=== PATIENT | female | born 2000 | race Caucasian/White ===

== ENCOUNTER → 2024-02-28 | Outpatient (CLI) | payer BC, SELFPAY ==
[2024-02-28 15:20] LABS: Absolute Neutrophil Count 5.6 X10^3/uL (2.0-7.7); Basophil# 0.03 X10^3/uL; Basophil% 0.4 % (0-1); Eosinophil# 0.08 X10^3/uL; Hematocrit 37.6 % (37-47); Hemoglobin 12.8 g/dL (12.0-15.0); Lymphocyte % 26.1 % (19-41); Mean Corpuscular Hgb 28.1 pg (27.0-32.0); Mean Corpuscular Volume 82.6 fL (81-99); Mean Platelet Vol. 9.3 fl (6.2-12.0); Monocyte# 0.43 X10^3/uL; Monocyte% 5.1 % (0-10); NRBC Flagged by Analyzer 0 % (0-5); Neutrophil # 5.64 X10^3/uL (2.7-7.7); Neutrophil % 66.9 % (47-70); Platelet Count 244 K/mm3 (150-450); RBC Distribution Width CV 12.4 % (11.6-14.6); RBC Distribution Width SD 37.1 fl (35.1-43.9); Red Blood Count 4.55 M/mm3 (4.2-5.4); White Blood Count 8.4 K/mm3 (4.4-11.0)
[2024-02-28 17:10] LABS: ALB/GLOB Ratio 1.1 RATIO (0.9-2.4); AST(SGOT) 47 U/L (15-37); Alanine Aminotransfer ALT/SGPT 89 U/L (13-56); Albumin, Serum 4.1 g/dL (3.2-5.0); Alkaline Phosphatase 82 U/L (45-117); Anion Gap 7 (5-15); BUN 19 mg/dL (7-18); Calcium,Total 10.2 mg/dL (8.5-10.1); Chloride 104 mmol/L (98-107); Cholesterol 177 mg/dL (200); EST Glomerular Filtration Rate 82 mL/min (>60); Est Glom Filt Rate - Afr Amer 99 mL/min (>60); Globulin 3.9 g/dL (2.2-4.2); Glucose 113 mg/dL (74-106); High Density Lipoprotein 36 mg/dL; Potassium 4.1 mmol/L (3.5-5.1); Sodium Level 137 mmol/L (136-145); T4 Free Direct 0.78 ng/dL (0.76-1.46); Triglycerides 339 mg/dL; Very Low Density Lipoprotein 68 mg/dL (5-40)
== END | disposition home or self-care (01) ==
LOC: BIMLAB 14:20
PROVIDERS: PCP Internal Medicine; Referring Provider Internal Medicine; Visit Provider Internal Medicine
DX: K21.9 Gastro-esophageal reflux disease without esophagitis (principal); Z13.6 Encounter for screening for cardiovascular disorders; Z13.29 Encounter for screening for other suspected endocrine disorder
CPT/HCPCS: 36415; 80053; 80061; 84439; 84443; 85025

== ENCOUNTER → 2024-05-26 | Outpatient (CLI) | payer BC, SELFPAY ==
[2024-05-26 12:53] LABS: ALB/GLOB Ratio 1.2 RATIO (0.9-2.4); AST(SGOT) 22 U/L (15-37); Alanine Aminotransfer ALT/SGPT 39 U/L (13-56); Albumin, Serum 4.5 g/dL (3.2-5.0); Alkaline Phosphatase 61 U/L (45-117); Anion Gap 6 (5-15); BUN 15 mg/dL (7-18); BUN/Creat Ratio 16.2 RATIO (10-20); Calcium,Total 9.6 mg/dL (8.5-10.1); Chloride 111 mmol/L (98-107); Cholesterol 172 mg/dL (200); Creatinine, Serum 0.92 mg/dL (0.55-1.02); EST Glomerular Filtration Rate 80 mL/min (>60); Est Glom Filt Rate - Afr Amer 96 mL/min (>60); Globulin 3.7 g/dL (2.2-4.2); Glucose 111 mg/dL (74-106); High Density Lipoprotein 36 mg/dL; Protein, Total 8.2 g/dL (6.4-8.2); Sodium Level 140 mmol/L (136-145); Triglycerides 142 mg/dL; Very Low Density Lipoprotein 28 mg/dL (5-40)
== END | disposition home or self-care (01) ==
PROVIDERS: PCP Internal Medicine; Referring Provider Internal Medicine; Visit Provider Internal Medicine
DX: E78.5 Hyperlipidemia, unspecified (principal); R74.8 Abnormal levels of other serum enzymes
CPT/HCPCS: 36415; 80053; 80061

== ENCOUNTER 2024-06-28 21:51 | Emergency (ER) | payer BC, SELFPAY ==
[2024-06-28 21:51] VITALS: BP 160/94; PULSE 99; RESP 12; TEMP 36.9; O2SAT 98; BMI 31.5
[2024-06-28] MEDS: Lidocaine 2% Viscous15 ML UDC 15 ML PO (22:40)
--- NOTE | 2024-06-28 22:40 | RAD_ITS ---
EXAM: XR SOFT TISSUE NECK CLINICAL INDICATION: pain TECHNIQUE: Frontal and lateral views of the soft tissues of the neck. COMPARISON: No relevant prior studies available. FINDINGS: AIRWAY: Unremarkable. Grossly patent. SOFT TISSUES: Unremarkable. No radiopaque foreign body. No pathologic thickening or enlargement of the epiglottis. RAD/Neck for Soft Tissue IMPRESSION: Negative neck x-rays. Electronically Signed: Clinton Price MD at 23:04 EST ,
[2024-06-28 22:54] VITALS: BP 160/94; PULSE 99; RESP 12; TEMP 36.9; O2SAT 98
--- NOTE | 2024-06-28 23:58 | EDS_ITS ---
HPI History of Present Illness Chief Complaint: Sore Throat Informant: patient and spouse/S.O. Narrative Narrative: Patient is a 23-year-old female with past medical history of GERD. She states that she her daughter and significant other all had nausea vomiting and diarrhea roughly 1 week ago. She states symptoms lasted for 1 to 2 days and then resolved. She states her daughter and her significant other have since improved. However she has had mild congestion and sore throat and hoarse voice. Symptoms or not resolving and secondary to this she comes in for evaluation [facility] Medical History (Updated 06/29/24 @ 00:[address] Kirby Child, DO) Blood glucose abnormal Hyperlipidemia Elevated liver enzymes Menstrual irregularity Screening for thyroid disorder Screening for cardiovascular condition GERD (gastroesophageal reflux disease) Preeclampsia Head ache Seasonal allergies Home Medications ?Medication ?Instructions ?Recorded ?Last Taken ?Type magnesium 200 mg tablet 420 mg PO QDAY 02/28/24 Unknown History kekzbkgu-xmr-zrld-FA-Ca carb-vit K 1 tab PO QDAY 02/28/24 Unknown History 18 mg iron-400 mcg-500 mg tablet omega-3 fatty acids 1,000 mg 2,500 mg PO QDAY 02/28/24 Unknown History capsule ondansetron 4 mg disintegrating 4 mg PO Q8H PRN nausea and 02/28/24 Unknown Rx tablet vomiting #60 tabs Allergy/AdvReac Type Severity Reaction Status Date / Time dexamethasone (From Decadron) Allergy Intermediate syncope Verified 06/28/24 21:52 metoclopramide (From Reglan) Allergy Intermediate anxious Verified 06/28/24 21:52 Family History Grandfather Diabetes Grandmother Diabetes Grandmother Myocardial infarction, Onset Age: 50 Surgical History History of ear surgery S/P ACL repair History of tonsillectomy Social History household members: spouse and children housing: house 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 Status: Never smoker alcohol intake: never substance use type: does not use what type of physical activity do you participate in: walking and weight training frequency: 3-4 times per week seatbelt use: always do you feel safe at home: Yes ROS ROS ED Constitutional Constitutional ED: Denies chills or fever(s) Eyes Eyes: Denies change in vision ENT ENT ED: Reports sore throat Cardiovascular Cardiovascular: Denies chest pain Respiratory/Chest Respiratory/Chest: Denies cough or dyspnea Gastrointestinal Gastrointestinal: Reports nausea; Denies abdominal pain, diarrhea or vomiting Genitourinary Genitourinary ED: Denies dysuria Musculoskeletal Musculoskeletal: Denies neck pain Integumentary Denies rash Neurologic Neurologic: Denies headache(s) Hematologic/Lymphatic Hematologic/Lymphatic: Denies easy bleeding or easy bruising Allergic/Immunologic Allergic/Immunologic ED: Denies mouth swelling or tongue swelling EXAM Physical Exam Const Vital Signs: 06/28/24 21:51 06/28/24 22:54 06/29/24 00:00 Temperature 98.4 F 98.4 F 98.4 F Temperature Source Oral Oral Pulse Rate 99 99 99 Respiratory Rate 12 12 14 Blood Pressure 160/94 H 160/94 H 122/57 H Blood Pressure Mean 116 116 78 Pulse Ox 98 98 98 Oxygen Delivery Method Room Air Room Air Positive well nourished and well developed General Appearance ED: well developed; Negative for pallor HEENT Reports moist mucous membranes HEENT Narrative: There is cobblestoning noted in the posterior pharynx consistent with sinus drainage Scattered/few herpangina lesions are noted across the posterior pharynx No hard palate petechiae. No trismus. No change in voice. No difficulty with secretions Eyes PERRL and EOMs intact bilaterally General Eye ED: Negative for scleral icterus Neck supple Neck Narrative: No brawny edema in the submental space to suggest Deric angina Positive anterior cervical lymphadenopathy noted Resp normal respiratory effort and clear to auscultation bilaterally Cardio regular rate and regular rhythm Extremity normal to inspection Neuro oriented x3, CN's II-XII intact bilaterally and no sensory deficits noted Sensorium / Orientation: alert Motor Exam: strength 5/5 throughout Psych mental status grossly normal Skin no rashes or lesions noted General Skin Exam: Negative for jaundice or pallor MDM MDM MDM Narrative Medical decision making narrative: Patient arrived to ER hypertensive but otherwise with stable vitals. She reported a sore throat after recent stomach infection. There is concern that her symptoms are related to COVID influenza or RSV versus strep pharyngitis. By exam she does not have signs of peritonsillar abscess. There is no brawny edema to suggest Deric's angina. In order to ensure she does not have epiglottitis a soft tissue neck x-ray was obtained. I do not feel the need for a CT scan as patient states she is able to swallow it is just painful to do so. Patient is x-ray revealed no acute findings and viral swab and strep swab are negative indicating patient has a viral pharyngitis. She is not showing septic changes by vital signs she does not have airway compromise and there is no signs of abscess formation so there is no need for further workup and she is otherwise safe for discharge with symptomatic care History & Record Review Discussion w/independent historian: Patient and Significant other Radiography Diagnostic Testing: Clinical Impression(s) from Imaging Studies Soft Tissue Neck X-Ray 06/28/24 22:40 IMPRESSION: Negative neck x-rays. Electronically Signed: Clinton Price MD at 23:04 EST Reading Location ID and State: [facility] / [place] Tel , Service support , Soft tissue neck x-ray as interpreted by the emergency medicine physician reveals no free air obstruction or signs of epiglottitis. Discharge Plan Triage Chief Complaint: Sore Throat ED Provider: Kirby Child Dx/Rx/DC Orders Clinical Impression: Viral pharyngitis, GERD (gastroesophageal reflux disease) Instructions: ED Pharyngitis, Viral, ED Viral Syndrome (Adult) Prescriptions: No Action to-uy-xmeo-FA-Ca carb-vit K 18 mg iron-400 mcg-500 mg tablet 1 tab PO QDAY omega-3 fatty acids 1,000 mg capsule 2,500 mg PO QDAY magnesium 200 mg tablet 420 mg PO QDAY ondansetron 4 mg tablet,disintegrating 4 mg PO Q8H PRN (Reason: nausea and vomiting) Qty: 60 1RF Primary Care Provider: Hector Gorman Referrals: Hector Gorman MD [Primary Care Provider] - Activity Restrictions/Additional Instructions: Your tests for COVID influenza RSV and strep were negative. Your x-ray shows no signs of swelling or epiglottitis. Please continue with Tylenol and/or Motrin as well as salt water gargles to help reduce symptoms and return to the ER should you have any further Print Language: Malagasy Disposition Disposition: Home, Self Care Discharge Date/Time: 06/29/24 00:03
[2024-06-29] VITALS: BP 122/57; PULSE 99; RESP 14; TEMP 36.9; O2SAT 98
== END 2024-06-29 00:03 | disposition home or self-care (01) ==
PROVIDERS: Emergency Provider Emergency Medicine; PCP Internal Medicine; Visit Provider Emergency Medicine
DX: J02.9 Acute pharyngitis, unspecified (principal); B08.5 Enteroviral vesicular pharyngitis; E78.5 Hyperlipidemia, unspecified; K21.9 Gastro-esophageal reflux disease without esophagitis; R11.0 Nausea; Z79.899 Other long term (current) drug therapy
CPT/HCPCS: 70360; 87631; 87651; 99282

== ENCOUNTER 2025-03-11 12:41 | Outpatient (CLI) | payer BC, SELFPAY ==
[2025-03-11 12:58] VITALS: BMI 35.9
[2025-03-11 13:12] VITALS: BP 120/62; PULSE 97
[2025-03-11 13:25] LABS: Hematocrit 31.6 % (37-47); Hemoglobin 11.5 g/dL (12.0-15.0); Mean Corp Hgb Conc 36.4 g/dL (32-36); Mean Corpuscular Volume 84.3 fL (81-99); Mean Platelet Vol. 10.6 fl (6.2-12.0); Platelet Count 161 K/mm3 (150-450); RBC Distribution Width CV 13.3 % (11.6-14.6); RBC Distribution Width SD 40.9 fl (35.1-43.9); Red Blood Count 3.75 M/mm3 (4.2-5.4); White Blood Count 10.6 K/mm3 (4.4-11.0)
[2025-03-11 13:27] VITALS: BP 124/67; PULSE 96
[2025-03-11 13:42] VITALS: BP 127/71; PULSE 96
[2025-03-11 13:54] LABS: AST(SGOT) 24 U/L (<=31); Alanine Aminotransfer ALT/SGPT 17 U/L (<=34); Estimated Creatinine Clearance 121.75 ml/min (50-250); Uric Acid 6.7 mg/dL (2.6-6.0)
[2025-03-11 13:55] LABS: Creatinine, Urine (random) 71.20 mg/dL (28.00-217.00); Protein, Urine (Random) 10.0 mg/dL (0.0-12.0); Protein:Creat Ratio 140 mg/g CRE (0-200)
[2025-03-11 13:57] VITALS: BP 117/64; PULSE 96
[2025-03-11 14:12] VITALS: BP 122/70; PULSE 98
--- NOTE | 2025-03-11 18:26 | OB.TRI.NOTE ---
HPI - General General Date of Admission: 03/11/25 Date of Service: 03/11/25 Chief Complaint: elevated bp HPI Narrative MARCELO LOZA, is a 24 F who presents Maternal Data Information Final ANDERSON: [birth year] Gestational age: 38 5/7 [facility] Medical History (Updated 09/07/24 @ 15:[address] Hector Gorman MD) TMJ arthralgia Left ear pain Blood glucose abnormal Hyperlipidemia Elevated liver enzymes Menstrual irregularity Screening for thyroid disorder Screening for cardiovascular condition GERD (gastroesophageal reflux disease) Preeclampsia Head ache Seasonal allergies Home Medications ?Medication ?Instructions ?Recorded ?Last Taken ?Type btbkhcbc-qeu-uzpz-FA-Ca carb-vit K 1 tab PO QDAY 02/28/24 03/10/25 08:00 History 18 mg iron-400 mcg-500 mg tablet 1 TAB aspirin 81 mg tablet,delayed 81 mg PO QDAY 09/07/24 03/10/25 21:00 History release (Adult Low Dose Aspirin) 81 mg famotidine 20 mg tablet (Pepcid) 20 mg PO DAILY 03/11/25 03/10/25 21:00 History 20 mg sertraline 25 mg tablet (Zoloft) 25 mg PO DAILY 03/11/25 03/10/25 21:00 History 25 mg Allergy/AdvReac Type Severity Reaction Status Date / Time dexamethasone (From Decadron) Allergy Intermediate syncope Verified 03/11/25 13:03 metoclopramide (From Reglan) Allergy Intermediate anxious Verified 03/11/25 13:03 Family History Grandfather Diabetes Grandmother Diabetes Grandmother Myocardial infarction, Onset Age: 50 Surgical History History of ear surgery S/P ACL repair History of tonsillectomy Social History household members: spouse and children housing: house 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
--- NOTE | 2025-03-11 18:28 | PCM.HP.OB ---
HPI - General General Date of Admission: 03/11/25 Date of Service: 03/11/25 Chief Complaint: elevated bp HPI Narrative MARCELO LOZA, is a 24 F who presents [facility] Medical History (Updated 09/07/24 @ 15:[address] Hector Gorman MD) TMJ arthralgia Left ear pain Blood glucose abnormal Hyperlipidemia Elevated liver enzymes Menstrual irregularity Screening for thyroid disorder Screening for cardiovascular condition GERD (gastroesophageal reflux disease) Preeclampsia Head ache Seasonal allergies Home Medications ?Medication ?Instructions ?Recorded ?Last Taken ?Type vcoloeit-lcg-muow-FA-Ca carb-vit K 1 tab PO QDAY 02/28/24 03/10/25 08:00 History 18 mg iron-400 mcg-500 mg tablet 1 TAB aspirin 81 mg tablet,delayed 81 mg PO QDAY 09/07/24 03/10/25 21:00 History release (Adult Low Dose Aspirin) 81 mg famotidine 20 mg tablet (Pepcid) 20 mg PO DAILY 03/11/25 03/10/25 21:00 History 20 mg sertraline 25 mg tablet (Zoloft) 25 mg PO DAILY 03/11/25 03/10/25 21:00 History 25 mg Allergy/AdvReac Type Severity Reaction Status Date / Time dexamethasone (From Decadron) Allergy Intermediate syncope Verified 03/11/25 13:03 metoclopramide (From Reglan) Allergy Intermediate anxious Verified 03/11/25 13:03 Family History Grandfather Diabetes Grandmother Diabetes Grandmother Myocardial infarction, Onset Age: 50 Surgical History History of ear surgery S/P ACL repair History of tonsillectomy Social History household members: spouse and children housing: house 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: Never smoker alcohol intake: never substance use type: does not use what type of physical activity do you participate in: walking and weight training frequency: 3-4 times per week seatbelt use: always do you feel safe at home: Yes Vital Signs Vital Signs Vital Signs: 03/11/25 13:12 03/11/25 13:12 03/11/25 13:27 Pulse Rate 97 Blood Pressure 120/62 124/67 H BP Systolic 120 124 BP Diastolic 62 67 03/11/25 13:27 03/11/25 13:42 03/11/25 13:42 Pulse Rate 96 96 Blood Pressure 127/71 H BP Systolic 127 BP Diastolic 71 03/11/25 13:57 03/11/25 13:57 03/11/25 14:12 Pulse Rate 96 Blood Pressure 117/64 122/70 H BP Systolic 117 122 BP Diastolic 64 70 03/11/25 14:12 Pulse Rate 98 Blood Pressure BP Systolic BP Diastolic Weight Weight: 86.1 kg Body Mass Index (BMI) 35.9 Labs Labs Labs: Hct, (37-47) 31.6 % L Hgb, (12.0-15.0) 11.5 g/dL L
== END 2025-03-11 14:35 | disposition home or self-care (01) ==
LOC: WPOUT 12:54 → WP 12:55
PROVIDERS: PCP Internal Medicine; Referring Provider Obstetrics & Gynecology; Visit Provider Obstetrics & Gynecology
DX: O26.893 Other specified pregnancy related conditions, third trimester (principal); O09.93 Supervision of high risk pregnancy, unspecified, third trimester; R03.0 Elevated blood-pressure reading, without diagnosis of hypertension; Z3A.38 38 weeks gestation of pregnancy; Z79.82 Long term (current) use of aspirin; Z79.899 Other long term (current) drug therapy
CPT/HCPCS: 36415; 59025; 59050; 82565; 82570; 84156; 84450; 84460; 84550; 85027; 99221; G0378

== ENCOUNTER 2025-03-15 07:14 | Inpatient (IN) | payer BC, SELFPAY ==
[2025-03-15] VITALS (50 sets, daily range): BP systolic 100–138; BP diastolic 53–85; PULSE 68–112; RESP 16; TEMP 36.1–36.8; O2SAT 98–100; BMI 36.1
--- OUTSIDE RECORDS SUMMARY | 2025-03-15 07:14 | XMS RPT_ITS | CCD ---
Author Organization [facility] ion [facility] Care Team Providers Care [employer] Programs Director Name Role Phone Conner Escalera Unavailable Unavailable Unavailable Unavailable SAI DELGADO Unavailable Unavailable SAI DELGADO Unavailable Unavailable NO PRIMARY CARE, Unavailable Unavailable KARIS WAGGONER Unavailable Unavailable KARIS WAGGONER Unavailable Unavailable Ricardo Dewitt Primary Care Provider [phone] CLINTON RIDER Attending Unavailable NOT ON FILE, DOCTOR Referring Unavailable CONNER ESCALERA Primary Care Unavailable Conner Escalera Primary Care Provider Liborio Tan Primary Care Provider Everardo Chan Unavailable Liborio Tan MD Primary Care Provider Everardo Chan MD Unavailable DAVIDA URRUTIA Attending UnavailYULIANA Salinas Referring Unavailable YVONNE, LUTHERAN SEunice Primary Care Unavailable Liborio Tan MD Primary Care Provider Liborio Tan MD Primary Care Provider Conner Escalera MD Primary Care Provider [phone] KASSY BECERRIL Admitting Unavailable KASSY BECERRIL Attending Unavailable KASSY BECERRIL Referring Unavailable AWASTY, CONNER R Primary Care Unavailable MARIZA KHANNA Attending Unavailable MARIZA KHANNA Referring Unavailable AWASTY, CONNER R Primary Care Unavailable YVONNE, LUTHERAN BYRON Primary Care Unavailable SHELLY SANDY Attending Unavailable BALL, SHELLY MACK Attending Unavailable YVONNE, LUTHERAN BYRON Primary Care Unavailable EM CHENEY Admitting Unavailable EM CHENEY Attending Unavailable YVONNE, LUTHERAN BYRON Primary Care Unavailable YVONNE, LUTHERAN BYRON Primary Care Unavailable MAURICE RHOADES Attending Unavailable YVONNE, LUTHERAN BYRON Primary Care Unavailable EDWIN JAFFE Attending Unavailable YVONNE, LUTHERAN BYRON Primary Care Unavailable YVONNE, LUTHERAN BYRON Primary Care Unavailable YVONNE, LUTHERAN BYRON Admitting Unavailable YVONNE, LUTHERAN BYRON Primary Care Unavailable HEAVENLY HELTON Attending Unavaila ble SALVADOR KONG Admitting Unavailable SALVADOR KONG Attending Unavailable YVONNE, LUTHERAN BYRON Primary Care Unavailable SALVADOR KONG Admitting Unavailable SALVADOR KONG Attending Unavailable YVONNE, LUTHERAN BYRON Primary Care Unavailable EDWIN JAFFE Attending Unavailable YVONNE, LUTHERAN BYRON Primary Care Unavailable PHYSICIAN, NOT RECORDED Primary Care Physician U navailable SHORT CAR BODY DESIGNER-DATA MANAGEMENT ENGINEER, AVALON Attending Unavail able PHYSICIAN, NOT RECORDED Primary Care Unavaila ble SHORT CAR BODY DESIGNER-DATA MANAGEMENT ENGINEER, AVALON Attending Unavail able PHYSICIAN, NOT RECORDED Primary Care Unavaila ble SHORT CAR BODY DESIGNER-[facility], AVALON Attending Unavail able PHYSICIAN, NOT RECORDED Primary Care Unavaila ble Unavailable Primary Care Provider Unavailabl e SHORT CAR BODY DESIGNER-[facility] Attending Unavail able PHYSICIAN, NOT RECORDED Primary Care Unavaila ble SHORT CAR BODY DESIGNER-DATA MANAGEMENT ENGINEER, AVALON Attending Unavail able PHYSICIAN, NOT RECORDED Primary Care Unavaila ble PHYSICIAN, NOT RECORDED Primary Care Unavaila ble SHORT CAR BODY DESIGNER-DATA MANAGEMENT ENGINEER AVALON Attending Unavail able SOPHY DENNEY Attending Unavailable MARCIA VALDERRAMA Referring Unavailable MARCIA VALDERRAMA Attending Unavailable HAURY, MELITA Referring Unavailable HAURY, MELITA Referring Unavailable SALLIE, MARY Referring Unavailable SALLIE, MARY Referring Unavailable HAURY MELITA Attending Unavailable MARCIA VALDERRAMA Attending Unavailable HAURY, MELITA Referring Unavailable SHELLY GUZMAN Attending Unavailable SOPHY DENNEY Attending Unavailable CASSY CONWAY Attending Unavail able DELANEY CRAFT Attending Unavailable DYLLAN HENRY Attending Unavailable HAURY, MELITA Referring Unavailable DYLLAN HENRY Attending Unavailable HAURY, MELITA Referring Unavailable CASSY CONWAY Attending Unavail able HAURY, MELITA Referring Unavailable HAURY, MELITA Referring Unavailable SOPHY DENNEY Attending Unavailable MARY RIZO Attending Unavailable MARCIA VALDERRAMA Attending Unavailable Vita ROCHE, Dr. Young Primary Care Physician Elaine ROCHE, Dr. Leggett Attending Physician Elaine ROCHE, Dr. Leggett Referring Provider Oleghe, Efewongbe Primary Care Unavailable Shelly Guzman Attending Unavailable Shelly Guzman Admitting Unavailable Oleghe, Efewongbe Referring Unavailable Oleghe, Efewongbe Attending Unavailable Oleghe, Efewongbe Primary Care Unavailable Oleghe, Efewongbe Primary Care Unavailable Oleghe, Efewongbe Referring Unavailable Oleghe, Efewongbe Attending Unavailable Oleghe, Efewongbe Primary Care Unavailable Dyllan Henry Referring Unavailable Dyllan Henry Attending Unavailable Oleghe, Efewongbe Referring Unavailable Oleghe, Efewongbe Attending Unavailable Oleghe, Efewongbe Primary Care Unavailable Kirby Child Attending Unavailable Oleghe, Efewongbe Primary Care Unavailable Allergies Allergy Classification Reported Allergen(s) Allergy Type Date of Onset Reaction(s) Facility Ondansetron (2 sources) Ondansetron; Translations: [ONDANSETRON HCL] Drug Allergy 7 Anxiety [facility] (20 sources) ondansetron; Translations: [ONDANSETRON HCL] Drug Allergy 7 Anxiety, Mental Status Change [facility] Work Phone: (5 sources) Metoclopramide; Translations: [METOCLOPRAMIDE HCL] Drug Allergy 2 Anxiety [facility] (20 sources) Dexamethasone; Translations: [dexamethasone] Drug Allergy [address] [facility] Comment on above: vomitting (20 sources) Metoclopramide; Translations: [metoclopramide] Drug Allergy 2 Itching, Mental Status Change [facility] (2 sources) Dexamethasone / sodium phosphate; Translations: [DEXAMETHASONE SODIUM PHOSPHATE] Drug Allergy 3 [facility] (1 source) Dexamethasone Drug Allergy 5 [facility] (1 source) Metoclopramide Drug Allergy 5 [facility] Medications Current Medications Medication Drug Class(es) Dates Sig (Normalized) Sig (Original) 60 actuat albuterol 0.09 mg/actuat metered dose inhaler (13 sources) beta2-Adrenergic Agonist Start: 01-28-2017 End: 01-28-2018 albuterol (PROAIR HFA) 90 mcg/actuation inhaler Indications: Mild intermittent asthma without complication Inhale 2 (two) puffs 2 (two) times a day as needed. 1 Inhaler 2 01/28/2017 01/28/2018 Active Start: 05-24-2016 take 2 puff(s) by in halation every six hours albuterol 90 mcg/actuation inhaler Inhale 2 (two) puffs every 6 (six) hours . 0 05/24/2016 Active Start: 05-24-2016 Albuterol Sulf ate (PROAIR HFA IN) take 2 puffs by inhalation.. At least 15 minutes before exertion 0 05/24/2016 Active Start: 05-24-2016 take 2 puff(s) by in halation every six hours albuterol 90 mcg/actuation inhaler Inhale 2 puffs every 6 (six) hours . 0 05/24/2016 Active End: 01-28-2017 take 2 puff(s) by inhalation twice daily as needed ALBUTEROL SULFATE (PROAIR HFA INHL) Inhale 2 puffs 2 (two) times a day as needed. 01/28/2017 Discontinued albuterol 90 mcg/actuation inhaler (3 sources) Start: 05-24-2016 take 2 puff(s) by inhalation every six hours albuterol 90 mcg/actuation inhaler Inhale 2 puffs every 6 (six) hours . 0 05/24/2016 Active aspirin 81 mg delayed release oral tablet (20 sources) Platelet Aggregation Inhibitor, Nonsteroidal Anti-inflammatory Drug Start: 07-27-2024 Aspirin (Adult Low Dose Aspirin) 81 mg tablet,delayed release (DR/EC) Active 81 mg PO daily September 07, 2024 12:00am Complies with drug therapy aspirin 81 mg ch ewable tablet Chew and Swallow 1 (one) tablet (81 mg total) daily . 0 Active cetirizine hydrochloride 10 mg oral tablet (1 source) Histamine-1 Receptor Antagonist Start: 05-24-2016 cetirizine 10 MG Tab take 10 mg by mouth daily.. 0 05/24/2016 Active cholecalciferol 0.125 mg oral tablet (8 sources) Vitamin D Start: 08-22-2018 take 1 tablet by mouth once daily cholecalciferol, vitamin D3, (VITAMIN D3) 5,000 unit Tab tablet Indications: Vitamin D deficiency Take 1 (one) tablet (5,000 Units total) by mouth daily Take one tablet daily after completing 8 weeks of 50,000 units Vitamin D weekly . 90 tablet 0 08/22/2018 Active drospirenone / Ethinyl Estradiol (5 sources) Progestin, Estrogen take 1 tablet by mouth once daily, then take 3 tablets by mouth once drospirenone-eth inyl estradioL (KAREN) 3-0.03 mg per tablet Take 1 (one) tablet by mouth daily . 0 Active take 1 tablet by ryan th once daily, then take 3 tablets by mouth once drospirenone-ethinyl estradioL (KAREN) 3-0.03 mg per tablet Take 1 tablet by mouth daily . 0 Active ergocalciferol 1.25 mg oral capsule (8 sources) Provitamin D2 Compound Start: 08-22-2018 take 1 capsule by mouth every week ergocalciferol (ERGOCALCIFEROL) 50,000 unit capsule Indications: Vitamin D deficiency Take 1 (one) capsule (50,000 Units total) by mouth once a week X 8 weeks . 8 capsule 0 08/22/2018 Active famotidine 20 mg oral tablet (17 sources) Histamine-2 Receptor Antagonist Start: 03-11-2025 take 1 tablet by mouth once daily Famotidine (Pepcid) 20 mg tablet Active 20 mg PO DAILY March 11, 2025 12:00am Complies with drug therapy Start: 10-21-2024 End: 02-17-2025 take 1 tablet by mouth twice daily famotidine (PEPCID) 20 mg tablet Take 1 tablet by mouth two times a day. 60 tablet 1 02/17/2025 Active Start: 06-25-2022 End: 07-25-2022 take 1 tablet by mouth twice daily famotidine (PEPCID) 20 MG tablet Take 1 (one) tablet (20 mg total) by mouth 2 (two) times a day . 60 tablet 0 06/25/2022 07/25/2022 Active Start: 07-01-2020 End: 07-01-2020 famotidine (PEPCID) injectio n 20 mg fluticasone propionate 0.05 mg/actuat metered dose nasal spray (16 sources) Corticosteroid Start: 01-28-2017 End: 03-08-2017 take 2 spray(s) nasal route once daily fluticasone (FLONASE) 50 mcg/actuation nasal spray Indications: Mild intermittent asthma without complication Instill 2 (two) sprays into each nostril daily. 16 g 2 03/08/2017 Active End: 01-28-2017 take 2 spray(s) nasal route once daily fluticasone (FLONASE) 50 mcg/actuation nasal spray Instill 2 sprays into each nostril daily. 01/28/2017 Discontinued ibuprofen 600 mg oral tablet (1 source) Nonsteroidal Anti-inflammatory Drug Start: 05-24-2016 take 1 tablet by mouth at mealtime ibuprofen 600 MG Tab take 600 mg by mouth 3 times daily.. With food 0 05/24/2016 Active loratadine 10 mg oral tablet (16 sources) Start: 01-28-2017 End: 03-08-2017 take 1 tablet by mouth once daily loratadine (CLARITIN) 10 mg tablet Indications: Mild intermittent asthma without complication Take 1 (one) tablet (10 mg total) by mouth daily. 90 tablet 0 03/08/2017 Active Misc. Devices (WRIST BRACE) Misc (1 source) Start: 05-05-2015 Misc. Devices (WRIST BRACE) Misc Apply 1 each by misc. (non-drug; comb) route every bedtime 0 05/05/2015 Active Eh-Zt-Xsyg-Fa-Ca Carb-Vit K 18 mg iron-400 mcg-500 mg tablet (1 source) Start: 02-28-2024 Xe-Vw-Zwyc-Fa-Ca Carb-Vit K 18 mg iron-400 mcg-500 mg tablet Active 1 {tbl} PO daily February 28, 2024 12:00am Complies with drug therapy vitamin (2 sources) Start: 10-03-2023 vitamin vitamin, 0 Refill(s), 75 Start Date: 10/03/23 Status: Ordered MV-Min-Fe Fum-FA-DHA ( 1 PO) (1 source) MV-Min-Fe Fum-FA-DHA ( 1 PO) Take by mouth. 0 Active no115/iron/folic acid ( 19 ORAL) (20 sources) no115/iron/folic acid ( 19 ORAL) Take by mouth once daily. Active Vitamin 27 mg iron- 0.8 mg Tab (1 source) Start: 07-04-2022 Vitamin 27 mg iron- 0.8 mg Tab sertraline 25 mg oral tablet (17 sources) Serotonin Reuptake Inhibitor Start: 03-11-2025 take 1 tablet by mouth once daily Sertraline (Zoloft) 25 mg tablet Active 25 mg PO DAILY March 11, 2025 12:00am Complies with drug therapy Start: 11-19-2024 take 1 tablet by ryan th once daily sertraline (ZOLOFT) 25 mg tablet Indications: Anxiety Take 1 tablet by mouth once daily. 90 tablet 1 11/19/2024 Active Start: 10-03-2023 Zoloft 50 mg o ral tablet Dose : 50 mg = 1 tab(s), Oral, qDay, # 30 tab(s), 11 Refill(s), Pharmacy: [id number], Dysthymic disorder Mood changes, 158, cm, 10/03/23 14:07:00 EDT, Height, kg, 10/03/23 14:07:00 EDT, Dosing Weight Start Date: 10/03/23 Status: Ordered Start: 07-01-2023 sertraline 50 mg oral tablet Dose : 50 mg = 1 tab(s), Oral, qDay, # 90 tab(s), 0 Refill(s) Start Date: 07/01/23 Status: Ordered take 1 tablet by ryan th once daily sertraline 50 MG tablet Take 50 mg by mouth daily. 0 Active sodium chloride 0.111 meq/ml nasal spray (4 sources) Start: 05-11-2022 End: 05-11-2023 sodium chloride (Saline Mist ) 0.65 % nasal spray Indications: rhinitis Instill 1 (one) spray into each nostril as needed for congestion . 15 mL 12 05/11/2022 05/11/2023 Active Start: 07-01-2020 End: 07-01-2020 sodium chloride 0.9% (NS) joselin carlie 1,000 mL Start: 07-01-2020 End: 07-01-2020 sodium chloride (PF) (NS) fl ush 5 mL sodium chloride-aloe vera Gel (2 sources) Start: 05-11-2022 apply 14.1 g nasal route twice daily sodium chloride-aloe vera Gel Indications: Epistaxis Apply topically 2 (two) times a day To the inside of both nostrils . 14.1 g 6 05/11/2022 Active Spacer/Aero Chamber Mouthpiece Misc (1 source) Start: 05-31-2014 Spacer/Aero Chamber Mouthpiece Misc Use as directed with inhaler 0 05/31/2014 Active tiZANidine 4 mg oral tablet (5 sources) Central alpha-2 Adrenergic Agonist Start: 10-18-2020 take 1 tablet by mouth once daily at bedtime tiZANidine (Zanaflex) 4 MG tablet Indications: Migraine with aura, not intractable, without status migrainosus Take 1/2 to 1 tablet po qhs. . 30 tablet 3 10/18/2020 Active Completed/Discontinued Medications Medication Drug Class(es) Dates Sig (Normalized) Sig (Original) acetaminophen 500 mg oral tablet (1 source) Start: 05-29-2022 End: 05-29-2022 take 1 tablet by mouth every four hours as needed acetaminophen (TYLENOL) tablet 1,000 mg calcium carbonate 500 mg chewable tablet (1 source) Start: 05-29-2022 End: 05-29-2022 calcium carbonate (TUMS) tablet 1,000 mg Start: 05-29-2022 End: 05-29-2022 calcium carbonate (TUMS) tab let 1,000 mg diphenhydrAMINE (1 source) Histamine-1 Receptor Antagonist Start: 07-01-2020 End: 07-01-2020 diphenhydrAMINE (BENADRYL) injection 12.5 mg Magnesium (2 sources) Start: 02-28-2024 End: 09-07-2024 Magnesium 200 mg tablet Discontinued 420 mg PO daily February 28, 2024 1:48pm September 07, 2024 2:45pm Start: 02-28-2024 End: 02-28-2024 take 1 tablet by mouth once daily Magnesium 200 mg tablet Discontinued 200 mg PO daily February 28, 2024 12:00am February 28, 2024 1:48pm 2 ml metoclopramide 5 mg/ml injection (1 source) Dopamine-2 Receptor Antagonist Start: 07-01-2020 End: 07-01-2020 metoclopramide (REGLAN) injection 10 mg metroNIDAZOLE 0.0075 mg/mg vaginal gel (5 sources) Nitroimidazole Antimicrobial Start: 07-20-2024 End: 07-27-2024 metroNIDAZOLE (METROGEL VAGINAL) 0.75 % (37.5mg/5 gram) Vaginal Gel Indications: Bacterial vaginosis Use 1 Applicatorful vaginally daily at bedtime for 5 days. 70 g 07/20/2024 07/27/2024 Discontinued Start: 07-20-2024 End: 07-20-2024 metroNIDAZOLE (METROGEL VAGI NAL) 0.75 % (37.5mg/5 gram) Vaginal Gel Indications: Bacterial vaginosis Use 1 Applicatorful vaginally two times a day for 5 days. 70 g 07/20/2024 07/20/2024 Discontinued Start: 07-20-2024 End: 07-20-2024 take 1 tablet by mouth twice daily metroNIDAZOLE (FLAGYL) 500 mg tablet Indications: Bacterial vaginosis Take 1 tablet by mouth two times a day for 7 days. 14 tablet 07/20/2024 07/20/2024 Discontinued Start: 04-13-2024 End: 04-20-2024 metroNIDAZOLE 500 mg oral ta blet Dose : 500 mg = 1 tab(s), Oral, BID, X 7 day(s), # 14 tab(s), 0 Refill(s), 04/20/24 2:19:00 PM EDT, Pharmacy: [facility], Bacterial vaginitis, 158, cm, 04/09/24 8:45:00 EDT, Height, 79.5, kg, 04/09/24 8:45:00 EDT, Dosing Weight Start Date: 04/13/24 Stop Date: 04/20/24 Status: Ordered Hastings-3 Fatty Acids 1,000 mg capsule (2 sources) Start: 02-28-2024 End: 09-07-2024 take 1 capsule by mouth once daily Hastings-3 Fatty Acids 1,000 mg capsule Discontinued 2500 mg PO daily February 28, 2024 1:47pm September 07, 2024 2:45pm Start: 02-28-2024 End: 02-28-2024 take 1 capsule by mouth once daily Hastings-3 Fatty Acids 1,000 mg capsule Discontinued 1000 mg PO daily February 28, 2024 12:00am February 28, 2024 1:48pm omeprazole 40 mg delayed release oral capsule (2 sources) Proton Pump Inhibitor Start: 02-28-2024 End: 06-28-2024 take 1 capsule by mouth once daily 30 minutes before breakfast Omeprazole 40 mg capsule,delayed release(DR/EC) Discontinued 40 mg PO daily 90 May 27, 2024 6:32pm June 28, 2024 11:17pm 30 minutes before breakfast ondansetron 4 mg disintegrating oral tablet (3 sources) Serotonin-3 Receptor Antagonist Start: 02-28-2024 End: 09-07-2024 take 1 tablet by mouth every eight hours as needed for nausea and vomiting Ondansetron 4 mg tablet,disintegratin g Discontinued 4 mg PO Q8H as needed for nausea and vomiting 60 1 February 28, 2024 12:00am September 07, 2024 2:45pm Start: 03-30-2022 take 1 tablet by ryan th every eight hours as needed ondansetron (ZOFRAN) 8 MG tablet Take 1 (one) tablet (8 mg total) by mouth every 8 (eight) hours as needed . 20 tablet 0 03/30/2022 Active Problems Active Problems Problem Classification Problem Date Documented Date Episodic/Chronic Anxiety disorders (17 sources) Anxiety; Translations: [Anxiety disorder, unspecified] Onset: 11-19-2024 11-19-2024 Chronic Asthma (14 sources) Asthma; Translations: [Unspecified asthma, uncomplicated] Onset: 01-28-2017 01-28-2017 Chronic Disorders of lipid metabolism (2 sources) Hyperlipidemia; Translations: [Hyperlipidemia, unspecified] Onset: 06-25-2024 02-28-2024 Chronic Disorders of teeth and jaw (1 source) Arthralgia of temporomandibular joint; Translations: [Arthralgia of temporomandibular joint, unspecified side] 09-07-2024 Episodic Esophageal disorders (3 sources) Gastro-esophageal reflux disease without esophagitis; Translations: [Gastroesophageal reflux disease] Onset: 06-25-2022 Chronic Essential hypertension (2 sources) Hypertensive disorder Onset: 07-13-2022 Chronic Genitourinary symptoms and ill-defined conditions (3 sources) Unspecified symptoms and signs involving the genitourinary system; Translations: [Dysuria] Onset: 04-09-2024 Episodic Headache; including migraine (6 sources) Migraine with aura; Translations: [Migraine with aura, not intractable, without status migrainosus] Onset: 10-18-2020 Chronic Headache; including migraine (2 sources) Headache; including migraine; Translations: [Headache, unspecified] Onset: 02-01-2022 Immunizations and screening for infectious disease (1 source) Patient encounter status; Translations: [Encounter for screening for infections with a predominantly sexual mode of transmission] 07-27-2024 Episodic Inflammatory diseases of female pelvic organs (3 sources) Acute vaginitis; Translations: [Bacterial vaginosis] Onset: 04-09-2024 Episodic Intracranial injury (1 source) Concussion with less than 1 hour loss of consciousness; Translations: [Concussion with loss of consciousness of 30 minutes or less, initial encounter] Episodic Joint disorders and dislocations; trauma-related (1 source) Unspecified internal derangement of left knee; Translations: [Unspecified internal derangement of left knee] Onset: 06-07-2017 Chronic Menstrual disorders (5 sources) Amenorrhea; Translations: [Amenorrhea, unspecified] Onset: 02-06-2022 Chronic Mood disorders (1 source) Depressive disorder; Translations: [Other depression] Chronic Mood disorders (1 source) Mood swings; Translations: [Emotional lability] Episodic Other complications of ; puerperium affecting management of mother (2 sources) Other specified complications of labor and delivery; Translations: [Other specified complications of labor and delivery] Onset: 10-19-2022 Episodic Other complications of (20 sources) Maternal obesity complicating , childbirth and the puerperium, antepartum; Translations: [Obesity complicating , first trimester] Onset: 07-27-2024 07-27-2024 Chronic Other complications of (1 source) Obesity complicating , first trimester; Translations: [Obesity affecting in first trimester, unspecified obesity type (HCC)] Onset: 07-27-2024 Chronic Other complications of (2 sources) Rhinitis of ; Translations: [Diseases of the respiratory system complicating , unspecified trimester] Episodic Other complications of (2 sources) Diseases of the respiratory system complicating , unspecified trimester; Translations: [Diseases of the respiratory system complicating , unspecified trimester] Onset: 05-11-2022 Episodic Other complications of (20 sources) High risk ; Translations: [Supervision of high risk , unspecified, first trimester] Onset: 07-27-2024 07-27-2024 Episodic Other complications of (1 source) Supervision of high risk , unspecified, third trimester; Translations: [Supervision of high risk in third trimester (HCC)] Onset: 01-26-2025 Episodic Other ear and sense organ disorders (1 source) Otalgia; Translations: [Otalgia, unspecified laterality] Episodic Other ear and sense organ disorders (1 source) Bilateral earache; Translations: [Otalgia, bilateral] Episodic Other ear and sense organ disorders (1 source) Otalgia, right ear; Translations: [Otalgia, unspecified] Episodic Other ear and sense organ disorders (1 source) Otalgia, left ear; Translations: [Left ear pain] 09-07-2024 Episodic Other endocrine disorders (2 sources) Hypoglycemia, unspecified; Translations: [Hypoglycemia, unspecified] Onset: 02-06-2022 Chronic Other female genital disorders (1 source) Vaginal irritation; Translations: [Other specified noninflammatory disorders of vagina] 07-17-2024 Episodic Other female genital disorders (1 source) Vaginal odor; Translations: [Other specified noninflammatory disorders of vagina] 07-17-2024 Episodic Other liver diseases (1 source) Elevated liver enzymes level; Translations: [Abnormal levels of other serum enzymes] 02-28-2024 Episodic Other and delivery including normal (20 sources) Encounter for supervision of normal , unspecified, unspecified trimester; Translations: [ test positive] Onset: 10-19-2022 Resolved: 01-26-2025 Episodic Other screening for suspected conditions (not mental disorders or infectious disease) (7 sources) Encounter for screening for malignant neoplasm of cervix; Translations: [Cancer cervix screening status] Onset: 07-01-2023 Episodic Other upper respiratory disease (2 sources) Chronic rhinitis; Translations: [Chronic rhinitis] Onset: 05-11-2022 Chronic Other upper respiratory disease (3 sources) Bleeding from nose; Translations: [Epistaxis] Onset: 05-11-2022 Episodic Other upper respiratory disease (1 source) Epistaxis; Translations: [Epistaxis] Onset: 05-11-2022 Episodic Otitis media and related conditions (1 source) Otitis media of bilateral ears; Translations: [Bilateral otitis media, unspecified otitis media type] Residual codes; unclassified (1 source) H/O: Disorder; Translations: [History of dizziness] Episodic Residual codes; unclassified (2 sources) Pain, unspecified; Translations: [Pain, unspecified] Onset: 10-19-2022 Episodic Residual codes; unclassified (1 source) Gestation period, 11 weeks; Translations: [11 weeks gestation of ] 08-26-2024 Episodic Residual codes; unclassified (1 source) Gestation period, 10 weeks; Translations: [10 weeks gestation of ] 08-26-2024 Episodic Residual codes; unclassified (1 source) Gestation period, 18 weeks; Translations: [18 weeks gestation of ] 10-21-2024 Episodic Residual codes; unclassified (1 source) Gestation period, 22 weeks; Translations: [22 weeks gestation of ] 11-19-2024 Episodic Residual codes; unclassified (1 source) Gestation period, 26 weeks; Translations: [26 weeks gestation of ] 12-17-2024 Episodic Residual codes; unclassified (1 source) Gestation period, 28 weeks; Translations: [28 weeks gestation of ] 12-30-2024 Episodic Residual codes; unclassified (1 source) Gestation period, 30 weeks; Translations: [30 weeks gestation of ] 01-12-2025 Episodic Residual codes; unclassified (1 source) Gestation period, 34 weeks; Translations: [34 weeks gestation of ] 02-09-2025 Episodic Residual codes; unclassified (1 source) Gestation period, 36 weeks; Translations: [36 weeks gestation of ] 02-26-2025 Episodic Residual codes; unclassified (1 source) Gestation period, 37 weeks; Translations: [37 weeks gestation of ] 03-04-2025 Episodic Residual codes; unclassified (1 source) 38 weeks gestation of ; Translations: [38 weeks gestation of (HCC)] Onset: 03-11-2025 Episodic Residual codes; unclassified (1 source) 37 weeks gestation of ; Translations: [37 weeks gestation of (HCC)] Onset: 03-04-2025 Episodic Residual codes; unclassified (1 source) 36 weeks gestation of ; Translations: [36 weeks gestation of (HCC)] Onset: 02-26-2025 Episodic Residual codes; unclassified (1 source) 34 weeks gestation of ; Translations: [34 weeks gestation of (HCC)] Onset: 02-09-2025 Episodic Residual codes; unclassified (1 source) 32 weeks gestation of ; Translations: [32 weeks gestation of (HCC)] Onset: 01-26-2025 Episodic Residual codes; unclassified (1 source) 30 weeks gestation of ; Translations: [30 weeks gestation of (HCC)] Onset: 01-12-2025 Episodic Residual codes; unclassified (1 source) 28 weeks gestation of ; Translations: [28 weeks gestation of (HCC)] Onset: 12-30-2024 Episodic Residual codes; unclassified (1 source) 22 weeks gestation of ; Translations: [22 weeks gestation of (HCC)] Onset: 12-17-2024 Episodic Residual codes; unclassified (1 source) 26 weeks gestation of ; Translations: [26 weeks gestation of (HCC)] Onset: 12-17-2024 Episodic Unclassified (1 source) Cough, unspecified; Translations: [Cough, unspecified] Onset: 02-01-2022 Unclassified (2 sources) Decreased Movement Onset: 10-06-2022 Unclassified (20 sources) [facility] Education - COMMON Onset: 07-27-2024 07-27-2024 Unclassified (20 sources) Education - [place] Onset: 07-27-2024 07-27-2024 Viral infection (2 sources) Mononucleosis syndrome; Translations: [Other specified viral infection] Episodic Past or Other Problems Problem Classification Problem Date Documented Da te Episodic/Chronic Abdominal pain (15 sources) Abdominal pain; Translations: [Unspecified abdominal pain] Onset: 03-08-2017 03-08-2017 Episodic Conditions associated with dizziness or vertigo (9 sources) Dizziness; Translations: [Vertigo] Onset: 10-16-2020 Episodic Diabetes mellitus without complication (2 sources) Blood glucose abnormal; Translations: [Other abnormal glucose] Onset: 05-27-2024 05-27-2024 Episodic Fluid and electrolyte disorders (4 sources) Hypokalemia; Translations: [Dehydration] Onset: 03-30-2022 Episodic Headache; including migraine (7 sources) Headache; Translations: [Chronic daily headache] Onset: 10-16-2020 Episodic Malaise and fatigue (17 sources) Fatigue; Translations: [Other fatigue] Onset: 01-28-2017 01-28-2017 Episodic Nausea and vomiting (10 sources) Nausea and vomiting; Translations: [Bilious vomiting] Onset: 02-01-2022 Episodic Noninfectious gastroenteritis (1 source) Gastroenteritis Episodic Other complications of (2 sources) Mild hyperemesis gravidarum; Translations: [Mild hyperemesis gravidarum] Onset: 03-30-2022 Episodic Other complications of (20 sources) Diseases of the digestive system complicating , first trimester; Translations: [Other current conditions classifiable elsewhere of mother, antepartum condition or complication] Onset: 07-27-2024 07-27-2024 Episodic Other complications of (20 sources) Vomiting of , unspecified; Translations: [Unspecified vomiting of , unspecified as to episode of care or not applicable] Onset: 07-27-2024 Resolved: 10-21-2024 07-27-2024 Episodic Other complications of (15 sources) Heartburn; Translations: [Other specified related conditions, second trimester] Onset: 10-21-2024 10-21-2024 Episodic Other complications of (1 source) Other specified related conditions, second trimester; Translations: [Heartburn during in second trimester (HCC)] Onset: 11-19-2024 Episodic Other female genital disorders (20 sources) Lesion of vulva; Translations: [Other specified noninflammatory disorders of vulva and perineum] Onset: 07-27-2024 07-27-2024 Episodic Other gastrointestinal disorders (1 source) Splenomegaly Episodic Other gastrointestinal disorders (1 source) Heartburn; Translations: [Heartburn during in second trimester (HCC)] Onset: 11-19-2024 Episodic Other injuries and conditions due to external causes (1 source) Unspecified injury of left lower leg, initial encounter; Translations: [Unspecified injury of left lower leg, initial encounter] Onset: 06-07-2017 Episodic Other lower respiratory disease (1 source) Dyspnea; Translations: [Dyspnea, unspecified] Onset: 05-31-2014 10-15-2016 Episodic Other nervous system disorders (20 sources) H/O: visual disturbance; Translations: [Personal history of other diseases of the nervous system and sense organs] Onset: 07-27-2024 Resolved: 02-09-2025 07-27-2024 Episodic Other non-traumatic joint disorders (1 source) Effusion, left knee; Translations: [Effusion, left knee] Onset: 06-07-2017 Episodic Other upper respiratory disease (2 sources) Other specified disorders of nose and nasal sinuses; Translations: [Other specified disorders of nose and nasal sinuses] Onset: 02-01-2022 Episodic Other upper respiratory infections (5 sources) Common cold; Translations: [Sore throat symptom] Onset: 07-21-2024 06-27-2024 Episodic Residual codes; unclassified (2 sources) Other specified personal risk factors, not elsewhere classified; Translations: [Other specified personal risk factors, not elsewhere classified] Onset: 02-01-2022 Episodic Residual codes; unclassified (2 sources) Chills (without fever); Translations: [Chills (without fever)] Onset: 02-01-2022 Episodic Residual codes; unclassified (20 sources) History of pre-eclampsia; Translations: [Personal history of other complications of , childbirth and the puerperium] Onset: 07-27-2024 07-27-2024 Episodic Residual codes; unclassified (20 sources) H/O: miscarriage; Translations: [Personal history of other complications of , childbirth and the puerperium] Onset: 07-27-2024 Resolved: 01-26-2025 07-27-2024 Episodic Residual codes; unclassified (20 sources) History of headache; Translations: [Personal history of other specified conditions] Onset: 07-27-2024 Resolved: 02-09-2025 07-27-2024 Episodic Residual codes; unclassified (1 source) Personal history of other complications of , childbirth and the puerperium; Translations: [History of pre-eclampsia] Onset: 07-27-2024 Episodic Residual codes; unclassified (1 source) 18 weeks gestation of ; Translations: [18 weeks gestation of (HCC)] Onset: 10-21-2024 Episodic Syncope (14 sources) Syncope; Translations: [Syncope and collapse] Onset: 01-28-2017 01-28-2017 Episodic Unclassified (1 source) Cough, unspecified; Translations: [Cough, unspecified] Onset: 02-01-2022 Results Test Name Value Interpretation Reference Range Facility AST(SGOT)on 03-11-2025 AST [Catalytic activity/Vol] 24 U/L Normal <=31 [facility] Comment on above: Performed By: #### L 501.4100, L501.4405, L501.1105, L100.0500, L501.0900, L501.1400 #### [facility] [address] [place], [address] Alanine Aminotransferas (SGP T)on 03-11-2025 ALT [Catalytic activity/Vol] 17 U/L Normal <=34 [facility] Comment on above: Performed By: #### L 501.4100, L501.4405, L501.1105, L100.0500, L501.0900, L501.1400 ####[facility] [id number] [facility] [place], [address] CBC-Complete Blood Cnt No Di ffon 03-11-2025 Erythrocyte distribution width (RBC) [Ratio] 13.3 % Normal 11.6-14.6 [facility] Comment on above: Performed By: #### L 501.4100, L501.4405, L501.1105, L100.0500, L501.0900, L501.1400 #### [facility] [address] [facility] [place], [place], [id number] Hematocrit (Bld) [Volume fraction] 31.6 % Low 37-47 [facility] Comment on above: Performed By: #### L 501.4100, L501.4405, L501.1105, L100.0500, L501.0900, L501.1400 #### [facility] [address] [place], [address] Hemoglobin (Bld) [Mass/Vol] 11.5 g/dL Low 12.0-15.0 [facility] Comment on above: Performed By: #### L 501.4100, L501.4405, L501.1105, L100.0500, L501.0900, L501.1400 #### [facility] [address] [place], [address] MCH (RBC) [Entitic mass] 30.7 pg Normal 27.0-32.0 [facility] Comment on above: Performed By: #### L 501.4100, L501.4405, L501.1105, L100.0500, L501.0900, L501.1400 #### [facility] [address] [place], [address] MCHC (RBC) [Mass/Vol] 36.4 g/dL High 32-36 [facility] Comment on above: Performed By: #### L 501.4100, L501.4405, L501.1105, L100.0500, L501.0900, L501.1400 #### [facility] [address] [place], [address] MCV (RBC) [Entitic vol] 84.3 fL Normal 81-99 [facility] Comment on above: Performed By: #### L 501.4100, L501.4405, L501.1105, L100.0500, L501.0900, L501.1400 #### [facility] [address] [place], [address] Platelet mean volume (Bld) [Entitic vol] 10.6 fL Normal 6.2-12.0 [facility] Comment on above: Performed By: #### L 501.4100, L501.4405, L501.1105, L100.0500, L501.0900, L501.1400 #### [facility] [address] [place], [address] Platelets (Bld) [#/Vol] 161 10*3/uL Normal 150-450 [facility] Comment on above: Performed By: #### L 501.4100, L501.4405, L501.1105, L100.0500, L501.0900, L501.1400 #### [facility] [address] [place], [address] RBC (Bld) [#/Vol] 3.75 10*6/uL Low 4.2-5.4 [facility] Comment on above: Performed By: #### L 501.4100, L501.4405, L501.1105, L100.0500, L501.0900, L501.1400 #### [facility] [address] [place], [address] RDW SD 40.9 fl Normal 35.1-43.9 [facility] Comment on above: Performed By: #### L 501.4100, L501.4405, L501.1105, L100.0500, L501.0900, L501.1400 #### [facility] [address] [place], [address] WBC (Bld) [#/Vol] 10.6 10*3/uL Normal 4.4-11.0 [facility] Comment on above: Performed By: #### L 501.4100, L501.4405, L501.1105, L100.0500, L501.0900, L501.1400 #### [facility] [address] [place], [address] Erythrocyte distribution wid th ratioOrdered By: Dyllan Henry on 03-11-2025 Erythrocyte distribution width (RBC) [Ratio] 13.3 % 11.6-14.6 [facility] Erythrocyte distribution wid th standard deviationOrdered By: Dyllan Henry on 03-11-2025 Erythrocyte distribution width (RBC) [Ratio] 40.9 fl 35.1-43.9 [facility] Glomerular filtration rate ( GFR) estimation/1.73 sq m using serum, plasma, or whole bOrdered By: Dyllan Henry on 03-11-2025 GFR/1.73 sq M.predicted among non-blacks MDRD (S/P/Bld) [Vol rate/Area] 122 mL/min/{1.73_m2} >60 [facility] Comment on above: mL/min/1.73m2 CKD-EP I Creatinine Equation (2020) H AND P Exam - OB/GYNon 02-22 H&P Exam - [employer] [facility] Medical Records Department [address] [place] [address] H P Exam - [employer] 03/11/25 1828 MR#: [id number] Acct: [id number] Name: MARCELO LOZA Rep #: [id number] : 2000 24 From: Dyllan Henry MD PCP: Dr. Hector Gorman MD Status:[facility] Location: [facility] HPI - General General Date of Admission: 03/11/25 Date of Service: 03/11/25 Chief Complaint: elevated bp HPI Narrative MARCELO LOZA, is a 24 F who presents [facility] Medical History (Updated 09/07/24 @ 15:[address] Hector Gorman MD) TMJ arthralgia Left ear pain Blood glucose abnormal Hyperlipidemia Elevated liver enzymes Menstrual irregularity Screening for thyroid disorder Screening for cardiovascular condition GERD (gastroesophageal reflux disease) Preeclampsia Head ache Seasonal allergies Home Medications ???Medication ???Instructions ???Recorded ???Last Taken ???Type qhfivadt-cqe-vmyp-FA-Ca carb-vit K 1 tab PO QDAY 02/28/24 03/10/25 08:00 History 18 mg iron-400 mcg-500 mg tablet 1 TAB aspirin 81 mg tablet,delayed 81 mg PO QDAY 09/07/24 03/10/25 21 :00 History release (Adult Low Dose Aspirin) 81 mg famotidine 20 mg tablet (Pepcid) 20 mg PO DAILY 03/11/25 03/10/25 2 1:00 History 20 mg sertraline 25 mg tablet (Zoloft) 25 mg PO DAILY 03/11/25 03/10/25 2 1:00 History 25 mg Allergy/AdvReac Type Severity Reaction Status Date / Time dexamethasone (From Decadron) Allergy Intermediate syncope Verified 03/11/25 13:03 metoclopramide (From Reglan) Allergy Intermediate anxious Verified 03/11/25 13:03 Family History Grandfather Diabetes Grandmother Diabetes Grandmother Myocardial infarction, Onset Age: 50 Surgical History History of ear surgery S/P ACL repair History of tonsillectomy Social History household members: spouse and children housing: house 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 Status: Never smoker alcohol intake: never substance use type: does not use what type of physical activity do you participate in: walking and weight training frequency: 3-4 times per week seatbelt use: always do you feel safe at home: Yes Vital Signs Vital Signs Vital Signs: 03/11/25 13:12 03/11/25 13:12 03/11/25 13:27 Pulse Rate 97 Blood Pressure 120/62 124/67 H BP Systolic 120 124 BP Diastolic 62 67 03/11/25 13:27 03/11/25 13:42 03/11/25 13:42 Pulse Rate 96 96 Blood Pressure 127/71 H BP Systolic 127 BP Diastolic 71 03/11/25 13:57 03/11/25 13:57 03/11/25 14:12 Pulse Rate 96 Blood Pressure 117/64 122/70 H BP Systolic 117 122 BP Diastolic 64 70 03/11/25 14:12 Pulse Rate 98 Blood Pressure BP Systolic BP Diastolic Weight Weight: 86.1 kg Body Mass Index (BMI) 35.9 Labs Labs Labs: Hct, (37-47) 31.6 % L Hgb, (12.0-15.0) 11.5 g/dL L 03/11/25 1828 Cosigner Signature (if applicable): CC: Dr. Hector Gorman MD; Dr. Dyllan Henry MD Signed Normal [facility] Hematocrit Auto (Bld) [Volum e fraction]Ordered By: Dyllan Henry on 03-11-2025 Hematocrit (Bld) [Volume fraction] 31.6 % Low 37-47 [facility] Hemoglobin measurementOrdere d By: Dyllan Henry on 03-11-2025 Hemoglobin (Bld) [Mass/Vol] 11.5 g/dL Low 12.0-15.0 [facility] - Chemistry and C hemistry - challengeOrdered By: Dyllan Henry on 03-11-2025 AST [Catalytic activity/Vol] 24 U/L <32 [facility] MCV (mean corpuscular volume ) determinationOrdered By: Dyllan Henry on 03-11-2025 MCV (RBC) [Entitic vol] 84.3 fL 81-99 [facility] Mean corpuscular hemoglobin (MCH) determinationOrdered By: Dyllan Henry on 03-11-2025 MCH (RBC) [Entitic mass] 30.7 pg 27.0-32.0 [facility] Mean corpuscular hemoglobin concentration (MCHC) determinationOrdered By: Dyllan Henry on 03-11-2025 MCHC (RBC) [Mass/Vol] 36.4 g/dL High 32-36 [facility] Mean platelet volume determi nationOrdered By: Dyllan Henry on 03-11-2025 Platelet mean volume (Bld) [Entitic vol] 10.6 fL 6.2-12.0 [facility] OB Triage Physician Noteon 0 03-11-2025 OB Triage Physician Note [facility] Medical Records Department [address] [place] [address] OB Triage Physician Note 03/11/25 1826 MR#: [id number] Acct: [id number] Name: MARCELO LOZA Rep #: [id number] : 2000 24 From: Dyllan Henry MD PCP: Dr. Hector Gorman MD Status:DEP CLI Y Location: [facility] HPI - General General Date of Admission: 03/11/25 Date of Service: 03/11/25 Chief Complaint: elevated bp HPI Narrative MARCELO LOZA, is a 24 F who presents Maternal Data Information Final ANDERSON: 03/20/25 Gestational age: 38 5/7 [facility] Medical History (Updated 09/07/24 @ 15:[address] Hector Gorman MD) TMJ arthralgia Left ear pain Blood glucose abnormal Hyperlipidemia Elevated liver enzymes Menstrual irregularity Screening for thyroid disorder Screening for cardiovascular condition GERD (gastroesophageal reflux disease) Preeclampsia Head ache Seasonal allergies Home Medications ???Medication ???Instructions ???Recorded ???Last Taken ???Type milyyzno-mtz-ynhk-FA-Ca carb-vit K 1 tab PO QDAY 02/28/24 03/10/25 08:00 History 18 mg iron-400 mcg-500 mg tablet 1 TAB aspirin 81 mg tablet,delayed 81 mg PO QDAY 09/07/24 03/10/25 21 :00 History release (Adult Low Dose Aspirin) 81 mg famotidine 20 mg tablet (Pepcid) 20 mg PO DAILY 03/11/25 03/10/25 2 1:00 History 20 mg sertraline 25 mg tablet (Zoloft) 25 mg PO DAILY 03/11/25 03/10/25 2 1:00 History 25 mg Allergy/AdvReac Type Severity Reaction Status Date / Time dexamethasone (From Decadron) Allergy Intermediate syncope Verified 03/11/25 13:03 metoclopramide (From Reglan) Allergy Intermediate anxious Verified 03/11/25 13:03 Family History Grandfather Diabetes Grandmother Diabetes Grandmother Myocardial infarction, Onset Age: 50 Surgical History History of ear surgery S/P ACL repair History of tonsillectomy Social History household members: spouse and children housing: house 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 Hector Gorman MD; Dr. Dyllan Henry MD Signed ADDENDUM by Dr. Dyllan Henry MD on 03/11/25 at 1828 Addendum Diansosi- Elevated bp without diagnosis of HTN High risk multigravida 38 weeks 03/11/251827 Date Dyllan Henry MD cc: Dr. Hector Gorman MD; Dr. Dyllan Henry MD * Signed Normal [facility] Platelet countOrdered By: Mary Lou Henry on 03-11-2025 Platelets (Bld) [#/Vol] 161 10*3/uL 150-450 [facility] Protein+Creatinine Ratio,Uri neon 03-11-2025 PROT:CRE RATIO 140 mg/g CRE Normal 0-200 [facility] Comment on above: Performed By: #### L 501.4100, L501.4405, L501.1105, L100.0500, L501.0900, L501.1400 #### [facility] [address] [place], [place], [id number] Protein (U) [Mass/Vol] 10.0 mg/dL Normal 0.0-12.0 [facility] Comment on above: Performed By: #### L 501.4100, L501.4405, L501.1105, L100.0500, L501.0900, L501.1400 #### [facility] [address] [place], [address] UR CREAT 71.20 mg/dL Normal 28.00-217.00 [facility] Comment on above: Performed By: #### L 501.4100, L501.4405, L501.1105, L100.0500, L501.0900, L501.1400 #### [facility] [address] [place], [address] RBC Auto (Bld) [#/Vol]Ordere d By: Dyllan Henry on 03-11-2025 RBC (Bld) [#/Vol] 3.75 10*6/uL Low 4.2-5.4 [facility] Random urine creatinine deborah urement (mass/volume)Ordered By: Dyllan Henry on 03-11-2025 Creatinine Unsp time (U) [Mass/Vol] 71.20 mg/dL 28.00-217.00 [facility] Serum Creatinine AND GFRon 0 03-11-2025 Creatinine [Mass/Vol] 0.71 mg/dL Normal 0.70-1.20 [facility] Comment on above: Performed By: #### L 501.4100, L501.4405, L501.1105, L100.0500, L501.0900, L501.1400 #### [facility] [address] [place], [address] ECRCL 121.75 ml/min Normal 50-250 [facility] Comment on above: Performed By: #### L 501.4100, L501.4405, L501.1105, L100.0500, L501.0900, L501.1400 #### [facility] [address] [place], [address] GFR/1.73 sq M.predicted among non-blacks MDRD (S/P/Bld) [Vol rate/Area] 122 mL/min/{1.73_m2} Normal >60 [facility] Comment on above: Result Comment: mL/m in/1.73m2 CKD-EPI Creatinine Equation (2020) Performed By: #### L 501.4100, L501.4405, L501.1105, L100.0500, L501.0900, L501.1400 #### [facility] [address] [place], [place], [id number] Serum creatinine measurement (mass/volume)Ordered By: Dyllan Henry on 03-11-2025 Creatinine [Mass/Vol] 0.71 mg/dL 0.70-1.20 [facility] Serum or plasma alanine arvizu otransferase (ALT) measurementOrdered By: Dyllan Henry on 03-11-2025 ALT [Catalytic activity/Vol] 17 U/L <35 [facility] Serum or plasma uric acid me asurement (mass/volume)Ordered By: Dyllan Henry on 03-11-2025 Urate [Mass/Vol] 6.7 mg/dL High 2.6-6.0 [facility] Comment on above: The drugs N-Acetylcy steine and Metamizole may falsely depress this assay. Uric Acidon 03-11-2025 URIC 6.7 mg/dL High 2.6-6.0 [facility] Comment on above: Result Comment: The drugs N-Acetylcysteine and Metamizole may falsely depress this assay. Performed By: #### L 501.4100, L501.4405, L501.1105, L100.0500, L501.0900, L501.1400 #### [facility] [address] [place], [place], [id number] Urine protein measurement (m ass/volume)Ordered By: Dyllan Henry on 03-11-2025 Protein (U) [Mass/Vol] 10.0 mg/dL 0.0-12.0 [facility] Urine protein/creatinine mas s ratioOrdered By: Dyllan Henry on 03-11-2025 Protein/Creatinine (U) [Mass ratio] 140 mg/g CRE 0-200 [facility] White blood cell (WBC) count Ordered By: Dyllan Henry on 03-11-2025 WBC (Bld) [#/Vol] 10.6 10*3/uL 4.4-11.0 [facility] URINE OB DIP B/Oon 5 Glucose Ql (U) Negative Neg mg/dL [facility] Protein.monoclonal (U) [Mass/Vol] Negative Neg mg/dL [facility] ROUTINE, GROUP B ST REPTOCOCCUS BY PCRon 02-26-2025 ROUTINE, GROUP B STREPTOCOCCUS BY PCR Not detected Normal [facility] Comment on above: Performed By: #### 6 30-4 #### [facility] CLIA [id number] [address] [place] [address] [place] URINE OB DIP B/Oon 5 Glucose Ql (U) Negative Neg mg/dL [facility] Interpretation and review of laboratory results Normal [facility] Protein.monoclonal (U) [Mass/Vol] Negative Neg mg/dL [facility] URINE OB DIP B/Oon 5 Glucose Ql (U) Negative Neg mg/dL [facility] Interpretation and review of laboratory results Normal [facility] Protein.monoclonal (U) [Mass/Vol] Negative Neg mg/dL [facility] CBC W Auto Differential pane l (Bld)on 12-17-2024 Basophils (Bld) [#/Vol] 10*3/uL Normal <0.11 [facility] Comment on above: Order Comment: Speci men Type: BLOOD SPECIMENOrdering Facility: [facility] Address: [address] [place] [address] Performed By: #### 5 7021-8 ####[facility] [id number] [place] [address] [place] Basophils/100 WBC (Bld) 0.1 % Normal [facility] Comment on above: Order Comment: Speci men Type: BLOOD SPECIMENOrdering Facility: [facility] Address: [address] [place] [address] Performed By: #### 5 7021-8 ####[facility] [id number] [place] [address] [place] Differential cell count method Nom (Bld) Auto Normal [facility] Comment on above: Order Comment: Speci men Type: BLOOD SPECIMENOrdering Facility: [facility] Address: [address] [place] [address] Performed By: #### 5 7021-8 ####[facility] [id number] [place] [address] [place] Eosinophils (Bld) [#/Vol] 0.07 10*3/uL Normal <0.46 [facility] Comment on above: Order Comment: Speci men Type: BLOOD SPECIMENOrdering Facility: [facility] Address: [address] [place] [address] Performed By: #### 5 7021-8 ####[facility] [id number] [place] [address] [place] Eosinophils/100 WBC (Bld) 0.5 % Normal [facility] Comment on above: Order Comment: Speci men Type: BLOOD SPECIMENOrdering Facility: [facility] Address: [address] [place] [address] Performed By: #### 5 7021-8 ####[facility] [id number] [place] [address] [place] Erythrocyte distribution width (RBC) [Ratio] 12.9 % Normal 11.5-15.0 [facility] Comment on above: Order Comment: Speci men Type: BLOOD SPECIMENOrdering Facility: [facility] Address: [address] [place] [address] Performed By: #### 5 7021-8 ####[facility]OSPITALNCA [id number] [place] [address] [place] Hematocrit (Bld) [Volume fraction] 32.0 % Low 36.0-46.0 [facility] Comment on above: Order Comment: Speci men Type: BLOOD SPECIMENOrdering Facility: [facility] Address: [address] [place] [address] Performed By: #### 5 7021-8 ####[facility]ITALNCMCK[facility] [id number] [place] [address] [place] Hemoglobin (Bld) [Mass/Vol] 11.6 g/dL Normal 11.5-15.5 [facility] Comment on above: Order Comment: Speci men Type: BLOOD SPECIMENOrdering Facility: [facility] Address: [address] [place] [address] Performed By: #### 5 7021-8 ####[facility]ITALN[facility] [id number] [place] [address] [place] Immature granulocytes (Bld) [#/Vol] 0.11 10*3/uL High <0.10 [facility] Comment on above: Order Comment: Speci men Type: BLOOD SPECIMENOrdering Facility: [facility] Address: [address] [place] [address] Performed By: #### 5 7021-8 ####[facility]ITALNCLIA [id number] [place] [address] [place] Immature granulocytes/100 WBC (Bld) 0.8 % Normal [facility] Comment on above: Order Comment: Speci men Type: BLOOD SPECIMENOrdering Facility: [facility] Address: [address] [place] [address] Performed By: #### 5 7021-8 ####[facility]ITALNCLIA [id number] [place] [address] [place] Lymphocytes (Bld) [#/Vol] 1.93 10*3/uL Normal 1.00-4.00 [facility] Comment on above: Order Comment: Speci men Type: BLOOD SPECIMENOrdering Facility: [facility] Address: [address] [place] [address] Performed By: #### 5 7021-8 ####[facility] GUDELIACEFERINO [id number] [place] [address] [place] Lymphocytes/100 WBC (Bld) 14.1 % Normal [facility] Comment on above: Order Comment: Speci men Type: BLOOD SPECIMENOrdering Facility: [facility] Address: [address] [place] [address] Performed By: #### 5 7021-8 ####[facility] HOSPITALNCXOCHITL [id number] [place] [address] [place] MCH (RBC) [Entitic mass] 29.7 pg Normal 26.0-34.0 [facility] Comment on above: Order Comment: Speci men Type: BLOOD SPECIMENOrdering Facility: [facility] Address: [address] [place] [address] Performed By: #### 5 7021-8 ####[facility] HOSPITALNCAndrea [id number] [place] [address] [place] MCHC (RBC) [Mass/Vol] 36.3 g/dL High 30.5-36.[address] [facility] Comment on above: Order Comment: Speci men Type: BLOOD SPECIMENOrdering Facility: [facility] Address: [address] [place] [address] Performed By: #### 5 7021-8 ####[facility] HOSPITALNCLI [id number] [place] [address] [place] MCV (RBC) [Entitic vol] 81.8 fL Normal 80.0-100.0 [facility] Comment on above: Order Comment: Speci men Type: BLOOD SPECIMENOrdering Facility: [facility] Address: [address] [place] [address] Performed By: #### 5 7021-8 ####[facility] MILLWNCLIA [id number] [place] [address] [place] Monocytes (Bld) [#/Vol] 0.53 10*3/uL Normal <0.87 [facility] Comment on above: Order Comment: Speci men Type: BLOOD SPECIMENOrdering Facility: [facility] Address: [address] [place] [address] Performed By: #### 5 7021-8 ####[facility] CENTERLIA [id number] [place] [address] [place] Monocytes/100 WBC (Bld) 3.9 % Normal [facility] Comment on above: Order Comment: Speci men Type: BLOOD SPECIMENOrdering Facility: [facility] Address: [address] [place] [address] Performed By: #### 5 7021-8 ####[facility] CENTERLIA [id number] [place] [address] [place] Neutrophils (Bld) [#/Vol] 11.05 10*3/uL High 1.45-7.50 [facility] Comment on above: Order Comment: Speci men Type: BLOOD SPECIMENOrdering Facility: [facility] Address: [address] [place] [address] Performed By: #### 5 7021-8 ####[facility] CENTERLIA [id number] [place] [address] [place] Neutrophils/100 WBC (Bld) 80.6 % Normal [facility] Comment on above: Order Comment: Speci men Type: BLOOD SPECIMENOrdering Facility: [facility] Address: [address] [place] [address] Performed By: #### 5 7021-8 ####[facility] CENTERLIA [id number] [place] [address] [place] Nucleated RBC (Bld) [#/Vol] 10*3/uL Normal <0.01 [facility] Comment on above: Order Comment: Speci men Type: BLOOD SPECIMENOrdering Facility: [facility] Address: [address] [place] [address] Performed By: #### 5 7021-8 ####[facility] [id number] [place] [address] [place] Nucleated RBC/100 WBC (Bld) [Ratio] 0.0 /100 WBC Normal [facility] Comment on above: Order Comment: Speci men Type: BLOOD SPECIMENOrdering Facility: [facility] Address: [address] [place] [address] Performed By: #### 5 7021-8 ####[facility] [id number] [place] [address] [place] Platelet mean volume (Bld) [Entitic vol] 9.7 fL Normal 9.0-12.7 [facility] Comment on above: Order Comment: Speci men Type: BLOOD SPECIMENOrdering Facility: [facility] Address: [address] [place] [address] Performed By: #### 5 7021-8 ####[facility] [id number] [place] [address] [place] Platelets (Bld) [#/Vol] 179 10*3/uL Normal 150-400 [facility] Comment on above: Order Comment: Speci men Type: BLOOD SPECIMENOrdering Facility: [facility] Address: [address] [place] [address] Performed By: #### 5 7021-8 ####[facility] [id number] [place] [address] [place] RBC (Bld) [#/Vol] 3.91 10*6/uL Normal 3.90-5.20 [facility] Comment on above: Order Comment: Speci men Type: BLOOD SPECIMENOrdering Facility: [facility] Address: [address] [place], [place] [address] Performed By: #### 5 7021-8 ####[facility] [id number] [place] [address] [place] WBC (Bld) [#/Vol] 13.71 10*3/uL High 3.70-11.00 [facility] Comment on above: Order Comment: Speci men Type: BLOOD SPECIMENOrdering Facility: [facility] Address: [address] [place] [address] Performed By: #### 5 7021-8 ####[facility] [id number] [place] [address] [place] GESTATIONAL GLUCOSE SCREEN, 1-HOUR, 50 GRAM, NON-FASTINGon 12-17-2024 Glucose [Mass/Vol] 103 mg/dL Normal 74-134 [facility] Comment on above: Order Comment: Speci men Type: BLOOD SPECIMENOrdering Facility: [facility] Address: [address] [place] [address] Result Comment: [facility] Congress of Obstetricians and Gynecologists (Lizzie/Kierra) guidelines state a gestational diabetes mellitus positive screen is made, in women not previously diagnosed with overt diabetes, when the 1 hr plasma glucose level is equal to or above 140 mg/dL. [facility] recommends a 135 mg/dL cutoff. Performed By: #### G LTGST ####[facility] CENTERA [id number] [place] [address] [place] Reagin and Treponema pallidu m IgG and IgM [Interp]on 12-17-2024 T. pallidum IgG+IgM IA Ql (S) Non-Reactive Normal Nonreactive [facility] Comment on above: Order Comment: Speci men Type: BLOOD SPECIMENOrdering Facility: [facility] Address: [address] [place] [address] Performed By: #### 7 3752-8 ####[facility] LABCLIA [id number] [place] [address] [place] Reagin+T pallidum IgG+IgM Se rPl-Impon 12-17-2024 Reagin and Treponema pallidum IgG and IgM [Interp] Cannot exclude recent Treponemal infection if specimen collected within 7-10 days after appearance of suspect lesions or 2-3 weeks after an exposure. Clinical correlation is required. Normal [facility] Comment on above: Order Comment: Speci men Type: BLOOD SPECIMENOrdering Facility: [facility] Address: [address] [place] [address] Performed By: #### 7 3752-8 ####[facility] LABCLIA [id number] [place] [address] [place] UA DIP, URINE (POC)on 2024 BILIRUBIN UA (POCT) Negative Negative [facility] CLARITY UA (POCT) Clear [facility] COLOR UA (POCT) Yellow [facility] GLUCOSE UA (POCT) Negative Negative mg/dL [facility] Hemoglobin Ql (U) Negative Negative [facility] Interpretation and review of laboratory results Abnormal [facility] KETONE UA (POCT) Negative Negative mg/dL [facility] LEUKOCYTES UA (POCT) Negative Negative [facility] NITRITE UA (POCT) Negative Negative [facility] PH UA (POCT) 5.5 4.5 - 8.0 [facility] Protein Ql (U) Negative Negative mg/dL [facility] SPECIFIC GRAVITY UA (POCT) <=1.005 Abnormal 1.005 - 1.030 [facility] UROBILINOGEN UA (POCT) 0.2 Diana l E.U./dL [facility] Location:[facility], [address], [place], [address] [facility] POINT OF CARE [facility] Internal Medicine Office Vis iton 09-07-2024 Internal Medicine Office Visit [facility] [address] [place], [place] [address] OFFICE VISIT Date of Service: 09/07/24 MR#: [id number] Acct: [id number] Name: MARCELO LOZA Rep #: [id number] : 2000 Provider: Dr. Hector felipe MD Age/Sex: 23/F Location: [facility] Status: Signed Intake Vital Signs 06/28/24 21:51 09/07/24 14:47 Height 5 ft 3 in 5 ft 3 in Weight: 170 lb BMI 30.1 BP 142/88 H Blood Pressure Location Lt brachial Position Sitting Respiration 18 Pulse 93 Pulse Source Monitor Temp 97.7 F L Temp Source Temporal Pulse Oximetry (%) 97 Oxygen Delivery Method room air Intake Visit Reasons: POSSIBLE EAR INFECTION/LFT EAR Chief Complaint: Left Ear Pain Is patient in pain?: Yes (7 left ear pain ) Allergies dexamethasone (From Decadron) Allergy (Intermediate, Verified 09/07/24 14:45) syncope metoclopramide (From Reglan) Allergy (Intermediate, Verified 09/07/24 14:45) anxious Medications ???Medication ???Instructions ???Recorded ???Confirmed ???Type flvixdlc-dkv-cqqm-FA-Ca carb-vit K 1 tab PO QDAY 02/28/24 09/07/24 History 18 mg iron-400 mcg-500 mg tablet aspirin 81 mg tablet,delayed 81 mg PO QDAY 09/07/24 09/07/24 Hi story release (Adult Low Dose Aspirin) Nurse's Note: pt reports that 4 days ago she started having fullness and pain in left ear. pt states that this feels like its getting worse. [facility] Medical History (Updated 09/07/24 @ 15:[address] 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 She reports pain around her left ear which has been ongoing for about 4 days. Pain is present almost all the time and particularly worse when she chews. No chills, fever or drainage reported. Feels well otherwise. ROS Const Constitutional: No body ache, chills, excessive sweating, fatigue, fever(s), frequent falls, headache(s), snoring, weight change, sleep problems, abnormal sleep pattern or change in appetite Eyes Eyes: No blurry vision, change in vision, bulging eyes, floaters, visual disturbances, eye pain or Light sensitivity ENT ENT: Positive for ear or mastoid pain; No abnormal hearing, tinnitus, balance problems, nosebleed/epistaxis, nasal congestion, nose pain, sinus pressure, nasal discharge, post nasal drip, headache(s), hoarseness, neck pain or sore throat Resp Respiratory: No cough, chest congestion, pain on inspiration, shortness of breath, snoring or wheezing Cardio Cardiology: No chest pain at rest, chest pain with exertion, excessive sweating, shortness of breath, dyspnea on exertion, lightheadedness, orthopnea or palpitations Gastro GI: No abdominal pain, change in bowel habits, constipation, cramping, diarrhea, nausea/dyspepsia or vomiting Genitourinary-Female: No burning urination, painful urination, urinary incontinence, urinary frequency, abnormal vaginal bleeding or pelvic pain Musc Musculoskeletal: No abnormal gait, joint pain, back pain, limited range of motion, neck pain, numbness or tingling Skin Skin: No dry skin, redness, lesions, itchy eyes, rash or wounds Neuro Neurology: No abnormal gait, abnormal hearing, frequent falls, headache(s), memory loss, numbness, tingling or visual disturbances Psych Psychiatric: No abnormal sleep pattern, No anxiety, No change in appetite, No irritability, No memory loss and No Thoughts of harming yourself/Others Endo Endocrine: No cold intolerance, excessive sweating, fatigue, flushing, heat intolerance, increased thirst/drinking, increased hunger or weight change Aller/Imm Allergy/Immunologic: No itchy eyes, seasonal allergy symptoms, hives or wheezing Finn/Lymp Hematologic/Lymphatic: No easy bleeding, easy bruising, enlarge (more content not included)... Normal [facility] Examination level ultrasound on 08-26-2024 Indication First trimester anatomic survey Impression REMOTE READ - Single, live, intrauterine . - An intrauterine gestational sac with a yolk sac and pole is present. - Bourg rump length measurement is NOT consistent with the dating provided. Therefore, dating is now based on crown rump length. The final ANDERSON is 03/20/2025 - heart rate is within normal limits. Maternal Structures: Right Ovary: Size 24 mm x 26 mm x 16 mm Left Ovary: Size 27 mm x 14 mm x 18 mm Recommendations Additional follow-up as clinically indicated. Maternal Assessment Height 160 cm Height (ft) 5 ft Height (in) 3 in Physical Exam Initial weight (lb) 174 lb Initial BMI 30.82 kg/m Maternal assessment other: 3 Para 1 Method Transabdominal ultrasound examination Zavaleta . Number of fetuses: 1 Dating LMP on: 06/06/2024 Cycle: irregular cycle GA by LMP 11 w + 4 d ANDERSON by LMP: 03/13/2025 GA by prior assessment 11 w + 4 d ANDERSON by prior assessment: 03/13/2025 Ultrasound examination on: 08/26/2024 GA by U/S based upon: CRL GA by U/S 10 w + 4 d ANDERSON by U/S: 03/20/2025 Assigned: based on ultrasound (CRL), selected on 08/26/2024 Assigned GA 10 w + 4 d Assigned ANDERSON: 03/20/2025 Assessment Gestational sac: visualized Location: intrauterine Yolk sac: visualized Embryo: visualized CRL 36.4 mm 10w 4d 26% Hadlock Cardiac activity: present FHR 170 bpm 57% Nicolaides Maternal Structures Uterus / Cervix Uterus: Visualized Uterus length 96 mm Uterus width 93 mm Uterus height 68 mm Uterus Vol 317.2 cm Ovaries / Tubes / Adnexa Rt ovary: Visualized Rt ovary D1 24 mm Rt ovary D2 26 mm Rt ovary D3 16 mm Rt ovary Vol 5.2 cm Lt ovary: Visualized Lt ovary D1 27 mm Lt ovary D2 14 mm Lt ovary D3 18 mm Lt ovary Vol 3.7 cm Performed By: Julia Ball RDMS, RVT Read By: Anali Aceves M.D. MATERNAL MEDICINE [facility] Radiology Study observation (narrative) [facility] US Pelvison 07-28-2024 Indication viability Impression Normal appearing gestation at 7 3/7w by LMP equal dates today Recommendations Would recommend early anatomy scan at 12 weeks Method Transabdominal and transvaginal ultrasound examination Zavaleta . Number of embryos: 1 Dating LMP on: 06/06/2024 GA by LMP 7 w + 3 d ANDERSON by LMP: 03/13/2025 Ultrasound examination on: 07/28/2024 GA by U/S based upon: CRL GA by U/S 6 w + 5 d ANDERSON by U/S: 03/18/2025 Assigned: based on ultrasound (CRL), selected on 07/28/2024 Assigned GA 6 w + 5 d Assigned ANDERSON: 03/18/2025 Assessment Gestational sac: visualized Location: intrauterine Yolk sac: visualized YS 3.3 mm 3% Grisolia Embryo: visualized CRL 7.8 mm 6w 5d 77% Hadlock Cardiac activity: present FHR 120 bpm Maternal Structures Uterus / Cervix Uterus: Visualized Uterus position: anteverted Uterus length 80 mm Uterus width 45 mm Uterus height 50 mm Uterus Vol 94.2 cm Ovaries / Tubes / Adnexa Rt ovary: Visualized Rt ovary D1 35 mm Rt ovary D2 21 mm Rt ovary D3 18 mm Rt ovary Vol 6.9 cm Rt ovarian corpus luteum: hemorrhagic Rt ovarian corpus luteum D1 23.0 mm Rt ovarian corpus luteum D2 14.0 mm Rt ovarian corpus luteum D3 15.0 mm Lt ovary: Visualized Lt ovary morphology: normal Lt ovary D1 30 mm Lt ovary D2 18 mm Lt ovary D3 14 mm Lt ovary Vol 4.0 cm [place] / Bladder / Kidneys / Other Free fluid: free fluid visualized [place] largest pool D1 36.0 mm [place] largest pool D2 6.0 mm [place] largest pool D3 17.0 mm [place] largest pool Vol 1.923 ml Performed By: Delaney Arreguin RDMS Read By: Marti Villanueva M.D. MATERNAL MEDICINE [facility] Radiology Study observation (narrative) [facility] B-HCG SerPl-[place]Cn[place] 5 [place] [address].0 m[IU]/mL High <5.0 [facility] Comment on above: Order Comment: Speci men Type: BLOOD SPECIMENOrdering Facility: [facility] Address: [address] [place] [address] Result Comment: BALDEV TITATIVE HCG NORMAL RANGES Weeks of Gestation (Weeks Since LMP) 3 Weeks (5.8-71.2 mIU/mL) 4 Weeks (9.5-750 mIU/mL) 5 Weeks (217-7138 mIU/mL) 6 Weeks (158-22937 mIU/mL) 7 Weeks (3697-630693 mIU/mL) 8 Weeks (80172-763187 mIU/mL) 9 Weeks (11408-702124 mIU/mL) 10 Weeks (61767-377930 mIU/mL) 12 Weeks (40005-810682 mIU/mL) Referenced to 4th IS of [facility] Performed By: #### 2 1198-7 ####[facility] LABCLIA [id number] [place] [address] [place] Bacteria Ur Culton 5 Bacteria identified Cx Nom (U) CULTURE, URINE: No growth (<1,000 CFU/ml) Normal [facility] Comment on above: Performed By: #### 6 30-4 #### [facility] LAB CLIA [id number] [address] [place] [address] [place] C. trachomatis+N. gonorrhoea e DNA LARRY+probe Ql (Unsp spec)on 07-27-2024 C. trachomatis rRNA LARRY+probe Ql (Unsp spec) Not detected Normal Not detected [facility] Comment on above: Order Comment: Speci men Type: SWABOrdering Facility: [facility] Address: [address] [place] [address] Performed By: #### 6 30-4 #### [facility] CLIA [id number] [address] [place] [address] [place] N. gonorrhoeae rRNA LARRY+probe Ql (Unsp spec) Not detected Normal Not detected [facility] Comment on above: Order Comment: Speci men Type: SWABOrdering Facility: [facility] Address: [address] [place] [address] Performed By: #### 6 30-4 #### [facility] CLIA [id number] [address] [place] [address] [place] CBC W Auto Differential pane l (Bld)on 07-27-2024 Basophils (Bld) [#/Vol] 0.03 10*3/uL Normal <0.11 [facility] Comment on above: Order Comment: Speci men Type: BLOOD SPECIMENOrdering Facility: [facility] Address: [address] [place] [address] Performed By: #### 6 30-4 #### [facility] CLIA [id number] [address] [place] [address] [place] Basophils/100 WBC (Bld) 0.3 % Normal [facility] Comment on above: Order Comment: Speci men Type: BLOOD SPECIMENOrdering Facility: [facility] Address: [address] [place] [address] Performed By: #### 6 30-4 #### [facility] CLIA [id number] [address] [place] [address] [place] Differential cell count method Nom (Bld) Auto Normal [facility] Comment on above: Order Comment: Speci men Type: BLOOD SPECIMENOrdering Facility: [facility] Address: [address] [place] [address] Performed By: #### 6 30-4 #### [facility] CLIA [id number] [address] [place] [address] [place] Eosinophils (Bld) [#/Vol] 0.10 10*3/uL Normal <0.46 [facility] Comment on above: Order Comment: Speci men Type: BLOOD SPECIMENOrdering Facility: [facility] Address: [address] [place] [address] Performed By: #### 6 30-4 #### [facility] CLIA [id number] [address] [place] [address] [place] Eosinophils/100 WBC (Bld) 0.9 % Normal [facility] Comment on above: Order Comment: Speci men Type: BLOOD SPECIMENOrdering Facility: [facility] Address: [address] [place] [address] Performed By: #### 6 30-4 #### [facility] CLIA [id number] [address] [place] [address] [place] Erythrocyte distribution width (RBC) [Ratio] 13.0 % Normal 11.5-15.0 [facility] Comment on above: Order Comment: Speci men Type: BLOOD SPECIMENOrdering Facility: [facility] Address: [address] [place] [address] Performed By: #### 6 30-4 #### [facility] CLIA [id number] [address] [place] [address] [place] Hematocrit (Bld) [Volume fraction] 36.3 % Normal 36.0-46.0 [facility] Comment on above: Order Comment: Speci men Type: BLOOD SPECIMENOrdering Facility: [facility] Address: [address] [place] [address] Performed By: #### 6 30-4 #### [facility] CLIA [id number] [address] [place] [address] [place] Hemoglobin (Bld) [Mass/Vol] 12.9 g/dL Normal 11.5-15.5 [facility] Comment on above: Order Comment: Speci men Type: BLOOD SPECIMENOrdering Facility: [facility] Address: [address] [place] [address] Performed By: #### 6 30-4 #### [facility] CLIA [id number] [address] [place] [address] [place] Immature granulocytes (Bld) [#/Vol] 0.05 10*3/uL Normal <0.10 [facility] Comment on above: Order Comment: Speci men Type: BLOOD SPECIMENOrdering Facility: [facility] Address: [address] [place] [address] Performed By: #### 6 30-4 #### [facility] CLIA [id number] [address] [place] [address] [place] Immature granulocytes/100 WBC (Bld) 0.5 % Normal [facility] Comment on above: Order Comment: Speci men Type: BLOOD SPECIMENOrdering Facility: [facility] Address: [address] [place] [address] Performed By: #### 6 30-4 #### [facility] CLIA [id number] [address] [place] [address] [place] Lymphocytes (Bld) [#/Vol] 2.62 10*3/uL Normal 1.00-4.00 [facility] Comment on above: Order Comment: Speci men Type: BLOOD SPECIMENOrdering Facility: [facility] Address: [address] [place] [address] Performed By: #### 6 30-4 #### [facility] CLIA [id number] [address] [place] [address] [place] Lymphocytes/100 WBC (Bld) 24.6 % Normal [facility] Comment on above: Order Comment: Speci men Type: BLOOD SPECIMENOrdering Facility: [facility] Address: [address] [place] [address] Performed By: #### 6 30-4 #### [facility] CLIA [id number] [address] [place] [address] [place] MCH (RBC) [Entitic mass] 28.3 pg Normal 26.0-34.0 [facility] Comment on above: Order Comment: Speci men Type: BLOOD SPECIMENOrdering Facility: [facility] Address: [address] [place] [address] Performed By: #### 6 30-4 #### [facility] CLIA [id number] [address] [place] [address] [place] MCHC (RBC) [Mass/Vol] 35.5 g/dL Normal 30.5-36.[address] [facility] Comment on above: Order Comment: Speci men Type: BLOOD SPECIMENOrdering Facility: [facility] Address: [address] [place] [address] Performed By: #### 6 30-4 #### [facility] CLIA [id number] [address] [place] [address] [place] MCV (RBC) [Entitic vol] 79.6 fL Low 80.0-100.0 [facility] Comment on above: Order Comment: Speci men Type: BLOOD SPECIMENOrdering Facility: [facility] Address: [address] [place] [address] Performed By: #### 6 30-4 #### [facility] CLIA [id number] [address] [place] [address] [place] Monocytes (Bld) [#/Vol] 0.43 10*3/uL Normal <0.87 [facility] Comment on above: Order Comment: Speci men Type: BLOOD SPECIMENOrdering Facility: [facility] Address: [address] [place] [address] Performed By: #### 6 30-4 #### [facility] CLIA [id number] [address] [place] [address] [place] Monocytes/100 WBC (Bld) 4.0 % Normal [facility] Comment on above: Order Comment: Speci men Type: BLOOD SPECIMENOrdering Facility: [facility] Address: [address] [place] [address] Performed By: #### 6 30-4 #### [facility] CLIA [id number] [address] [place] [address] [place] Neutrophils (Bld) [#/Vol] 7.41 10*3/uL Normal 1.45-7.50 [facility] Comment on above: Order Comment: Speci men Type: BLOOD SPECIMENOrdering Facility: [facility] Address: [address] [place] [address] Performed By: #### 6 30-4 #### [facility] CLIA [id number] [address] [place] [address] [place] Neutrophils/100 WBC (Bld) 69.7 % Normal [facility] Comment on above: Order Comment: Speci men Type: BLOOD SPECIMENOrdering Facility: [facility] Address: [address] [place] [address] Performed By: #### 6 30-4 #### [facility] CLIA [id number] [address] [place] [address] [place] Nucleated RBC (Bld) [#/Vol] 10*3/uL Normal <0.01 [facility] Comment on above: Order Comment: Speci men Type: BLOOD SPECIMENOrdering Facility: [facility] Address: [address] [place] [address] Performed By: #### 6 30-4 #### [facility] CLIA [id number] [address] [place] [address] [place] Nucleated RBC/100 WBC (Bld) [Ratio] 0.0 /100 WBC Normal [facility] Comment on above: Order Comment: Speci men Type: BLOOD SPECIMENOrdering Facility: [facility] Address: [address] [place] [address] Performed By: #### 6 30-4 #### [facility] CLIA [id number] [address] [place] [address] [place] Platelet mean volume (Bld) [Entitic vol] 9.3 fL Normal 9.0-12.7 [facility] Comment on above: Order Comment: Speci men Type: BLOOD SPECIMENOrdering Facility: [facility] Address: [address] [place] [address] Performed By: #### 6 30-4 #### [facility] CLIA [id number] [address] [place] [address] [place] Platelets (Bld) [#/Vol] 198 10*3/uL Normal 150-400 [facility] Comment on above: Order Comment: Speci men Type: BLOOD SPECIMENOrdering Facility: [facility] Address: [address] [place] [address] Performed By: #### 6 30-4 #### [facility] CLIA [id number] [address] [place] [address] [place] RBC (Bld) [#/Vol] 4.56 10*6/uL Normal 3.90-5.20 [facility] Comment on above: Order Comment: Speci men Type: BLOOD SPECIMENOrdering Facility: [facility] Address: [address] [place] [address] Performed By: #### 6 30-4 #### [facility] CLIA [id number] [address] [place] [address] [place] WBC (Bld) [#/Vol] 10.64 10*3/uL Normal 3.70-11.00 [facility] Comment on above: Order Comment: Speci men Type: BLOOD SPECIMENOrdering Facility: [facility] Address: [address] [place] [address] Performed By: #### 6 30-4 #### [facility] CLIA [id number] [address] [place] [address] [place] Comprehensive metabolic 2000 panelOrdered By: Jody Kidd on 07-27-2024 Albumin [Mass/Vol] 4.8 g/dL 3.9 - 4.9 g/dL [facility] ALP [Catalytic activity/Vol] 61 U/L 34 - 123 U/L [facility] ALT [Catalytic activity/Vol] 22 U/L 7 - 38 U/L [facility] Anion gap [Moles/Vol] 10 mmol/L 8 - 15 mmol/L [facility] AST [Catalytic activity/Vol] 18 U/L 13 - 35 U/L [facility] Bilirubin [Mass/Vol] 0.3 mg/dL 0.2 - 1 .3 mg/dL [facility] Calcium [Mass/Vol] 10.5 mg/dL High 8.5 - 10. 2 mg/dL [facility] Chloride [Moles/Vol] 104 mmol/L 98 - 10 7 mmol/L [facility] CO2 [Moles/Vol] 22 mmol/L 22 - 30 mmol/L [facility] Creatinine [Mass/Vol] 0.71 mg/dL 0.58 - 0.96 mg/dL [facility] GFR/1.73 sq M.predicted among non-blacks MDRD (S/P/Bld) [Vol rate/Area] 123 mL/min/{1.73_m2} - PINF [facility] Comment on above: Estimated Glomerular Filtration Rate (eGFR) is calculated using the 2020 CKD-EPI creatinine equation. This equation utilizes serum creatinine, sex, and age as parameters. The creatinine assay has traceable calibration to isotope dilution-mass spectrometry. Refer to KDIGO guidelines for clinical interpretation. In patients with unstable renal function, e.g. those with acute kidney injury, the eGFR may not accurately reflect actual GFR. Glucose [Mass/Vol] 109 mg/dL High 74 - 99 mg/dL [facility] Comment on above: The [place] Diabete s Association (ADA) provides guidance for cutoff values for fasting glucose and random glucose. The ADA defines fasting as no caloric intake for at least 8 hours. Fasting plasma glucose results between 100 to 125 mg/dL indicate increased risk for diabetes (prediabetes). Fasting plasma glucose results greater than or equal to 126 mg/dL meet the criteria for diagnosis of diabetes. In the absence of unequivocal hyperglycemia, results should be confirmed by repeat testing. In a patient with classic symptoms of hyperglycemia or hyperglycemic crisis, random plasma glucose results greater than or equal to 200 mg/dL meet the criteria for diagnosis of diabetes. Reference: Standards of Medical Care in Diabetes 2016, [place] Diabetes Association. Diabetes Care. 2016.39(Suppl 1). Interpretation and review of laboratory results Abnormal [facility] Potassium [Moles/Vol] 4.0 mmol/L 3.7 - 5.1 mmol/L [facility] Protein [Mass/Vol] 7.4 g/dL 6.3 - 8.0 g/dL [facility] Sodium [Moles/Vol] 136 mmol/L 136 - 144 mmol/L [facility] Urea nitrogen [Mass/Vol] 16 mg/dL 7 - 21 mg/dL [facility] Comprehensive metabolic 2000 panelon 07-27-2024 Albumin [Mass/Vol] 4.8 g/dL Normal 3.9-4.9 [facility] Comment on above: Order Comment: Speci men Type: BLOOD SPECIMENOrdering Facility: [facility] Address: [address] [place] [address] Performed By: #### 2 4323-8 ####[facility] [id number] [place] [address] [place] ALP [Catalytic activity/Vol] 61 U/L Normal 34-123 [facility] Comment on above: Order Comment: Speci men Type: BLOOD SPECIMENOrdering Facility: [facility] Address: [address] [place] [address] Performed By: #### 2 4323-8 ####[facility] [id number] [place] [address] [place] ALT [Catalytic activity/Vol] 22 U/L Normal 7-38 [facility] Comment on above: Order Comment: Speci men Type: BLOOD SPECIMENOrdering Facility: [facility] Address: [address] [place] [address] Performed By: #### 2 4323-8 ####[facility] [id number] [place] [address] [place] Anion gap [Moles/Vol] 10 mmol/L Normal 8-[address] [facility] Comment on above: Order Comment: Speci men Type: BLOOD SPECIMENOrdering Facility: [facility] Address: [address] [place] [address] Performed By: #### 2 4323-8 ####[facility] MILLTOWNCLIA [id number] [place] [address] [place] AST [Catalytic activity/Vol] 18 U/L Normal 13-35 [facility] Comment on above: Order Comment: Speci men Type: BLOOD SPECIMENOrdering Facility: [facility] Address: [address] [place] [address] Performed By: #### 2 4323-8 ####[facility] MILLTOWNCLIA [id number] [place] [address] [place] Bilirubin [Mass/Vol] 0.3 mg/dL Normal 0.2-1.3 [facility] Comment on above: Order Comment: Speci men Type: BLOOD SPECIMENOrdering Facility: [facility] Address: [address] [place] [address] Performed By: #### 2 4323-8 ####[facility] MILLWNCLIA [id number] [place] [address] [place] Calcium [Mass/Vol] 10.5 mg/dL High 8.5-10.2 [facility] Comment on above: Order Comment: Speci men Type: BLOOD SPECIMENOrdering Facility: [facility] Address: [address] [place] [address] Performed By: #### 2 4323-8 ####[facility] MILLTOWNCLIA [id number] [place] [address] [place] Chloride [Moles/Vol] 104 mmol/L Normal 98-107 [facility] Comment on above: Order Comment: Speci men Type: BLOOD SPECIMENOrdering Facility: [facility] Address: [address] [place] [address] Performed By: #### 2 4323-8 ####[facility] MILLTOWNCLIA [id number] [place] [address] [place] CO2 [Moles/Vol] 22 mmol/L Normal 22-30 [facility] Comment on above: Order Comment: Speci men Type: BLOOD SPECIMENOrdering Facility: [facility] Address: [address] [place] [address] Performed By: #### 2 4323-8 ####[facility] [id number] [place] [address] [place] Creatinine [Mass/Vol] 0.71 mg/dL Normal 0.58-0.[address] [facility] Comment on above: Order Comment: Speci men Type: BLOOD SPECIMENOrdering Facility: [facility] Address: [address] [place] [address] Performed By: #### 2 4323-8 ####[facility] [id number] [place] [address] [place] Creatinine and Glomerular filtration rate.predicted panel (S/P/Bld) 123 mL/min/1.73m??? Normal >=60 [facility] Comment on above: Order Comment: Speci men Type: BLOOD SPECIMENOrdering Facility: [facility] Address: [address] [place] [address] Result Comment: Delores mated Glomerular Filtration Rate (eGFR) is calculated using the 2020 CKD-EPI creatinine equation. This equation utilizes serum creatinine, sex, and age as parameters. The creatinine assay has traceable calibration to isotope dilution-mass spectrometry. Refer to KDIGO guidelines for clinical interpretation. In patients with unstable renal function, e.g. those with acute kidney injury, the eGFR may not accurately reflect actual GFR. Performed By: #### 2 4323-8 ####[facility] [id number] [place] [address] [place] Glucose [Mass/Vol] 109 mg/dL High 74-99 [facility] Comment on above: Order Comment: Speci men Type: BLOOD SPECIMENOrdering Facility: [facility] Address: [address] [place], [place] [address] Result Comment: The [place] Diabetes Association (ADA) provides guidance for cutoff values for fasting glucose and random glucose. The ADA defines fasting as no caloric intake for at least 8 hours. Fasting plasma glucose results between 100 to 125 mg/dL indicate increased risk for diabetes (prediabetes). Fasting plasma glucose results greater than or equal to 126 mg/dL meet the criteria for diagnosis of diabetes. In the absence of unequivocal hyperglycemia, results should be confirmed by repeat testing. In a patient with classic symptoms of hyperglycemia or hyperglycemic crisis, random plasma glucose results greater than or equal to 200 mg/dL meet the criteria for diagnosis of diabetes. Reference: Standards of Medical Care in Diabetes 2016, [place] Diabetes Association. Diabetes Care. 2016.39(Suppl 1). Performed By: #### 2 4323-8 ####[facility] [id number] [place] [address] [place] Potassium [Moles/Vol] 4.0 mmol/L Normal 3.7-5.[address] [facility] Comment on above: Order Comment: Speci men Type: BLOOD SPECIMENOrdering Facility: [facility] Address: [address] [place], [place] [address] Performed By: #### 2 4323-8 ####[facility] [id number] [place] [address] [place] Protein [Mass/Vol] 7.4 g/dL Normal 6.3-8.0 [facility] Comment on above: Order Comment: Speci men Type: BLOOD SPECIMENOrdering Facility: [facility] Address: [address] [place], [place] [address] Performed By: #### 2 4323-8 ####[facility] [id number] [place] [address] [place] Sodium [Moles/Vol] 136 mmol/L Normal 136-144 [facility] Comment on above: Order Comment: Speci men Type: BLOOD SPECIMENOrdering Facility: [facility] Address: [address] [place] [address] Performed By: #### 2 4323-8 ####[facility] [id number] [place] [address] [place] Urea nitrogen [Mass/Vol] 16 mg/dL Normal 7-21 [facility] Comment on above: Order Comment: Speci men Type: BLOOD SPECIMENOrdering Facility: [facility] Address: [address] [place] [address] Performed By: #### 2 4323-8 ####[facility] [id number] [place] [address] [place] HBV surface Ag Ser Qlon 02-0 HBV surface Ag Ql (S) Negative Normal Negative [facility] Comment on above: Order Comment: Speci men Type: BLOOD SPECIMENOrdering Facility: [facility] Address: [address] [place] [address] Performed By: #### 5 195-3, 90573-7, 25363-8 ####[facility] LABIA [id number] [place] [address] [place] HCV Ab Ser Qlon 07-27-2024 HCV Ab Ql (S) Negative Normal Negative [facility] Comment on above: Order Comment: Speci men Type: BLOOD SPECIMENOrdering Facility: [facility] Address: [address] [place] [address] Result Comment: The result suggests no evidence of active infection with Hepatitis C virus. Should recent infection be suspected, repeat testing may be considered 4-6 weeks after this draw. Performed By: #### 1 6128-1 ####[facility] LABIA [id number] [place] [address] [place] HIV 1+2 Ab IA Qlon HIV 1 and 2 Ab IA.rapid Nom (S/P/Bld) Normal [facility] Comment on above: Order Comment: Speci men Type: BLOOD SPECIMENOrdering Facility: [facility] Address: [address] [place] [address] Result Comment: Test not indicated. Performed By: #### 5 195-3, 40148-5, 30413-3 ####[facility] LABCLIA [id number] [place] [address] [place] HIV 1+2 Ab+HIV1 p24 Ag IA Ql Non-Reactive Normal Nonreactive [facility] Comment on above: Order Comment: Speci men Type: BLOOD SPECIMENOrdering Facility: [facility] Address: [address] [place] [address] Performed By: #### 5 195-3, 18671-9, 76190-0 ####[facility]ITAL[facility] [id number] [place] [address] [place] HIV immunoassay testing algorithm interpretation (S/P/Bld) [Interp] Normal [facility] Comment on above: Order Comment: Speci men Type: BLOOD SPECIMENOrdering Facility: [facility] Address: [address] [place] [address] Result Comment: No e vidence of HIV-1 or HIV-2 infection. Should recent infection be suspected, repeat testing may be considered 2-3 weeks after this draw. [place] Rev. Code 3701.243(E): This information has been disclosed to you from confidential records protected from disclosure by state law. ???You shall make no further disclosure of this information without the specific, written, and informed release of the individual to whom it pertains or as otherwise permitted by state law. A general authorization for the release of medical or other information is not sufficient for the purpose of the release of HIV test results or diagnoses. Performed By: #### 5 195-3, 08864-8, 03713-3 ####[facility] LABCLIA [id number] [place] [address] [place] HbA1c (Bld)on 07-27-2024 Average glucose Estimated from glycated hemoglobin (Bld) [Mass/Vol] 97 mg/dL Normal [facility] Comment on above: Order Comment: Yasmin rush Type: BLOOD SPECIMENOrdering Facility: [facility] Address: [address] [place] [address] Result Comment: eAG: (Estimated average glucose) is a calculated value from HgbA1c and is asset protection representative of the average blood glucose level in the last 2-3 month period. Performed By: #### 5 5454-3 ####[facility] LABCLIA [id number] [place] [address] [place] [facility] HbA1c (Bld) [Mass fraction] 5.0 % Normal 4.3-5.6 [facility] Comment on above: Order Comment: aYsmin rush Type: BLOOD SPECIMENOrdering Facility: [facility] Address: [address] [place] [address] Result Comment: [place] Diabetes Association guidelines indicate that patients with HgbA1c in the range 5.7-6.4% are at increased risk for development of diabetes, and intervention by lifestyle modification may be beneficial. HgbA1c greater or equal to 6.5% is considered diagnostic of diabetes. Performed By: #### 5 5454-3 ####[facility] LABCLIA [id number] [address] [place] Heteroph Ab Ser Ql LAon 02-0 Heterophile Ab LA Ql (S) Negative Normal Negative [facility] Comment on above: Order Comment: Yasmin rush Type: BLOOD SPECIMENOrdering Facility: [facility] Address: [address] [place] [address] Result Comment: Infe ctious Mononucleosis rapid test is used as an aid in diagnosis of acute infection with Herrera-Magaña virus (EBV). The antibody levels may occasionally remain elevated up to several months after a primary EBV infection. Final interpretation should be done in conjunction with EBV-specific serology and clinical correlation. False positive results may occasionally be seen with other infectious agents such as Cytomegalovirus, Toxoplasma, and HIV among others as well as non-infectious conditions such as lymphoma. Clinical correlation is required. Performed By: #### 5 213-4 ####[facility] LABCLIA [id number] [place] [address] [place] PAP TESTon 07-27-2024 ADEQUACY Normal [facility] Comment on above: Order Comment: Speci men Type: FLUID SPECIMENOrdering Facility: [facility] Address: [address] [place] [address] Result Comment: Sati sfactory for interpretation. No endocervical component Performed By: #### L [id number] ####[facility] [id number] [address] LABCLIA [id number] [place] [address] [place] CASE REPORT Normal [facility] Comment on above: Order Comment: Speci men Type: FLUID SPECIMENOrdering Facility: [facility] Address: [address] [place] [address] Result Comment: Gyne cologic Cytology Report Case: [id number] Authorizing Provider: Melita Colón APRN.DATA MANAGEMENT ENGINEER Collected: 07/27/2024 10:20 AM Ordering Location: OB/Gynecology Received: 07/27/2024 12:00 PM First Screen: Chika Gonsalez, CT, ASCP Rescreen: Dayanara Bhatia CT, ASCP Specimen: Pap Test, ThinPrep, Cervix Performed By: #### L [id number] ####[facility] [id number] [address] LABCLIA [id number] [place] [address] [place] CLINICAL HISTORY, CYTOLOGY, CHIEF AIRPORT GUIDE Normal [facility] Comment on above: Order Comment: Speci men Type: FLUID SPECIMENOrdering Facility: [facility] Address: [address] [place] [address] Result Comment: Preg nant (Indicate Weeks) Previous Abnormal Pap Performed By: #### L [id number] ####[facility] [id number] [address] [facility] LABCLIA [id number] [place] [address] [place] FINAL PERFORMING LAB Normal [facility] Comment on above: Order Comment: Speci men Type: FLUID SPECIMENOrdering Facility: [facility] Address: [address] [place] [address] Result Comment: Tech nical component, merchandise carrier screening performed at [facility], [address] [facility] [address] [facility] [address], [place] [id number] CLIA# [id number] Diagnostic interpretation performed at [facility], [address] [facility] [address], [place] [id number] CLIA# [id number] Equipment Engineer: Margot Andersen M.D. Performed By: #### L [id number] ####[facility]ORYCLIA [id number] [address] LABCLIA [id number] [place] [address] [place] INTERPRETATION, CYTOLOGY, CHIEF AIRPORT GUIDE Normal [facility] Comment on above: Order Comment: Speci men Type: FLUID SPECIMENOrdering Facility: [facility] Address: [address] [place] [address] Result Comment: Nega tive for intraepithelial lesion or malignancy. at 0809 EST Performed By: #### L [id number] ####[facility] LABORATORYCLIA [id number] [address] LABCLIA [id number] [place] [address] [place] LMP 06/06/2024 Normal [facility] Comment on above: Order Comment: Speci men Type: FLUID SPECIMENOrdering Facility: [facility] Address: [address] [place] [address] Performed By: #### L [id number] ####[facility] LABORATORYCLIA [id number] [address] LABCLIA [id number] [place] [id number] [place] PAP DISCLAIMER COMMENT The Pap Smear is a screening test for cervical cancer. False negative results occur with all screening tests, emphasizing the need for rescreening at recommended intervals, and clinical correlation. Normal [facility] Comment on above: Order Comment: Speci men Type: FLUID SPECIMENOrdering Facility: [facility] Address: [address] [place] [address] Performed By: #### L [id number] ####[facility] LABORATORYCLIA [id number] [place] [id number] [facility] LABCLIA [id number] [address] [place] POC EMBEDDED SOFTWARE TEST ENGINEER ULTRASOUNDon 07-27-19 25 Indication Viability; confirm cardiac activity Impression Gestational sac not visualized Recommendations of unknown location Follow up for dating ultrasound within 24-48 hours Method Transvaginal ultrasound examination. View: Adequate visualization Zavaleta . Number of embryos: 1 Dating LMP on: 06/06/2024 GA by LMP 7 w + 2 d ANDERSON by LMP: 03/13/2025 Assigned: based on the LMP, selected on 07/27/2024 Assigned GA 7 w + 2 d Assigned ANDERSON: 03/13/2025 Assessment Gestational sac: too early to identify Performed By: Melita Colón NP Read By: Melita Colón NP MATERNAL MEDICINE [facility] Radiology Study observation (narrative) [facility] Prot/Creat Uron 07-27-2024 Protein/Creatinine (U) [Mass ratio] 0.06 mg/mg Normal <0.15 [facility] Comment on above: Order Comment: Speci men Type: URINE SPECIMENOrdering Facility: [facility] Address: [address] [place] [address] Result Comment: Adul t Proteinuria Categories: <0.15 mg/mg is considered normal to mildly increased 0.15 - 0.50 mg/mg is considered moderately increased >0.50 mg/mg is considered severely increased KDIGO. (2013). KDIGO 2012 Clinical Practice Guideline for the Evaluation and Management of Chronic Kidney Disease. Official Journal of the International Society of Nephrology, 3(1), 1-150. Performed By: #### 6 30-4 #### [facility] CLIA [id number] [address] [place] [address] [place] Protein/Creatinine (U) [Mass ratio]on 07-27-2024 Creatinine (U) [Mass/Vol] 155.0 mg/dL Normal 20.0-300.0 [facility] Comment on above: Order Comment: Speci men Type: URINE SPECIMENOrdering Facility: [facility] Address: [address] [place] [address] Performed By: #### 6 30-4 #### [facility] IA [id number] [address] [place] [address] [place] Protein (U) [Mass/Vol] 10 mg/dL Normal 0-20 [facility] Comment on above: Order Comment: Speci men Type: URINE SPECIMENOrdering Facility: [facility] Address: [address] [place] [address] Performed By: #### 6 30-4 #### [facility] IA [id number] [address] [place] [address] [place] RUBELLA IGG ANTIBODYon 07-27 RUBELLA IGG AB, QUAL Positive Normal Positive [facility] Comment on above: Order Comment: Speci men Type: BLOOD SPECIMENOrdering Facility: [facility] Address: [address] [place] [address] Result Comment: The result suggests recent or past exposure to Rubella virus or history of Rubella vaccination. Positive result may also be seen due to presence of passively-transferred antibodies. Please correlate with patient's history. Performed By: #### R UBIGG ####[facility] LABCLIA [id number] [place] [address] [place] Reagin and Treponema pallidu m IgG and IgM [Interp]on 07-27-2024 T. pallidum IgG+IgM IA Ql (S) Non-Reactive Normal Nonreactive [facility] Comment on above: Order Comment: Speci men Type: BLOOD SPECIMENOrdering Facility: [facility] Address: [address] [place] [address] Performed By: #### 5 195-3, 72731-2, 43965-6 ####[facility] LABCLIA [id number] [place] [address] [place] Reagin+T pallidum IgG+IgM Se rPl-Impon 07-27-2024 Reagin and Treponema pallidum IgG and IgM [Interp] Cannot exclude recent Treponemal infection if specimen collected within 7-10 days after appearance of suspect lesions or 2-3 weeks after an exposure. Clinical correlation is required. Normal [facility] Comment on above: Order Comment: Speci men Type: BLOOD SPECIMENOrdering Facility: [facility] Address: [address] [place] [address] Performed By: #### 5 195-3, 02341-3, 73925-7 ####[facility] LABCLIA [id number] [place] [address] [place] TRICHOMONAS VAGINALIS NAATon 07-27-2024 T. vaginalis DNA LARRY+probe Ql (Unsp spec) Not detected Normal Not detected [facility] Comment on above: Order Comment: Speci men Type: SWABOrdering Facility: [facility] Address: [address] [place] [address] Performed By: #### 6 30-4 #### [facility] CLIA [id number] [address] [place] [address] [place] TSH SerPl-aCncon 07-27-2024 TSH Qn 2.480 m[IU]/L Normal 0.270-4.200 [facility] Comment on above: Order Comment: Speci men Type: BLOOD SPECIMENOrdering Facility: [facility] Address: [address] [place] [address] Result Comment: If t he patient is , TSH reference range varies by gestational period: First Trimester (weeks 9-12): 0.180-2.990 mIU/L Second Trimester: 0.110-3.980 mIU/L Third Trimester: 0.480-4.710 mIU/L Blake Cerda et al. A Practical Approach for the Verifications and Determination of Site- and Trimester-Specific Reference Intervals for Thyroid Function tests in . Thyroid, 2019:29:3:412-420. Marvin E, et al. 2017 Guidelines of the [place] Thyroid Association for the Diagnosis and Management of Thyroid Disease during and the . Thyroid, 2017:27:3:315-389. Performed By: #### 3 016-3 ####[facility] LABCLIA [id number] [place] [address] [place] TYPE + SCREEN PRENATALon ABO A Normal [facility] Comment on above: Order Comment: Speci men Type: BLOOD SPECIMENOrdering Facility: [facility] Address: [address] [place] [address] Performed By: #### T SPN ####[facility] BLOOD BANKIA [id number] [place] [address] [place] Rh Nom (Bld) Positive Normal [facility] Comment on above: Order Comment: Speci men Type: BLOOD SPECIMENOrdering Facility: [facility] Address: [address] [place] [address] Performed By: #### T SPN ####[facility] BLOOD BANKIA [id number] [address] [place] TYPE AND SCREEN EXPIRATION 07/30/2024 23:59 Normal [facility] Comment on above: Order Comment: Speci men Type: BLOOD SPECIMENOrdering Facility: [facility] Address: [address] [place] [address] Performed By: #### T SPN ####[facility] BLOOD BANKCLIA [id number] [place] [address] [place] B-HCG SerPl-aCncon 5 HCG.beta subunit Qn 8701.0 m[IU]/mL High <5.0 [facility] Comment on above: Order Comment: Speci men Type: BLOOD SPECIMENOrdering Facility: [facility] Address: [address] [place] [address] Result Comment: BALDEV TITATIVE HCG NORMAL RANGES Weeks of Gestation (Weeks Since LMP) 3 Weeks (5.8-71.2 mIU/mL) 4 Weeks (9.5-750 mIU/mL) 5 Weeks (217-7138 mIU/mL) 6 Weeks (158-51493 mIU/mL) 7 Weeks (3697-330203 mIU/mL) 8 Weeks (91540-719906 mIU/mL) 9 Weeks (22949-372478 mIU/mL) 10 Weeks (68976-848771 mIU/mL) 12 Weeks (16609-642851 mIU/mL) Referenced to 4th IS of [facility] Performed By: #### 2 1198-7 ####[facility] LABCLIA [id number] [facility]ENTERAlvarado [facility] MEDICAL CENTERK [address] OF [facility] CNPAruna 07-20-2024 CNPN Telephone (OBGYWM) ----- MARCELO WITT ([id number]) 1 F Date Time Provider Department 07/20/24 MELITA COLÓN During your visit today, we recorded the following information about you: Julia Phillips RN 07/20/2024 3:56 PM Signed See patients MyChart message. Flagyl was prescribed. She has already scheduled New OB appointment for 2/3. MAINOR Velasquez Emily, CAR BODY DESIGNER.DATA MANAGEMENT ENGINEER 07/20/2024 4:16 PM Signed Addended by: MELITA COLÓN on: 07/20/2024 04:16 PM Modules accepted: Orders Allergies As of Date: 07/20/2024 Noted Allergy Reaction DEXAMETHASONE 05/29/2022 11 - Vomiting Comments: States she blacks out and vomits ONDANSETRON HCL 06/25/2017 1 - Mental Status Change METOCLOPRAMIDE 03/30/2022 1 - Mental Status Change 9 - Itching Date Reviewed: 07/17/2024 Reviewed by: Shira Benoit LPN - Fully Assessed Reason for Visit: Results [95] Primary Visit Diagnosis:Bacterial vaginosis [N76.0, B96.89] Order(s):metroNIDAZOLE (METROGEL VAGINAL) 0.75 % (37.5mg/5 gram) Vaginal GelUse 1 Applicatorful vaginally daily at bedtime for 5 days.Disp: 70 gRfl: 0 Prescriptions as of 07/20/2024 - metroNIDAZOLE (METROGEL VAGINAL) 0.75 % (37.5mg/5 gram) Vaginal Gel Use 1 Applicatorful vaginally daily at bedtime for 5 days. - no115/iron/folic acid ( 19 ORAL) Take by mouth once daily. Problem List As Of Date: 07/20/2024 (None) Prescriptions ordered this encounter Disp Refills Start End METRONIDAZOLE 500 MG TABLET 14 t* 0 07/20/2024 07/20/2024 Route: ORAL Sig: Take 1 tablet by mouth two times a day for 7 days. METRONIDAZOLE 0.75 % (37.5 MG/5 GRAM* 70 g 0 07/20/2024 07/20/2024 Route: VAGINAL Sig: Use 1 Applicatorful vaginally two times a day for 5 days. METRONIDAZOLE 0.75 % (37.5 MG/5 GRAM* 70 g 0 07/20/2024 07/25/2024 Route: VAGINAL Sig: Use 1 Applicatorful vaginally daily at bedtime for 5 days. Medications Discontinued During This Encounter Prescriptions - metroNIDAZOLE (FLAGYL) 500 mg tablet (Discontinued) Take 1 tablet by mouth two times a day for 7 days. - metroNIDAZOLE (METROGEL VAGINAL) 0.75 % (37.5mg/5 gram) Vaginal Gel (Discontinued) Use 1 Applicatorful vaginally two times a day for 5 days. Encounter Status:Closed by MIREYA TOLBERT on 07/20/24 [facility] B-HCG SerPl-aCncon HCG.beta subunit Qn 1317.0 m[IU]/mL High <5.0 [facility] Comment on above: Order Comment: Speci men Type: BLOOD SPECIMENOrdering Facility: [facility] Address: [address] [place] [address] Result Comment: BALDEV TITATIVE HCG NORMAL RANGES Weeks of Gestation (Weeks Since LMP) 3 Weeks (5.8-71.2 mIU/mL) 4 Weeks (9.5-750 mIU/mL) 5 Weeks (217-7138 mIU/mL) 6 Weeks (158-82264 mIU/mL) 7 Weeks (3697-777589 mIU/mL) 8 Weeks (06527-897989 mIU/mL) 9 Weeks (72769-462392 mIU/mL) 10 Weeks (54536-676668 mIU/mL) 12 Weeks (73137-696207 mIU/mL) Referenced to 4th IS of [facility] Performed By: #### 6 30-4 #### [facility] CLIA [id number] [address] [place] [address] [place] BACTERIAL VAGINOSIS NAATon 0 07-17-2024 Lactobacillus crispatus+gasseri+tereza enii + Gardnerella vaginalis + Atopobium vaginae rRNA LARRY+probe Ql (Vag fld) Detected Abnormal Not detected [facility] Comment on above: Order Comment: Speci men Type: SWABOrdering Facility: [facility] Address: [address] [place] [address] Performed By: #### 6 30-4 #### [facility] CLIA [id number] [address] [place] [address] [place] ALBERTO/TRICHOMONAS NAATon 0 07-17-2024 C. glabrata RNA LARRY+probe Ql (Vag fld) Not detected Normal Not detected [facility] Comment on above: Order Comment: Speci men Type: SWABOrdering Facility: [facility] Address: [address] [place] [address] Performed By: #### 6 30-4 #### [facility] CLIA [id number] [address] [place] [address] [place] Alberto sp DNA LARRY+probe Ql (Vag fld) Not detected Normal Not detected [facility] Comment on above: Order Comment: Speci men Type: SWABOrdering Facility: [facility] Address: [address] [place] [address] Result Comment: The Alberto species group target includes C. albicans, C. tropicalis, C. parapsilosis, and C. dubliniensis. Performed By: #### 6 30-4 #### [facility] CLIA [id number] [address] [place] [address] [place] T. vaginalis DNA LARRY+probe Ql (Unsp spec) Not detected Normal Not detected [facility] Comment on above: Order Comment: Speci men Type: SWABOrdering Facility: [facility] Address: [address] [place] [address] Performed By: #### 6 30-4 #### [facility] CLIA [id number] [address] [place] [address] [place] CNOVon 07-17-2024 CNOV Office Visit (OBGYWM ) ----- DARIOBONNIE OSEIA ([id number]) 1 F Date Time Provider Department 07/17/24 10:30 AM MARY RIZO OBGYWM During your visit today, we recorded the following information about you: Blood pressure Weight Last Period 116/68 78.4 kg 06/06/24 Mary Rizo APRN.DATA MANAGEMENT ENGINEER 07/17/2024 11:01 AM Signed Patient declined assembly member. Marcelo Witt is a 23 year old female who presents for problem visit vaginal irritation, missed menses x2 weeks. HPI: pt c/o vaginal irritation, odor, and discharge. She had BV a few months back and feels like she is having the same symptoms. OB History No obstetric history on file. Torpedo Man History LMP: 06/06/2024 (Exact Date) Age at Menarche: Age at First : Age at Menopause: Torpedo Man History Comments: Sexual Activity: No sexual activity data on record; No partner data on record Contraception: No contraception data on record No past medical history on file. No past surgical history on file. No family history on file. Current Outpatient Medications Medication Sig no115/iron/folic acid ( 19 ORAL) Take by mouth once daily. No current facility-administered medications for this visit. Allergies As of Date: 07/17/2024 Allergen Noted Reaction DEXAMETHASONE 05/29/2022 Vomiting ONDANSETRON HCL 06/25/2017 Mental Status Change METOCLOPRAMIDE 03/30/2022 Mental Status Change and Itching Fully Assessed 07/17/2024 REVIEW OF SYSTEMS Expanded ROS: N/A Allergies and current medication updated:Yes SENSITIVE EXAM: The sensitive examination was discussed with the Patient or Patient's Authorized Marketing Analytics Manager. As applicable, any other physician, advance practice provider, medical student, or other health professional student that will be observing or involved in the sensitive examination for educational or training purposes was discussed with the Patient or Authorized Marketing Analytics Manager. The Patient or Authorized Marketing Analytics Manager has agreed to proceed with the sensitive examination. (Sensitive examination includes inspection and/or palpation of the breasts, pelvis, prostate and anorectal regions). EXAM: BP 116/68 Wt 172 lb 12.8 oz (78.4kg) LMP 06/06/2024 GENERAL: pleasant, female in no apparent distress HEENT: Normocephalic, atraumatic, mucus membranes moist, and no lesions CHEST: Normal inspiratory effort PELVIC: external genitalia normal, normal Bartholin's glands, urethra, [place]'s glands, no vulvar lesions, no cervical lesions, good vaginal support, physiologic discharge present, normal appearing perineal body and perianal region BIMANUAL: deferred NEURO: alert and oriented x3,exam grossly non-focal EXTREMITIES: normal ASSESSMENT/PLAN: 1. Missed menses - ICD9: 626.4, ICD10: N92.6 (primary diagnosis) - UA DIP,URINE HCG (POC) 2. Vaginal irritation - ICD9: 623.9, ICD10: N89.8 - ALBERTO/TRICHOMONAS NAAT - BACTERIAL VAGINOSIS NAAT 3. Vaginal odor - ICD9: 625.8, ICD10: N89.8 - ALBERTO/TRICHOMONAS NAAT - BACTERIAL VAGINOSIS NAAT 4. Encounter for test, result positive - ICD9: V72.42, ICD10: Z32.01 - HCG QUANTITATIVE Will notify patient of test results. Mary Rizo APRN.DATA MANAGEMENT ENGINEER Medical Decision Making: Problems: Low: Acute, uncomplicated illness or injury Data: Unique test(s) ordered: 3+ Risk: Low: Low risk from testing/treatment Medical Decision Making Level: 3 - Low Allergies As of Date: 07/17/2024 Noted Allergy Reaction DEXAMETHASONE 05/29/2022 11 - Vomiting Comments: States she blacks out and vomits ONDANSETRON HCL 06/25/2017 1 - Mental Status Change METOCLOPRAMIDE 03/30/2022 1 - Mental Status Change 9 - Itching Date Reviewed: 07/17/2024 Reviewed by: Shira Benoit LPN - Fully Assessed Reason for Visit: Problem Visit [Other] Primary Visit Diagnosis:Missed menses [N92.6] Other Visit Diagnoses:Vaginal irritation [N89.8] Vaginal odor [N89.8] Encounter for test, result positive [Z32.01] Order(s):UA DIP,URINE HCG (POC) [4251670] Order #: [id number]. #:[id number] 11-LAB ALBERTO/TRICHOMONAS NAAT [SQCVTV] Order #: [id number]. #:[id number] BACTERIAL VAGINOSIS NAAT [SQBVAMP] Order #: [id number]. #:[id number] HCG QUANTITATIVE [SQHCGQT] Order #: [id number] STANDING Prescriptions as of 07/17/2024 - no115/iron/folic acid ( 19 ORAL) Take by mouth once daily. Problem List As Of Date: 07/17/2024 (None) Encounter Status:Closed by MARY RIZO on 07/17/24 Normal [facility] UA DIP,URINE HCG (POC)on Beta HCG ( test) Ql (U) Positive Abnormal Negative [facility] Comment on above: Location:[facility], [address], [place], [address] Interpretation and review of laboratory results Abnormal [facility] Printing Agent (POCT) Internal QC OK [facility] Location:[facility], [address], [place], [address] [facility] POINT OF CARE [facility] HCGQon 07-13-2024 hCG, quantitative 197.9 mIU/mL Normal [facility] Comment on above: Result Comment: HCG Levels with Gestation age: 0.2- 1 week. . . . . . . . . . . . . . . 5 - 50 mIU/mL 1-2 weeks . . . . . . . . . . . . . . . 50 - 500 mIU/mL 2-3 weeks . . . . . . . . . . . . . . . 100 - 5,000 mIU/ml 3-4 weeks . . . . . . . . . . . . . . . 500 - 10,000 mIU/mL 4-5 weeks . . . . . . . . . . . . . . . 1,000 - 5,000 mIU/mL 5-6 weeks . . . . . . . . . . . . . . . 10,000 - 100,000 mIU/mL 6-8 weeks . . . . . . . . . . . . . . . 15,000 - 200,000 mIU/mL 2-3 months . . . . . . . . . . . . . . . 10,000 - 100,000 mIU/mL Performed By: #### H CGQ #### Tawanda [address] [address] HCGQon 07-09-2024 hCG, quantitative 41.6 mIU/mL Normal [facility] Comment on above: Result Comment: HCG Levels with Gestation age: 0.2- 1 week. . . . . . . . . . . . . . . 5 - 50 mIU/mL 1-2 weeks . . . . . . . . . . . . . . . 50 - 500 mIU/mL 2-3 weeks . . . . . . . . . . . . . . . 100 - 5,000 mIU/ml 3-4 weeks . . . . . . . . . . . . . . . 500 - 10,000 mIU/mL 4-5 weeks . . . . . . . . . . . . . . . 1,000 - 5,000 mIU/mL 5-6 weeks . . . . . . . . . . . . . . . 10,000 - 100,000 mIU/mL 6-8 weeks . . . . . . . . . . . . . . . 15,000 - 200,000 mIU/mL 2-3 months . . . . . . . . . . . . . . . 10,000 - 100,000 mIU/mL Performed By: #### H CGQ #### Tawanda [address] [place], [place] [address] Emergency Department Summary on 06-28-2024 Emergency Department Summary [facility] Medical Records Department [address] [place] [address] Emergency Department Summary 06/28/24 MR#: [id number] Acct: [id number] Name: MARCELO LOZA Rep #: [id number] : 2000 23 From: Kirby Child DO PCP: Dr. Hector Gorman MD Status:DEP ER Location: ED HPI History of Present Illness Chief Complaint: Sore Throat Informant: patient and spouse/S.O. Narrative Narrative: Patient is a 23-year-old female with past medical history of GERD. She states that she her daughter and significant other all had nausea vomiting and diarrhea roughly 1 week ago. She states symptoms lasted for 1 to 2 days and then resolved. She states her daughter and her significant other have since improved. However she has had mild congestion and sore throat and hoarse voice. Symptoms or not resolving and secondary to this she comes in for evaluation [facility] Medical History (Updated 06/29/24 @ 00:[address] Kirby Child DO) Blood glucose abnormal Hyperlipidemia Elevated liver enzymes Menstrual irregularity Screening for thyroid disorder Screening for cardiovascular condition GERD (gastroesophageal reflux disease) Preeclampsia Head ache Seasonal allergies Home Medications ???Medication ???Instructions ???Recorded ???Last Taken ???Type magnesium 200 mg tablet 420 mg PO QDAY 02/28/24 Unknown History aktzqneg-emo-nfwx-FA-Ca carb-vit K 1 tab PO QDAY 02/28/24 Unknown History 18 mg iron-400 mcg-500 mg tablet omega-3 fatty acids 1,000 mg 2,500 mg PO QDAY 02/28/24 Unknown History capsule ondansetron 4 mg disintegrating 4 mg PO Q8H PRN nausea and 02/28/24 Unknown Rx tablet vomiting #60 tabs Allergy/AdvReac Type Severity Reaction Status Date / Time dexamethasone (From Decadron) Allergy Intermediate syncope Verified 06/28/24 21:52 metoclopramide (From Reglan) Allergy Intermediate anxious Verified 06/28/24 21:52 Family History Grandfather Diabetes Grandmother Diabetes Grandmother Myocardial infarction, Onset Age: 50 Surgical History History of ear surgery S/P ACL repair History of tonsillectomy Social History household members: spouse and children housing: house 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 Status: Never smoker alcohol intake: never substance use type: does not use what type of physical activity do you participate in: walking and weight training frequency: 3-4 times per week seatbelt use: always do you feel safe at home: Yes ROS ROS ED Constitutional Constitutional ED: Denies chills or fever(s) Eyes Eyes: Denies change in vision ENT ENT ED: Reports sore throat Cardiovascular Cardiovascular: Denies chest pain Respiratory/Chest Respiratory/Chest: Denies cough or dyspnea Gastrointestinal Gastrointestinal: Reports nausea; Denies abdominal pain, diarrhea or vomiting Genitourinary Genitourinary ED: Denies dysuria Musculoskeletal Musculoskeletal: Denies neck pain Integumentary Denies rash Neurologic Neurologic: Denies headache(s) Hematologic/Lymphatic Hematologic/Lymphatic: Denies easy bleeding or easy bruising Allergic/Immunologic Allergic/Immunologic ED: Denies mouth swelling or tongue swelling EXAM Physical Exam Const Vital Signs: 06/28/24 21:51 06/28/24 22:54 06/29/24 00:00 Temperature 98.4 F 98.4 F 98.4 F Temperature Source Oral Oral Pulse Rate 99 99 99 Respiratory Rate 12 12 14 Blood Pressure 160/94 H 160/94 H 122/57 H Blood Pressure Mean 116 116 78 Pulse Ox 98 98 98 Oxygen Delivery Method Room Air Room Air Positive well nourished and well developed General Appearance ED: well developed; Negative for pallor HEENT Reports moist mucous membranes HEENT Narrative: There is cobblestoning noted in the posterior pharynx consistent with sinus drainage Scattered/few herpangina lesions are noted across the posterior pharynx No hard palate petechiae. No trismus. No change in voice. No difficulty with secretions Eyes PERRL and EOMs intact bilaterally General Eye ED: Negative for scleral icterus Neck supple Neck Narrative: No brawny edema in the submental space to suggest Deric angina Positive anterior cervical lymphadenopathy noted Resp normal respiratory effort and clear to auscultation bilaterally Cardio regular rate and regular rhythm Extremity normal to inspection Neuro oriented x3, CN's II-XII intact bilaterally and no sensory deficits noted Sensorium / Orientation: alert Motor Exam: strength 5/5 throughout Psych mental status grossly normal Skin no rashes or lesions noted General Skin Exam: Negative for ja (more content not included)... Normal [facility] M100.677on 06-28-2024 M100.677 Negative Normal [facility] Comment on above: Performed By: #### M 100.677, M100.678 ####[facility] [address] [place], [address] M100.678on 06-28-2024 M100.678 Pending SARS-CoV-2 (COVID 19) Negative INFLUENZA A Negative INFLUENZA B Negative RSV PCR Negative Normal [facility] Comment on above: Performed By: #### M 100.677, M100.678 ####[facility] [address] [place], [place], [address] Neck for Soft Tissueon 06-28 Neck for Soft Tissue [facility] Imaging Services [address] [place], [place] [id number] Neck for Soft Tissue MR#: [id number] Acct: [id number] Name: MARCELO LOZA Rep #: [id number] : 2000 F 23 From: Clinton Price MD PCP: Dr. Hector Gorman MD Status: REG ER Study: Neck for Soft Tissue Date of Exam: 06/28/24 Exam# [id number] Ordering Dr: Kirby Child DO [id number] EXAM: XR SOFT TISSUE NECK CLINICAL INDICATION: pain TECHNIQUE: Frontal and lateral views of the soft tissues of the neck. COMPARISON: No relevant prior studies available. FINDINGS: AIRWAY: Unremarkable. Grossly patent. SOFT TISSUES: Unremarkable. No radiopaque foreign body. No pathologic thickening or enlargement of the epiglottis. RAD/Neck for Soft Tissue IMPRESSION: Negative neck x-rays. Electronically Signed: Clinton Price MD at 23:04 EST , CC: Dr. Hector Gorman MD; Kirby Child DO Information Systems Consultant: [facility] (UCW[facility] ) ----- MARCELO WITT ([id number]) 1 F Date Time Provider Department 06/27/24 11:30 AM LOU CAMILO [facility] During your visit today, we recorded the following information about you: Temperature Pulse Respiration Blood pressure 97.2 degrees 106/minute 16/minute 124/72 Weight 78.1 kg Lou Camilo APRN.DATA MANAGEMENT ENGINEER 06/27/2024 12:06 PM Signed Subjective The history is provided by the patient. No hot stick worker was used. JOHN Witt is a 23 year old female who presents today for CC of sore throat for 4 days. She is also having swollen glands. She has used tylenol/ibuprofen with short term relief. She denies any fever. She had a viral gastroenteritis a week ago. BP 124/72 Pulse 106 Temp 36.2 ?C (97.2 ?F) Resp 16 Wt 78.1 kg (172 lb 2.9 oz) SpO2 97% No past medical history on file. I have confirmed and edited as necessary, the [facility] Review of Systems Constitutional: Negative for chills and fever. HENT: Positive for sore throat. Negative for congestion, ear pain and sinus pain. Respiratory: Negative for cough, sputum production, shortness of breath and wheezing. Cardiovascular: Negative for chest pain. Gastrointestinal: Negative for abdominal pain, diarrhea, nausea and vomiting. Musculoskeletal: Negative for myalgias. Neurological: Negative for headaches. Objective Physical Exam Vitals and nursing note reviewed. HENT: Head: Normocephalic and atraumatic. Right Ear: Tympanic membrane, ear canal and external ear normal. Left Ear: Tympanic membrane, ear canal and external ear normal. Nose: No mucosal edema, congestion or rhinorrhea. Right Sinus: No maxillary sinus tenderness or frontal sinus tenderness. Left Sinus: No maxillary sinus tenderness or frontal sinus tenderness. Mouth/Throat: Pharynx: Uvula midline. No oropharyngeal exudate or posterior oropharyngeal erythema. Cardiovascular: Rate and Rhythm: Normal rate and regular rhythm. Heart sounds: Normal heart sounds. Pulmonary: Effort: Pulmonary effort is normal. Breath sounds: Normal breath sounds. Lymphadenopathy: Head: Right side of head: No submental, submandibular or tonsillar adenopathy. Left side of head: No submental, submandibular or tonsillar adenopathy. Cervical: No cervical adenopathy. Skin: General: Skin is warm and dry. Neurological: Mental Status: She is alert and oriented to person, place, and time. Psychiatric: Mood and Affect: Affect normal. ASSESSMENT/PLAN: 1. Sore throat - ICD9: 462, ICD10: J02.9 - suspect mono, herpangina (no lesions seen on exam), acid reflux - Rapid Strep negative in the office today - Discussed supportive care treatment with fluids, rest and analgesia. - The patient may also use warm salt water gargles, throat lozenges and/or OTC throat spray as needed. - The patient should follow up in one week if symptoms persist or worsen - Call back if drooling, increased temperature, symptoms of dehydration and/or still sick in one week - STREP A MOLECULAR (POC) - MONOTEST, INFECTIOUS MONO - if still sore throat on Saturday, will return for monotest Pepcid 20 mg as discussed bid Follow up with PCP prn Diagnosis and treatment plan were discussed and questions were answered to the patient's satisfaction. Pt acknowledged understanding of concepts and follow up plan. Specific signs and symptoms that would indicate the need for higher level of care were discussed in detail warranting prompt ER evaluation. Lou Camilo APRN.Lou Carlson APRN.CNP 06/27/2024 11:59 AM Signed Pepcid 20 mg twice a day on an empty stomach, wait 30 min before eating. Tylenol (generic acetaminophen) 500 mg-2 tabs every 8 hrs. as needed for fever and aches Salt water gargles, chloraseptic spray or lozenges as needed for sore throat. Warm beverages, honey. If still having a sore throat on Saturday, recommend returning for monotest - lab . Allergies As of Date: 06/27/2024 Noted Allergy Reaction DEXAMETHASONE 05/29/2022 11 - Vomiting Comments: States she blacks out and vomits METOCLOPRAMIDE 03/30/2022 1 - Mental Status Change 9 - Itching Date Reviewed: 06/27/2024 Reviewed by: Delia Becerril MA - Fully Assessed Reason for Visit: Sore Throat [200] Cmt: x 4 days Primary Visit Diagnosis:Sore throat [J02.9] Order(s):STREP A MOLECULAR (POC) [9771833] Order #: [id number]. #:[id number] 73-LAB MONOTEST, INFECTIOUS MONO [SQMONOLX] Order #: [id number] FUTURE Problem List As Of Date: 06/27/2024 (None) Other instructions from your clinician: Pepcid 20 mg twice a day on an empty stomach, wait 30 min before eating. Tylenol (generic acetaminophen) 500 mg-2 tabs every 8 hrs. as needed for fever and aches Salt water gargles, chloraseptic spray or lozenges as needed for sore throat. Warm beverages, honey. If still having a sore throat on Saturday, recomm (more content not included)... Normal [facility] STREP A MOLECULAR (POC)on Procedural Control Valid [facility] Strep A (POCT) Negative Negative [facility] HCGQon 06-03-2024 hCG, quantitative 27.3 mIU/mL Normal [facility] Comment on above: Result Comment: HCG Levels with Gestation age: 0.2- 1 week. . . . . . . . . . . . . . . 5 - 50 mIU/mL 1-2 weeks . . . . . . . . . . . . . . . 50 - 500 mIU/mL 2-3 weeks . . . . . . . . . . . . . . . 100 - 5,000 mIU/ml 3-4 weeks . . . . . . . . . . . . . . . 500 - 10,000 mIU/mL 4-5 weeks . . . . . . . . . . . . . . . 1,000 - 5,000 mIU/mL 5-6 weeks . . . . . . . . . . . . . . . 10,000 - 100,000 mIU/mL 6-8 weeks . . . . . . . . . . . . . . . 15,000 - 200,000 mIU/mL 2-3 months . . . . . . . . . . . . . . . 10,000 - 100,000 mIU/mL Performed By: #### H [facility] #### T[address] [place], [place] [address] HCGQon 06-01-2024 hCG, quantitative 30.8 mIU/mL Normal [facility] Comment on above: Result Comment: HCG Levels with Gestation age: 0.2- 1 week. . . . . . . . . . . . . . . 5 - 50 mIU/mL 1-2 weeks . . . . . . . . . . . . . . . 50 - 500 mIU/mL 2-3 weeks . . . . . . . . . . . . . . . 100 - 5,000 mIU/ml 3-4 weeks . . . . . . . . . . . . . . . 500 - 10,000 mIU/mL 4-5 weeks . . . . . . . . . . . . . . . 1,000 - 5,000 mIU/mL 5-6 weeks . . . . . . . . . . . . . . . 10,000 - 100,000 mIU/mL 6-8 weeks . . . . . . . . . . . . . . . 15,000 - 200,000 mIU/mL 2-3 months . . . . . . . . . . . . . . . 10,000 - 100,000 mIU/mL Performed By: #### H CGQ #### Tawanda [address] [address] LABORATORYOrdered By: SYSTEM SYSTEM on 06-01-2024 HCG Qn 30.8 m[IU]/mL Invalid Interpretation Code AO ADM SS Comment on above: Interpretive Data: H CG Levels with Gestation age: 0.2- 1 week. . . . . . . . . . . . . . . 5 - 50 mIU/mL 1-2 weeks . . . . . . . . . . . . . . . 50 - 500 mIU/mL 2-3 weeks . . . . . . . . . . . . . . . 100 - 5,000 mIU/ml 3-4 weeks . . . . . . . . . . . . . . . 500 - 10,000 mIU/mL 4-5 weeks . . . . . . . . . . . . . . . 1,000 - 5,000 mIU/mL 5-6 weeks . . . . . . . . . . . . . . . 10,000 - 100,000 mIU/mL 6-8 weeks . . . . . . . . . . . . . . . 15,000 - 200,000 mIU/mL 2-3 months . . . . . . . . . . . . . . . 10,000 - 100,000 mIU/mL Internal Medicine Office Brian goldman 05-27-2024 Internal Medicine Office Visit [facility] [address] [place] [address] [place] [address] OFFICE VISIT Date of Service: 05/27/24 MR#: [id number] Acct: [id number] Name: MARCELO WITT Rep #: [id number] : 2000 Provider: Dr. Hector felipe MD Age/Sex: 23/F Location: [facility] Status: Signed Intake Vital Signs 02/28/24 13:51 05/27/24 17:02 Height 5 ft 3 in 5 ft 3 in Weight: 176 lb BMI 31.1 BP 110/70 Blood Pressure Location Lt brachial Position Sitting Respiration 14 Pulse 77 Pulse Source Monitor Temp 97.4 F L Temp Source Temporal Pulse Oximetry (%) 99 Oxygen Delivery Method room air Intake Visit Reasons: 3 M FU Chief Complaint: Follow-up. Collar Closer Lockstitch Required: No Is patient in pain?: No Allergies dexamethasone (From Decadron) Allergy (Intermediate, Verified 05/27/24 16:54) syncope metoclopramide (From Reglan) Allergy (Intermediate, Verified 05/27/24 16:54) anxious Medications ???Medication ???Instructions ???Recorded ???Confirmed ???Type magnesium 200 mg tablet 420 mg PO QDAY 02/28/24 05/27/24 History vviuwgwx-mfa-zenq-FA-Ca carb-vit K 1 tab PO QDAY 02/28/24 05/27/24 History 18 mg iron-400 mcg-500 mg tablet omega-3 fatty acids 1,000 mg 2,500 mg PO QDAY 02/28/24 05/27/24 History capsule ondansetron 4 mg disintegrating 4 mg PO Q8H PRN nausea and 02/28/24 05/27/24 Rx tablet vomiting #60 tabs omeprazole 40 mg capsule,delayed 40 mg PO QDAY #90 caps 05/27/24 05/27/24 Rx release PFSH Medical History (Updated 05/27/24 @ 17:[address] 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 Details: MARCELO WITT, is a 23 F who presents to the office today for follow-up. Also has some concerns. Due to elevated triglycerides, she states that she has been making dietary and lifestyle changes. Has also been monitoring her blood glucose levels at home and has had fasting blood glucose readings in the 1 teens to as high as 132. No known history of diabetes. A1c done in office today at 5.2. Started on omeprazole due to concern for reflux. She states that she has definitely noted symptom improvement. Tolerating medication well and has no concerning side effects. Other chronic conditions are stable. ROS Const Constitutional: No body ache, chills, excessive sweating, fatigue, fever(s), frequent falls, headache(s), snoring, weakness, sleep problems or change in appetite Eyes Eyes: No blurry vision, change in vision, floaters, visual disturbances, eye pain or Light sensitivity ENT ENT: No abnormal hearing, ear or mastoid pain, tinnitus, balance problems, nosebleed/epistaxis, nasal congestion, headache(s), neck pain or sore throat Resp Respiratory: No cough, excessive phlegm production, pain on inspiration, shortness of breath, snoring or wheezing Cardio Cardiology: No chest pain at rest, chest pain with exertion, excessive sweating, shortness of breath, dyspnea on exertion, lightheadedness, orthopnea or palpitations Gastro GI: No abdominal pain, change in bowel habits, constipation, cramping, diarrhea, nausea/dyspepsia or vomiting Genitourinary-Female: No burning urination, painful urination, urinary incontinence, urinary frequency, suprapubic fullness, side pain, abnormal vaginal bleeding or pelvic pain Musc Musculoskeletal: No abnormal gait, joint pain, back pain, limited range of motion, neck pain or numbness Skin Skin: No dry skin, redness, excessive hair growth, yellowing of the eye, lesions, itchy eyes, rash or wounds Neuro Neurology: No abnormal gait, abnormal hearing, behavioral changes, unsteady gait/balance, weakness, frequent falls, headache(s), memory loss, numbness or visual disturbances Psych Psychiatric: No anxiety, No behavioral changes, No change in appetite, No depression, No memory loss and No Thought (more content not included)... Normal [facility] Comprehensive Metabolic Prof ilon 05-26-2024 Albumin [Mass/Vol] 4.5 g/dL Normal 3.2-5.0 [facility] Comment on above: Performed By: #### L 500.4050, L500.4100 ####[facility] [address] [place], [address] Albumin/Globulin [Mass ratio] 1.2 {ratio} Normal 0.9-2.4 [facility] Comment on above: Performed By: #### L 500.4050, L500.4100 ####[facility] [address] [place], [address] ALK P 61 U/L Normal 45-117 [facility] Comment on above: Performed By: #### L 500.4050, L500.4100 ####[facility] [address] [place], [address] ALT [Catalytic activity/Vol] 39 U/L Normal 13-56 [facility] Comment on above: Performed By: #### L 500.4050, L500.4100 ####[facility] [address] [place], [address] AST [Catalytic activity/Vol] 22 U/L Normal 15-37 [facility] Comment on above: Performed By: #### L 500.4050, L500.4100 ####[facility] [address] [place], [address] Bilirubin [Mass/Vol] 0.50 mg/dL Normal 0.20-1.00 [facility] Comment on above: Result Comment: For patients on eltrombopag therapy, use of Dimension [place] TBIL is not recommended. Performed By: #### L 500.4050, L500.4100 ####[facility] [address] [place], [address] BUN/CRE 16.2 RATIO Normal 10-20 [facility] Comment on above: Performed By: #### L 500.4050, L500.4100 ####[facility] [address] [place], [address] CA,Total 9.6 mg/dL Normal 8.5-10.1 [facility] Comment on above: Performed By: #### L 500.4050, L500.4100 ####[facility] [address] [place], [address] Chloride [Moles/Vol] 111 mmol/L High 98-107 [facility] Comment on above: Performed By: #### L 500.4050, L500.4100 ####[facility] [address] [place], [address] CO2 [Moles/Vol] 23.0 mmol/L Normal 21.0-32.0 [facility] Comment on above: Performed By: #### L 500.4050, L500.4100 ####[facility] [address] [place], [address] Creatinine [Mass/Vol] 0.92 mg/dL Normal 0.55-1.02 [facility] Comment on above: Result Comment: The validity of the calculated GFR GFRAA in patients over 70 years has not been determined. Clinical correlation is essential. Performed By: #### L 500.4050, L500.4100 ####[facility] [address] [place], [address] EST GFR - AA 96 mL/min Normal >60 [facility] Comment on above: Result Comment: Afri can Wallisian GFR Calc Performed By: #### L 500.4050, L500.4100 ####[facility] [address] [place], [address] GAP 6 Normal 5-15 [facility] Comment on above: Performed By: #### L 500.4050, L500.4100 ####[facility] [address] [place], [address] GFR/1.73 sq M.predicted among non-blacks MDRD (S/P/Bld) [Vol rate/Area] 80 mL/min/{1.73_m2} Normal >60 [facility] Comment on above: Result Comment: Non- GFR Calc Performed By: #### L 500.4050, L500.4100 ####[facility] [address] [place], [address] Globulin (S) [Mass/Vol] 3.7 g/dL Normal 2.2-4.2 [facility] Comment on above: Performed By: #### L 500.4050, L500.4100 ####[facility] [address] [place], [address] Glucose [Mass/Vol] 111 mg/dL High 74-106 [facility] Comment on above: Result Comment: Fast ing Glucose result from 100 to 125 mg/dL suggests IMPAIRED HOMEOSTASIS per A.D.A. criteria. Performed By: #### L 500.4050, L500.4100 ####[facility] [address] [place], [address] Potassium [Moles/Vol] 4.0 mmol/L Normal 3.5-5.1 [facility] Comment on above: Performed By: #### L 500.4050, L500.4100 ####[facility] [address] [place], [address] Sodium [Moles/Vol] 140 mmol/L Normal 136-145 [facility] Comment on above: Performed By: #### L 500.4050, L500.4100 ####[facility] [address] [place], [address] T PROT 8.2 g/dL Normal 6.4-8.2 [facility] Comment on above: Performed By: #### L 500.4050, L500.4100 ####[facility] [address] [place], [address] Urea nitrogen [Mass/Vol] 15 mg/dL Normal 7-18 [facility] Comment on above: Performed By: #### L 500.4050, L500.4100 ####[facility] [address] [place], [address] Lipid Profileon 05-26-2024 Cholesterol [Mass/Vol] 172 mg/dL Normal 200 [facility] Comment on above: Result Comment: <200 mg/dL Desirable 200-240 mg/dL Borderline >240 mg/dL High Risk Performed By: #### L 500.4050, L500.4100 ####[facility] [address] [place], [address] Cholesterol in HDL [Mass/Vol] 36 mg/dL Low [facility] Comment on above: Result Comment: The drugs N-Acetylcysteine and Metamizole may falsely depress this assay. Reference Range HDL <40 mg/dL Low HDL Cholesterol HDL >or= 60 mg/dL High HDL Cholesterol Performed By: #### L 500.4050, L500.4100 ####[facility] [address] [place], [address] Cholesterol in LDL [Mass/Vol] 108 mg/dL Normal 0-130 [facility] Comment on above: Performed By: #### L 500.4050, L500.4100 ####[facility] [address] [place], [address] Cholesterol in VLDL [Mass/Vol] 28 mg/dL Normal 5-40 [facility] Comment on above: Performed By: #### L 500.4050, L500.4100 ####[facility] [address] [place], [address] Triglyceride [Mass/Vol] 142 mg/dL Normal [facility] Comment on above: Result Comment: The drugs N-Acetylcysteine and Metamizole may falsely depress this assay. Serum Triglycerides Reference Interval Normal <150 mg/dL Borderline high 150 - 199 mg/dL High 200 - 499 mg/dL Very High > or = 500 mg/dL Performed By: #### L 500.4050, L500.4100 ####[facility] [address] [place], [address] US PELVIS NON-OB W/TRANSVAGI NALon 05-18-2024 US PELVIS NON-OB W/TRANSVAGINAL ORIGINAL EXAMINATION: Ultrasound pelvis, 05/18/2024 4:22 pm transabdominal and transvaginal COMPARISON: None TECHNIQUE: This report is based on interpretation of permanently recorded ultrasound images. HISTORY: ORDERING SYSTEM PROVIDED HISTORY: Reason for Exam: pelvic pain, FINDINGS: The uterus is normal in size and echogenicity 7.0 x 3.3 x 4.3 cm. No myometrial mass is seen. The endometrium is trilaminar and is 11 mm double wall thickness which is normal.. Right ovary: 2.8 x 1.6 x 1.3 cm. There are multiple subcentimeter follicles mostly in the periphery of the uterus but these are probably less than 10 in number. Ovarian volume 8.3 cc. Left ovary: 3.2 x 2.1 x 3.0 cm. There are a few subcentimeter follicles and a larger 2.2 cm follicle. Ovarian volume 11.32 cc. There is blood flow in both ovaries. No adnexal mass or significant pelvic free fluid. IMPRESSION: No significant findings. Interpreted by: Robin Medeiros MD Preliminary Report By: Robin Medeiros MD Electronically signed By Robin Medeiros MD Dictated Date: 05/18/2024 8:34:56 PM Prelim Date: 05/18/2024 8:37:20 PM Sign Date: 05/18/2024 8:37:20 PM Ordering Provider: MARKUS SHORT Normal [facility] CTPCRon 04-10-2024 C. trachomatis Interp Normal See CT Interp N [facility] Comment on above: Result Comment: C. t rachomatis DNA not detected. Specimen is presumptive negative for C. trachomatis. A negative result does not preclude C. trachomatis infection because results depend on adequate specimen collection, absence of inhibitors, and sufficient DNA to be detected. See CT Interp N Performed By: #### C TPCR, [email or web address] #### [place] [address] C.trachomatis PCR Negative Normal Negative [facility] Comment on above: Result Comment: Mole cular (PCR) assay performed on the [employer] 4800 system. Performed By: #### C TPCR, NGPCR1 #### [place] [address] Chlam Source Cervix Normal [facility] Comment on above: Performed By: #### C TPCR, [email or web address] #### [place] [address] [id number] 04-10-2024 GC PCR Source Cervix Normal [facility] Comment on above: Performed By: #### C TPCR, NGPCR1 #### [place] [address] N. gonorrhoeae (PCR) Negative Normal Negative [facility] Comment on above: Result Comment: Mole cular (PCR) assay performed on the [employer] 4800 System. Performed By: #### C TPCR, NGPCR1 #### [place] [address] N. gonorrhoeae Interp Normal See NG Interp N [facility] Comment on above: Result Comment: N. g onorrhoeae DNA not detected. Specimen is presumptive negative for N. gonorrhoeae. A negative result does not preclude Neisseria gonorrhoeae infection because results depend on adequate specimen collection, absence of inhibitors, and sufficient DNA to be detected. See NG Interp N Performed By: #### C TPCR, NGPCR1 #### [place] [address] LABORATORYOrdered By: Arely Doll on 04-09-2024 C. trachomatis DNA LARRY+probe Ql (Unsp spec) Negative 2 (04/09/24 9:16 AM) Normal Negative [facility] Comment on above: Interpretive Data: M olecular (PCR) assay performed on the [employer] 4800 system. C. trachomatis DNA LARRY+probe Ql (Unsp spec) C. trachomatis DNA not detected. Specimen is presumptive negative forC. trachomatis.A negative result does not preclude C. trachomatis infection becauseresults depend on adequate specimen collection, absence of inhibitors,and sufficient DNA to be detected. Normal See CT Interp N AH Auto Viro/Sero SS N. gonorrhoeae DNA LARRY+probe Ql (Unsp spec) Negative 1 (04/09/24 9:16 AM) Normal Negative AH [facility]iro[facility]Sero SS Comment on above: Interpretive Data: M olecular (PCR) assay performed on the [employer] 4800 System. N. gonorrhoeae DNA LARRY+probe Ql (Unsp spec) N. gonorrhoeae DNA not detected. Specimen is presumptive negative forN. gonorrhoeae. A negative result does not preclude Neisseria gonorrhoeaeinfection because results depend on adequate specimen collection, absenceof inhibitors, and sufficient DNA to be detected. Normal See NG Interp N AH [facility] Laboratory - Specimen inform ationOrdered By: Arely Doll on 04-09-2024 Specimen source Nom (Unsp spec) Cervix (04/09/24 9:16 AM) Normal [facility] No Panel InformationOrdered By: Gisela Crawford on 04-09-2024 Affirm Pathogens DNA Direct Probe Gardnerella vaginalis DNA Probe Positive Alberto species DNA Probe Negative Trichomonas vaginalis DNA Probe Negative [facility] No Panel Informationon 04-09 Culture Urine No growth at 48 hours. [facility] Work Phone: HCGQon 11-04-2023 hCG, quantitative <1.0 Normal [facility] ([place]) Comment on above: Result Comment: HCG Levels with Gestation age: 0.2- 1 week. . . . . . . . . . . . . . . 5 - 50 mIU/mL 1-2 weeks . . . . . . . . . . . . . . . 50 - 500 mIU/mL 2-3 weeks . . . . . . . . . . . . . . . 100 - 5,000 mIU/ml 3-4 weeks . . . . . . . . . . . . . . . 500 - 10,000 mIU/mL 4-5 weeks . . . . . . . . . . . . . . . 1,000 - 5,000 mIU/mL 5-6 weeks . . . . . . . . . . . . . . . 10,000 - 100,000 mIU/mL 6-8 weeks . . . . . . . . . . . . . . . 15,000 - 200,000 mIU/mL 2-3 months . . . . . . . . . . . . . . . 10,000 - 100,000 mIU/mL Performed By: #### H CGQ #### [place] [address] LABORATORYOrdered By: SYSTEM SYSTEM on 11-04-2023 HCG Qn mIU/mL Invalid Interpretation Code AO ADM SS Comment on above: Interpretive Data: H CG Levels with Gestation age: 0.2- 1 week. . . . . . . . . . . . . . . 5 - 50 mIU/mL 1-2 weeks . . . . . . . . . . . . . . . 50 - 500 mIU/mL 2-3 weeks . . . . . . . . . . . . . . . 100 - 5,000 mIU/ml 3-4 weeks . . . . . . . . . . . . . . . 500 - 10,000 mIU/mL 4-5 weeks . . . . . . . . . . . . . . . 1,000 - 5,000 mIU/mL 5-6 weeks . . . . . . . . . . . . . . . 10,000 - 100,000 mIU/mL 6-8 weeks . . . . . . . . . . . . . . . 15,000 - 200,000 mIU/mL 2-3 months . . . . . . . . . . . . . . . 10,000 - 100,000 mIU/mL LABORATORYOrdered By: SYSTEM SYSTEM on 10-03-2023 TSH Qn 1.70 m[IU]/L Normal 0.36 - 3.74 mcIU/mL AO ADM SS TSHon 10-03-2023 TSH Qn 1.70 m[IU]/L Normal 0.36-3.74 [facility] ([place]) Comment on above: Performed By: #### T SH #### [address] [address] HPVon 07-10-2023 HPV Interp Normal See Interp HPVN [facility] ([place]) Comment on above: Order Comment: Order placed by AP_HPV_REFLEX_7LB rule from [id number] Result Comment: High Risk HPV Typing: NEGATIVE HPV types 16, 18, 31, 33, 35, 39, 45, 51, 52, 56, 58, 59, 66 and 68 DNA were undetectable or below the pre-set threshold. The neeta High-Risk HPV DNA Test is not intended for use as a screening device for Pap normal women under age 30 and is not intended to substitute for regular Pap screening. The neeta High-Risk HPV DNA Test is designed to augment existing methods for the detection of cervical disease and should be used in conjunction with clinical information derived from other diagnostic and screening tests, physical examinations and full medical history in accordance with appropriate patient management procedures. NOTE: A negative result does not preclude the presence of HPV infection because results depend on adequate specimen collection, absence of inhibitors and sufficient DNA to be detected. See Interp HPVN Performed By: #### H PV #### [address] [address] HPV Source Cervix Normal [facility] ([place]) Comment on above: Order Comment: Order placed by AP_[id number]_[email or web address]_[id number] rule from [id number] Performed By: #### H PV #### [address] [address] [facility] Cytology Reporton 2023 [facility]ology Report . Pathology Reports Accession: Collected Date/Time: Received Date/Time: Pathologist: [id number] 07/01/2023 09:43 EST 07/01/2023 18:00 EST JEB IZAGUIRRE MD [facility] Cytology Report SPECIMEN: Specimen Description: Liquid Prep Reflex ASCUS+ Specimen: Cervical/Endocervical Screening or Diagnostic: Screening RELEVANT HISTORY: LMP: na SPECIMEN ADEQUACY: SATISFACTORY FOR EVALUATION Endocervical/Transformati onal zone component present INTERPRETATION/RESULTS: EPITHELIAL CELL ABNORMALITIES, SQUAMOUS Low-grade squamous intraepithelial lesion (LSIL) (encompassing: HPV/ mild dysplasia/ SAMPSON 1) COMMENT: This Pap Test was successfully processed and evaluated with the assistance of the [employer] ThinPrep Test Imaging System. Electronically Signed by Pathology report verified by [facility] Screened by: ELADIO JAIMES Electronically signed by JEB IZAGUIRRE Sign-Out Date: 07/08/2023 12:09 Performing Lab: [facility], [address] [place] [address] Pathology Dept Disclaimer The Pap test is a screening test for cervical cancer. As evidenced by published data, it is subject to both inherent false negative and false positive results. Your patient's results should be interpreted in context with pertinent clinical history including gynecological examination. Normal [facility] ([place]) XR CHEST PA/APon 06-25-2022 XR CHEST PA/AP EXAMINATION: XR CHEST PA/AP 06/25/2022 4:20 pm HISTORY: ORDERING SYSTEM PROVIDED HISTORY: SOB, TECHNOLOGIST PROVIDED HISTORY: Illness/Other Reason for exam: SOB and cough Cancer History: Unknown Surgery, RadiationHistory: Unknown Encounter Type: Initial Additional signs and symptoms: ORDERING SYSTEM PROVIDED DIAGNOSIS CODES: COMPARISON: 03/11/2021 FINDINGS: LUNGS: No significant pulmonary parenchymal abnormalities. VASCULATURE: No increased pulmonary vasculature. PLEURA: No pneumothorax, effusion, or pleural thickening. CARDIAC: No cardiomegaly or cardiac silhouette abnormality. MEDIASTINUM: No visible mass or adenopathy. BONES: No fracture or visible bone lesion. OTHER: Negative. IMPRESSION: No acute disease Workstation ID: [id number] Dictated by: AMY SINGH on SatJun 25, 2022 4:45:09 PM EST Transcribed by: AMY SINGH on SatJun 25, 2022 4:45:09 PM EST Finalized by: AMY SINGH on SatJun 25, 2022 4:45:09 PM EST Normal [facility] Comment on above: Order Comment: Injur y/Trauma or Illness?:Illness/Other How long have you had these symptoms (acute/chronic)?:Acute Reason for exam?:SOB and cough History of cancer?:Unknown Surgeries, chemotherapy, or radiation?:Unknown Type of Exam?:Initial Additional signs and symptoms?: NOVEL CORONAVIRUSon 05-29-20 22 NARRATIVE This test was perfor med using isothermal LARRY and has been approved as Emergency Use Authorization (EUA) for the qualitative detection [id number] nucleic acid. Normal [facility] Comment on above: Result Comment: Test ing performed at [place] [address] Performed By: #### C OVID #### [place] [address] SARS-CoV-2 (COVID-19) RNA LARRY+probe Ql (Unsp spec) Not detected Normal NOT DETECTED [facility] Comment on above: Result Comment: Nega tive results do not preclude SARS-CoV-2 infection and should not be used as the sole basis for treatment or other patient management decisions. Optimum specimen types and timing for peak viral levels during infections caused by SARS-CoV-2 has not been determined. The possibility of a false negative result should especially be considered if the patient's recent exposures or clinical presentation suggest that SARS-CoV-2 infection is probable, and diagnostic tests for other causes of illness (e.g., other respiratory illness) are negative. Collection of a new specimen and re-testing may be necessary if the patient is critically ill or clinically deteriorating. Performed By: #### C OVID #### [place] [address] NOVEL CORONAVIRUS LAB 1 - NA SOPHARYNGEALon 05-29-2022 NARRATIVE -1 This test was perfor med using isothermal LARRY and has been approved as Emergency Use Authorization (EUA) for the qualitative detection [id number] [facility] Comment on above: Testing performed at [place] [address] SARS-CoV-2 (COVID-19) RNA LARRY+probe Ql (Unsp spec) Not detected NOT DETECTED [facility] Comment on above: Negative results do not preclude SARS-CoV-2 infection and should not be used as the sole basis for treatment or other patient management decisions. Optimum specimen types and timing for peak viral levels during infections caused by SARS-CoV-2 has not been determined. The possibility of a false negative result should especially be considered if the patient's recent exposures or clinical presentation suggest that SARS-CoV-2 infection is probable, and diagnostic tests for other causes of illness (e.g., other respiratory illness) are negative. Collection of a new specimen and re-testing may be necessary if the patient is critically ill or clinically deteriorating. [facility] RAPID TOX SCREEN WITH RELEX TO DRUGMCon 05-29-2022 Amphetamine (U) [Mass/Vol] Negative NEGATIVE NG/ML [facility] Comment on above: <500 ng/ml CUTOFF Barbiturates Screen Ql (U) Negative NEGATIVE NG/ML [facility] Comment on above: <200 ng/ml CUTOFF Benzodiazepines Ql (U) Negative NEGAT DANDRE NG/ML [facility] Comment on above: <150 ng/ml CUTOFF Benzoylecgonine Ql (U) Negative NEGAT DANDRE NG/ML [facility] Comment on above: <150 ng/ml CUTOFF Buprenorphine Ql (U) Negative NEGATIV E NG/ML [facility] Comment on above: <10 ng/ml CUTOFF Testing performed at [place], [place] [address] Cannabinoids Screen Ql (U) Negative NEGATIVE NG/ML [facility] Comment on above: <50 ng/ml CUTOFF Methadone Screen Ql (U) Negative NEGATIVE NG/ML [facility] Comment on above: <200 ng/ml CUTOFF Methamphetamine (U) [Mass/Vol] Negative NEGATIVE NG/ML [facility] Comment on above: <500 ng/ml CUTOFF Opiates Screen Ql (U) Negative NEGATI VE NG/ML [facility] Comment on above: <100 ng/ml CUTOFF oxyCODONE Ql (U) Negative NEGATIVE NG/ML [facility] Comment on above: <100 ng/ml CUTOFF Phencyclidine Screen method >25 ng/mL Ql (U) Negative NEGATIVE NG/ML [facility] Comment on above: <25 ng/ml CUTOFF Propoxyphene+Norpropox yphene Screen Ql (U) Negative NEGATIVE NG/ML [facility] Comment on above: <300 ng/ml CUTOFF Tricyclic antidepressants Screen Ql (U) Negative NEGATIVE NG/ML [facility] Comment on above: <300 ng/ml CUTOFF [facility] RAPID TOX SCREEN,URINE WITH REFLEXon 05-29-2022 AMPHETAMINE Negative Normal NEGATIVE [facility] Comment on above: Result Comment: <500 ng/ml CUTOFF Performed By: #### U MAC, RTOXR #### [place] [address] BARBITURATES Negative Normal NEGATIVE [facility] Comment on above: Result Comment: <200 ng/ml CUTOFF Performed By: #### U MAC, RTOXR #### [place] [address] BENZODIAZEPINES Negative Normal NEGATIVE [facility] Comment on above: Result Comment: <150 ng/ml CUTOFF Performed By: #### U MAC, RTOXR #### [place] [address] BUPRENORPHINE Negative Normal NEGATIVE [facility] Comment on above: Result Comment: <10 ng/ml CUTOFF Testing performed at [place] [address] Performed By: #### U MAC, RTOXR #### [place] [address] CANNABINOIDS Negative Normal NEGATIVE [facility] Comment on above: Result Comment: <50 ng/ml CUTOFF Performed By: #### U MAC, RTOXR #### [place] [address] COCAINE Negative Normal NEGATIVE [facility] Comment on above: Result Comment: <150 ng/ml CUTOFF Performed By: #### U MAC, RTOXR #### [place] [address] METHADONE Negative Normal NEGATIVE [facility] Comment on above: Result Comment: <200 ng/ml CUTOFF Performed By: #### U MAC, RTOXR #### [place] [address] METHAMPHETAMINE Negative Normal NEGATIVE [facility] Comment on above: Result Comment: <500 ng/ml CUTOFF Performed By: #### U MAC, RTOXR #### [place] [address] OPIATES Negative Normal NEGATIVE [facility] Comment on above: Result Comment: <100 ng/ml CUTOFF Performed By: #### U MAC, RTOXR #### [place] [address] OXYCODONE Negative Normal NEGATIVE [facility] Comment on above: Result Comment: <100 ng/ml CUTOFF Performed By: #### U MAC, RTOXR #### [place] [address] PHENCYCLIDINE Negative Normal NEGATIVE [facility] Comment on above: Result Comment: <25 ng/ml CUTOFF Performed By: #### U MAC, RTOXR #### [place] [address] PROPOXYPHENE Negative Normal NEGATIVE [facility] Comment on above: Result Comment: <300 ng/ml CUTOFF Performed By: #### U MAC, RTOXR #### [place] [address] TRICYCLIC ANTIDEPRESSANTS Negative Normal NEGATIVE [facility] Comment on above: Result Comment: <300 ng/ml CUTOFF Performed By: #### U MAC, RTOXR #### [place] [address] URINALYSIS, MACROon 05-29-20 Bilirubin Ql (U) Negative NEGATIVE [facility] Clarity (U) CLEAR CLEAR [facility] Color (U) YELLOW YELLOW [facility] Glucose Test strip (U) [Mass/Vol] Negative NEGATIVE mg/dl [facility] Hemoglobin Ql (U) Negative NEGATIVE [facility] Ketones (U) [Mass/Vol] Negative NEGAT DANDRE mg/dl [facility] Leukocyte esterase Test strip Ql (U) Negative NEGATIVE [facility] Comment on above: Testing performed at [place] [address] Nitrite Ql (U) Negative NEGATIVE [facility] pH (U) 6.0 [pH] 5.0 - 7.0 [facility] Protein Ql (U) Negative NEGATIVE mg/dl [facility] Specific gravity (U) [Rel density] 1.015 1.010 - 1.025 [facility] Urobilinogen (U) [Mass/Vol] 0.2 mg/dL [facility] URINE MACROSCOPICon 05-29-20 Bilirubin Ql (U) Negative Normal NEGATIVE [facility] Comment on above: Performed By: #### U MAC, RTOXR #### [place] [address] Clarity (U) CLEAR Normal CLEAR [facility] Comment on above: Performed By: #### U MAC, RTOXR #### [place] [address] Color (U) YELLOW Normal YELLOW [facility] Comment on above: Performed By: #### U MAC, RTOXR #### [place] [address] Glucose Ql (U) Negative Normal NEGATIVE [facility] Comment on above: Performed By: #### U MAC, RTOXR #### [place] [address] pH (U) 6.0 [pH] Normal 5.0-7.0 [facility] Comment on above: Performed By: #### U MAC, RTOXR #### [place] [address] URINE HEMOGLOBIN Negative Normal NEGATIVE [facility] Comment on above: Performed By: #### U MAC, RTOXR #### [place] [address] URINE KETONE Negative Normal NEGATIVE [facility] Comment on above: Performed By: #### U MAC, RTOXR #### [place] [address] URINE LEUKOTEST Negative Normal NEGATIVE [facility] Comment on above: Result Comment: Test ing performed at [place] [address] Performed By: #### U MAC, RTOXR #### Testing performed at [place] [id number] URINE NITRATES Negative Normal NEGATIVE [facility] Comment on above: Performed By: #### U MAC, RTOXR #### [place] [address] URINE SPEC GRAVITY 1.015 Normal 1.010-1.025 [facility] Comment on above: Performed By: #### U MAC, RTOXR #### [place] [address] URINE TOTAL PROTEIN Negative Normal NEGATIVE [facility] Comment on above: Performed By: #### U MAC, RTOXR #### [place] [address] Urobilinogen Qn (U) 0.2 {Rosy'U}/dL Normal 0.2-1.0 [facility] Comment on above: Performed By: #### U MAC, RTOXR #### [place] [address] BHCG,QUANTITATIVEon 02-15-20 22 BHCG,QUANTITATIVE [address].00 MIU/ML Normal [facility] Comment on above: Result Comment: BHCG INTERPRETIVE RANGES: NON FEMALE 0-6 MIU/ML MALE ADULT 0-2 MIU/ML 0-1 WEEK 6-50 MIU/ML 1-2 WEEKS 40-300 MIU/ML 2-3 WEEKS 100-1,000 MIU/ML 3-4 WEEKS 500-6,000 MIU/ML 1-2 MONTHS 5,000-200,000 MIU/ML 2-3 MONTHS 10,000-100,000 MIU/ML 2ND TRIMESTER 3,000-50,000 MIU/ML 3RD TRIMESTER 1,000-50,000 MIU/ML If an hCG level is inconsistent with, or unsupported by, clinical evidence, results should be confirmed by an alternate hCG method. This method may include the qualitative hCG testing of urine. Performed By: #### B HCG2, FX #### Testing performed at [facility] [address] [place] [address] FAX REQUESTon 02-15-2022 FAX TO [phone] Normal [facility] Comment on above: Performed By: #### B HCG2, FX #### Testing performed at [facility] [address] [place] [address] CBC With Auto Diff.on 2021 Basophils (Bld) [#/Vol] 0.02 10*3/uL Normal 0.00-0.30 [facility] Comment on above: Order Comment: Regul atory Requirements State: Only Absolute Cell Counts are reported with their reference ranges. Performed By: #### C BC #### [facility] (DEFAULT) [address] [place] [address] Basophils/100 WBC (Bld) 0.2 % Normal [facility] Comment on above: Order Comment: Regul atory Requirements State: Only Absolute Cell Counts are reported with their reference ranges. Performed By: #### C BC #### [facility] (DEFAULT) [address] [place] [address] Eosinophils (Bld) [#/Vol] 0.05 10*3/uL Normal 0.00-0.50 [facility] Comment on above: Order Comment: Regul atory Requirements State: Only Absolute Cell Counts are reported with their reference ranges. Performed By: #### C BC #### [facility] (DEFAULT) [address] [place] [address] Eosinophils/100 WBC (Bld) 0.4 % Normal [facility] Comment on above: Order Comment: Regul atory Requirements State: Only Absolute Cell Counts are reported with their reference ranges. Performed By: #### C BC #### [facility] (DEFAULT) [address] [place] [address] Erythrocyte distribution width (RBC) [Ratio] 12.9 % Normal 11.6-14.8 [facility] Comment on above: Order Comment: Regul atory Requirements State: Only Absolute Cell Counts are reported with their reference ranges. Performed By: #### C BC #### [facility] (DEFAULT) [address] [place] [address] Hematocrit (Bld) [Volume fraction] 37.3 % Normal 36.0-46.0 [facility] Comment on above: Order Comment: Regul atory Requirements State: Only Absolute Cell Counts are reported with their reference ranges. Performed By: #### C BC #### [facility] (DEFAULT) [address] [place] [address] Hemoglobin (Bld) [Mass/Vol] 13.0 g/dL Normal 12.0-16.0 [facility] Comment on above: Order Comment: Regul atory Requirements State: Only Absolute Cell Counts are reported with their reference ranges. Performed By: #### C BC #### [facility] (DEFAULT) [address] [place] [address] Ig% 0.2 % Normal 0.0-4.0 [facility] Comment on above: Order Comment: Regul atory Requirements State: Only Absolute Cell Counts are reported with their reference ranges. Performed By: #### C BC #### [facility] (DEFAULT) [address] [place] [address] Lymphocytes (Bld) [#/Vol] 2.00 10*3/uL Normal 0.90-4.00 [facility] Comment on above: Order Comment: Regul atory Requirements State: Only Absolute Cell Counts are reported with their reference ranges. Performed By: #### C BC #### [facility] (DEFAULT) [address] [place] [address] Lymphocytes/100 WBC (Bld) 17.3 % Normal [facility] Comment on above: Order Comment: Regul atory Requirements State: Only Absolute Cell Counts are reported with their reference ranges. Performed By: #### C BC #### [facility] (DEFAULT) [address] [place] [address] MCH (RBC) [Entitic mass] 29.0 pg Normal 26.0-34.0 [facility] Comment on above: Order Comment: Regul atory Requirements State: Only Absolute Cell Counts are reported with their reference ranges. Performed By: #### C BC #### [facility] (DEFAULT) [address] [place], [place] [address] MCHC (RBC) [Mass/Vol] 34.9 g/dL Normal 31.0-37.0 [facility] Comment on above: Order Comment: Regul atory Requirements State: Only Absolute Cell Counts are reported with their reference ranges. Performed By: #### C BC #### [facility] (DEFAULT) [address] [place], [place] [address] MCV (RBC) [Entitic vol] 83 fL Normal 80-100 [facility] Comment on above: Order Comment: Regul atory Requirements State: Only Absolute Cell Counts are reported with their reference ranges. Performed By: #### C BC #### [facility] (DEFAULT) [address] [place] [address] Monocytes (Bld) [#/Vol] 0.47 10*3/uL Normal 0.30-0.90 [facility] Comment on above: Order Comment: Regul atory Requirements State: Only Absolute Cell Counts are reported with their reference ranges. Performed By: #### C BC #### [facility] (DEFAULT) [address] [place] [address] Monocytes/100 WBC (Bld) 4.1 % Normal [facility] Comment on above: Order Comment: Regul atory Requirements State: Only Absolute Cell Counts are reported with their reference ranges. Performed By: #### C BC #### [facility] (DEFAULT) [address] [place] [address] Neutrophils (Bld) [#/Vol] 8.98 10*3/uL High 1.70-7.00 [facility] Comment on above: Order Comment: Regul atory Requirements State: Only Absolute Cell Counts are reported with their reference ranges. Performed By: #### C BC #### [facility] (DEFAULT) [address] [place] [address] Neutrophils/100 WBC (Bld) 77.8 % Normal [facility] Comment on above: Order Comment: Regul atory Requirements State: Only Absolute Cell Counts are reported with their reference ranges. Performed By: #### C BC #### [facility] (DEFAULT) [address] [place], [place] [address] Platelet mean volume (Bld) [Entitic vol] 9.7 fL Normal 9.0-15.5 [facility] Comment on above: Order Comment: Regul atory Requirements State: Only Absolute Cell Counts are reported with their reference ranges. Performed By: #### C BC #### [facility] (DEFAULT) [address] [place], [place] [address] Platelets (Bld) [#/Vol] 203 10*3/uL Normal 150-400 [facility] Comment on above: Order Comment: Regul atory Requirements State: Only Absolute Cell Counts are reported with their reference ranges. Performed By: #### C BC #### [facility] (DEFAULT) [address] [place] [address] RBC (Bld) [#/Vol] 4.49 10*6/uL Normal 4.00-5.20 [facility] Comment on above: Order Comment: Regul atory Requirements State: Only Absolute Cell Counts are reported with their reference ranges. Performed By: #### C BC #### [facility] (DEFAULT) [address] [place] [address] WBC (Bld) [#/Vol] 11.54 10*3/uL High 4.50-11.00 [facility] Comment on above: Order Comment: Regul atory Requirements State: Only Absolute Cell Counts are reported with their reference ranges. Performed By: #### C BC #### [facility] (DEFAULT) [address] [place] [phone] Comprehensive Metabolic Pane mason 02-02-2022 Albumin [Mass/Vol] 3.8 g/dL Normal 3.2-4.5 [facility] Comment on above: Performed By: #### C MP #### [facility] (DEFAULT) [address] [place] [address] ALP [Catalytic activity/Vol] 64 U/L Normal 40-140 [facility] Comment on above: Performed By: #### C MP #### [facility] (DEFAULT) [address] [place] [address] ALT [Catalytic activity/Vol] 19 U/L Normal 14-65 [facility] Comment on above: Performed By: #### C MP #### [facility] (DEFAULT) [facility] [address] [place], [place] [address] Anion gap [Moles/Vol] 11 mmol/L Normal 10-20 [facility] Comment on above: Performed By: #### C MP #### [facility] (DEFAULT) [facility] [address] [place], [place] [address] AST [Catalytic activity/Vol] 18 U/L Normal 0-45 [facility] Comment on above: Performed By: #### C MP #### [facility] (DEFAULT) [address] [place], [place] [address] [place], [place] [address] Bilirubin [Mass/Vol] 0.4 mg/dL Normal 0.0-1.3 [facility] Comment on above: Performed By: #### C MP #### [facility] (DEFAULT) [address] [place], [place] [address] [place], [place] [address] Calcium [Mass/Vol] 9.6 mg/dL Normal 8.0-10.2 [facility] Comment on above: Performed By: #### C MP #### [facility] (DEFAULT) [address] [place], [place] [address] [place], [place] [address] Chloride [Moles/Vol] 108 mmol/L Normal 98-108 [facility] Comment on above: Performed By: #### C MP #### [facility] (DEFAULT) [address] [place], [place] [address] [place], [place] [address] CO2 [Moles/Vol] 24.0 mmol/L Normal 21.0-32.0 [facility] Comment on above: Performed By: #### C MP #### [facility] (DEFAULT) [address] [place], [place] [address]yuliana Hamilton [place], [place] [address] Creatinine [Mass/Vol] 1.0 mg/dL Normal 0.4-1.1 [facility] Comment on above: Performed By: #### C MP #### [facility] (DEFAULT) [address] [place], [place] [address]yuliana Hamilton [place], [place] [address] GFR/1.73 sq M.predicted MDRD (S/P/Bld) [Vol rate/Area] 70 mL/min/{1.73_m2} Normal 60-1000 [facility] Comment on above: Result Comment: The eGFR should be used for monitoring renal function only and not for medication dosing. Performed By: #### C MP #### [facility] (DEFAULT) [address] [place], [place] [address] Glucose [Mass/Vol] 86 mg/dL Normal 65-99 [facility] Comment on above: Performed By: #### C MP #### [facility] (DEFAULT) [address] [place], [place] [address] Potassium [Moles/Vol] 4.0 mmol/L Normal 3.5-5.1 [facility] Comment on above: Performed By: #### C MP #### [facility] (DEFAULT) [address] [place], [place] [address] Protein [Mass/Vol] 7.3 g/dL Normal 6.0-8.0 [facility] Comment on above: Performed By: #### C MP #### [facility] (DEFAULT) [address] [facility] [place], [place] [address] Sodium [Moles/Vol] 139 mmol/L Normal 135-145 [facility] Comment on above: Performed By: #### C MP #### [facility] (DEFAULT) [address] [facility] [place], [place] [address] Urea nitrogen [Mass/Vol] 19 mg/dL Normal 8-25 [facility] Comment on above: Performed By: #### C MP #### [facility] (DEFAULT) [address] [place], [place] [address] EDREPTon 02-02-[address] 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 Prior to both episodes the patient had a feeling of weakness, lightheadedness, and nausea. She actually had an episode of vomiting prior to the onset of syncope last evening. Her nausea has been present since midday yesterday. She denies fever and chills. She has had no diarrhea or recent change in bowel habits. She does have a previous history of occasional episodes of syncope earlier in life. The patient denies recent febrile illness. She is taking no new medications. Last menstrual cycle was approximately 1 month ago. She has had a few pelvic cramps this morning. Past Medical History Previous Medical History: No Past Surgical History: Yes Past Surgical History: T A Additional Surgical Information: lt ACL repair, tubes in ears Allergies dexamethasone [From Decadron] Adverse Reaction (Verified 02/02/22 11:47) Other made her feel clammy metoclopramide [From Reglan] Adverse Reaction (Verified 02/02/22 11:39) Other antsy and jittery Home Medications Citalopram Hydrobromide [Celexa] 20 mg PO DAILY 02/02/22 - Psychosocial History Hx Alcohol Use: No Hx Substance Use: No Hx Substance Use Treatment: No Smoking Status: Never smoker Hx Chewing Tobacco Use: No Hx Physical Abuse: No Hx Emotional Abuse: No Hx Anxiety: No Hx Bipolar Disorder: No Hx Psychiatric Problems: No - Vaccination History Hx Tetanus, Diphtheria Vaccination: Yes Hx Influenza Vaccination: No Hx Pneumococcal Vaccination: No Immunizations Up to Date: Yes - Female History Last Menstrual Period: 01/05/22 Patient : No - I don't think so, but I could be Review Of Systems All Other Systems: Reviewed and negative for new complaints Constitutional: Reports: No Symptoms Reported EENT: Reports: No Symptoms Reported Respiratory: Reports: No Symptoms Reported Cardiac (ROS): Reports: Syncope ABD/GI: Reports: No Symptoms Reported : Reports: No Symptoms Reported Musculoskeletal: Reports: No Symptoms Reported Skin: Reports: No Symptoms Reported Neurological/Psych: Reports: No Symptoms Reported Hematologic/Lymphatic: Reports: No Symptoms Reported Physical Exam General Appearance: No Acute Distress, Alert Eyes Bilateral: Normal Inspection, PERRL, EOMI ENT: ENT Inspection Normal, Pharynx Normal Neck: Normal Inspection, Thyroid Normal, No JVD Respiratory: Chest Non-Tender, No Respiratory Distress Cardiovascular: Reg Rate Rhythm Peripheral Pulses: Radial (L): 2+, Radial (R): 2+ Abdomen: Non-Tender, No Organomegaly, Normal Bowel Sounds Back: Normal Inspection Skin: No Embolic Lesions, Color Normal, No Rash, Warm, Dry Extremities: Non-Tender, Full ROM, Normal Appearance Higher Neuro/Psych Functions: Alert, Oriented x3, No Signs of Acute CVA, Normal Speech, Normal Cognition, Normal Mood/Affect Cranial Nerves: Normal As Tested Cerebellar Function: Normal As Tested Sensory/Motor Function: No Motor Deficit Results - Lab Results Laboratory Tests 02/02/22 02/02/22 02/02/22 11:00 11:00 11:11 WBC 11.54 H RBC 4.49 Hgb 13.0 Hct 37.3 MCV 83 MCH 29.0 MCHC 34.9 RDW 12.9 Plt Count 203 MPV 9.7 Immature Gran % (Auto) 0.2 Neutrophils % 77.8 Lymphocytes % 17.3 Monocytes % 4.1 Eosinophils % 0.4 Basophils % 0.2 Neutrophils # 8.98 H Lymphocytes # 2.00 Monocytes # 0.47 Basophils # 0.02 Eosinophilia # 0.05 Sodium 139 Potassium 4.0 Chloride 108 Carbon Dioxide 24.0 Anion Gap 11 BUN 19 Creatinine 1.0 Estimated GFR 70 Glucose 86 Estimat Average Glucose Hemoglobin A1c Calcium 9.6 Total Bilirubin 0.4 AST 18 ALT 19 Alkaline Phosphatase 64 Troponin I High Sens <3 Total Protein 7.3 Albumin 3.8 Lipase 129 Specimen Type Urine Color Urine Clarity Urine pH Ur Specific Wright Urine Protein Urine Ketones Urine Blood Urine Nitrite Urine Bilirubin Urine Urobilinogen Ur Leukocyte Esterase Urine Glucose Urine Test Urine Opiates Screen None detected Ur Buprenorphine Scrn None detected Ur Oxycodone Screen None detected Urine Methadone Screen None detected Urine Fentanyl Screen None detected Ur Barbiturates Screen None detected Urine Phencyclidine (PCP) Comment None detected Ur Amphetamines Screen None detected U Benzodiazepines Scrn None detected Urine Cocaine Screen None detected U Marijuana (THC) Screen None detected 02/02/22 02/02/22 02/02/22 11:11 11:11 11:49 WBC RBC Hgb Hct MCV MCH M (more content not included)... Normal [facility] HGB A1Con 02-02-2022 Glucose [Mass/Vol] 94 mg/dL Normal 68-114 [facility] Comment on above: Performed By: #### A 1CE #### [facility] (DEFAULT) [address] [place] [address] HbA1c (Bld) [Mass fraction] 4.9 % Normal 4.0-5.6 [facility] Comment on above: Result Comment: NORM AL: 4.0% - 5.6% INCREASED RISK FOR DIABETES: 5.7% - 6.4% DIABETES: >6.5% Performed By: #### A 1CE #### [facility] (DEFAULT) [address] [place] [address] HS Troponin Ion 02-02-2022 HS Troponin I <3 Normal 3-59 [facility] Comment on above: Performed By: #### H STROP #### [facility] (DEFAULT) [address] [place] [address] Lipaseon 02-02-2022 Lipase [Catalytic activity/Vol] 129 U/L Normal 73-393 [facility] Comment on above: Performed By: #### L IP #### [facility] (DEFAULT) [address] [place] [address] Urinalysison 02-02-2022 Bilirubin Ql (U) Negative Normal Negative [facility] Comment on above: Performed By: #### U A #### [facility] (DEFAULT) [address] [place] [address] Clarity (U) Clear Normal Clear [facility] Comment on above: Performed By: #### U A #### [facility] (DEFAULT) [address] [place] [address] Color (U) Yellow Normal [facility] Comment on above: Performed By: #### U A #### [facility] (DEFAULT) [address] [place] [address] Glucose Ql (U) Negative Normal Negative [facility] Comment on above: Performed By: #### U A #### [facility] (DEFAULT) [address] [place], [place] [address] Hemoglobin Ql (U) Negative Normal Negative [facility] Comment on above: Performed By: #### U A #### [facility] (DEFAULT) [address] [place] [address] Ketones Ql (U) Negative Normal Negative [facility] Comment on above: Performed By: #### U A #### [facility] (DEFAULT) [address] [place] [address] Leukocytes Negative Normal Negative [facility] Comment on above: Performed By: #### U A #### [facility] (DEFAULT) [address] [place] [address] Nitrite Ql (U) Negative Normal Negative [facility] Comment on above: Performed By: #### U A #### [facility] (DEFAULT) [address] [place] [address] Protein Ql (U) Negative Normal Negative [facility] Comment on above: Performed By: #### U A #### [facility] (DEFAULT) [address] [place] [address] Specific gravity (U) [Rel density] <=1.005 Normal 1.005-1.025 [facility] Comment on above: Performed By: #### U A #### [facility] (DEFAULT) [address] [place] [address] UpH 6.5 Normal 5.0-6.5 [facility] Comment on above: Performed By: #### U A #### [facility] (DEFAULT) [address] [place] [address] Urine Specimen Type Clean Catch Normal [facility] Comment on above: Performed By: #### U A #### [facility] (DEFAULT) [address] [place] [address] Urobilinogen (U) [Mass/Vol] 0.2 mg/dL Normal <2.0 [facility] Comment on above: Performed By: #### U A #### [facility] (DEFAULT) [address] [place] [address] Urine Drug Screenon 02-03-20 22 Amphetamines. Not detected Normal None Detected [facility] Comment on above: Order Comment: Urin e drug screening tests are to be used for medical purposes only. Result Comment: CUT- OFF: 1000 ng/mL Performed By: #### U DS #### [facility] (DEFAULT) [address] [place] [address] Barbiturates Not detected Normal None Detected [facility] Comment on above: Order Comment: Urin e drug screening tests are to be used for medical purposes only. Result Comment: CUT- OFF: 200 ng/mL Performed By: #### U DS #### [facility] (DEFAULT) [address] [place] [address] Benzodiazepines. Not detected Normal [facility] Comment on above: Order Comment: Urin e drug screening tests are to be used for medical purposes only. Result Comment: CUT- OFF: 200 ng/mL Performed By: #### U DS #### [facility] (DEFAULT) [address] [place] [address] Cocaine. Not detected Normal [facility] Detected [facility] Comment on above: Order Comment: Urin e drug screening tests are to be used for medical purposes only. Result Comment: CUT- OFF: 300 ng/mL Performed By: #### U DS #### [facility] (DEFAULT) [address] [place] [address] Methadone Not detected Normal None Detected [facility] Comment on above: Order Comment: Urin e drug screening tests are to be used for medical purposes only. Result Comment: CUT- OFF: 300 ng/mL Performed By: #### U DS #### [facility] (DEFAULT) [address] [place] [address] Opiates Not detected Normal None Detected [facility] Comment on above: Order Comment: Urin e drug screening tests are to be used for medical purposes only. Result Comment: CUT- OFF: 300 ng/mL Performed By: #### U DS #### [facility] (DEFAULT) [address] [place], [place] [address] Oxycodone Not detected Normal None Detected [facility] Comment on above: Order Comment: Urin e drug screening tests are to be used for medical purposes only. Result Comment: DETE CTABLE LEVEL IS 100 ng/mL Performed By: #### U DS #### [facility] (DEFAULT) [address] [place] [address] Phencyclidine. Not detected Normal None Detected [facility] Comment on above: Order Comment: Urin e drug screening tests are to be used for medical purposes only. Result Comment: CUT- OFF: 25 ng/mL Performed By: #### U DS #### [facility] (DEFAULT) [address] [place] [address] THC. Not detected Normal [facility] Detected [facility] Comment on above: Order Comment: Urin e drug screening tests are to be used for medical purposes only. Result Comment: CUT- OFF: 50 ng/mL Performed By: #### U DS #### [facility] (DEFAULT) [address] [place] [address] UBUP Not detected Normal None Detected [facility] Comment on above: Order Comment: Urin e drug screening tests are to be used for medical purposes only. Result Comment: CUT- OFF: 5 ng/mL Performed By: #### U DS #### [facility] (DEFAULT) [address] [place] [address] UFEN Not detected Normal None Detected [facility] Comment on above: Order Comment: Urin e drug screening tests are to be used for medical purposes only. Result Comment: CUT- OFF: 1 ng/mL Performed By: #### U DS #### [facility] (DEFAULT) [address] [place] [address] Urine Teston 02-02 Beta HCG ( test) Ql (U) Negative Normal Negative [facility] Comment on above: Performed By: #### U PT #### [facility] (DEFAULT) [address] [place] [address] NOVEL CORONAVIRUSon 02-02-20 22 NARRATIVE This test was perfor med using isothermal LARRY and has been approved as Emergency Use Authorization (EUA) for the qualitative detection [id number] nucleic acid. Normal [facility] Comment on above: Result Comment: Test ing performed at [place] [address] Performed By: #### C OVID #### [place] [address] SARS-CoV-2 (COVID-19) RNA LARRY+probe Ql (Unsp spec) Not detected Normal NOT DETECTED [facility] Comment on above: Result Comment: Nega tive results do not preclude SARS-CoV-2 infection and should not be used as the sole basis for treatment or other patient management decisions. Optimum specimen types and timing for peak viral levels during infections caused by SARS-CoV-2 has not been determined. The possibility of a false negative result should especially be considered if the patient's recent exposures or clinical presentation suggest that SARS-CoV-2 infection is probable, and diagnostic tests for other causes of illness (e.g., other respiratory illness) are negative. Collection of a new specimen and re-testing may be necessary if the patient is critically ill or clinically deteriorating. Performed By: #### C OVID #### [place] [address] QUANTIFERON TB GOLD PLUS 1 T UBEon 12-02-2021 QUANTIFERNON INCUBATION Incubation performed. [facility] Comment on above: Performed By: #### L JANNA HOOVER LMMR #### Testing performed at [address] [address] QUANTIFERON-TB GOLD PLUS Negative [facility] Comment on above: Result Comment: Chem iluminescence immunoassay methodology Reference range: Negative PERFORMED AT [facility] Performed By: #### L JANNA HOOVER LMMR #### Testing performed at [facility] [address] [place] [address] RFLX QUANTIFERON-TB GOLD PLU Son 12-02-2021 QUANTIFERON CRITERIA Comment Normal [facility] Comment on above: Result Comment: (NOT E) The QuantiFERON-TB Gold Plus result is determined by subtracting the Nil value from either TB antigen (Ag) tube. The mitogen tube serves as a control for the test. Performed By: #### L QFIT ZQSABRINA, LMMR #### [place] [address] QUANTIFERON MITOGEN VALUE >10.00 [facility] Comment on above: Result Comment: Unit : IU/mL PERFORMED AT [facility] Performed By: #### L QFIT, ZQFIT, LMMR #### [place] [address] QUANTIFERON NIL VALUE 0.03 [facility] Comment on above: Result Comment: Unit : IU/mL Performed By: #### L QFIT, ZQFIT, LMMR #### [place] [address] QUANTIFERON TB1 AG VALUE 0.04 [facility] Comment on above: Result Comment: Unit : IU/mL Performed By: #### L QFIT, ZQFIT, LMMR #### [place] [address] QUANTIFERON TB2 AG VALUE 0.04 [facility] Comment on above: Result Comment: Unit : IU/mL Performed By: #### L QFIT, ZQFIT, LMMR #### [place] [address] MEASLES,MUMP,RUBELLAon 12-01 MUMPS ABS, IGG 73.1 [facility] Comment on above: Result Comment: Refe rence range: Immune >10.9 Unit: AU/mL (NOTE) Negative <9.0 Equivocal 9.0 - 10.9 Positive >10.9 A positive result generally indicates past exposure to Mumps virus or previous vaccination. PERFORMED AT [facility] Performed By: #### L QFIT, ZQFIT, LMMR #### [place] [address] RUBEOLA AB, IGG 182.0 Normal [facility] Comment on above: Result Comment: Refe rence range: Immune >16.4 Unit: AU/mL (NOTE) Negative <13.5 Equivocal 13.5 - 16.4 Positive >16.4 Presence of antibodies to Rubeola is presumptive evidence of immunity except when acute infection is suspected. Performed By: #### L QFIT, ZQFIT, LMMR #### Testing performed at [facility] [address] [place] [address] [place] [address] RUBELLA AB, IGG 4.13 Normal [facility] Comment on above: Result Comment: Refe rence range: Immune >0.99 Unit: index (NOTE) Non-immune <0.90 Equivocal 0.90 - 0.99 Immune >0.99 Performed By: #### L QFIT, ZQFIT, LMMR #### Testing performed at [facility] [address] [place], [place] [address] [place] [address] HEP B SURFACE [facility] HEP B SURFACE AB Negative Abnormal POSITIVE [facility] Comment on above: Result Comment: Clinical Interpretation of Immune Status Negative: patient is considered to be not immune to infection with HBV Intermediate: unable to determine if anti-HBs is present at levels consistent with immunity Positive: anti-HBs detected, patient is considered to be immune to infection with HBV HEP C ABon 11-30-2021 HEP C AB Negative Normal NEGATIVE [facility] CBCon 03-11-2021 ABSOLUTE BAS 0.0 10*3/uL Normal 0.0-0.2 [facility] Comment on above: Performed By: #### A CBC #### Testing performed at [address] [address] ABSOLUTE EOS 0.10 10*3/uL Normal 0.0-0.7 [facility] Comment on above: Performed By: #### A CBC #### Testing performed at [address] [address] ABSOLUTE NEUTROPHIL COUNT 5.3 10*3/uL Normal 1.4-6.5 [facility] Comment on above: Performed By: #### A CBC #### Testing performed at [place] [address] [place] [facility] [place] [place] [address] Basophils/100 WBC (Bld) 0.2 % Normal 0.0-2.0 [facility] Comment on above: Performed By: #### A CBC #### Testing performed at [place] [address] [place] [facility] [place] [address] DTYPE AUTO DIFF Normal [facility] Comment on above: Performed By: #### A CBC #### Testing performed at [place] [address] [place] [facility] [place] [place] [address] Eosinophils/100 WBC (Bld) 1.5 % Normal 0.0-11.0 [facility] Comment on above: Performed By: #### A CBC #### Testing performed at [place] [address] [place] [facility] [place] [address] Lymphocytes (Bld) [#/Vol] 0.80 10*3/uL Low 1.2-3.4 [facility] Comment on above: Performed By: #### A CBC #### Testing performed at [place] [address] [place] [facility] [place] [place] [address] Lymphocytes/100 WBC (Bld) 11.9 % Low 20.0-55.0 [facility] Comment on above: Performed By: #### A CBC #### Testing performed at [address] [place] [address] Monocytes (Bld) [#/Vol] 0.5 10*3/uL Normal 0.0-0.7 [facility] Comment on above: Performed By: #### A CBC #### Testing performed at [place] [address] [place] [facility] [place] [place] [address] Monocytes/100 WBC (Bld) 7.6 % Normal 0.0-10.0 [facility] Comment on above: Performed By: #### A CBC #### Testing performed at [address] [place] [address] Neutrophils/100 WBC (Bld) 78.8 % High 37.0-75.0 [facility] Comment on above: Performed By: #### A CBC #### Testing performed at [address] [address] Erythrocyte distribution width (RBC) [Ratio] 12.8 % Normal 11.5-14.5 [facility] Comment on above: Performed By: #### A CBC #### Testing performed at [address] [address] Hematocrit (Bld) [Volume fraction] 32.6 % Low 36.0-48.0 [facility] Comment on above: Performed By: #### A CBC #### Testing performed at [address] [address] Hemoglobin (Bld) [Mass/Vol] 11.7 g/dL Low 12.0-16.0 [facility] Comment on above: Performed By: #### A CBC #### Testing performed at [address] [address] MCH (RBC) [Entitic mass] 29.4 pg Normal 26.0-35.0 [facility] Comment on above: Performed By: #### A CBC #### Testing performed at [address] [address] MCHC (RBC) [Mass/Vol] 35.8 g/dL Normal 27.0-37.0 [facility] Comment on above: Performed By: #### A CBC #### Testing performed at [address] [address] MCV (RBC) [Entitic vol] 82.2 fL Normal 80.0-100.0 [facility] Comment on above: Performed By: #### A CBC #### Testing performed at [address] [address] Platelet mean volume (Bld) [Entitic vol] 6.7 fL Low 7.4-11.0 [facility] Comment on above: Performed By: #### A CBC #### Testing performed at [address] [address] Platelets (Bld) [#/Vol] 162 10*3/uL Normal 130.0-400.0 [facility] Comment on above: Performed By: #### A CBC #### Testing performed at [address] [address] RBC (Bld) [#/Vol] 3.96 10*6/uL Low 4.0-5.4 [facility] Comment on above: Performed By: #### A CBC #### Testing performed at [address] [address] WBC (Bld) [#/Vol] 6.7 10*3/uL Normal 3.6-11.0 [facility] Comment on above: Performed By: #### A CBC #### Testing performed at [address] [address] CMP FASTINGon 03-11-2021 A:G RATIO 1.6 RATIO Normal 1.3-2.2 [facility] Comment on above: Performed By: #### A CBC #### Testing performed at [address] [address] ALBUMIN 4.5 G/dl Normal 3.5-5.0 [facility] Comment on above: Performed By: #### A CBC #### Testing performed at [address] [address] ALP [Catalytic activity/Vol] 55 U/L Normal 38-126 [facility] Comment on above: Performed By: #### A CBC #### Testing performed at [address] [address] ALT [Catalytic activity/Vol] 25 U/L Normal <35 [facility] Comment on above: Performed By: #### A CBC #### Testing performed at [address] [address] AST [Catalytic activity/Vol] 26 U/L Normal 14-36 [facility] Comment on above: Performed By: #### A CBC #### Testing performed at [place] [address] [place] [address] Bilirubin [Mass/Vol] 0.4 mg/dL Normal 0.2-1.3 [facility] Comment on above: Performed By: #### A CBC #### Testing performed at [address] [address] Calcium [Mass/Vol] 9.6 mg/dL Normal 8.4-10.2 [facility] Comment on above: Performed By: #### A CBC #### Testing performed at [address] [address] Chloride [Moles/Vol] 108 mmol/L High 98-107 [facility] Comment on above: Result Comment: Ulysses pepe note: Triglyceride levels of 600mg/dL or higher may positively bias chloride results by approximately 2.1 mmol Performed By: #### A CBC #### Testing performed at [address] [address] CO2 [Moles/Vol] 20 mmol/L Low 22-30 [facility] Comment on above: Performed By: #### A CBC #### Testing performed at [address] [address] Creatinine [Mass/Vol] 0.84 mg/dL Normal 0.7-1.2 [facility] Comment on above: Performed By: #### A CBC #### Testing performed at [address] [address] EST. GFR, >60 Normal [facility] Comment on above: Performed By: #### A CBC #### Testing performed at [address] [address] EST. GFR,Non >60 Normal [facility] Comment on above: Performed By: #### A CBC #### Testing performed at [address] [address] GFR Information Average GFR for 20-2 9 years old = 116. Normal [facility] Comment on above: Result Comment: [employer] dory Kidney disease, GFR = <60. Kidney failure, GFR = <15. The GFR estimate is not adjusted for extreme body surface area or acute process, nor has it been validated for women or ethnic groups other than and . Performed By: #### A CBC #### Testing performed at [address] [address] Glucose [Mass/Vol] 109 mg/dL High 70-100 [facility] Comment on above: Result Comment: NORMAL <100 mg/dL PREDIABETES 101-126 mg/dL DIABETES 126 mg/dL or higher Performed By: #### A CBC #### Testing performed at [address] [address] Potassium [Moles/Vol] 3.7 mmol/L Normal 3.5-5.1 [facility] Comment on above: Performed By: #### A CBC #### Testing performed at [address] [address] Protein [Mass/Vol] 7.4 g/dL Normal 6.3-8.2 [facility] Comment on above: Performed By: #### A CBC #### Testing performed at [address] [address] Sodium [Moles/Vol] 136 mmol/L Low 137-145 [facility] Comment on above: Performed By: #### A CBC #### Testing performed at [address] [address] Urea nitrogen [Mass/Vol] 12 mg/dL Normal 7-20 [facility] Comment on above: Performed By: #### A CBC #### Testing performed at [address] [address] D DIMERon 03-11-2021 D DIMER 0.29 mg/L FEU Normal <0.50 [facility] Comment on above: Result Comment: If r esult is greater than the cutoff value of 0.50 mg/L then the potential for PE or DVT exists. Other conditions exist which may cause a falsely elevated level. Please correlate clinically, including radiological findings and other clinical parameters. Performed By: #### A CBC #### Testing performed at [address] [address] XR CHEST AP PORTABLEon 03-11 XR CHEST AP PORTABLE EXAM: XR CHEST AP PORTABLE DATE: 03/11/2021 12:13 PM EDT INDICATION: shortness of breath COMPARISON: None. TECHNIQUE: Frontal view of the chest. FINDINGS: Lines, tubes and hardware: None. Lungs and pleura: The lungs are clear. No pleural effusions. No pneumothorax is identified. Heart and mediastinum: Normal cardiomediastinal silhouette. Bones and soft tissues: No acute abnormality. IMPRESSION: 1. No acute cardiopulmonary findings. Normal [facility] BMPon 07-01-2020 Anion gap [Moles/Vol] 11 mmol/L 10 - 2 0 mmol/L [facility] Calcium [Mass/Vol] 9.3 mg/dL 8.4 - 10. 2 mg/dL [facility] Chloride [Moles/Vol] 107 mmol/L 98 - 10 8 mmol/L [facility] Creatinine [Mass/Vol] 0.99 mg/dL 0.40 - 1.10 [facility] GFR/1.73 sq M predicted among non-blacks MDRD (S/P/Bld) [Vol rate/Area] The eGFR should be used for monitoring renal function only and not for medication dosing. [facility] GFR/1.73 sq M.predicted CKD-EPI (S/P/Bld) [Vol rate/Area] 83 >=60 mL/min/1.73 m2 [facility] Glucose [Mass/Vol] 90 mg/dL 65 - 99 mg/dL [facility] HCO3 [Moles/Vol] 23 mmol/L 21 - 32 mmol/L [facility] Interpretation and review of laboratory results Abnormal [facility] Potassium [Moles/Vol] 3.6 mmol/L 3.5 - 5.1 mmol/L [facility] Sodium [Moles/Vol] 137 mmol/L 135 - 145 mmol/L [facility] Urea nitrogen [Mass/Vol] 7 mg/dL Low 8 - 25 mg/dL [facility] Urea nitrogen/Creatinine [Mass ratio] 7.1 mg/mg Low [facility] CBC WITH AUTO DIFFERENTIALon 07-01-2020 Basophils (Bld) [#/Vol] 0.02 10*3/uL [facility] Basophils/100 WBC (Bld) 0.2 % [facility] Eosinophils (Bld) [#/Vol] 0.02 10*3/uL [facility] Eosinophils/100 WBC (Bld) 0.2 % [facility] Erythrocyte distribution width (RBC) [Entitic vol] 12.4 % 11.6 - 14.8 % [facility] Hematocrit (Bld) [Volume fraction] 33.4 % Low 36 - 46 % [facility] Hemoglobin (Bld) [Mass/Vol] 11.7 g/dL Low 12 - 16 g/dL [facility] Immature granulocytes (Bld) [#/Vol] 0.02 10*3/uL [facility] Immature granulocytes/100 WBC (Bld) 0.20 % [facility] Comment on above: The IG parameter is the percentage of metamyelocytes, myelocytes and promyelocytes. An immature granulocyte count (IG) of 1% or more suggests the possibility of infection, an IG count of 3% is very likely related to an infection. Interpretation and review of laboratory results Abnormal [facility] Lymphocytes (Bld) [#/Vol] 1.52 10*3/uL [facility] Lymphocytes/100 WBC (Bld) 18.9 % [facility] MCH (RBC) [Entitic mass] 28.4 pg 26 - 34 pg [facility] MCHC (RBC) [Mass/Vol] 35.0 g/dL 31 - 37 g/dL [facility] MCV (RBC) [Entitic vol] 81.1 fL 80 - 100 fL [facility] Monocytes (Bld) [#/Vol] 0.35 10*3/uL [facility] Monocytes/100 WBC (Bld) 4.4 % [facility] Neutrophils (Bld) [#/Vol] 6.10 10*3/uL [facility] Neutrophils/100 WBC (Bld) 76.1 % [facility] Nucleated RBC (Bld) [#/Vol] 0.00 10*3/uL [facility] Nucleated RBC/100 WBC (Bld) [Ratio] 0.0 % [facility] Platelet mean volume (Bld) [Entitic vol] 9.5 fL 9.4 - 12.4 fL [facility] Platelets (Bld) [#/Vol] 186 10*3/uL [facility] RBC (Bld) [#/Vol] 4.12 10*6/uL [facility] WBC (Bld) [#/Vol] 8.03 10*3/uL [facility] COVID-19/Influenza A,B Molec ularon 07-01-2020 Influenza A Not Detected [facility]ed [facility] Not Detected [facility]ed [facility] Interpretation and review of laboratory results Abnormal [facility] SARS-CoV-2 Detected Abnormal Not Detected [facility] This test was perfor med under the FDA's Emergency Use Authorization (EUA). Testing was performed using the [employer] neeta SARS-CoV-2 & Influenza A/B Nucleic Acid Test on the neeta Kathie System. This test has not been approved for use in asymptomatic patients and its performance in this patient population has not been evaluated. Negative results do not rule out the presence of SARS-CoV-2, influenza A, and/or influenza B. Fact sheets for the EUA can be found at the following links: For Healthcare Providers: https://www.fda.gov/media /133284/download For Patients: https://www.fda.gov/media /141397/download [facility] CT HEAD OR BRAIN WITHOUT CON TRASTon 07-01-2020 EXAMINATION: CT HEAD OR BRAIN WITHOUT CONTRAST HISTORY: syncope n/v COMPARISON: None TECHNIQUE: Standard noncontrast brain CT. Dose reduction techniques were achieved by using automated exposure control and/or adjustment of mA and/or kV according to patient size and/or use of iterative reconstruction technique. FINDINGS: No intracranial hemorrhage, extra-axial fluid collection, hydrocephalus, midline shift, or acute infarction. No other mass effect. Patent basal cisterns. No calvarial fracture. Normal soft tissues. Minimal scattered paranasal sinus mucosal thickening. No air-fluid levels. Mastoid air cells are well aerated. [facility] Interface, Rad In Fu ji Speechq - 07/01/2020 2:15 PM EST EXAMINATION: CT HEAD OR BRAIN WITHOUT CONTRAST HISTORY: syncope n/v COMPARISON: None TECHNIQUE: Standard noncontrast brain CT. Dose reduction techniques were achieved by using automated exposure control and/or adjustment of mA and/or kV according to patient size and/or use of iterative reconstruction technique. FINDINGS: No intracranial hemorrhage, extra-axial fluid collection, hydrocephalus, midline shift, or acute infarction. No other mass effect. Patent basal cisterns. No calvarial fracture. Normal soft tissues. Minimal scattered paranasal sinus mucosal thickening. No air-fluid levels. Mastoid air cells are well aerated. IMPRESSION: No acute intracranial process. Workstation ID: [id number] [facility] No acute intracrania l process. Workstation ID: [id number] [facility] HCG (QUALITATIVE)on 07-01-19 21 Beta HCG ( test) Ql Negative Negative [facility] Negative: The result is less than or equal to 5 mIU/mL of HCG. [facility] Hepatic Function Panel (LFT) on 07-01-2020 Albumin [Mass/Vol] 3.8 g/dL 3.2 - 5.2 g/dL [facility] ALP [Catalytic activity/Vol] 48 U/L 40 - 140 U/L [facility] ALT [Catalytic activity/Vol] 18 U/L 14 - 65 U/L [facility] AST [Catalytic activity/Vol] 17 U/L 0 - 45 U/L [facility] Bilirubin [Mass/Vol] 0.4 mg/dL 0 - 1.3 mg/dL [facility] Bilirubin.conjugated [Mass/Vol] 0.1 mg/dL 0 - 0.4 mg/dL [facility] Protein [Mass/Vol] 7.6 g/dL 6 - 8 g/dL [facility] alth Lipaseon 07-01-2020 Lipase [Catalytic activity/Vol] 96 U/L 73 - 393 U/L [facility] Otheron 07-01-2020 Interpretation and review of laboratory results Normal [facility] URINALYSISon 07-01-2020 Bacteria Auto Ql (U) Rare Abnormal None Se en /hpf [facility] Bilirubin Ql (U) Negative Negative [facility] Clarity Refractometry automated (U) Clear Clear [facility] Color (U) Colorless Colorless, Yellow [facility] Epithelial cells.squamous Auto (Urine sed) [#/Area] <1 [facility] Glucose Auto test strip (U) [Mass/Vol] Negative Negative mg/dL [facility] Hemoglobin Auto test strip Ql (U) Negative Negative [facility] Interpretation and review of laboratory results Abnormal [facility] Ketones (U) [Mass/Vol] Negative Negat dandre mg/dL [facility] Leukocyte esterase Auto test strip Ql (U) Negative Negative [facility] test strip Ql (U) Negative Negative [facility] pH (U) 6.0 [pH] [facility] Protein (U) [Mass/Vol] Negative Negat dandre mg/dL [facility] Specific gravity (U) [Rel density] 1.002 Low [facility] Urobilinogen (U) [Mass/Vol] <2.0 <2.0 mg/dL [facility] Microscopic examinat ion is performed on all urinalysis samples and only positive findings are reported. The test for blood on the chemical analytic portion of urinalysis may also be positive due to hemoglobinuria and myoglobinuria and if red blood cells are present they are quantified by microscopic examination. [facility] Comprehensive Metabolic Pane mason 08-20-2018 Albumin mass conc 4.4 g/dL 3.2 - 4.5 g/dL [facility] ALP enzyme act/vol 72 U/L 40 - 140 U/L [facility] ALT enzyme act/vol 19 U/L 14 - 65 U/L [facility] ealth Anion gap molar conc 10 mmol/L 10 - 20 mmol/L [facility] AST enzyme act/vol 16 U/L 0 - 45 U/L [facility]th Bilirubin mass conc 0.4 mg/dL 0 - 1.3 mg/dL [facility] Calcium mass conc 9.7 mg/dL 8.4 - 10.2 mg/dL [facility] Chloride molar conc 110 mmol/L High 98 - 108 mmol/L [facility] Creatinine mass conc 0.94 mg/dL 0.5 - 1 mg/dL [facility] GFR/1.73 sq M predicted among non-blacks MDRD vol rate/area (S/P/Bld) The eGFR should be used for monitoring renal function only and not for medication dosing. [facility] Glucose mass conc 80 mg/dL 65 - 99 mg/dL [facility] HCO3 molar conc 26 mmol/L 21 - 32 mmol/L [facility] Potassium molar conc 4.2 mmol/L 3.5 - 5 .1 mmol/L [facility] Protein mass conc 7.7 g/dL 6 - 8 g/dL [facility] Sodium molar conc 142 mmol/L 135 - 145 mmol/L [facility] Urea nitrogen mass conc 17 mg/dL 8 - 25 mg/dL [facility] Urea nitrogen/Creatinine mass ratio 18.1 mg/mg [facility] Otheron 08-20-2018 Interpretation and review of laboratory results Abnormal [facility] Interpretation and review of laboratory results Normal [facility] T4, Freeon 08-20-2018 T4 free mass conc 0.9 ng/dL 0.7 - 1.7 ng/dL [facility] TSHon 08-20-2018 Thyrotropin Qn 1.32 m[IU]/L [facility] Comment on above: Please note reference range change as of 03/27/18. Vitamin B12on 08-20-2018 Cobalamin (Vitamin B12) mass conc 1089 pg/mL High 243 - 894 pg/mL [facility] H&Manolo 06-25-2017 Assisted Living Nursing Director Authentication Interface Message Text PRE-OP HISTORY AND PHYSICALDATE OF SERVICE: 06/25/2017ATTENDING PROVIDER: JORGE A StoddardURGICAL DIAGNOSIS: left ACL tearProposed surgical procedure: dx arthroscopy left knee with ACL reconstruction orrepair platelet rich plasma and collagen carrierCHIEF COMPLAINT: left knee injuryHISTORY OF PRESENT ILLNESS:Marcelo Witt is a 16 y.o. 6 m.o. female who presents today with a PMH ofsports induced asthma. The history is provided by the patient and mother and achart review for evaluation for surgical risk factors. On Jun 04, 2017 she wentup for a rebound during a basketball game and was hit by another player- she hadimmediate pain and was taken to the ED- she was seen by Dr Delgado and an MRIwas completed which demonstrated an ACL injury- She was scheduled for surgeryand is here for the sameMEDICAL/SURGICAL HISTORY:Past Medical History:Diagnosis Date Headache happens during end of menstrual cycle Uncomplicated asthma exercise-inducedPast Surgical History:Procedure Laterality Date TONSILLECTOMY AND ADENOIDECTOMY 2004Past hospitalizations: noDRUG/FOOD ALLERGIES:AllergiesAllerg en Reactions Zofran [Ondansetron Hcl] AnxietyMEDICATIONS:Prescr iptions Prior to AdmissionMedication Sig Dispense Refill Last Dose MULTIPLE VITAMIN PO Take by mouth Past Month at Unknown time albuterol 108 (90 Base) MCG/ACT inhaler Inhale 2 Puffs into the lungs every 6hours as needed for Wheezing Past Month at Unknown timeANESTHESIA HISTORY:Difficulty with anesthesia? NoFamily history of difficulty with anesthesia? noSigns/symptoms of ROBI? noHEME/BLEEDING HISTORY:History of bleeding issues in patient? noBleeding problems in family? noHistory of anemia in patient? noSickle Cell issues in patient or family? N/AREVIEW OF SYSTEMS:Comprehensive review of systems: History obtained from Mother, chart review andthe patient.General ROS: negativeOphthalmic ROS: positive for - uses contactsRespiratory ROS: no cough, shortness of breath, or wheezingCardiovascular ROS: no chest pain or dyspnea on exertionGastrointestinal ROS: no abdominal pain, change in bowel habits, or black orbloody stoolsMusculoskeletal ROS: positive for - joint pain and joint stiffnessNeurological ROS: positive for - hx of headachesA complete ROS was performed. Pertinent positives have been documented above orare in the HPI. All other systems were negative.Recent Illnesses? noBIRTH HISTORY:, labor and delivery unremarkable. Patient was discharged home withmother.DEVELOPMENTAL HISTORY:Milestones: All met as expectedIMMUNIZATIONS:Sta nuria as up to date, no records availableSOCIAL/FAMILY HISTORY:Marcelo lives with mother, step-father, one brother and one sisterSpecial Needs: NonePreferred Language: EnglishDaycare: NoSchool: Yes: 10th gradeSmoking/Alcohol/Drug Use or Exposure: NoFamily HistoryProblem Relation Age of Onset Anesth Problems Neg Hx Bleeding Prob Neg HxVITAL SIGNS:Vitals: 06/25/17 0950BP: 129/74Pulse: 89Resp: 20Temp: 36.3 C (97.3 F)Ht Readings from Last 1 Encounters:06/25/17 156 cm (15 %, Z= -1.04) Growth percentiles are based on CDC 2-20 Years data.Wt Readings from Last 1 Encounters:06/25/17 61.6 kg (75 %, Z= 0.66) Growth percentiles are based on CDC 2-20 Years data.Body mass index is 25.31 kg/m .87 %ile (Z= 1.11) based on CDC 2-20 Years BMI-for-age data using vitals from06/25/2017.SpO2 Readings from Last 3 Encounters:06/25/17 100%PHYSICAL EXAM:General: Patient appears healthy, well developed, well nourished, in no acutedistressHead: atraumatic and normocephalicNeuro: alert, oriented appropriately for ageEyes: pupils equal, round, and reactive to lightEars: canals clear, normal, tragus nontenderNose: nares patent without dischargeDentition: intactThroat: oropharynx is clearNeck: suppleChest: breath sounds are clear to auscultation bilaterally without rales,rhonchi, or wheezesCardiac: regular rate and rhythm, normal S1 and F6Dmgpmzq: abdomen is soft, nontender, and nondistended without hepatosplenomegalyor massesBack: deferredGU Female: deferredGU Male: naSkin: pink, warm, well perfused, bruising: front of left leg mid calf area-green yellowLymphatic: no adenopathy notedMusculoskeletal: left knee with skin intact- strong pedal pulse/ brisk caprefill toes are cold navi denies painDIAGNOSTIC STUDIES REVIEWED:The following lab results have been ordered/reviewed.HCGNo results found for: CALCIUM, CO2, CL, CREATININE, GLU, K, NA, BUNNo results found for: RBC, RDW, WBC, HCT, HGB, MCH, MCHC, MCV, MPV, BASOPCT,EOSPCT, LYMPHOPCT, MONOPCT, NEUTOPHILPCT, CORRECTEDWBC, NEUTROPHIL, NRBC, PLTESTNo results found for: HGBNo results found for: APTT, INRNo results found for: TSH, X1XAOUI, Q8TTQSN, THYROIDABNo results found for: HCGURNo results found for: HCGSERUMASSESSMENT:Patien t Active Problem ListDiagnosis New ACL tear, left, initial encounterMarcelo Witt is a 16 y.o. 6 m.o. female with hx of a basketball injury toher knee. She presents today for a history and physical for the above mentionedsurgical procedure in good condition. She has the following risk factors: sportsinduced asthma- Based on this evaluation for surgical risk factors and review ofnecessary clinical studies (if indicated), she has no other past medical historyor past surgical history that would impact this procedure.PLAN:Surgery as scheduledPain management teamPatient/family educationNutritional managementHemodynamic monitoringRespiratory monitoringNeurovascular monitoringOTHER FINDINGS OR COMMENTS:Jewelry removed? Stef Arevalo CNP06/25/20179:51 AM Normal [facility] HCG,Urineon 06-25-2017 HCG.beta subunit ( test) Ql (U) Negative Normal [facility] Comment on above: Order Comment: If ur ine specimen unobtainable, please obtain serum HCG. Result Comment: Nonp regnant females and males-Negative females-Positive Performed By: #### H CGUR ####[facility] [place], [place] [phone] MRI KNEE LEFT WO CONTRASTon 06-07-2017 MRI KNEE LEFT WO CONTRAST MRI LEFT KNEE WITHOUT CONTRAST, 06/07/2017.COMPARISON: X-rays from 06/05/2017.HISTORY: Injury playing basketball on 06/04/2017. The patient jumped for a rebound and fell with another player landing on the left knee. Knee pain and swelling with inability to weight-bear.TECHNIQUE: Axial STIR and coronal fat-saturated proton density images were obtained along with sagittal T1, fat-saturated proton density, and T2 images without contrast.FINDINGS: There is a complete tear/rupture of the proximal and mid fibers of the ACL with displaced irregular fibers extending into the intercondylar notch anteriorly. There is a bony contusion pattern often seen with acute ACL injuries including a moderate to severe contusion involving the anterior weightbearing portion of the lateral femoral condyle and moderate to severe bony contusion and trabecular microfracture involving the lateral tibial plateau posteriorly. There is also a moderate to severe contusion involving the medial tibial plateau posteriorly.The posterior cruciate ligament is intact. Edema surrounding the proximal fibers of the MCL is consistent with a grade 1 MCL sprain. The lateral collateral ligament, biceps femoris tendon, and popliteus tendon are intact. There is mild edema in the fascial planes along the posterior and posterolateral aspect of the knee suggesting a mild posterolateral corner sprain. The patellar tendon, distal quadriceps tendon, and iliotibial band are intact.Evaluation of the menisci is degraded by motion artifact on this study. No well-defined medial meniscal tear is evident. Articular cartilage in the medial compartment is preserved.No well-defined lateral meniscal tear is identified. There is a meniscal femoral ligament of Wrisberg which is a normal variant. Articular cartilage in the lateral compartment is relatively preserved.There is a large hemarthrosis with an associated fluid/fluid level well seen on the sagittal T2 images. The patellofemoral articular cartilage is intact. There is a tiny Camacho cyst. There is mild marrow edema involving a small portion of the proximal fibula along its far proximal and posterior aspect consistent with a mild bony contusion.IMPRESSION: 1. There is a complete tear/rupture of the proximal to mid fibers of the ACL with displaced ACL fibers in the intercondylar notch anteriorly.2. There is a bony contusion pattern often seen with acute ACL injuries with contusions of the lateral femoral condyle and posterior aspect of the medial and lateral tibial plateau.3. Grade 1 MCL sprain proximally.4. No well-defined meniscal tear given motion artifact degrading evaluation.5. There is a large joint effusion with a fluid/fluid level consistent with a hemarthrosis. 6. There is edema in the fascial planes along the lateral and posterolateral aspect of the knee suggesting a mild posterolateral corner sprain. There is a mild bony contusion involving the proximal fibula.Interpreted by:JORGE A Bishopigned by:Kassy Chun MD06/07/17Final result Normal [facility] US Abdomen Limited Studyon 1 US Abdomen Limited Study Borderline splenic enlargement, with overall slight decreased splenic size as compared to 03/12/2017, with splenic volume currently measuring 312 mL. EMKineticsL/lab Workstation ID: [id number] Invalid Interpretation Code [employer] [place] US Abdomen Limited Study EXAMINATION: US ABDOMEN LIMITED STUDY ADDITIONAL CLINICAL INFORMATION: splenomegaly followup. Mononucleosis. COMPARISON: 03/12/2017. FINDINGS: The spleen currently measures 12 x 10.3 x 4.9 cm, splenic volume is 312 mL. This is slightly decreased in overall size as compared to the prior examination. Invalid Interpretation Code [facility] [place] US Abdomen Limited Study Interface, Rad In Pacs [employer] - 04/19/2017 4:48 PM EDT EXAMINATION: US ABDOMEN LIMITED STUDY ADDITIONAL CLINICAL INFORMATION: splenomegaly followup. Mononucleosis. COMPARISON: 03/12/2017. FINDINGS: The spleen currently measures 12 x 10.3 x 4.9 cm, splenic volume is 312 mL. This is slightly decreased in overall size as compared to the prior examination. IMPRESSION: Borderline splenic enlargement, with overall slight decreased splenic size as compared to 03/12/2017, with splenic volume currently measuring 312 mL. TJL/lab Workstation ID: [id number] Invalid Interpretation Code [employer] [place] Vital Signs Date Time Vital Sign Value Performing Clinician Facility 03-11-2025 14:12-0400 Diastolic blood pressure 70 mm[Hg] Dr. Hector Gorman MD Work Phone: [facility] [facility] 03-[facility]-2025 14:12-0400 Heart rate 98 /min Dr. Hector Gorman MD Work Phone: [facility] 03-11-2025 14:12-0400 Systolic blood pressure 122 mm[Hg] Dr. Hector Gorman MD Work Phone: [facility] 03-11-2025 12:58-0400 Body height 154.[address] Hector Gorman MD Work Phone: [facility] 03-11-2025 12:58-0400 Body mass index (BMI) [Ratio] 35.9 kg/m2 Dr. Hector Gorman MD Work Phone: [facility] 03-11-2025 12:58-0400 Body weight 86.[address] Hector Gorman MD Work Phone: [facility] 03-04-2025 14:26-0400 Body mass index (BMI) [Ratio] 33.66 kg/m2 Cassy Jason MD Work Phone: [facility] 03-04-2025 14:26-0400 Body weight 86.18 kg Cassy Jason MD Work Phone: [facility] 03-04-2025 14:26-0400 Diastolic blood pressure 84 mm[Hg] Cassy Jason MD Work Phone: [facility] 03-04-2025 14:26-0400 Systolic blood pressure 138 mm[Hg] Cassy Jason MD Work Phone: [facility] 02-26-2025 15:52-0400 Body mass index (BMI) [Ratio] 33.37 kg/m2 Sophy Denney MD Work Phone: [facility] 02-26-2025 15:52-0400 Body weight 85.46 kg Sophy Denney MD Work Phone: [facility] 02-26-2025 15:52-0400 Diastolic blood pressure 88 mm[Hg] Sophy Denney MD Work Phone: [facility] Comment on above: 88 02-26-2025 15:52-0400 Systolic blood pressure 126 mm[Hg] Sophy Denney MD Work Phone: [facility] Comment on above: 88 02-09-2025 16:27-0400 Body mass index (BMI) [Ratio] 32.77 kg/m2 Shelly Guzman CAR BODY DESIGNER.CNM Work Phone: [facility] 02-09-2025 16:27-0400 Body weight 83.92 kg Shelly Guzman CAR BODY DESIGNER.CNM Work Phone: [facility] 02-09-2025 16:27-0400 Diastolic blood pressure 70 mm[Hg] Shelly Gzuman CAR BODY DESIGNER.CNM Work Phone: [facility] 02-09-2025 16:27-0400 Systolic blood pressure 128 mm[Hg] Shelly Guzman CAR BODY DESIGNER.CNM Work Phone: [facility] 01-12-2025 15:39-0400 Body mass index (BMI) [Ratio] 31.71 kg/m2 Sophy Denney MD Work Phone: [facility] 01-12-2025 15:39-0400 Body weight 81.19 kg Sophy Denney MD Work Phone: [facility] 01-12-2025 15:39-0400 Diastolic blood pressure 82 mm[Hg] Sophy Denney MD Work Phone: [facility] 01-12-2025 15:39-0400 Systolic blood pressure 136 mm[Hg] Sophy Denney MD Work Phone: [facility] 12-30-2024 14:40-0400 Body mass index (BMI) [Ratio] 31.67 kg/m2 Delaney Craft MD Work Phone: [facility] 12-30-2024 14:40-0400 Body weight 81.1 kg Delaney Craft MD Work Phone: [facility] 12-30-2024 14:40-0400 Diastolic blood pressure 80 mm[Hg] Delaney Craft MD Work Phone: [facility] 12-30-2024 14:40-0400 Systolic blood pressure 128 mm[Hg] Delaney Craft MD Work Phone: [facility] 12-17-2024 14:39-0400 Body mass index (BMI) [Ratio] 31.18 kg/m2 Sophy Denney MD Work Phone: [facility] 12-17-2024 14:39-0400 Body weight 79.83 kg Sophy Denney MD Work Phone: [facility] 12-17-2024 14:39-0400 Diastolic blood pressure 70 mm[Hg] Sophy Denney MD Work Phone: [facility] 12-17-2024 14:39-0400 Systolic blood pressure 124 mm[Hg] Sophy Denney MD Work Phone: [facility] 11-19-2024 16:51-0400 Diastolic blood pressure 64 mm[Hg] Marcia Plotts CAR BODY DESIGNER.CNM Work Phone: [facility] 11-19-2024 16:51-0400 Systolic blood pressure 126 mm[Hg] Marcia Plotts CAR BODY DESIGNER.CNM Work Phone: [facility] 11-19-2024 16:28-0400 Body mass index (BMI) [Ratio] 30.47 kg/m2 Marcia Plotts CAR BODY DESIGNER.CNM Work Phone: [facility] 11-19-2024 16:28-0400 Body weight 78.02 kg Marcia Plotts CAR BODY DESIGNER.CNM Work Phone: [facility] 10-21-2024 16:05-0400 Body mass index (BMI) [Ratio] 30.11 kg/m2 Marcia Plotts CAR BODY DESIGNER.CNM Work Phone: [facility] 10-21-2024 16:05-0400 Body weight 77.11 kg Marcia Valderrama CAR BODY DESIGNER.CNM Work Phone: [facility] 10-21-2024 16:05-0400 Diastolic blood pressure 64 mm[Hg] Marcia Huertasts CAR BODY DESIGNER.CNM Work Phone: [facility] 10-21-2024 16:05-0400 Systolic blood pressure 128 mm[Hg] Marcia Huertasts CAR BODY DESIGNER.CNM Work Phone: [facility] 09-23-2024 15:38-0400 Body mass index (BMI) [Ratio] 30.11 kg/m2 Cassy Jason MD Work Phone: [facility] 09-23-2024 15:38-0400 Body weight 77.11 kg Cassy Jason MD Work Phone: [facility] 09-23-2024 15:38-0400 Diastolic blood pressure 70 mm[Hg] Cassy Jason MD Work Phone: [facility] 09-23-2024 15:38-0400 Systolic blood pressure 130 mm[Hg] Cassy Jason MD Work Phone: [facility] 08-26-2024 09:12-0500 Body mass index (BMI) [Ratio] 29.94 kg/m2 Melita Colón APRN.DATA MANAGEMENT ENGINEER Work Phone: [facility] 08-26-2024 09:12-0500 Body weight 76.66 kg Melita Hagarrett CAR BODY DESIGNER.DATA MANAGEMENT ENGINEER Work Phone: [facility] 08-26-2024 09:12-0500 Diastolic blood pressure 64 mm[Hg] Melita Haury CAR BODY DESIGNER.DATA MANAGEMENT ENGINEER Work Phone: [facility] 08-26-2024 09:12-0500 Systolic blood pressure 122 mm[Hg] Melita Colón CAR BODY DESIGNER.DATA MANAGEMENT ENGINEER Work Phone: [facility] 07-27-2024 09:41-0500 Body height 160 cm Melita Haury CAR BODY DESIGNER.DATA MANAGEMENT ENGINEER Work Phone: [facility] 07-27-2024 09:41-0500 Body mass index (BMI) [Ratio] 30.82 kg/m2 Melita Haury CAR BODY DESIGNER.DATA MANAGEMENT ENGINEER Work Phone: [facility] 07-27-2024 09:41-0500 Body weight 78.93 kg Melita Haury CAR BODY DESIGNER.DATA MANAGEMENT ENGINEER Work Phone: [facility] 07-27-2024 09:41-0500 Diastolic blood pressure 60 mm[Hg] Melita Haury CAR BODY DESIGNER.DATA MANAGEMENT ENGINEER Work Phone: [facility] 07-27-2024 09:41-0500 Systolic blood pressure 120 mm[Hg] Melita Haury CAR BODY DESIGNER.DATA MANAGEMENT ENGINEER Work Phone: [facility] 07-17-2024 10:35-0500 Body weight 78.38 kg Mary Hiawatha CAR BODY DESIGNER.DATA MANAGEMENT ENGINEER Work Phone: [facility] 07-17-2024 10:35-0500 Diastolic blood pressure 68 mm[Hg] Mary Hiawatha CAR BODY DESIGNER.DATA MANAGEMENT ENGINEER Work Phone: [facility] 07-17-2024 10:35-0500 Systolic blood pressure 116 mm[Hg] Mary Sallie CAR BODY DESIGNER.DATA MANAGEMENT ENGINEER Work Phone: [facility] 06-27-2024 11:47-0500 Body temperature 97.2 [degF] Lou Leslee CAR BODY DESIGNER.DATA MANAGEMENT ENGINEER Work Phone: [facility] 06-27-2024 11:47-0500 Body weight 78.1 kg Lou Leslee CAR BODY DESIGNER.DATA MANAGEMENT ENGINEER Work Phone: [facility] 06-27-2024 11:47-0500 Diastolic blood pressure 72 mm[Hg] Lou Leslee CAR BODY DESIGNER.DATA MANAGEMENT ENGINEER Work Phone: [facility] 06-27-2024 11:47-0500 Heart rate 106 /min Lou Leslee CAR BODY DESIGNER.DATA MANAGEMENT ENGINEER Work Phone: [facility] 06-27-2024 11:47-0500 Respiratory rate 16 /min Lou Leslee CAR BODY DESIGNER.DATA MANAGEMENT ENGINEER Work Phone: [facility] 06-27-2024 11:47-0500 SaO2% (BldA) [Mass fraction] 97 % Lou Camilo CAR BODY DESIGNER.DATA MANAGEMENT ENGINEER Work Phone: [facility] 06-27-2024 11:47-0500 Systolic blood pressure 124 mm[Hg] Lou Camilo CAR BODY DESIGNER.DATA MANAGEMENT ENGINEER Work Phone: [facility] 05-29-2022 15:57-0500 Body temperature 97.11 [degF] Kassy Becerril MD Work Phone: [facility] 05-29-2022 15:57-0500 Diastolic blood pressure 67 mm[Hg] Kassy Becerril MD Work Phone: [facility] 05-29-2022 15:57-0500 Heart rate 76 /min Kassy Becerril MD Work Phone: [facility] 05-29-2022 15:57-0500 Respiratory rate 16 /min Kassy Becerril MD Work Phone: [facility] 05-29-2022 15:57-0500 SaO2% (BldA) [Mass fraction] 95 % Kassy Becerril MD Work Phone: [facility] 05-29-2022 15:57-0500 Systolic blood pressure 128 mm[Hg] Kassy Becerril MD Work Phone: [facility] 05-29-2022 13:33-0500 Body height 154.9 cm Kassy Becerril MD Work Phone: [facility] 10-18-2020 09:12-0400 Body height 154.9 cm Davida Urrutia MD Work Phone: [facility] 10-18-2020 09:12-0400 Body mass index (BMI) [Ratio] 26.43 kg/m2 Dvaida Urrutia MD Work Phone: [facility] 10-18-2020 09:12-0400 Body temperature 98.01 [degF] Davida Urrutia MD Work Phone: [facility] 10-18-2020 09:12-0400 Body weight 63.46 kg Davida Urrutia MD Work Phone: [facility] 10-18-2020 09:12-0400 Diastolic blood pressure 88 mm[Hg] Davida Urrutia MD Work Phone: [facility] 10-18-2020 09:12-0400 Heart rate 93 /min Davida Urrutia MD Work Phone: [facility] 10-18-2020 09:12-0400 Systolic blood pressure 130 mm[Hg] Davida Urrutia MD Work Phone: [facility] 07-01-2020 15:49-0500 BP Diastolic 70 mm[Hg] Marjorie Matthews [facility] 07-01-2020 15:49-0500 BP Systolic 130 mm[Hg] Marjorie Matthews [facility] 07-01-2020 15:49-0500 Pulse (Heart Rate) 85 /min Marjorie Matthews [facility] 07-01-2020 15:49-0500 Pulse Oximetry 100 % Marjorie Matthews [facility] 07-01-2020 15:49-0500 Respiratory Rate 18 /min Marjorie Matthews [facility] 07-01-2020 11:14-0500 BMI (Body Mass Index) 25.89 kg/m2 Marjorie Matthews [facility] 07-01-2020 11:14-0500 Body Temperature 97.3 [degF] Marjorie Matthews [facility] 07-01-2020 11:14-0500 Body weight 62.14 kg Marjorie Matthews [facility] 07-01-2020 11:14-0500 Height 154.9 cm Marjorie Matthews [facility] 08-20-2018 09:11-0500 BMI (Body Mass Index) 21.47 kg/m2 Nazanin Valencia [facility] 08-20-2018 09:11-0500 Body Temperature 97.81 [degF] Nazanin Valencia [facility] 08-20-2018 09:11-0500 BP Diastolic 79 mm[Hg] Nazanin Valencia [facility] 08-20-2018 09:11-0500 BP Systolic 121 mm[Hg] Nazanin Valencia [facility] 08-20-2018 09:11-0500 Height 165.1 cm Nazanin Valencia [facility] 08-20-2018 09:11-0500 Pulse (Heart Rate) 77 /min Nazanin Valencia [facility] 08-20-2018 09:11-0500 Pulse Oximetry 99 % Nazanin Valencia [facility] 08-20-2018 09:11-0500 Weight 58.51 kg Nazanin Valencia [facility] 03-08-2017 14:29-0400 BMI (Body Mass Index) 25.17 kg/m2 [facility] Noryhakeem [facility] Work Phone: 03-08-2017 14:29-0400 BP Diastolic 81 mm[Hg] [facility] Noryhakeem [facility] Work Phone: 03-08-2017 14:29-0400 BP Systolic 122 mm[Hg] [facility] Work Phone: 03-08-2017 14:29-0400 Height 154.9 cm [facility] Work Phone: 03-08-2017 14:29-0400 Pulse (Heart Rate) 83 /min [facility] Work Phone: 03-08-2017 14:29-0400 Pulse Oximetry 99 % [facility] Noryahkeem [facility] Work Phone: 03-08-2017 14:29-0400 Weight 60.42 kg [facility] Noryhakeem [facility] Work Phone: 03-06-2017 10:50-0400 BMI (Body Mass Index) 25.66 kg/m2 Pelon Jernigan [facility] Work Phone: 03-06-2017 10:50-0400 Body Temperature 97.7 [degF] Pelon Jernigan [facility] Work Phone: 03-06-2017 10:50-0400 BP Diastolic 76 mm[Hg] Pelon Jernigan [facility] Work Phone: 03-06-2017 10:50-0400 BP Systolic 107 mm[Hg] Pelonhakeem Jernigan [facility] Work Phone: 03-06-2017 10:50-0400 Height 154.9 cm Pelon Jernigan [facility] Work Phone: 03-06-2017 10:50-0400 Pulse Oximetry 99 % Pelon Jernigan [facility] Work Phone: 03-06-2017 10:50-0400 Weight 61.6 kg Pelon Jernigan [facility] Work Phone: 01-28-2017 15:36-0400 BMI (Body Mass Index) 26.45 kg/m2 [facility] Work Phone: 01-28-2017 15:36-0400 BP Diastolic 76 mm[Hg] [facility] Work Phone: 01-28-2017 15:36-0400 BP Systolic 121 mm[Hg] [facility] Work Phone: 01-28-2017 15:36-0400 Height 154.9 cm [facility] Work Phone: 01-28-2017 15:36-0400 Pulse (Heart Rate) 71 /min [facility] Noryhakeem [facility] Work Phone: 01-28-2017 15:36-0400 Pulse Oximetry 99 % [facility] Work Phone: 01-28-2017 15:36-0400 Weight 63.5 kg [facility] Noryhakeem [facility] Work Phone: Encounters Encounter Date Encounter Type Care Provider Facility Start: 03-15-2025 ambulatory Hector Patton ty:[facility] Start: 03-11-2025 End: 03-11-[address] Hector Gorman MD Work Phone: -[facility] Start: 03-11-2025 End: 03-11-[address] Dyllan Henry MD -[facility] Work Phone: Start: 03-11-2025 End: 03-11-2025 ambulatory MARCIA VALDERRAMA Facility:[facility] Start: 03-08-2025 End: 03-08-2025 ambulatory Mariza Carreno [facility] Start: 03-08-2025 End: 03-08-2025 [facility] Population Health Na vigation Outreach ( to PCP/OB/) Start: 03-04-2025 End: 03-04-2025 Patient encounter procedure Cassy Jason MD Work Phone: OB/Gynecology Comment on above: Supervision of high risk in third trimester (HCC) (Primary Dx); History of pre-eclampsia; Obesity affecting in first trimester, unspecified obesity type (HCC); 37 weeks gestation of (HCC); Anxiety Start: 03-04-2025 End: 03-04-2025 ambulatory CASSY JASON Facility:[facility] Start: 02-26-2025 End: 02-26-2025 Patient encounter procedure Sophy Denney MD Work Phone: OB/Gynecology Comment on above: 36 weeks gestation o f (HCC) (Primary Dx); Supervision of high risk in third trimester (HCC); History of pre-eclampsia Start: 02-26-2025 End: 02-26-2025 ambulatory SOPHY DENNEY Facility:[facility] Start: 02-17-2025 End: 02-17-2025 Refill Marcia Valderrama APRN.CNM Work Phone: OB/Gynecology Comment on above: Refill Request Start: 02-14-2025 End: 02-15-2025 Refill Marcia Valderrama APRNCLEOPATRA Work Phone: OB/Gynecology Comment on above: Refill Request Start: 02-09-2025 End: 02-09-2025 Patient encounter procedure Shelly Guzman APRN.CNM Work Phone: OB/Gynecology Comment on above: Supervision of high risk in third trimester (HCC) (Primary Dx); History of pre-eclampsia; Anxiety; Obesity affecting in first trimester, unspecified obesity type (HCC); 34 weeks gestation of (HCC) Start: 02-09-2025 End: 02-09-2025 ambulatory SHELLY URBANO Facility:[facility] Start: 01-26-2025 End: 01-26-2025 ambulatory DYLLAN Creda ELAINE Facility:[facility] Start: 01-12-2025 End: 01-12-2025 Patient encounter procedure Sophy Denney MD Work Phone: OB/Gynecology Comment on above: Encounter for superv ision of other normal in third trimester (HCC) (Primary Dx); 30 weeks gestation of ([facility]); History of pre-eclampsia Start: 01-12-2025 End: 01-12-2025 ambulatory SOPHY DENNEY Facility:[facility] Start: 12-30-2024 End: 12-30-2024 Patient encounter procedure Delaney Craft MD Work Phone: OB/Gynecology Comment on above: 28 weeks gestation o f (HCC) (Primary Dx); Encounter for supervision of other normal in third trimester ([facility]) Start: 12-30-2024 End: 12-30-2024 ambulatory DELANEY CRAFT Facility:[facility] Start: 12-23-2024 End: 12-23-2024 ambulatory Sophy Denney MD Work Phone: OB/Gynecology Comment on above: Test results Start: 12-17-2024 End: 12-17-2024 Patient encounter procedure Sophy Denney MD Work Phone: OB/Gynecology Comment on above: Anxiety (Primary Dx) ; 26 weeks gestation of (HCC) Start: 12-17-2024 End: 12-17-2024 ambulatory MARCIA VALDERRAMA Facility:[facility] Start: 12-17-2024 End: 02-16-2025 Follow-up encounter Marcia Valderrama APRN.CNM Work Phone: OB/Gynecology Start: 11-19-2024 End: 11-19-2024 Patient encounter procedure Marcia Valderrama APRN.CNM Work Phone: OB/Gynecology Comment on above: 22 weeks gestation o f (HCC) (Primary Dx); Encounter for supervision of other normal in second trimester (HCC); Heartburn during in second trimester (HCC); Screening for diabetes mellitus; Anxiety Start: 11-19-2024 End: 11-19-2024 ambulatory MARCIA VALDERRAMA Facility:[facility] Start: 10-21-2024 End: 10-21-2024 Patient encounter procedure Marcia Valderrama FLETCHER Work Phone: OB/Gynecology Comment on above: 18 weeks gestation o f (HCC) (Primary Dx); Encounter for supervision of other normal in second trimester (HCC); Heartburn during in second trimester (HCC) Start: 10-21-2024 End: 10-21-2024 ambulatory MELITA COLÓN Facility:[facility] Start: 09-23-2024 End: 09-23-2024 ambulatory MELITA COLÓN Facility:[facility] Start: 09-23-2024 End: 09-23-2024 Patient encounter procedure Cassy Jason MD Work Phone: OB/Gynecology Comment on above: Supervision of high risk in second trimester (HCC) (Primary Dx); Obesity affecting in first trimester, unspecified obesity type (HCC); Dysuria Start: 09-07-2024 End: 09-07-2024 ambulatory Hector Gorman Facility:[facility] Start: 08-26-2024 End: 08-26-2024 Patient encounter procedure Melita Colón APRN.DATA MANAGEMENT ENGINEER Work Phone: OB/Gynecology Comment on above: Encounter for superv ision of high risk in first trimester, antepartum (Primary Dx); with uncertain dates in first trimester; 11 weeks gestation of ; History of pre-eclampsia Start: 08-26-2024 End: 08-26-2024 ambulatory MELITA COLÓN Facility:[facility] Start: 08-26-2024 End: 08-26-2024 Patient encounter procedure [employer] [facility] Comment on above: with uncer tain dates in first trimester (Primary Dx); 10 weeks gestation of Start: 08-03-2024 End: 10-03-2024 Follow-up encounter Melita Colón APRN.CNP Work Phone: OB/Gynecology Start: 07-28-2024 End: 07-28-2024 ambulatory [employer] [facility] [employer] Work Phone: OB/Gynecology Comment on above: Viability Start: 07-28-2024 End: 07-28-2024 Patient encounter procedure [employer] [facility] Work Phone: OB/Gynecology Start: 07-27-2024 End: 07-27-2024 Chart abstracting Marti Villanueva MD Work Phone: OB/Gynecology Comment on above: ultrasound scan prep Start: 07-27-2024 End: 07-27-2024 ambulatory MELITA COLÓN Facility:[facility] Start: 07-27-2024 End: 07-27-2024 Patient encounter procedure Melita Colón APRN.CNP Work Phone: OB/Gynecology Comment on above: Encounter for superv ision of high risk in first trimester, antepartum (Primary Dx); with uncertain dates in first trimester; Screen for STD (sexually transmitted disease); Screening for cervical cancer; Obesity affecting in first trimester, unspecified obesity type; History of pre-eclampsia; History of miscarriage; History of headache; Constipation during in first trimester; Hx of blurred vision; Vulvar lesion; Nausea and vomiting during Start: 07-22-2024 End: 07-22-2024 ambulatory [facility] Facility:[facility] Start: 07-20-2024 End: 07-20-2024 Telephone encounter Melita Colón APRN.CNP Work Phone: OB/Gynecology Comment on above: Results Start: 07-17-2024 End: 07-17-2024 ambulatory [facility] Facility:[facility] Start: 07-17-2024 End: 07-17-2024 Patient encounter procedure Mary Rizo APRN.CNP Work Phone: OB/Gynecology Comment on above: Missed menses (Prima ry Dx); Vaginal irritation; Vaginal odor; Encounter for test, result positive Start: 06-28-2024 End: 06-29-2024 Emergency department patient visit Kirbyjoe Child Facility:[facility] Start: 06-27-2024 End: 06-27-2024 ambulatory SOPHY DENNEY Facility:[facility] Start: 06-27-2024 End: 06-27-2024 Patient encounter procedure Lou Camilo CAR BODY DESIGNER.DATA MANAGEMENT ENGINEER Work Phone: [facility] Comment on above: Sore throat (Primary Dx) Start: 06-01-2024 ambulatory NOT RECORDED PHYSICIAN Facility:[facility] Start: 06-01-2024 End: 06-01-2024 Patient encounter procedure MARKUS ESCOTOON CAR BODY DESIGNER-DATA MANAGEMENT ENGINEER [facility] Start: 05-27-2024 End: 05-27-2024 ambulatory Hector Gorman Facility:[facility] Start: 05-26-2024 End: 05-26-2024 ambulatory [facility] Facility:[facility] Start: 05-18-2024 End: 05-18-2024 ambulatory MARKUS SHORT CAR BODY DESIGNER-DATA MANAGEMENT ENGINEER Facility:[facility] Start: 05-18-2024 End: 05-18-2024 Patient encounter procedure MARKUS SHORT CAR BODY DESIGNER-DATA MANAGEMENT ENGINEER [facility] Start: 04-09-2024 End: 04-13-2024 ambulatory MARKUS SHORT CAR BODY DESIGNER-DATA MANAGEMENT ENGINEER Facility:[facility] Start: 04-09-2024 End: 04-13-2024 Outreach Lab MARKUS SHORT CAR BODY DESIGNER-DATA MANAGEMENT ENGINEER [facility] Start: 11-04-2023 End: 11-05-2023 ambulatory MARKUS SHORT CAR BODY DESIGNER-DATA MANAGEMENT ENGINEER Facility: Start: 11-04-2023 End: 11-04-2023 Patient encounter procedure MARKUS SHORT CAR BODY DESIGNER-DATA MANAGEMENT ENGINEER [facility] Start: 10-03-2023 End: 10-04-2023 ambulatory MARKUS SHORT CAR BODY DESIGNER-DATA MANAGEMENT ENGINEER Facility:[facility] Start: 10-03-2023 End: 10-03-2023 Patient encounter procedure MARKUS GARNER [facility] Start: 07-01-2023 End: 07-06-2023 ambulatory MARKUS SHORT APRN-DATA MANAGEMENT ENGINEER Facility:[facility] Start: 07-01-2023 End: 07-06-2023 Encounter for gynecological examination (general) (routine) without abnormal findings MARKUS BUSBYDATA MANAGEMENT ENGINEER Facility:[facility] Start: 07-01-2023 End: 07-05-2023 Outreach Lab MARKUS GARNER [facility] Start: 10-19-2022 End: 10-22-2022 Evaluation and management of inpatient [facility] Start: 10-06-2022 End: 10-06-2022 ambulatory [facility] Start: 09-20-2022 ambulatory [facility] Start: 07-13-2022 End: 07-13-2022 ambulatory [facility] Start: 07-13-2022 End: 07-13-2022 Emergency department patient visit [facility] Start: 07-13-2022 End: 07-13-2022 ambulatory [facility] Start: 07-13-2022 End: 07-13-2022 Office outpatient visit 15 minutes Shelly Sandy DO Work Phone: [facility] Comment on above: Epistaxis (Primary D x); rhinitis; History of tympanostomy tube placement Start: 06-25-2022 End: 06-25-2022 Emergency department patient visit [facility] Start: 05-31-2022 ambulatory [facility] Start: 05-29-2022 End: 05-29-2022 ambulatory KASSY BECERRIL [facility] Start: 05-29-2022 End: 05-29-2022 Subsequent hospital visit by physician Kassy Becerril MD Work Phone: [facility] Start: 05-11-2022 End: 05-11-2022 ambulatory SHELLY SANDY [facility] Start: 05-11-2022 End: 05-11-2022 Office outpatient new 45 minutes Shelly Mack Miguel DO Work Phone: [facility] Physicians ENT Comment on above: Epistaxis (Primary D x); rhinitis; History of tympanostomy tube placement; Otalgia of right ear; BPPV (benign paroxysmal positional vertigo), right Start: 03-30-2022 End: 03-30-2022 Emergency department [place] [facility] [place] Start: 02-06-2022 End: 02-10-[address] [facility] Start: 02-05-2022 Orders Only Yuliana go PA-C Work Phone: [facility] Provider Hospitalist Comment on above: Amenorrhea (Primary Dx); Bilious vomiting with nausea Start: 02-01-2022 ambulatory [facility] Start: 09-13-2021 Transcribe Orders Jacqueline Mendez [facility] ENT Comment on above: Otalgia of both ears (Primary Dx); Dizziness Start: 10-18-2020 End: 10-18-2020 ambulatory DAVIDA URRUTIA [facility] Ambul[facility] ory Start: 10-18-2020 End: 10-18-2020 Office outpatient new 30 minutes Davida Urrutia MD Work Phone: [facility] Physician Group, Neuroscience Comment on above: Migraine with aura, not intractable, without status migrainosus (Primary Dx); Chronic daily headache; Vertigo Start: 08-26-2020 End: 08-26-2020 Transcribe Orders Yuliana Beltran Work Phone: [facility] Physician Group, Neuroscience Comment on above: Nonintractable heada griffin, unspecified chronicity pattern, unspecified headache type (Primary Dx); Otalgia, unspecified laterality; History of dizziness Start: 08-11-2020 End: 08-11-2020 Transcribe Orders Jacqueline Canas [facility] Physicmckenzie meier ENT Comment on above: Bilateral otitis med ia, unspecified otitis media type (Primary Dx) Start: 07-01-2020 End: 07-01-2020 Emergency department patient visit Marjorie Matthews Work Phone: [facility] Emergency Department Comment on above: COVID-19 virus detec nuria (Primary Dx); Non-intractable vomiting with nausea, unspecified vomiting type Start: 09-26-2018 Patient encounter procedure CLINTON Dorsey TERESO [facility] Start: 08-20-2018 End: 08-20-2018 Office outpatient visit 25 minutes Nazanin Valencia Work Phone: [facility] Physicians Primary Care Comment on above: Chronic fatigue (Nikole christina Dx); Other depression; Concussion with loss of consciousness of 30 minutes or less, initial encounter; Dizziness Start: 06-25-2017 End: 06-25-2017 Ambulatory SAI DELGADO [facility] Start: 06-07-2017 End: 06-08-2017 Ambulatory KARIS WAGGONER [facility] Start: 04-19-2017 End: 04-19-2017 Ambulatory Pelon Jernigan Work Phone: [facility] Start: 03-11-2017 End: 03-11-2017 Patient encounter procedure Conner Haseeb Awasty Work Phone: [facility] Comment on above: Abdominal pain in fe male Start: 03-08-2017 Office/outpatient vi sit, est, level 3 Conner Haseeb Awasty Work Phone: [facility] Physicians Primary Care Start: 03-06-2017 End: 03-06-2017 Office outpatient visit 15 minutes Pelon Jernigan Work Phone: [facility] Physicians Primary Care Comment on above: Coryza (Primary Dx); Gastroenteritis Start: 01-28-2017 Office/outpatient vi sit, new, level 3 Conner Haseeb Awasty Work Phone: [facility] Physicians Primary Care Procedures Date Procedure Procedure Detail Performing Clinician Start: 03-11-[address] Hector Gorman MD Work Phone: Start: 03-04-2025 Urnls dip stick/tabl et rgnt non-auto w/o micrscp Cassy Jason MD Work Phone: Start: 02-26-2025 Urnls dip stick/tabl et rgnt non-auto w/o micrscp Sophy Denney MD Work Phone: Start: 02-09-2025 Urnls dip stick/tabl et rgnt non-auto w/o micrscp Shelly Guzman CAR BODY DESIGNER.CNM Work Phone: Start: 09-23-2024 Urnls dip stick/tabl et rgnt auto w/o microscopy Cassy Jason MD Work Phone: Start: 08-26-2024 Us preg uterus after 1st trimest 06/24 gestation Melita Colón APRN.DATA MANAGEMENT ENGINEER Work Phone: Start: 07-28-2024 Us pelvic nonobstetr ic real-time image complete Melita Colón APRN.DATA MANAGEMENT ENGINEER Work Phone: Start: 07-27-2024 Antibody screen SOPHY DENNEY Comment on above: Order Comment: Speci men Type: BLOOD SPECIMENOrdering Facility: [facility] Address: [address] [place] [address] Performed By: #### T SPN ####CC MAIN BLOOD BANKCLIA [id number] [place] [address] [place] Start: 07-27-2024 Us uterus l imited 1/ fetuses Melita Colón APRN.DATA MANAGEMENT ENGINEER Work Phone: Start: 07-17-2024 UA DIP,URINE HCG (POC) Mary Rizo APRN.DATA MANAGEMENT ENGINEER Work Phone: Start: 06-27-2024 STREP A MOLECULAR (POC) Lou Camilo CAR BODY DESIGNER.DATA MANAGEMENT ENGINEER Work Phone: Start: 07-13-2022 Follow-up visit Follow-up SHELLYMATHIEU COTTRELLKatelyn SANDY Start: 05-29-2022 RAPID TOX SCREEN WIT H RELEX TO [facility] Kassy Becerril MD Work Phone: Start: 05-29-2022 Urinalysis, reagent strip without microscopy Kassy Becerril MD Work Phone: Start: 05-29-2022 Iadna nos amplified probe tq each organism Kassy Becerril MD Work Phone: Start: 10-28-2020 Microscopic observat ion [Identifier] in Cervix by Cyto stain Shelly Sandy DO Work Phone: Start: 07-01-2020 COVID-19/INFLUENZA A ,B MOLECULAR Marjorie Matthews Work Phone: Start: 07-01-2020 CT of head without contrast Marjorie Matthews Work Phone: Start: 07-01-2020 Basic metabolic 2000 panel - Serum or Plasma Marjorie Matthews Work Phone: Start: 07-01-2020 Choriogonadotropin.b eta subunit ( test) [Presence] in Serum or Plasma Marjorie Matthews Work Phone: Start: 07-01-2020 Complete blood count with white cell differential, automated Marjorie Matthews Work Phone: Start: 07-01-2020 Complete blood count with white cell differential, manual Marjorie Matthews Work Phone: Start: 07-01-2020 Hepatic function 200 0 panel - Serum or Plasma Marjorie Matthews Work Phone: Start: 07-01-2020 Lipase [Enzymatic activity/volume] in Serum or Plasma Marjorie Matthews Work Phone: Start: 07-01-2020 RAINBOW DRAW Marjorie patel Work Phone: Start: 07-01-2020 Urinalysis Marjorie patel Work Phone: Start: 07-01-2020 URINE CARLOS CONTAINER Lisa janaeele Matthews Work Phone: Start: 06-07-2017 Mri any jt lower ext rem w/o contrast maryjanel KARIS WAGGONER H/O: surgery History of tympanostomy tube placement Shelly Sandy DO Work Phone: H/O: surgery History of tympanostomy tube placement Shelly Sandy DO Work Phone: Meniscus structure o f joint (body structure) MARKUS SHORT CAR BODY DESIGNER-DATA MANAGEMENT ENGINEER Rupture of anterior cruciate ligament (disorder) MARKUS SHORT CAR BODY DESIGNER-DATA MANAGEMENT ENGINEER Tonsillectomy and adenoidectomy MARKUS SHORT CAR BODY DESIGNER-DATA MANAGEMENT ENGINEER Plan of Treatment Date Care Activity Detail Author Start: 07-27-2027 Screening for malign ant neoplasm of cervix Cervical Cancer Screening [facility] Start: 07-27-2025 GC (Gonorrhea) Screening () GC (Gonorrhea) Screening () [facility] Start: 07-27-2025 Screening for Chlamy ran trachomatis Chlamydia Screening () [facility] Start: 03-17-2025 End: 03-17-2025 Patient encounter procedure 03/17/2025 2:30 PM EDT Routine Office Visit OB/Gynecology [address] [place] [address] Cassy Conway MD [address] [place] [address] OB OB/Gynecology Comment on above: OB Start: 03-11-2025 Nonstress test [facility] Start: 03-11-2025 Obstetric monitoring [facility] Start: 03-11-2025 Vital signs measurements [facility] Start: 03-11-2025 [facility] Start: 03-11-2025 End: 03-11-2025 Patient encounter procedure 03/11/2025 10:30 AM EDT Routine Office Visit OB/Gynecology [address] [place] [address] Marcia Valderrama APRN.CNM [address] [place] [address] Ob OB/Gynecology Comment on above: Ob Start: [facility]-11-2025 [facility] Start: 03-04-2025 End: 03-04-2025 Patient encounter procedure 03/04/2025 2:20 PM EDT Routine Office Visit OB/Gynecology [address] [place] [address] Cassy Conway MD [address] [place] [address] Ob OB/Gynecology Comment on above: Ob Start: 02-26-2025 End: 02-26-2025 Patient encounter procedure 02/26/2025 3:50 PM EDT Routine Office Visit OB/Gynecology [address] [place] [address] Sophy Denney MD [address] [place] [address] OB OB/Gynecology Comment on above: OB Start: 02-22-2025 Influenza vaccination [facility] Start: 02-22-2025 RSV Vaccine (1 - Ris k 1-dose series) RSV Vaccine (1 - Risk 1-dose series) [facility] Start: 02-09-2025 End: 02-09-2025 Patient encounter procedure 02/09/2025 4:30 PM EDT Routine Office Visit OB/Gynecology [address] [place] [address] Shelly Guzman APRN.CNM [address] [place] [address] OB OB/Gynecology Comment on above: OB Start: 01-26-2025 End: 01-26-2025 Patient encounter procedure 01/26/2025 3:50 PM EDT Routine Office Visit OB/Gynecology [address] [place] [address] Dyllan Henry MD [address] [place] [address] OB OB/Gynecology Comment on above: OB Start: 01-12-2025 End: 01-12-2025 Patient encounter procedure 01/12/2025 3:40 PM EDT Routine Office Visit OB/Gynecology [address] [place] [address] Sophy Denney MD [address] [place] [address] OB OB/Gynecology Comment on above: OB Start: 12-30-2024 End: 12-30-2024 Patient encounter procedure 12/30/2024 2:40 PM EDT Routine Office Visit OB/Gynecology [address] [place] [address] Cassy Conway MD [address] [place] [address] OB OB/Gynecology Comment on above: OB Start: 12-17-2024 End: 12-17-2024 Patient encounter procedure 12/17/2024 2:40 PM EDT Routine Office Visit OB/Gynecology [address] [place] [address] Sophy Denney MD [address] [place] [address] OB OB/Gynecology Comment on above: OB Start: 11-19-2024 End: 11-19-2024 Patient encounter procedure 11/19/2024 4:30 PM EDT Routine Office Visit OB/Gynecology [address] [place] [address] Marcia Valderrama APRN.[facility] [address] [place] [address] OB Routine OB/Gynecology Comment on above: OB Routine Start: 11-19-2024 End: 02-18-2025 ANEMIA REFLEX PANEL ANEMIA REFLEX PANEL Lab Routine 22 weeks gestation of ([facility]) Encounter for supervision of other normal in second trimester ([facility]) Heartburn during in second trimester ([facility]) Expected: 11/19/2024, Expires: 02/18/2025 [facility] Comment on above: Expected: 11/19/2024 , Expires: 02/18/2025 Start: 11-19-2024 End: 11-19-2025 GESTATIONAL GLUCOSE SCREEN, 1-HOUR, 50 GRAM, NON-FASTING GESTATIONAL GLUCOSE SCREEN, 1-HOUR, 50 GRAM, NON-FASTING Lab Routine 22 weeks gestation of ([facility]) Encounter for supervision of other normal in second trimester ([facility]) Heartburn during in second trimester ([facility]) Screening for diabetes mellitus Expected: 11/19/2024, Expires: 11/19/2025 [facility] Work Phone: Comment on above: Expected: 11/19/2024 , Expires: 11/19/2025 Start: 11-19-2024 End: 11-19-2025 SYPHILIS TREPONEMAL W/REFLEX SYPHILIS TREPONEMAL W/REFLEX Lab Routine 22 weeks gestation of ([facility]) Encounter for supervision of other normal in second trimester ([facility]) Heartburn during in second trimester ([facility]) Expected: 11/19/2024, Expires: 11/19/2025 [facility] Comment on above: Expected: 11/19/2024 , Expires: 11/19/2025 Start: 10-21-2024 End: 10-21-2024 Patient encounter procedure [facility] Comment on above: Anatomy Scan OB Routine Start: 09-23-2024 End: 09-23-2024 Patient encounter procedure 09/23/2024 3:50 PM EDT Routine Office Visit OB/Gynecology [address] [place], [place] [address] Cassy Conway MD [address] [place] [address] OB Routine OB/Gynecology Comment on above: OB Routine Start: 08-26-2024 End: 08-26-2024 Patient encounter procedure 08/26/2024 10:20 AM EST Routine Office Visit OB/Gynecology [address] [place] [address] Dyllan Henry MD [address] [place] [address] ob lmp 06/06.. had earlier misscarraige first week of may.. Now has 2 possitive preg test OB/Gynecology Comment on above: ob lmp 06/06.. had e arlier misscarraige first week of may.. Now has 2 possitive preg test Start: 08-26-2024 End: 08-26-2024 Patient encounter procedure [facility] Comment on above: Nuchal OB Routine Start: 08-07-2024 End: 08-07-2024 Patient encounter procedure 08/07/2024 2:00 PM EST Office Visit OB/Gynecology [address] [place] [address] Marcia Valderrama APRN.CN [address] [place] [address] Pap/Early miscarriage (3 weeks from 06-24-2024) OB/Gynecology Comment on above: Pap/Early miscarriag e (3 weeks from 06-24-2024) Start: 07-28-2024 End: 07-28-2024 ambulatory OB/Gynecology Comment on above: Dating US u/s-Melita Colón AP RN.DATA MANAGEMENT ENGINEER-dating gestation Start: 07-27-2024 End: 10-26-2024 ANEMIA REFLEX PANEL [facility] Work Phone: Comment on above: Expected: 07/27/2024 , Expires: 10/26/2024 Start: 07-27-2024 End: 10-26-2024 Choriogonadotropin.beta subunit [Units/volume] in Serum or Plasma [facility] Comment on above: Expected: 07/27/2024 , Expires: 10/26/2024 Start: 07-27-2024 End: 10-26-2024 Hemoglobin A1c in Blood [facility] Comment on above: Expected: 07/27/2024 , Expires: 10/26/2024 Start: 07-27-2024 End: 10-26-2024 Hepatitis B virus surface Ag [Presence] in Serum [facility] Comment on above: Expected: 07/27/2024 , Expires: 10/26/2024 Start: 07-27-2024 End: 10-26-2024 Hepatitis C virus Ab [Presence] in Serum [facility] Comment on above: Expected: 07/27/2024 , Expires: 10/26/2024 Start: 07-27-2024 End: 10-26-2024 HIV 1+2 Ab [Presence] in Serum or Plasma by Immunoassay [facility] Comment on above: Expected: 07/27/2024 , Expires: 10/26/2024 Start: 07-27-2024 End: 07-27-2025 OBSTETRIC ULTRASOUND [facility] Comment on above: Expected: 07/27/2024 , Expires: 07/27/2025 Start: 07-27-2024 End: 10-26-2024 Protein/Creatinine [Mass Ratio] in Urine [facility] Comment on above: Expected: 07/27/2024 , Expires: 10/26/2024 Start: 07-27-2024 End: 10-26-2024 RUBELLA IGG ANTIBODY [facility] Comment on above: Expected: 07/27/2024 , Expires: 10/26/2024 Start: 07-27-2024 End: 10-26-2024 SYPHILIS TREPONEMAL W/REFLEX [facility] Comment on above: Expected: 07/27/2024 , Expires: 10/26/2024 Start: 07-27-2024 End: 10-26-2024 Thyrotropin [Units/volume] in Serum or Plasma [facility] Comment on above: Expected: 07/27/2024 , Expires: 10/26/2024 Start: 07-27-2024 End: 10-26-2024 TYPE + SCREEN [facility] Comment on above: Expected: 07/27/2024 , Expires: 10/26/2024 Start: 07-27-2024 End: 07-27-2025 US Pelvis PELVIC US [facility] Anc Imaging Routine with uncertain dates in first trimester Expected: 07/27/2024, Expires: 07/27/2025 [facility] Comment on above: Expected: 07/27/2024 , Expires: 07/27/2025 Start: 07-27-2024 End: 07-27-2024 Patient encounter procedure 07/27/2024 9:30 AM EST Initial Office Visit OB/Gynecology [address] [place] [address] Melita Colón APRN.DATA MANAGEMENT ENGINEER [address] [place] [address] ob lmp 06/06.. had earlier misscarraige first week of may.. Now has 2 possitive preg test OB/Gynecology Comment on above: ob lmp 06/06.. had e arlier misscarraige first week of may.. Now has 2 possitive preg test Start: 06-27-2024 End: 09-26-2024 Heterophile Ab [Presence] in Serum by Latex agglutination MONOTEST, INFECTIOUS MONO Lab Routine Sore throat Expected: 06/27/2024, Expires: 09/26/2024 [facility] Work Phone: Comment on above: Expected: 06/27/2024 , Expires: 09/26/2024 Start: 02-23-2024 Covid-19 Vaccine ( season) Covid-19 Vaccine ( season) [facility] Start: 02-23-2024 Influenza vaccination Influenza Vacc ine (#1) [facility] Start: 10-29-2023 Screening for malign ant neoplasm of cervix Pap Smear [facility] Start: 07-13-2022 End: 07-13-2022 Patient encounter procedure 07/13/2022 Office Visit Otolaryngology Shelly Sandy, DO [address] [address] [facility] Start: 02-22-2022 Influenza vaccination [facility] Start: 2021 Screening for malign ant neoplasm of cervix [facility] Start: 10-28-2021 History and physical examination, annual for health maintenance Wellness Visit [facility] Start: 10-28-2021 Screening for Chlamy ran trachomatis Chlamydia Screening [facility] Start: 02-22-2021 Influenza vaccination Sequenti al Influenza Vaccine (#1) [facility] Start: 11-29-2020 End: 11-29-2020 Patient encounter procedure 11/29/2020 Office Visit Neurology Davida Urrutia MD [address] [facility] [address] [place] [address] [phone] [facility] Physician Group, Neuroscience Start: 09-14-2020 End: 09-14-2020 Office Visit [facility] Start: 03-23-2020 History and physical examination, annual for health maintenance Wellness Visit [facility] Start: 02-23-2020 Influenza vaccination Sequenti al Influenza Vaccine (#1) [facility] Start: 02-23-2020 Influenza vaccinatio n given Sequential Influenza Vaccine (#1) [facility] Start: 12-23-2019 Hepatitis B Vaccine (1 of 3 - 19+ 3-dose series) Hepatitis B Vaccine (1 of 3 - 19+ 3-dose series) [facility] Start: 12-23-2019 Third diphtheria, tetanus and acellular pertussis (DTaP) vaccination TDAP (ADULT) [facility] Start: 12-23-2019 Urine microalbumin profile DTaP,Tdap,Td Vaccine (1 - Tdap) [facility] Start: 2018 Anxiety Screening Anxiety Screening [facility] Start: 2018 Depression Screening Depression Scre ening [facility] Start: 2018 GC (Gonorrhea) Screening (18-24) GC (Gonorrhea) Screening (18-24) [facility] Start: 2018 Hepatitis C antibody , confirmatory test Hepatitis C Screening [facility] Start: 2018 Hepatitis C screening Hepatitis C Sc reening [facility] Start: 2018 HIV screening HIV Screening [facility] Start: 2018 Screening for Chlamy ran trachomatis Chlamydia Screening (18-24) [facility] Start: 09-17-2018 End: 09-17-2018 Office Visit 09/17/2018 Office Visit Primary Care Nazanin Valencia PA-C [address] [address] [phone] [facility] Primary [facility] Start: 02-22-2018 Influenza vaccinatio n given SEQUENTIAL INFLUENZA VACCINE (#1) [facility] Start: 04-19-2017 Ambulatory 04/19/2017 Off ice Visit Primary Care Conner Escalera MD [address] [address] [phone] [facility] Start: 03-11-2017 Ambulatory 03/11/2017 Off ice Visit Primary Care Conenr Escalera MD [address] [address] [phone] [facility] Start: 03-11-2017 Ambulatory 03/11/2017 Maxi ointment Radiology Conner Escalera MD [address] [address] [phone] [facility] Start: 02-22-2017 Influenza vaccination SEQUENTI AL INFLUENZA VACCINE (#1) [facility] Work Phone: Start: 02-22-2017 SEQUENTIAL INFLUENZA VACCINE (#1) SEQUENTIAL INFLUENZA VACCINE (#1) [facility] Work Phone: Start: 2016 COVID-19 Vaccine (1 of 2) COVID-19 Vaccine (1 of 2) [facility] Start: 2016 COVID-19 Vaccine (1) COVID-19 Vaccin e (1) [facility] Start: 2016 Meningococcal B Vacc ine (1 of 2 - Standard) Meningococcal B Vaccine (1 of 2 - Standard) [facility] Start: 2016 Meningococcal B Vaccine: Consider Based On Risk (1 of 2 - Patient Seeks Protection) Meningococcal B Vaccine: Consider Based On Risk (1 of 2 - Patient Seeks Protection) [facility] Start: 2016 Meningococcal conjug ate vaccination MENINGOCOCCAL VACCINE (1 - 2-dose series) [facility] Start: 2016 MENINGOCOCCAL VACCIN E (1 of 1) MENINGOCOCCAL VACCINE (1 of 1) [facility] Work Phone: Start: 2016 Meningococcus vaccination MENINGOCOCCAL VACCINE (1 of 1) [facility] Work Phone: Start: 2016 Screening for Chlamy ran trachomatis CHLAMYDIA SCREEN [facility] Start: 12-23-2015 HIV screening [facility] Start: 12-23-2015 HPV Vaccine (1 - 3-d ose series) HPV Vaccine (1 - 3-dose series) [facility] Start: 12-23-2015 Vaccination for jyothi n papillomavirus HPV VACCINES (1 - Female 3-dose series) [facility] Start: 2014 Peds To Adult Transition Annual Assessment Peds To Adult Transition Annual Assessment [facility] Start: 2013 Varicella vaccination [facility] Work Phone: Start: 2013 VARICELLA VACCINES ( 1 of 2 - 2 Dose Adolescent Series) VARICELLA VACCINES (1 of 2 - 2 Dose Adolescent Series) [facility] Work Phone: Start: 2012 Adolescent depressio n screening assessment Depression Screening (PHQ9) [facility] Start: 2012 Depression screening using PHQ-9 (Patient Health Questionnaire 9) score [facility] Start: 2012 Peds To Adult Transition Initial Discussion Peds To Adult Transition Initial Discussion [facility] Start: 12-23-2011 HPV VACCINES (1 of 3 - Female 3 Dose Series) HPV VACCINES (1 of 3 - Female 3 Dose Series) [facility] Work Phone: Start: 12-23-2011 Vaccination for jyothi n papillomavirus [facility] Start: 12-23-2007 DTAP VACCINES (1 - Tdap) DTAP VACCINES (1 - Tdap) [facility] Work Phone: Start: 12-23-2007 Tetanus, diphtheria and acellular pertussis vaccination DTAP VACCINES (1 - Tdap) [facility] Start: 12-23-2007 Vaccination for diphtheria, pertussis, and tetanus DTAP VACCINES (1 - Tdap) [facility] Work Phone: Start: 2006 Pneumococcal Vaccine : Ped or At-Risk (1 - PCV) Pneumococcal Vaccine: Ped or At-Risk (1 - PCV) [facility] Start: 2006 Pneumococcal Vaccine : Ped or At-Risk (1 of 2 - PPSV23) Pneumococcal Vaccine: Ped or At-Risk (1 of 2 - PPSV23) [facility] Start: 2005 COVID-19 Vaccine (1) COVID-19 Vaccin e (1) [facility] Start: 12-23-2003 History and physical examination, annual for health maintenance Wellness Visit [facility] Start: 2001 Hepatitis A immunization [facility] Work Phone: Start: 2001 HEPATITIS A VACCINES (1 of 2 - Standard Series) HEPATITIS A VACCINES (1 of 2 - Standard Series) [facility] Work Phone: Start: 2001 Sktnvli-ludhi-ylmgny a vaccination [facility] [facility] Work Phone: Start: 2001 MMR VACCINES (1 of 2) MMR VACCINES ( 1 of 2) [facility] Work Phone: Start: 06-24-2001 COVID-19 Vaccine (#1) COVID-19 Vacci ne (#1) [facility] Start: 02-22-2001 Inactivated poliovir us vaccine (product) [facility] Work Phone: Start: 02-22-2001 IPV VACCINES (1 of 4 - All-IPV Series) IPV VACCINES (1 of 4 - All-IPV Series) [facility] Work Phone: Start: 2000 Hepatitis B vaccination [facility] Work Phone: Start: 2000 HEPATITIS B VACCINES (1 of 3 - Primary Series) HEPATITIS B VACCINES (1 of 3 - Primary Series) [facility] Work Phone: Start: 2000 Screening for Chlamy ran trachomatis [facility] Start: 2000 Screening for malign ant neoplasm of cervix Pap Smear [facility] Start: 2000 TETANUS EVERY 10 YR TETANUS EVERY 10 YR [facility] Work Phone: Start: 2000 Tetanus vaccination [facility] Bacteria identified in Urine by Culture BACTERIAL CULTURE, URINE Microbiology Routine with uncertain dates in first trimester 07/27/2024 10:22 AM [facility] BACTERIAL VAGINOSIS NAAT BACTERIAL VAGINOSIS NAAT Lab Routine Vaginal irritation Vaginal odor 07/17/2024 10:54 AM [facility] ALBERTO/TRICHOMONAS NAAT ALBERTO/TRICHOMONAS NAAT Lab Routine Vaginal irritation Vaginal odor 07/17/2024 10:54 AM [facility] End: 01-28-2018 CBC and Differential CBC and Differential Routine Chronic fatigue 1 Occurrences starting 01/28/2017 until 01/28/2018 [facility] Work Phone: Chlamydia trachomatis+Neisseria gonorrhoeae DNA [Presence] in Unspecified specimen by LARRY with probe detection GONORRHEA/CHLAMYDIA NAAT Lab Routine with uncertain dates in first trimester Screen for STD (sexually transmitted disease) 07/27/2024 10:20 AM [facility] End: 07-17-2025 Choriogonadotropin.beta subunit [Units/volume] in Serum or Plasma HCG QUANTITATIVE Lab Routine Encounter for test, result positive 2x per week for 2 Occurrences starting 07/17/2024 until 07/17/2025 [facility] Work Phone: Comment on above: 2x per week for 2 Oc currences starting 07/17/2024 until 07/17/2025 Choriogonadotropin.b eta subunit [Units/volume] in Serum or Plasma HCG QUANTITATIVE Lab Routine Encounter for test, result positive 07/17/2024 11:08 AM [facility] End: 02-05-2023 Cortisol [Mass/volume] in Serum or Plasma --AM peak specimen Cortisol, AM Lab Routine Amenorrhea Bilious vomiting with nausea 1 Occurrences starting 02/05/2022 until 02/05/2023 [facility] Work Phone: Comment on above: 1 Occurrences starti ng 02/05/2022 until 02/05/2023 End: 03-06-2018 hCG, Quantitative, Blood hCG, Quantitative, Blood Add-On Coryza Gastroenteritis 1 Occurrences starting 03/06/2017 until 03/06/2018 [facility] Work Phone: Comment on above: 1 Occurrences starti ng 03/06/2017 until 03/06/2018 End: 01-28-2018 Hepatic function 2000 panel - Serum or Plasma Hepatic Function Panel Routine Chronic fatigue 1 Occurrences starting 01/28/2017 until 01/28/2018 [facility] Work Phone: End: 03-06-2018 Heterophile Ab Ql (S) Mononucleosis Screen Add-On Coryza 1 Occurrences starting 03/06/2017 until 03/06/2018 [facility] Work Phone: Comment on above: 1 Occurrences starti ng 03/06/2017 until 03/06/2018 End: 01-28-2018 Lipid panel Lipid Panel Routine Chronic fatigue 1 Occurrences starting 01/28/2017 until 01/28/2018 [facility] Work Phone: PAP TEST PAP TEST Lab Rou ruma with uncertain dates in first trimester Screening for cervical cancer 07/27/2024 10:20 AM [facility] Patient Education Kick Counts ED False Labor OB Triage: Return to Hospital or Notify Physician if you Experience: [facility] Work Phone: End: 01-28-2018 Renal Function Panel Renal Function Panel Routine Chronic fatigue 1 Occurrences starting 01/28/2017 until 01/28/2018 [facility] Work Phone: ROUTINE, GR OUP B STREPTOCOCCUS BY PCR ROUTINE, GROUP B STREPTOCOCCUS BY PCR Microbiology Routine 36 weeks gestation of ([facility]) 02/26/2025 4:02 PM EDT [facility] Work Phone: End: 01-28-2018 Thyroxine (T4) free T4, Free Routine Chronic fatigue 1 Occurrences starting 01/28/2017 until 01/28/2018 [facility] Work Phone: TRICHOMONAS VAGINALI S NAAT TRICHOMONAS VAGINALIS NAAT Lab Routine with uncertain dates in first trimester Screen for STD (sexually transmitted disease) 07/27/2024 10:20 AM [facility] End: 01-28-2018 TSH TSH Routine Chronic fatigue 1 Occurrences starting 01/28/2017 until 01/28/2018 [facility] Work Phone: End: 03-08-2018 US Abdomen Complete US Abdomen Complete Routine Abdominal pain in female 1 Occurrences starting 03/08/2017 until 03/08/2018 [facility] Work Phone: US Abdomen Complete US Abdomen C omplete Routine Abdominal pain in female 03/11/2017 9:39 AM EDT [facility] Work Phone: End: 08-20-2019 Vitamin D, 25-hydroxy measurement Vitamin D, Total, 25-OH Routine Chronic fatigue 1 Occurrences starting 08/20/2018 until 08/20/2019 [facility] Comment on above: 1 Occurrences starti ng 08/20/2018 until 08/20/2019 Vitamin D, 25-hydrox y measurement Vitamin D, Total, 25-OH Routine Chronic fatigue 08/20/2018 10:08 AM EST [facility] Payers Date Payer Category Payer Self-pay 2023 Private Health Insurance [id number] 2022 Private Health Insurance [id number] 2022 Blue Cross Blue Shield [id number] 2018 Unknown [employer] BCBS OUT OF STATE [facility] [place] xxxxxxxxxxxxx 2018-Present xxxxxxxxxxxxx [id number]. [id number] 2018 Unknown [id number] [id number]. [id number] 2018 Unknown [id number] 2018 Unknown [id number]. 1.13.385.2. 7.3.084845.315 2014 Unknown [id number] 2000 Unknown [id number] 2.16.840.1.157566.3.579.2. 903 2000 Unknown [id number] 2.16.840.1.869411.3.579.2. 983 2000 Unknown [id number] 2.16.840.1.825500.3.579.2. 903 2000 Unknown [id number] 2.16.840.1.997740.3.579.2. 2000 Unknown [id number] 2.16.840.1.100436.3.579.2. 2000 Unknown [id number] 2.16.840.1.939713.3.579.2. 2000 Unknown [id number] 2.16.840.1.578492.3.579.2. 2000 Unknown [id number] 2.16.840.1.824390.3.579.2. 2000 Unknown [id number] 2.16.840.1.178086.3.579.2. 2000 Unknown [id number] 2.16.840.1.872311.3.579.2 2000 Unknown [id number] 2.16.840.1.614399.3.579.2. 2000 Unknown [id number] 2.16.840.1.144942.3.579.2. 2000 Unknown [id number] 2.16.840.1.630472.3.579.2 2000 Unknown [id number] 2.16.840.1.282972.3.579.2. 2000 Unknown [id number] 2.16.840.1.074477.3.579.2. 2000 Unknown [id number] 2.16.840.1.048224.3.579.2. 62 2000 Unknown [id number] 2.16.840.1.649824.3.579.2. 2000 Unknown [id number] 2.16.840.1.304234.3.579.2. 2000 Unknown [id number] 2.16.840.1.468797.3.579.2. 627 Medicaid [id number] 2.16.840.1.489961.3.249.13 Unknown [id number] 2.16.840.1.831991.3.249.13 Private Health Insurance [id number] 2.16.840.1.402698.3.249.13 Private Health Insurance [id number] 2.16.840.1.078461.3.249.13 Unknown [id number] 2.16.840.1.155809.3.579.2. 462 Unknown [id number] 2.16.840.1.745785.3.579.2. 462 Unknown [id number] 2.16.840.1.626539.3.579.2. 462 Unknown [id number] 2.16.840.1.560590.3.579.2. 462 Unknown [id number] 2.16.840.1.846788.3.579.2. 462 Unknown [id number] 2.16.840.1.563375.3.579.2. 462 Social History Date Type Detail Facility Start: 03-08-2017 End: 06-28-2024 Tobacco smoking status MSIS Never smoker [facility] Start: 2000 Sex Assigned At Not on file [facility] Work Phone: Start: 07-01-2020 End: 07-24-2024 Tobacco use and exposure Never used [facility] Start: 07-01-2020 End: 07-13-2022 Alcohol intake Current non-drinker of alcohol (finding) [facility] Start: 05-01-2022 End: 07-13-2022 Exposure to SARS-CoV-2 (event) Not sure [facility] Start: 01-23-2022 [facility] Start: 2000 Sex Assigned At [facility] Start: 09-16-2023 End: 12-10-2024 History of Social function [facility] Start: 09-16-2023 End: 12-10-2024 Area Deprivation Index [facility] Start: 02-14-2023 National Score (1-100), lower number is lower risk 89 [facility] Start: 07-27-2024 End: 02-26-2025 Alcoholic beverage intake Lifetime non-drinker (finding) [facility] Start: 07-24-2024 Education 13 [facility] Start: 07-24-2024 Gender identity Identifies as female gender (finding) [facility] Start: 07-24-2024 Sexual orientation Heterosexual (finding) [facility] Goals Date Patient Goal Desired Activity /State Personal health goal Clinical Notes 10-18-2020 to 03-09-2025 Mariza Carreno - 03/08/2025 9:45 AM EDTPrenatal Quick Notes - Cassy Conway MD - 03/04/2025 2:33 PM EDTPrenatal Quick Notes - Cassy Conway MD - 03/04/2025 2:33 PM EDT Note Date & Type Note Facility 03-09-2025 Note HNO ID: [id number] Author: MARIZA CARRENO, ? Service: ? Author Type: Patient Track Repair Person Type: Progress Notes Filed: 03/09/2025 06:56 Note Text: POPULATION HEALTH NAVIGATION OUTREACH Action/FYI Responded via my chart has engineer technician did not provide name Reason for Outreach Medicaid OB/Peds Care Gaps due: N/A Patient Contacted: Spoke to patient/parent/or legal guardian Patient identified by name and : Yes Medicaid OB/Peds actions taken: Navigation Signature: Mariza Carreno Population Health Navigator March 09, 2025 6:56 AM [facility] 03-08-2025 Note HNO ID: [id number] Author: MARIZA CARRENO, ? Service: ? Author Type: Patient Track Repair Person Type: Progress Notes Filed: 03/08/2025 10:03 Note Text: POPULATION HEALTH NAVIGATION OUTREACH Action/FYI Left message to add engineer technician to OB provider field, verify/est pcp My chart sent Reason for Outreach Medicaid OB/Peds Care Gaps due: N/A Patient Contacted: Unable or unnecessary to reach patient: Unable to reach patient Left message MyChart message sent Navigation Signature: Mariza Carreno Population Health Navigator March 08, 2025 10:02 AM [facility] 03-08-2025 History of Present illness Narrative POPULATION HEALTH NAVIGATION OUTREACH Action/FYI Left message to add engineer technician to OB provider field, verify/est pcp My chart sent Reason for Outreach Medicaid OB/Peds Care Gaps due: N/A Patient Contacted: Unable or unnecessary to reach patient: Unable to reach patient Left message MyChart message sent Navigation Signature: Mariza Carreno Population Health Navigator March 08, 2025 10:02 AM documented in this encounter [facility] 03-08-2025 Note Patient Outreach (NE TNAV) MARCELO WITT ([id number]) 1 F Date Time Provider Department 03/08/25 MARIZA CARRENO During your visit today, we recorded the following information about you: Mariza Carreno 03/08/2025 10:03 AM Signed POPULATION HEALTH NAVIGATION OUTREACH Action/FYI Left message to add engineer technician to OB provider field, verify/est pcp My chart sent Reason for Outreach Medicaid OB/Peds Care Gaps due: N/A Patient Contacted: Unable or unnecessary to reach patient: Unable to reach patient Left message AlertMehart message sent Navigation Signature: Mariza Carreno Population Monitoring Division Navigator March 08, 2025 10:02 AM Mariza Carreno 03/09/2025 6:56 AM Signed POPULATION [employer] NAVIGATION OUTREACH Action/FYI Responded via my chart has engineer technician did not provide name Reason for Outreach Medicaid OB/Peds Care Gaps due: N/A Patient Contacted: Spoke to patient/parent/or legal guardian Patient identified by name and : Yes Medicaid OB/Peds actions taken: Navigation Signature: Mariza Carreno Open mHealth Navigator March 09, 2025 6:56 AM Allergies As of Date: 03/08/2025 Noted Allergy Reaction DEXAMETHASONE 05/29/2022 11 - Vomiting Comments: States she blacks out and vomits ONDANSETRON HCL 06/25/2017 1 - Mental Status Change METOCLOPRAMIDE 03/30/2022 1 - Mental Status Change 9 - Itching Date Reviewed: 03/04/2025 Reviewed by: Dana Gomez MA - Fully Assessed Reason for Visit: Population Health Navigation Outreach [3910] Cmt: to PCP/OB Prescriptions as of 03/09/2025 - famotidine (PEPCID) 20 mg tablet Take 1 tablet by mouth two times a day. - sertraline (ZOLOFT) 25 mg tablet Take 1 tablet by mouth once daily. - aspirin, enteric coated (ECOTRIN LOW STRENGTH) 81 mg EC tablet Take 1 tablet by mouth once daily. - no115/iron/folic acid ( 19 ORAL) Take by mouth once daily. Problem List As Of Date 03/08/2025 Noted Resolved with uncertain dates in first trimest*07/27/2024 01/26/2025 Obesity affecting in first trimester *07/27/2024 History of pre-eclampsia [Z87.59] 07/27/2024 History of miscarriage [Z87.59] 07/27/2024 01/26/2025 History of headache [Z87.898] 07/27/2024 02/09/2025 Constipation during in first trimeste*07/27/2024 Hx of blurred vision [Z86.69] 07/27/2024 02/09/2025 Vulvar lesion [N90.89] 07/27/2024 Nausea and vomiting during (HCC) [O21*07/27/2024 10/21/2024 Heartburn during in second trimester *10/21/2024 Anxiety [F41.9] 11/19/2024 Supervision of high risk in third tri*01/26/2025 Encounter Status:Closed by MARIZA CARRENO on 03/08/25 [facility] 03-04-2025 Progress note Formatting of t his note might be different from the original. DM-Pt doing well. Denies vaginal Bleeding, Leaking fluid, or regular Contractions. Pt reports good movement Physical Exam: Gen: female in no apparent distress Abd: soft, Gravid. Non tender to palpation. See flow sheet Participation of a fellow, resident, medical student, or advanced practice provider student in performing the sensitive examination was discussed with the patient or authorized asset protection representative. The patient or authorized asset protection representative has agreed to proceed with the sensitive examination. @ 37.5 weeks Assessment & Plan Supervision of high risk in third trimester (HCC) Orders: URINE OB DIP B/O History of pre-eclampsia BP stable Continue asa Orders: URINE OB DIP B/O Obesity affecting in first trimester, unspecified obesity type (HCC) Orders: URINE OB DIP B/O 37 weeks gestation of (HCC) Kick counts and labor reviewed Orders: URINE OB DIP B/O Cassy Finley MD [facility] 03-04-2025 Miscellaneous Notes DM-Pt doing well. Denies vaginal Bleeding, Leaking fluid, or regular Contractions. Pt reports good movement Physical Exam: Gen: female in no apparent distress Abd: soft, Gravid. Non tender to palpation. See flow sheet Participation of a fellow, resident, medical student, or advanced practice provider student in performing the sensitive examination was discussed with the patient or authorized asset protection representative. The patient or authorized asset protection representative has agreed to proceed with the sensitive examination. @ 37.5 weeks Assessment & Plan Supervision of high risk in third trimester (HCC) Orders: URINE OB DIP B/O History of pre-eclampsia BP stable Continue asa Orders: URINE OB DIP B/O Obesity affecting in first trimester, unspecified obesity type (HCC) Orders: URINE OB DIP B/O 37 weeks gestation of (HCC) Kick counts and labor reviewed Orders: URINE OB DIP B/O Cassy Finley MD documented in this encounter [facility] 03-04-2025 Instructions Dana Gomez MA - 03/04/2025 2:21 PM EDT SEQUENTIAL SCREENINGS The [facility] offers sequential screenings for women who are interested in screenings for chromosomal abnormalities and certain defects during a . The sequential screen combines ultrasound and blood tests to determine the risk of chromosomal abnormalities, including Down's Syndrome (Trisomy 21) and Trisomy 18, as well as open neural tube defects including spina bifida. Ultrasound examination is performed between 11 weeks and 13 weeks gestational age. Blood tests are drawn after the ultrasound and again later in the between 15 and 21 weeks gestational age. Please let your physician know if you are interested in this testing. It will require an appointment with our electronic communications technician. This is not an ultrasound performed by a physician in our office during a routine visit. SIGNS AND SYMPTOMS OF LABOR 1. Contractions every 10 minutes or more often 2. Clear, pink, or brownish fluid (water) leaking from vagina 3. Feeling that baby is pushing down, pressure 4. Low, dull backache 5. Cramps that feel like a period 6. Cramps with or without diarrhea If you notice any of the above symptoms, contact our office at [phone] and ask to speak with a nurse. After hours, you can call doctors registry at [phone] OR call [facility] at [phone] and ask to have the doctor incident response lead paged. If you consider this an emergency, dial 9-1-2 or go to your nearest emergency department. NEED HELP? Are you dealing with a violent or abusive relationship? Are you a victim of rape or sexual assult? Call [facility] ([facility] 24 hour Crisis Hotline: 278.875.5245 or 812-768-9298. MANUAL Your Guide to a Healthy manual is now on-line. Visit [email or web address] [email or web address] to download your free copy documented in this encounter [facility] 02-26-2025 Progress note Formatting of t his note might be different from the original. KJ - S: Marcelo denies LOF, contractions or vaginal bleeding. O: 36w6d, see flow sheet SENSITIVE EXAM: The sensitive examination was discussed with the Patient or Patient's Authorized Marketing Analytics Manager. As applicable, any other physician, advance practice provider, medical student, or other health professional student that will be observing or involved in the sensitive examination for educational or training purposes was discussed with the Patient or Authorized Marketing Analytics Manager. The Patient or Authorized Marketing Analytics Manager has agreed to proceed with the sensitive examination. (Sensitive examination includes inspection and/or palpation of the breasts, pelvis, prostate and anorectal regions). TAUS: confirms vtx A/P: Assessment & Plan 36 weeks gestation of (HCC) Orders: URINE OB DIP B/O ROUTINE, GROUP B STREPTOCOCCUS BY PCR Supervision of high risk in third trimester ([facility]) Orders: URINE OB DIP B/O History of pre-eclampsia BP normal today Orders: URINE OB DIP B/O Reviewed labor & FM precautions Sophy Denney MD [facility] 02-26-2025 Miscellaneous Notes KJ - S: Marcelo denies LOF, contractions or vaginal bleeding. O: 36w6d, see flow sheet SENSITIVE EXAM: The sensitive examination was discussed with the Patient or Patient's Authorized Marketing Analytics Manager. As applicable, any other physician, advance practice provider, medical student, or other health professional student that will be observing or involved in the sensitive examination for educational or training purposes was discussed with the Patient or Authorized Marketing Analytics Manager. The Patient or Authorized Marketing Analytics Manager has agreed to proceed with the sensitive examination. (Sensitive examination includes inspection and/or palpation of the breasts, pelvis, prostate and anorectal regions). TAUS: confirms vtx A/P: Assessment & Plan 36 weeks gestation of (HCC) Orders: URINE OB DIP B/O ROUTINE, GROUP B STREPTOCOCCUS BY PCR Supervision of high risk in third trimester ([facility]) Orders: URINE OB DIP B/O History of pre-eclampsia BP normal today Orders: URINE OB DIP B/O Reviewed labor & FM precautions Sophy Denney MD documented in this encounter [facility] 02-26-2025 Instructions Shira Benoit LPN - 02/26/2025 3:48 PM EDT SEQUENTIAL SCREENINGS The [facility] offers sequential screenings for women who are interested in screenings for chromosomal abnormalities and certain defects during a . The sequential screen combines ultrasound and blood tests to determine the risk of chromosomal abnormalities, including Down's Syndrome (Trisomy 21) and Trisomy 18, as well as open neural tube defects including spina bifida. Ultrasound examination is performed between 11 weeks and 13 weeks gestational age. Blood tests are drawn after the ultrasound and again later in the between 15 and 21 weeks gestational age. Please let your physician know if you are interested in this testing. It will require an appointment with our electronic communications technician. This is not an ultrasound performed by a physician in our office during a routine visit. SIGNS AND SYMPTOMS OF LABOR 1. Contractions every 10 minutes or more often 2. Clear, pink, or brownish fluid (water) leaking from vagina 3. Feeling that baby is pushing down, pressure 4. Low, dull backache 5. Cramps that feel like a period 6. Cramps with or without diarrhea If you notice any of the above symptoms, contact our office at [phone] and ask to speak with a nurse. After hours, you can call doctors registry at [phone] OR call [facility] at [phone] and ask to have the doctor incident response lead paged. If you consider this an emergency, dial 9-6-8 or go to your nearest emergency department. NEED HELP? Are you dealing with a violent or abusive relationship? Are you a victim of rape or sexual assult? Call [facility] ([place]) 24 hour Crisis Hotline: 408.819.3243 or 808-978-6136. MANUAL Your Guide to a Healthy manual is now on-line. Visit [email or web address] ncyGuide to download your free copy documented in this encounter [facility] 02-17-2025 Telephone encounter Note Refill request received via [place]. Patient 35w4d last seen in office on 02/09, next appointment on 02/26/25. Julia Phillips RN [facility] 02-17-2025 Miscellaneous Notes Refill request received via [place]. Patient 35w4d last seen in office on 02/09, next appointment on 02/26/25. Julia Phillips, RN documented in this encounter [facility] 02-09-2025 Miscellaneous Notes MICHELLE-S: Marcelo Witt is a 24 year old female who presents at 34w3d with ANDERSON:03/20/2025, by Ultrasound for a routine visit. Denies headache, visual changes, chest pain, shortness of breath, vaginal bleeding, leakage of fluid, or dysuria. Taking BP at home, no signs of preeclampsia. O: See flow sheet Gen: No apparent distress Abd: Gravid, nontender ASSESSMENT/PLAN: 1. Supervision of high risk in third trimester -Continue ASA and PNV -GBS next visit 2. History of pre-eclampsia -Will check BP twice daily and send log end of week -If 140/90 or higher to notify the office -If 160/110 to go to L&D 3. Anxiety -Continue Zoloft 4. Obesity affecting in first trimester, unspecified obesity type -Pregravid BMI 30, no testing 5. 34 weeks gestation of PTL precautions reviewed and when to call RTO in 2 weeks Shelly Guzman APRN.CNM documented in this encounter [facility] 02-09-2025 Progress note Formatting of t his note might be different from the original. MICHELLE-S: Marcelo Witt is a 24 year old female who presents at 34w3d with ANDERSON:03/20/2025, by Ultrasound for a routine visit. Denies headache, visual changes, chest pain, shortness of breath, vaginal bleeding, leakage of fluid, or dysuria. Taking BP at home, no signs of preeclampsia. O: See flow sheet Gen: No apparent distress Abd: Gravid, nontender ASSESSMENT/PLAN: 1. Supervision of high risk in third trimester -Continue ASA and PNV -GBS next visit 2. History of pre-eclampsia -Will check BP twice daily and send log end of week -If 140/90 or higher to notify the office -If 160/110 to go to L&D 3. Anxiety -Continue Zoloft 4. Obesity affecting in first trimester, unspecified obesity type -Pregravid BMI 30, no testing 5. 34 weeks gestation of PTL precautions reviewed and when to call RTO in 2 weeks Shelly Guzman APRN.CNM [facility] 02-09-2025 Instructions Diana Delgado MA - 02/09/2025 4:23 PM EDT SEQUENTIAL SCREENINGS The [facility] offers sequential screenings for women who are interested in screenings for chromosomal abnormalities and certain defects during a . The sequential screen combines ultrasound and blood tests to determine the risk of chromosomal abnormalities, including Down's Syndrome (Trisomy 21) and Trisomy 18, as well as open neural tube defects including spina bifida. Ultrasound examination is performed between 11 weeks and 13 weeks gestational age. Blood tests are drawn after the ultrasound and again later in the between 15 and 21 weeks gestational age. Please let your physician know if you are interested in this testing. It will require an appointment with our electronic communications technician. This is not an ultrasound performed by a physician in our office during a routine visit. SIGNS AND SYMPTOMS OF LABOR 1. Contractions every 10 minutes or more often 2. Clear, pink, or brownish fluid (water) leaking from vagina 3. Feeling that baby is pushing down, pressure 4. Low, dull backache 5. Cramps that feel like a period 6. Cramps with or without diarrhea If you notice any of the above symptoms, contact our office at [phone] and ask to speak with a nurse. After hours, you can call doctors registry at [phone] OR call [facility] at [phone] and ask to have the doctor incident response lead paged. If you consider this an emergency, dial or go to your nearest emergency department. NEED HELP? Are you dealing with a violent or abusive relationship? Are you a victim of rape or sexual assult? Call [facility] ([facility] 24 hour Crisis Hotline: 137.675.8012 or 507-306-5086. MANUAL Your Guide to a Healthy manual is now on-line. Visit [facility].org/HealthyPregna ncyGuide to download your free copy documented in this encounter [facility] 01-12-2025 Progress note Formatting of t his note might be different from the original. KJ - S: Marcelo denies LOF, contractions or vaginal bleeding. O: 30w3d, see flow sheet SENSITIVE EXAM: Sensitive exam not performed. A/P: Assessment & Plan Encounter for supervision of other normal in third trimester (HCC) 30 weeks gestation of (HCC) History of pre-eclampsia Continue aspirin Reviewed PTL & FM precautions Sophy Denney MD [facility] 01-12-2025 Miscellaneous Notes KJ - S: Marcelo denies LOF, contractions or vaginal bleeding. O: 30w3d, see flow sheet SENSITIVE EXAM: Sensitive exam not performed. A/P: Assessment & Plan Encounter for supervision of other normal in third trimester (HCC) 30 weeks gestation of (HCC) History of pre-eclampsia Continue aspirin Reviewed PTL & FM precautions Sophy Denney MD documented in this encounter [facility] 01-12-2025 Instructions Dana Gomez MA - 01/12/2025 3:33 PM EDT SEQUENTIAL SCREENINGS The [facility] offers sequential screenings for women who are interested in screenings for chromosomal abnormalities and certain defects during a . The sequential screen combines ultrasound and blood tests to determine the risk of chromosomal abnormalities, including Down's Syndrome (Trisomy 21) and Trisomy 18, as well as open neural tube defects including spina bifida. Ultrasound examination is performed between 11 weeks and 13 weeks gestational age. Blood tests are drawn after the ultrasound and again later in the between 15 and 21 weeks gestational age. Please let your physician know if you are interested in this testing. It will require an appointment with our electronic communications technician. This is not an ultrasound performed by a physician in our office during a routine visit. SIGNS AND SYMPTOMS OF LABOR 1. Contractions every 10 minutes or more often 2. Clear, pink, or brownish fluid (water) leaking from vagina 3. Feeling that baby is pushing down, pressure 4. Low, dull backache 5. Cramps that feel like a period 6. Cramps with or without diarrhea If you notice any of the above symptoms, contact our office at [phone] and ask to speak with a nurse. After hours, you can call doctors registry at [phone] OR call [facility] at [phone] and ask to have the doctor incident response lead paged. If you consider this an emergency, dial 3--3 or go to your nearest emergency department. NEED HELP? Are you dealing with a violent or abusive relationship? Are you a victim of rape or sexual assult? Call [facility] ([place]) 24 hour Crisis Hotline: 183.721.4387 or 828-110-8812. MANUAL Your Guide to a Healthy manual is now on-line. Visit [facility].org/HealthyPregna ncyGuide to download your free copy documented in this encounter [facility] 12-30-2024 Progress note Formatting of t his note might be different from the original. S: Marcelo Witt is a 24 year old female who presents at 03/20/2025, by Ultrasound for a routine visit. Denies headache, visual changes, chest pain, shortness of breath, vaginal bleeding, leakage of fluid, or dysuria. Feeling well, no complaints. Good movement, No contractions O: See flow sheet Gen: No apparent distress Abd: Gravid, nontender GCT normal ASSESSMENT/PLAN: 1. 28 weeks gestation of (HCC) - ICD9: V22.2, ICD10: Z3A.28 (primary diagnosis) 2. Encounter for supervision of other normal in third trimester ([facility]) - ICD9: V22.1, ICD10: Z34.83 Delaney Craft MD [facility] 12-30-2024 Miscellaneous Notes S: Marcelo Witt is a 24 year old female who presents at 03/20/2025, by Ultrasound for a routine visit. Denies headache, visual changes, chest pain, shortness of breath, vaginal bleeding, leakage of fluid, or dysuria. Feeling well, no complaints. Good movement, No contractions O: See flow sheet Gen: No apparent distress Abd: Gravid, nontender GCT normal ASSESSMENT/PLAN: 1. 28 weeks gestation of ([facility]) - ICD9: V22.2, ICD10: Z3A.28 (primary diagnosis) 2. Encounter for supervision of other normal in third trimester ([facility]) - ICD9: V22.1, ICD10: Z34.83 Delaney Craft MD documented in this encounter [facility] 12-30-2024 Instructions Diana Delgado MA - 12/30/2024 2:36 PM EDT SEQUENTIAL SCREENINGS The [facility] offers sequential screenings for women who are interested in screenings for chromosomal abnormalities and certain defects during a . The sequential screen combines ultrasound and blood tests to determine the risk of chromosomal abnormalities, including Down's Syndrome (Trisomy 21) and Trisomy 18, as well as open neural tube defects including spina bifida. Ultrasound examination is performed between 11 weeks and 13 weeks gestational age. Blood tests are drawn after the ultrasound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 ID: [id number] Author: MELITA COLÓN APRN.DATA MANAGEMENT ENGINEER Service: ? Author Type: Nurse Practitioner Type: Progress Notes Filed: 07/27/2024 10:45 Note Text: Marketing Support Specialist offered: Patient declines. INITIAL OB ASSESSMENT HPI: Marcelo is a 23 year old White Female here to establish Obstetrical Care. Patient's last menstrual period was 06/06/2024 (approximate). from OB Dating Form. was planned Complaints: (!) Irritating vaginal discharge (resolved) OB History T1 L1 SAB1 IAB0 Ectopic0 Multiple0 Live Births1 Previous history: Prior : No History of 4th degree laceration: no History of shoulder dystocia: no History of Hypertensive disorders including pre-eclampsia or gestational hypertension: Preeclampsia History of gestational diabetes: no Patient's Risk Screening for delivery: Have you had a prior zavaleta between 20w and 36w6d? No Did you present in active spontaneous labor or have ruptured membranes, or advanced cervical dilation (greater than or equal to 4 cm) or effacement? No How many pregnancies have you had before? 2 Did you have a previous baby with a GBS Infection? Yes Please select all that apply for any prior : N/A MEDICAL/PSYCHOSOCIAL HISTORY: Severe Bleeding with delivery: Yes, she hemorrhaged during delivery Thyroid Disease: no Gestational Hypertension: no Preeclampsia: YES Diabetes in : no No results found for: ABORHD BMI 30.82 kg/(m2) Last Pap: 2021 History of abnormal pap: Yes Prior treatment for cervical dysplasia: Colposcopy . Last HPV: Unsure if it was tested History of STDs: HPV Partner History of STDs: None Did you have a partner with Herpes? No Tobacco use: No E-Cigarette/Vaping Use: No Caffeine use: Yes Drug use: No Alcohol use: No Multivitamin with Folic acid: Yes Would refuse blood transfusion if medically necessary: No Social Needs: How often does this describe you? I don't have enough money to pay my bills: Never Within the past 12 months, have you worried that your food would run out before you had money to buy more? Never In the past 12 months, has lack of reliable transportation kept you from going to medical appointments or work, or from getting things needed for daily living? Never In the past 12 months, have you had any concerns about having a place to live, or about the condition or quality of your housing? Never Would you like more information on any of the following (please check all that apply)? Not interested Social History: Do you have any history of depression, anxiety, PTSD, or other mood problems? No Do you have a history of abuse or trauma that may impact your experience? No Are you currently employed? No Depression/Anxiety Screening: denies symptoms of depression. OB Depression and Anxiety Screening- This Encounter (since 07/26/2024) Over the past 2 weeks have you felt down, depressed, or hopeless? Negative Over the past two weeks, have you felt little interest or pleasure in doing things?? Negative Feeling nervous, anxious or on edge 1-Several days Not being able to stop or control worrying 1-Several days Anxiety Pre-Screening Total (If >/= 3 additional questions will be reviewed) 2 Genetic Screening: Partner present: No Patient verbalized knowledge of partner family health history: Yes Do you or your partner have any personal or family history of defects not previously discussed: No Do you have history of a complicated by anomaly, genetic condition, or demise: No Preeclampsia Risk Screening: Screening for prevention of preeclampsia: High risk factors: History of pre-eclampsia, especially when accompanied by an adverse outcome Moderate risk ractors: Obesity (body mass index greater than 30) OB Risk Screening: Marital Status: Partner: Name: Blu Age: 24 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 No current facility-administered medications for this visit. Allergies As of Date: 07/27/2024 Allergen Noted Reaction DEXAMETHASONE 05/29/2022 Vomiting ONDANSETRON HCL 06/25/2017 Mental Status Change METOCLOPRAMIDE 03/30/2022 Mental Status Change and Itching Fully Assessed 07/27/2024 Does patient have penicillin allergy: No REVIEW OF SYSTEMS: GENERAL: Negative for: Fever or Chills HEENT: + headache, + blurry vision, negative for ringing in Ears, negative for Nosebleeds NECK: Negative for: Swelling, Pain, Stiffness RESPIRATORY: Negative for: Cough, Shortness of breath, Wheezing GLORY (more content not included)... [facility] 07-24-2024 History of Present illness Narrative Marketing Support Specialist offered: Patient declines. INITIAL OB ASSESSMENT HPI: Marcelo is a 23 year old White Female here to establish Obstetrical Care. Patient's last menstrual period was 06/06/2024 (approximate). from OB Dating Form. was planned Complaints: (!) Irritating vaginal discharge (resolved) OB History T1 L1 SAB1 IAB0 Ectopic0 Multiple0 Live Births1 Previous history: Prior : No History of 4th degree laceration: no History of shoulder dystocia: no History of Hypertensive disorders including pre-eclampsia or gestational hypertension: Preeclampsia History of gestational diabetes: no Patient's Risk Screening for delivery: Have you had a prior zavaleta between 20w and 36w6d? No Did you present in active spontaneous labor or have ruptured membranes, or advanced cervical dilation (greater than or equal to 4 cm) or effacement? No How many pregnancies have you had before? 2 Did you have a previous baby with a GBS Infection? Yes Please select all that apply for any prior : N/A MEDICAL/PSYCHOSOCIAL HISTORY: Severe Bleeding with delivery: Yes, she hemorrhaged during delivery Thyroid Disease: no Gestational Hypertension: no Preeclampsia: YES Diabetes in : no No results found for: ABORHD BMI 30.82 kg/(m^2) Last Pap: 2021 History of abnormal pap: Yes Prior treatment for cervical dysplasia: Colposcopy . Last HPV: Unsure if it was tested History of STDs: HPV Partner History of STDs: None Did you have a partner with Herpes? No Tobacco use: No E-Cigarette/Vaping Use: No Caffeine use: Yes Drug use: No Alcohol use: No Multivitamin with Folic acid: Yes Would refuse blood transfusion if medically necessary: No Social Needs: How often does this describe you? I don't have enough money to pay my bills: Never Within the past 12 months, have you worried that your food would run out before you had money to buy more? Never In the past 12 months, has lack of reliable transportation kept you from going to medical appointments or work, or from getting things needed for daily living? Never In the past 12 months, have you had any concerns about having a place to live, or about the condition or quality of your housing? Never Would you like more information on any of the following (please check all that apply)? Not interested Social History: Do you have any history of depression, anxiety, PTSD, or other mood problems? No Do you have a history of abuse or trauma that may impact your experience? No Are you currently employed? No Depression/Anxiety Screening: denies symptoms of depression. OB Depression and Anxiety Screening- This Encounter (since 07/26/2024) Over the past 2 weeks have you felt down, depressed, or hopeless? Negative Over the past two weeks, have you felt little interest or pleasure in doing things? Negative Feeling nervous, anxious or on edge 1-Several days Not being able to stop or control worrying 1-Several days Anxiety Pre-Screening Total (If >/= 3 additional questions will be reviewed) 2 Genetic Screening: Partner present: No Patient verbalized knowledge of partner family health history: Yes Do you or your partner have any personal or family history of defects not previously discussed: No Do you have history of a complicated by anomaly, genetic condition, or demise: No Preeclampsia Risk Screening: Screening for prevention of preeclampsia: High risk factors: History of pre-eclampsia, especially when accompanied by an adverse outcome Moderate risk ractors: Obesity (body mass index greater than 30) OB Risk Screening: Marital Status: Partner: Name: Blu Age: 24 Occupation: [employer] Gender: Male PAST MEDICAL HISTORY Diagnosis Date Abnormal glandular Papanicolaou smear of cervix 2021 Blood sugar increased 04/2024 Preeclampsia PAST SURGICAL HISTORY Procedure Laterality Date COLPOSCOPY 2022 Current Outpatient Medications Medication Sig Dispense Refill no115/iron/folic acid ( 19 ORAL) Take by mouth once daily. No current facility-administered medications for this visit. Allergies As of Date: 07/27/2024 Allergen Noted Reaction DEXAMETHASONE 05/29/2022 Vomiting ONDANSETRON HCL 06/25/2017 Mental Status Change METOCLOPRAMIDE 03/30/2022 Mental Status Change and Itching Fully Assessed 07/27/2024 Does patient have penicillin allergy: No REVIEW OF SYSTEMS: GENERAL: Negative for: Fever or Chills HEENT: + headache, + blurry vision, negative for ringing in Ears, negative for Nosebleeds NECK: Negative for: Swelling, Pain, Stiffness RESPIRATORY: Negative for: Cough, Shortness of breath, Wheezing GASTROINTESTINAL: Negative for: Heartburn, Diarrhea, Blood in stool, Vomiting and Positive for: Constipation MUSCULOSKELETAL: Negative for: Muscle or joint pain, stiffness, Joint swelling NEUROLOGIC/PSYCHIATRIC: Negative for: Weakness, Paralysis, Numbness, Tingling, Tremor, Depression, Memory loss + anxiety SKIN: Negative for: Rash, Itching GENITOURINARY: Negative for: vaginal itching, vaginal discharge, hematuria or dysuria SENSITIVE EXAM: The sensitive examination was discussed with the Patient or Patient's Authorized Marketing Analytics Manager. As applicable, any other physician, advance practice provider, medical student, or other health professional student that will be observing or involved in the sensitive examination for educational or training purposes was discussed with the Patient or Authorized Marketing Analytics Manager. The Patient or Authorized Marketing Analytics Manager has agreed to proceed with the sensitive examination. (Sensitive examination includes inspection and/or palpation of the breasts, pelvis, prostate and anorectal regions). PHYSICAL EXAM: BP 120/60 Ht 5' 3 (1.60m) Wt 174 lb (78.9kg) LMP 06/06/2024 BMI 30.83 kg/(m^2). GENERAL: pleasant in no apparent distress DERMATOLOGY: Normal, without lesions, non-icteric, and non-hirsute NECK: Supple, full range of motion, no adenopathy, and thyroid normal CHEST: Normal inspiratory effort BREAST: soft, non-tender, symmetric, no dominant mass, normal nipple-areolar complex, no lymphadenopathy, and no nipple discharge ABDOMEN: soft, non-tender, and no masses NEURO: alert and oriented x3,exam grossly non-focal PELVIS: External genitalia normal. + <0.5 cm skin tag to left labia majora. Perineal body intact. No vaginal or cervical lesions. Cervix closed. Uterus <8 week size. No adnexal masses or tenderness. Clinical Pelvimetry: Pelvimetry clinically assessed as adequate Limited OB ultrasound exam: with unknown location ASSESSMENT: 23 year old at 7w2d wks gestational age PLAN: 1) Patient oriented to practice. Patient given new OB orientation folder. Discussed nutrition, folic acid supplementation, dietary guidelines, exercise, smoking, alcohol, caffeine, and drug use. Discussed gestational weight gain guidelines. Discussed routine OB labs including STD/HIV. Discussed how to access Your guide to a health and the Hospital Insurance Representative. Discussed hemoglobin electrophoresis. Patient: Declines 2) Screening: Hemoglobin A1C: ordered Baby Aspirin: The patient has been counseled about the potential benefits of low dose aspirin in and our recommendation that this be offered to all patients, regardless of whether they meet the high risk criteria specified above. She Accepts Aneuploidy Screening: Discussed aneuploidy screening, nuchal translucency/first trimester early anatomy ultrasound and NIPT. The risks/benefits and limitations of NIPT/aneuploidy screening were reviewed including the potential for false negative and false positive results. The availability of genetic counseling was reviewed. Information on aneuploidy screening was provided. The patient chooses to proceed with First trimester early anatomy ultrasound (12-13w6d) Myriad Carrier Screening: Discussed myriad carrier screening. We discussed the availability of professional-society guided carrier screening and reviewed the conditions screened and limitations of screening. The availability of genetic counseling was reviewed. Information on carrier screening was provided. The patient Declines 3) Patient offered option of Virtual Visits. Patient unsure. May consider in future. ACTIVE PROBLEM LIST Encounter for Supervision of High Risk in First Trimester, Antepartum - 07/27/2024 Comment: Care Checklist Vaccines: [] Flu vaccine [] declined [] RSV vaccine 32 0/7 - 36 6/7 (Feb - Jul) [] declined [] COVID vaccine [] declined [] TDaP 27-36 [] declined First trimester: [x] Dating US [x] 1st tri labs [x] Pap smear [] Carrier screening [x] declined [] NIPT screening [] declined [x] First trimester anatomy scan [] declined [x] universal ASA ordered (start 12w-16w) [] declined [] M Power Consult [] not indicated [] declined Second trimester: [] Anatomy scan [] Mode of Delivery - [] Feeding - [] Pump ordered [] Diabetes screen [] CBC, RPR [] Behavioral Health Screening Third trimester (28-30 weeks): [] Consent [] Contraception [] Napper Fixer [] TeamBirth handout Third trimester (36-40 weeks): [] GBS [] Presentation - [] Scheduled [] yes - Hibiclens, pre-op instructions, CBC, T&S ordered [] no [] H&P [] Preferences worksheet [] Scanned in EMR With Uncertain Dates in First Trimester - 07/27/2024 Comment: July 27, 2024 GS not visualized on POCUS, likely due to early gestation. 38 day long cycles and has miscarriage in May. Precautions reviewed. Formal dating ordered. Melita Colón APRN.CNP Obesity Affecting in First Trimester - 07/27/2024 Comment: July 27, 2024 Pre BMI 30 Melita Colón APRN.KENNEY History of Pre-Eclampsia - 07/27/2024 Comment: July 27, 2024 Baseline labs ordered Melita Colón APRN.CNP History of Miscarriage - 07/27/2024 Comment: July History of Headache - 07/27/2024 Comment: July 27, 2024 Reviewed Tylenol vs Magnesium. Melita Colón APRN.CNP Constipation During in First Trimester - 07/27/2024 Comment: July 27, 2024 Discussed Magnesium Citrate vs stool softener Melita Colón APRN.CNP Hx of Blurred Vision - 07/27/2024 Comment: July 27, 2024 Denies dizziness or issues when this occurs. Recommend UTD eye exam. Melita Colón APRN.CNP Vulvar Lesion - 07/27/2024 Comment: July 27, 2024 <0.5 cm skin tag to left labia majora that patient states developed 3rd trimester of first . Consider biopsy - history of HPV. Melita Colón APRN.CNP Nausea and Vomiting During - 07/27/2024 Comment: 07/27/24 Vitamin B6 and Unisom doses reviewed. To notify if prescription is needed. Melita Colón APRN.CNP Follow up for formal dating ultrasound. Melita Colón APRN.CNP documented in this encounter [facility] 07-24-2024 Instructions Gladis Regalado MA - 07/24/2024 12:31 PM EST Please select the following link to access the [facility] Your Guide to a Healthy . [email or web address] Please select the following link to access the [facility] Your Guide to a Healthy . [email or web address] documented in this encounter [facility] 07-20-2024 Note Addended by: MELITA COLÓN on: 07/20/2024 04:16 PM Modules accepted: Orders [facility] 07-20-2024 Miscellaneous Notes Addended by: MELITA COLÓN on: 07/20/2024 04:16 PM Modules accepted: Orders See patients MyChart message. Flagyl was prescribed. She has already scheduled New OB appointment for 2/. Julia Phillips RN documented in this encounter [facility] 07-20-2024 Telephone encounter Note See patients MyChart message. Flagyl was prescribed. She has already scheduled New OB appointment for 2/3. Julia Phillips RN [facility] 07-17-2024 Note HNO ID: [id number] Author: MARY RIZO APRN.KENNEY Service: ? Author Type: Nurse Practitioner Type: Progress Notes Filed: 07/17/2024 11:01 Note Text: Patient declined assembly member. Marcelo Witt is a 23 year old female who presents for problem visit vaginal irritation, missed menses x2 weeks. HPI: pt c/o vaginal irritation, odor, and discharge. She had BV a few months back and feels like she is having the same symptoms. OB History No obstetric history on file. Torpedo Man History LMP: 06/06/2024 (Exact Date) Age at Menarche: Age at First : Age at Menopause: Torpedo Man History Comments: Sexual Activity: No sexual activity data on record; No partner data on record Contraception: No contraception data on record No past medical history on file. No past surgical history on file. No family history on file. Current Outpatient Medications Medication Sig no115/iron/folic acid ( 19 ORAL) Take by mouth once daily. No current facility-administered medications for this visit. Allergies As of Date: 07/17/2024 Allergen Noted Reaction DEXAMETHASONE 05/29/2022 Vomiting ONDANSETRON HCL 06/25/2017 Mental Status Change METOCLOPRAMIDE 03/30/2022 Mental Status Change and Itching Fully Assessed 07/17/2024 REVIEW OF SYSTEMS Expanded ROS: N/A Allergies and current medication updated:Yes SENSITIVE EXAM: The sensitive examination was discussed with the Patient or Patient's Authorized Marketing Analytics Manager. As applicable, any other physician, advance practice provider, medical student, or other health professional student that will be observing or involved in the sensitive examination for educational or training purposes was discussed with the Patient or Authorized Marketing Analytics Manager. The Patient or Authorized Marketing Analytics Manager has agreed to proceed with the sensitive examination. (Sensitive examination includes inspection and/or palpation of the breasts, pelvis, prostate and anorectal regions). EXAM: BP 116/68 Wt 172 lb 12.8 oz (78.4kg) LMP 06/06/2024 GENERAL: pleasant, female in no apparent distress HEENT: Normocephalic, atraumatic, mucus membranes moist, and no lesions CHEST: Normal inspiratory effort PELVIC: external genitalia normal, normal Bartholin's glands, urethra, [place]'s glands, no vulvar lesions, no cervical lesions, good vaginal support, physiologic discharge present, normal appearing perineal body and perianal region BIMANUAL: deferred NEURO: alert and oriented x3,exam grossly non-focal EXTREMITIES: normal ASSESSMENT/PLAN: 1. Missed menses - ICD9: 626.4, ICD10: N92.6 (primary diagnosis) - UA DIP,URINE HCG (POC) 2. Vaginal irritation - ICD9: 623.9, ICD10: N89.8 - ALBERTO/TRICHOMONAS NAAT - BACTERIAL VAGINOSIS NAAT 3. Vaginal odor - ICD9: 625.8, ICD10: N89.8 - ALBERTO/TRICHOMONAS NAAT - BACTERIAL VAGINOSIS NAAT 4. Encounter for test, result positive - ICD9: V72.42, ICD10: Z32.01 - HCG QUANTITATIVE Will notify patient of test results. Mary Rizo APRN.DATA MANAGEMENT ENGINEER Medical Decision Making: Problems: Low: Acute, uncomplicated illness or injury Data: Unique test(s) ordered: 3+ Risk: Low: Low risk from testing/treatment Medical Decision Making Level: 3 - Low [facility] 07-17-2024 History of Present illness Narrative Patient declined assembly member. Marcelo Witt is a 23 year old female who presents for problem visit vaginal irritation, missed menses x2 weeks. HPI: pt c/o vaginal irritation, odor, and discharge. She had BV a few months back and feels like she is having the same symptoms. OB History No obstetric history on file. Torpedo Man History LMP: 06/06/2024 (Exact Date) Age at Menarche: Age at First : Age at Menopause: Torpedo Man History Comments: Sexual Activity: No sexual activity data on record; No partner data on record Contraception: No contraception data on record No past medical history on file. No past surgical history on file. No family history on file. Current Outpatient Medications Medication Sig no115/iron/folic acid ( 19 ORAL) Take by mouth once daily. No current facility-administered medications for this visit. Allergies As of Date: 07/17/2024 Allergen Noted Reaction DEXAMETHASONE 05/29/2022 Vomiting ONDANSETRON HCL 06/25/2017 Mental Status Change METOCLOPRAMIDE 03/30/2022 Mental Status Change and Itching Fully Assessed 07/17/2024 REVIEW OF SYSTEMS Expanded ROS: N/A Allergies and current medication updated:Yes SENSITIVE EXAM: The sensitive examination was discussed with the Patient or Patient's Authorized Marketing Analytics Manager. As applicable, any other physician, advance practice provider, medical student, or other health professional student that will be observing or involved in the sensitive examination for educational or training purposes was discussed with the Patient or Authorized Marketing Analytics Manager. The Patient or Authorized Marketing Analytics Manager has agreed to proceed with the sensitive examination. (Sensitive examination includes inspection and/or palpation of the breasts, pelvis, prostate and anorectal regions). EXAM: BP 116/68 Wt 172 lb 12.8 oz (78.4kg) LMP 06/06/2024 GENERAL: pleasant, female in no apparent distress HEENT: Normocephalic, atraumatic, mucus membranes moist, and no lesions CHEST: Normal inspiratory effort PELVIC: external genitalia normal, normal Bartholin's glands, urethra, [place]'s glands, no vulvar lesions, no cervical lesions, good vaginal support, physiologic discharge present, normal appearing perineal body and perianal region BIMANUAL: deferred NEURO: alert and oriented x3,exam grossly non-focal EXTREMITIES: normal ASSESSMENT/PLAN: 1. Missed menses - ICD9: 626.4, ICD10: N92.6 (primary diagnosis) - UA DIP,URINE HCG (POC) 2. Vaginal irritation - ICD9: 623.9, ICD10: N89.8 - ALBERTO/TRICHOMONAS NAAT - BACTERIAL VAGINOSIS NAAT 3. Vaginal odor - ICD9: 625.8, ICD10: N89.8 - ALBERTO/TRICHOMONAS NAAT - BACTERIAL VAGINOSIS NAAT 4. Encounter for test, result positive - ICD9: V72.42, ICD10: Z32.01 - HCG QUANTITATIVE Will notify patient of test results. Mary Rizo APRN.CNP Medical Decision Making: Problems: Low: Acute, uncomplicated illness or injury Data: Unique test(s) ordered: 3+ Risk: Low: Low risk from testing/treatment Medical Decision Making Level: 3 - Low documented in this encounter [facility] 06-27-2024 Instructions Lou Camilo APRN.CNP - 06/27/2024 11:59 AM EST Pepcid 20 mg twice a day on an empty stomach, wait 30 min before eating. Tylenol (generic acetaminophen) 500 mg-2 tabs every 8 hrs. as needed for fever and aches Salt water gargles, chloraseptic spray or lozenges as needed for sore throat. Warm beverages, honey. If still having a sore throat on Saturday, recommend returning for monotest - lab . documented in this encounter [facility] 06-27-2024 Note HNO ID: [id number] Author: LOU CAMILO APRN.CNP Service: ? Author Type: Nurse Practitioner Type: Progress Notes Filed: 06/27/2024 12:06 Note Text: Subjective The history is provided by the patient. No hot stick worker was used. JOHN Witt is a 23 year old female who presents today for CC of sore throat for 4 days. She is also having swollen glands. She has used tylenol/ibuprofen with short term relief. She denies any fever. She had a viral gastroenteritis a week ago. BP 124/72 Pulse 106 Temp 36.2 ?C (97.2 ?F) Resp 16 Wt 78.1 kg (172 lb 2.9 oz) SpO2 97% No past medical history on file. I have confirmed and edited as necessary, the [facility] Review of Systems Constitutional: Negative for chills and fever. HENT: Positive for sore throat. Negative for congestion, ear pain and sinus pain. Respiratory: Negative for cough, sputum production, shortness of breath and wheezing. Cardiovascular: Negative for chest pain. Gastrointestinal: Negative for abdominal pain, diarrhea, nausea and vomiting. Musculoskeletal: Negative for myalgias. Neurological: Negative for headaches. Objective Physical Exam Vitals and nursing note reviewed. HENT: Head: Normocephalic and atraumatic. Right Ear: Tympanic membrane, ear canal and external ear normal. Left Ear: Tympanic membrane, ear canal and external ear normal. Nose: No mucosal edema, congestion or rhinorrhea. Right Sinus: No maxillary sinus tenderness or frontal sinus tenderness. Left Sinus: No maxillary sinus tenderness or frontal sinus tenderness. Mouth/Throat: Pharynx: Uvula midline. No oropharyngeal exudate or posterior oropharyngeal erythema. Cardiovascular: Rate and Rhythm: Normal rate and regular rhythm. Heart sounds: Normal heart sounds. Pulmonary: Effort: Pulmonary effort is normal. Breath sounds: Normal breath sounds. Lymphadenopathy: Head: Right side of head: No submental, submandibular or tonsillar adenopathy. Left side of head: No submental, submandibular or tonsillar adenopathy. Cervical: No cervical adenopathy. Skin: General: Skin is warm and dry. Neurological: Mental Status: She is alert and oriented to person, place, and time. Psychiatric: Mood and Affect: Affect normal. ASSESSMENT/PLAN: 1. Sore throat - ICD9: 462, ICD10: J02.9 - suspect mono, herpangina (no lesions seen on exam), acid reflux - Rapid Strep negative in the office today - Discussed supportive care treatment with fluids, rest and analgesia. - The patient may also use warm salt water gargles, throat lozenges and/or OTC throat spray as needed. - The patient should follow up in one week if symptoms persist or worsen - Call back if drooling, increased temperature, symptoms of dehydration and/or still sick in one week - STREP A MOLECULAR (POC) - MONOTEST, INFECTIOUS MONO - if still sore throat on Saturday, will return for monotest Pepcid 20 mg as discussed bid Follow up with PCP prn Diagnosis and treatment plan were discussed and questions were answered to the patient's satisfaction. Pt acknowledged understanding of concepts and follow up plan. Specific signs and symptoms that would indicate the need for higher level of care were discussed in detail warranting prompt ER evaluation. Lou Camilo APRN.[facility] 06-27-2024 History of Present illness Narrative Subjective The history is provided by the patient. No hot stick worker was used. JOHN Witt is a 23 year old female who presents today for CC of sore throat for 4 days. She is also having swollen glands. She has used tylenol/ibuprofen with short term relief. She denies any fever. She had a viral gastroenteritis a week ago. BP 124/72 Pulse 106 Temp 36.2 C (97.2 F) Resp 16 Wt 78.1 kg (172 lb 2.9 oz) SpO2 97% No past medical history on file. I have confirmed and edited as necessary, the [facility] Review of Systems Constitutional: Negative for chills and fever. HENT: Positive for sore throat. Negative for congestion, ear pain and sinus pain. Respiratory: Negative for cough, sputum production, shortness of breath and wheezing. Cardiovascular: Negative for chest pain. Gastrointestinal: Negative for abdominal pain, diarrhea, nausea and vomiting. Musculoskeletal: Negative for myalgias. Neurological: Negative for headaches. Objective Physical Exam Vitals and nursing note reviewed. HENT: Head: Normocephalic and atraumatic. Right Ear: Tympanic membrane, ear canal and external ear normal. Left Ear: Tympanic membrane, ear canal and external ear normal. Nose: No mucosal edema, congestion or rhinorrhea. Right Sinus: No maxillary sinus tenderness or frontal sinus tenderness. Left Sinus: No maxillary sinus tenderness or frontal sinus tenderness. Mouth/Throat: Pharynx: Uvula midline. No oropharyngeal exudate or posterior oropharyngeal erythema. Cardiovascular: Rate and Rhythm: Normal rate and regular rhythm. Heart sounds: Normal heart sounds. Pulmonary: Effort: Pulmonary effort is normal. Breath sounds: Normal breath sounds. Lymphadenopathy: Head: Right side of head: No submental, submandibular or tonsillar adenopathy. Left side of head: No submental, submandibular or tonsillar adenopathy. Cervical: No cervical adenopathy. Skin: General: Skin is warm and dry. Neurological: Mental Status: She is alert and oriented to person, place, and time. Psychiatric: Mood and Affect: Affect normal. ASSESSMENT/PLAN: 1. Sore throat - ICD9: 462, ICD10: J02.9 - suspect mono, herpangina (no lesions seen on exam), acid reflux - Rapid Strep negative in the office today - Discussed supportive care treatment with fluids, rest and analgesia. - The patient may also use warm salt water gargles, throat lozenges and/or OTC throat spray as needed. - The patient should follow up in one week if symptoms persist or worsen - Call back if drooling, increased temperature, symptoms of dehydration and/or still sick in one week - STREP A MOLECULAR (POC) - MONOTEST, INFECTIOUS MONO - if still sore throat on Saturday, will return for monotest Pepcid 20 mg as discussed bid Follow up with PCP prn Diagnosis and treatment plan were discussed and questions were answered to the patient's satisfaction. Pt acknowledged understanding of concepts and follow up plan. Specific signs and symptoms that would indicate the need for higher level of care were discussed in detail warranting prompt ER evaluation. Lou Camilo APRN.DATA MANAGEMENT ENGINEER documented in this encounter [facility] 06-01-2024 Evaluation + Plan note Future Scheduled TestshCG, quantitative(AO/AAH Only) 06/01/24hCG, quantitative(AO/AAH Only) 06/03/24hCG, quantitative(AO/AAH Only) 06/07/24hCG, quantitative(AO/AAH Only) 06/09/24hCG, quantitative(AO/AAH Only) 06/11/24hCG, quantitative(AO/AAH Only) 06/13/24 [facility] 05-18-2024 Note ORIGINAL EXAMINATION: Ultrasound pelvis, 05/18/2024 4:22 pm transabdominal and transvaginal COMPARISON: None TECHNIQUE: This report is based on interpretation of permanently recorded ultrasound images. HISTORY: ORDERING SYSTEM PROVIDED HISTORY: Reason for Exam: pelvic pain, FINDINGS: The uterus is normal in size and echogenicity 7.0 x 3.3 x 4.3 cm. No myometrial mass is seen. The endometrium is trilaminar and is 11 mm double wall thickness which is normal.. Right ovary: 2.8 x 1.6 x 1.3 cm. There are multiple subcentimeter follicles mostly in the periphery of the uterus but these are probably less than 10 in number. Ovarian volume 8.3 cc. Left ovary: 3.2 x 2.1 x 3.0 cm. There are a few subcentimeter follicles and a larger 2.2 cm follicle. Ovarian volume 11.32 cc. There is blood flow in both ovaries. No adnexal mass or significant pelvic free fluid. IMPRESSION: No significant findings. Interpreted by: Robin Medeiros MD Preliminary Report By: Robin Medeiros MD Electronically signed By Robin Medeiros MD Dictated Date: 05/18/2024 8:34:56 PM Prelim Date: 05/18/2024 8:37:20 PM Sign Date: 05/18/2024 8:37:20 PM Ordering Provider: MARKUS SHORT [facility] 04-11-2024 Note . MICRO - Microbiology PROCEDURE: Urine Culture [*1] SOURCE: Urine, Clean Catch BODY SITE: COLLECTED DATE/TIME: 04/09/2024 09:16 EDT RECEIVED DATE/TIME: 04/09/2024 15:40 EDT START DATE/TIME: 04/09/2024 15:40 EDT FREE TEXT SOURCE: FINAL REPORTS Final Report [] Verified Date/Time/Personnel: 04/11/2024 07:41 EDT No growth at 48 hours. PRELIMINARY REPORTS Preliminary Report [] Verified Date/Time/Personnel: 04/10/2024 10:38 EDT No growth to date Performing Locations *1: This test was performed at: [facility], [address] [place] [address], [facility] , [facility] 04-10-2024 Note . MICRO - Microbiology PROCEDURE: Affirm Pathogens DNA Direct Probe [*1] SOURCE: Vaginal Fluid BODY SITE: Cervix COLLECTED DATE/TIME: 04/09/2024 09:16 EDT RECEIVED DATE/TIME: 04/09/2024 15:40 EDT START DATE/TIME: 04/09/2024 15:40 EDT FREE TEXT SOURCE: FINAL REPORTS Final Report [] Verified Date/Time/Personnel: 04/10/2024 13:12 EDT Gardnerella vaginalis DNA Probe Positive Alberto species DNA Probe Negative Trichomonas vaginalis DNA Probe Negative Performing Locations *1: This test was performed at: [facility], [address] [place] [address], [id number] , [facility] 07-13-2022 History of Present illness Narrative ENT Clinic Follow-Up Note History of Present Illness Marcelo Witt is a 21 y.o. female presents for follow up regarding her ears and nasal complaints. She was last seen on 05/11/2022 for multiple complaints. At that time, she had epistaxis which was controlled with nasal saline gel. She had rhinitis, treated with saline mist. She had a history of tympanostomy tube placement with otalgia of right ear. Right ear tube was in the process of extruding. She also had right-sided BPPV which was treated with Tyesha maneuver. Today, she admits to continued nasal congestion and rhinorrhea, which is worse when the weather changes. She has had left-sided nosebleeds for the past 1 to 2 days. She continues to use nasal saline spray which is not helping much. She has some clear drainage from her ears, no other symptoms. She is still and about to enter her third trimester. Allergies Allergen Reactions Reglan [Metoclopramide Hcl] Anxiety Past Medical History: Diagnosis Date Anxiety Depression Social History Socioeconomic History Marital status: Single Tobacco Use Smoking status: Never Smokeless tobacco: Never Substance and Sexual Activity Alcohol use: No Drug use: No History reviewed. No pertinent family history. Past Surgical History: Procedure Laterality Date TONSILLECTOMY Physical Exam There were no vitals filed for this visit. Constitutional: NAD, AOx3, well nourished patient Head: NCAT, face symmetric, HB 1/6 Cardio: radial pulses intact, extremities warm to touch. Resp: NAD, chest wall rise equal, no obvious wheeze or stridor. Neuro: AOx3, CN II-XII intact, no focal neuro deficits. Extremities: Moves all extremities, no deficits Skin: Normal turgor, no rashes or skin lesions Ears: EACs patent bilaterally, TMs with tympanostomy tubes bilaterally which are surrounded by cerumen and appear to be extruding from canal. There is no otorrhea or granulation tissue visualized. Nose: Nares patent, septum midline with dried blood adherent to left anterior septum, inferior turbinates erythematous and hypertrophied Oral Cavity / Oropharynx: Lips and tongue normal. No pharyngeal obstruction. Posterior pharynx without edema or erythema. No masses, lesions, or signs of inflammation/infection. Neck: Trachea midline, no cervical LAD, thyroid normal to palpation. Psych: normal mood and cognition Assessment and Plan: Marcelo Witt is a 21 y.o. female who presents with Diagnoses and all orders for this visit: Epistaxis -Recommend nasal saline gel 3 times daily rhinitis -She will continue to use nasal saline spray. She may also consider adding Claritin to her regimen as her symptoms are worse when the weather changes. Encouraged her to discuss this with her OB prior to taking the medication, but explained that it is generally safe in . History of tympanostomy tube placement -She will follow-up after delivery and recovery for evaluation. May consider eardrops if she continues to have otorrhea or removing extruded tubes from canal. documented in this encounter [facility] 05-29-2022 Miscellaneous Notes Pt discharged home, ambulated off unit with no distress noted. Discharge instructions reviewed with and given to patient. Educated about importance of hydration, pt will follow up with Dr. Kong's office. Warning signs reviewed, as well as when to call or be seen. Pt verbalizes understanding of education and denies questions or concerns at this time. Dr. Becerril updated that patient has had tums, drank water, and ate crackers. Pt states she is still nauseous but keeping it down. Now complains of 6/10 headache and has brisk reflexes. Blood pressure now 125/58. Dr. Becerril orders 1000 mg tylenol for headache and pt can be discharged. Give precautions and have pt follow up with Dr. Kong's office. Pt given water and tums. Dr. Becerril notified of patient of Dr. Kong's coming in with dizziness, nausea, vomiting, some abdominal pain/cramping, and occasional left sided back pain. Denies pain at this time. Doppler 158. Pt states she has been nauseous most of her . Had elevated blood pressures 144/72, 141/67, then 136/[address] Becerril states to PO hydrate and give tums and call him back. Doppler 158. Pt brought to unit via wheelchair with complaints of dizziness, vomiting, and some abdominal pain/cramping. Pt states she moved this weekend and has not been drinking as much. Pt denies pain at this time. documented in this encounter [facility] 05-29-2022 Note Formatting of this n ote might be different from the original. Pt discharged home, ambulated off unit with no distress noted. [facility] 05-29-2022 Note Formatting of this n ote might be different from the original. Discharge instructions reviewed with and given to patient. Educated about importance of hydration, pt will follow up with Dr. Kong's office. Warning signs reviewed, as well as when to call or be seen. Pt verbalizes understanding of education and denies questions or concerns at this time. [facility] 05-29-2022 Note Formatting of this n ote might be different from the original. Dr. Becerril updated that patient has had tums, drank water, and ate crackers. Pt states she is still nauseous but keeping it down. Now complains of 6/10 headache and has brisk reflexes. Blood pressure now 125/58. Dr. Becerril orders 1000 mg tylenol for headache and pt can be discharged. Give precautions and have pt follow up with Dr. Kong's office. [facility] 05-29-2022 Note Formatting of this n ote might be different from the original. Pt given water and tums. [facility] 05-29-2022 Note Formatting of this n ote might be different from the original. Dr. Becerril notified of patient of Dr. Kong's coming in with dizziness, nausea, vomiting, some abdominal pain/cramping, and occasional left sided back pain. Denies pain at this time. Doppler 158. Pt states she has been nauseous most of her . Had elevated blood pressures 144/72, 141/67, then 136/[address] Becerril states to PO hydrate and give tums and call him back. [facility] 05-29-2022 Note Formatting of this n ote might be different from the original. Doppler 158. [facility] 05-29-2022 Note Formatting of this n ote might be different from the original. Pt brought to unit via wheelchair with complaints of dizziness, vomiting, and some abdominal pain/cramping. Pt states she moved this weekend and has not been drinking as much. Pt denies pain at this time. [facility] 05-29-2022 Hospital Discharge instructions The following attachments cannot be sent through Care Everywhere.Morning Sickness ([facility]) (Pakistani): Hyperemesis Gravidarum (Pakistani)Round Ligament Pain (Pakistani)Signs of Labor ([facility]) (Pakistani)documented in this encounter [facility] 05-11-2022 History of Present illness Narrative History of Present Illness Marcelo Witt is a 21 y.o. y/o female presenting with chief complaint of ear pain. Patient reports history of ear tube placement in March of last year for ear effusion. She does admit to continued right-sided ear pain since placement of ear tubes. She denies history of recurrent ear infections as an adult. She denies history of other ear surgeries. She denies otorrhea, hearing loss, and tinnitus. She has not used any eardrops recently. She has history of dizziness. Work-up has included PT for BPPV in the past. She has what sounds like a VNG years ago and was told that she had a unilateral weakness of her balance system. Despite this, she continues to have symptoms regularly. She feels like she is off balance. Symptoms are worse with head movements from side to side or up and down. She denies presyncope or visual changes with this. She also admits to nasal congestion and postnasal drainage. She has taken an oral antihistamine for this problem. She also experiences nosebleeds. She has she also has history of tonsillectomy. Of note, she is currently with positive hCG test on 02/06/2022. Her baby girl is due in September. The following portions of the patient's history were reviewed and updated as appropriate: Past Medical History: Diagnosis Date Anxiety Depression History reviewed. No pertinent family history. Past Surgical History: Procedure Laterality Date TONSILLECTOMY Current Outpatient Medications Medication Sig Dispense Refill albuterol 90 mcg/actuation inhaler Inhale 2 (two) puffs every 6 (six) hours . cholecalciferol, vitamin D3, (VITAMIN D3) 5,000 unit Tab tablet Take 1 (one) tablet (5,000 Units total) by mouth daily Take one tablet daily after completing 8 weeks of 50,000 units Vitamin D weekly . 90 tablet 0 drospirenone-ethinyl estradioL (KAREN) 3-0.03 mg per tablet Take 1 (one) tablet by mouth daily . fluticasone (FLONASE) 50 mcg/actuation nasal spray Instill 2 (two) sprays into each nostril daily. 16 g 2 loratadine (CLARITIN) 10 mg tablet Take 1 (one) tablet (10 mg total) by mouth daily. 90 tablet 0 tiZANidine (Zanaflex) 4 MG tablet Take 1/2 to 1 tablet po qhs. . 30 tablet 3 ergocalciferol (ERGOCALCIFEROL) 50,000 unit capsule Take 1 (one) capsule (50,000 Units total) by mouth once a week X 8 weeks . 8 capsule 0 ondansetron (ZOFRAN) 8 MG tablet Take 1 (one) tablet (8 mg total) by mouth every 8 (eight) hours as needed . 20 tablet 0 sodium chloride (Saline Mist) 0.65 % nasal spray Instill 1 (one) spray into each nostril as needed for congestion . 15 mL 12 sodium chloride-aloe vera Gel Apply topically 2 (two) times a day To the inside of both nostrils . 14.1 g 6 No current facility-administered medications for this visit. She reports that she has never smoked. She has never used smokeless tobacco. She reports that she does not drink alcohol and does not use drugs. She is allergic to reglan [metoclopramide hcl]. Review of Systems The following systems were reviewed and revealed the following in addition to any already discussed in the HPI: Constitutional: denies fever, chills, weight loss Ears: see above Nose: + Nasal congestion, epistaxis OC/OP: denies masses or lesions, dysphagia, odynophagia Neck: denies neck mass Psych: denies mood disturbance or decreased congnitive function Physical Exam There were no vitals filed for this visit. Constitutional: Alert and oriented, cooperative, no distress or stridor, appears stated age. Head: Normocephalic and atraumatic. Face: No lesions or masses, no parotid masses Right Ear: External ear normal. External auditory canal patent without lesions or otorrhea. Tympanic membrane with tympanostomy tube in place, appears to be partially extruded from TM with scant surrounding cerumen and erythema of TM. Left Ear: External ear normal. External auditory canal patent without lesions or otorrhea. Tympanic membrane with tympanostomy tube in place and patent with scant surrounding cerumen Nose: External nose without deformity or lesions. Septum midline with bilateral small scabs anteriorly, inferior turbinates hypertrophied. No excessive rhinorrhea OC/OP: Lips, gums, and tongue without lesions. Hard and soft palates without lesions. Dentition in good condition. Tonsils surgically absent, exudate or erythema. FOM soft Neck: No cervical adenopathy or masses, trachea midline, thyroid without nodules or enlarged. Neuro: Cranial nerves II-XII intact, HB I/ bilaterally, no nystagmus, normal gait. Etelvina-Hallpike positive to the right. Psych: Normal mood and cognition Data: Reviewed ED note on 03/11/2021. Patient had cough, sore throat, and chest congestion. She had normal chest x-ray and was diagnosed home with sent home with supportive care for acute viral syndrome. Reviewed ED note from 07/01/2020. Patient was diagnosed with COVID-19 virus. Positive hCG on 02/06/22 which was sufficiently increased on follow-up test, consistent with Procedure: Canal left repositioning maneuver (Tyesha maneuver) After obtaining verbal consent from the patient the chair was reclined into a flat position and Hallpike test was performed. Classic brief nystagmus was identified in this position was held for 30 seconds to 1 minute after nystagmus stopped. The head was then turned 90 degrees to the opposite side for an additional 1 to 2 minutes. Patient was then rolled up on the shoulder maintaining head position and flexion and rotation. After 1 to 2 minutes patient was brought to a sitting position maintaining her head position up and to the side. The head was then returned to midline. Complications: None Post care instructions: Patient was advised to avoid shaking the head or aggressive head movements for the next 24 hours. Patient was asked not to look down at the floor or up at the ceiling during this time. CPT 59715 Assessment and Plan: Marcelo Witt is a 21 y.o. female with Diagnoses and all orders for this visit: Epistaxis - sodium chloride-aloe vera Gel; Apply topically 2 (two) times a day To the inside of both nostrils . -Will not prescribe Bactroban at this time as she is . She will use nasal saline gel twice daily. Advised her to avoid Afrin and hold pressure to nose if she experiences recurrent epistaxis. rhinitis - sodium chloride (Saline Mist) 0.65 % nasal spray; Instill 1 (one) spray into each nostril as needed for congestion . -Recommend frequent use of nasal saline aerosol. History of tympanostomy tube placement Otalgia of right ear -She does have slight irritation to right TM where ear tube appears to be in the process of extruding. -Considered prescribing eardrops. However, unable to find a well studied eardrop in women. -Discussed options with her including asking OB for input versus watchful waiting. Would recommend warm compress to right ear and jaw if she elects for watchful waiting. BPPV (benign paroxysmal positional vertigo), right -Treated with Tyesha maneuver. Discussed postprocedural care. She will follow-up as needed. Shelly Sandy DO, MPH [facility] documented in this encounter [facility] 10-18-2020 Miscellaneous Notes Associated Problem(s): Vertigo Post viral due to Covid which has resolved with supportive treatment. Neurologic examination unremarkable. Continue supportive care. Associated Problem(s): Migraine with aura, not intractable, without status migrainosus I reviewed with patient that she has a mixture of chronic daily tension headache and migraine. Her logic examination is unremarkable. Neuroimaging is not indicated at this time. Options for treatment were reviewed. I recommended preventative treatment with either tizanidine 4 mg tablet, 1/2 to 1 tablet at bedtime and titrating to benefit or amitriptyline 10 mg p.o. nightly. She will be starting citalopram shortly for anxiety. Tizanidine was recommended. Patient in agreement prescription sent to pharmacy. We also discussed rescue medication for her menstrual migraines with sumatriptan. She declined at this time but will reconsider pending response to tizanidine. She will follow-up for progress in 6 to 8 weeks. I personally spent 40 minutes on this new patient encounter today, time spent included direct patient time, outside chart note or record review, communication to referring or other collaborating physicians and medication management. documented in this encounter [facility] 10-18-2020 History of Present illness Narrative [facility] [address] [place] [id number] Dept: [phone] Dept Loc: [phone] Subjective: Marcelo Witt is a 19 y.o. adult here 10/18/20 for Headache ([employer]- Dr. Tan ref. Pt. has been experiencing almost daily headaches for about 4 years. Pt. suffered several concussions while playing sports which pt. believes caused the onset of the headaches. ) being seen by Davida Urrutia MD. HPI : Patient sent for evaluation of headaches. Onset was 4 years ago. Initial triggers concussions. Family history + mother. Auras dizziness and lightheadedness. Currently occurring at a frequency of daily, she has not been free of headache since onset. Duration of headache is 12 to 24 hours per day. Typically occurs at all time of day. Located over both sides of head, behind eyes and back of head and neck, left frontal maximal. Worsening of severity of headache around menses. Pain is described as throbbing, achy, pressure, dull, stabbing. Currently triggers hunger, fatigue, change of sleep, exertion, menstrual cycles, weather, stress, sounds and lights. Associated symptoms include nausea-vomiting, photophobia, phonophobia, blurred vision, fatigue, sore stiff neck, runny nose, change of appetite, anxiety irritability, poor concentration and memory. Most comfortable lying in a dark room with massage or pressure on the scalp. Currently interfering with activities such as work and driving. . Patient is currently taking Tylenol/ASA at onset of headache without improvement. Side effects none. Caffeine use is less than 1/day. Sleep 6 to 7 hours per night. Has previously had an eye exam and dental examination. 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 History of concussions, last in 2018, vertigo, Meclizine for vertigo after Covid 06/2020, now improved. Prior medications: + designates prior or current trials of medications for headache/migraine: OTC: ASA + Tylenol + Ibuprofen/Motrin + Naprosyn/naproxen Excedrin Histamine + Magnesium Midol Antidepressants: Amitriptyline/Elavil Buspar Celexa Cymbalta Doxepin Effexor Haldol Imipramine Lexapro + [place] Norpramine Nortriptyline/Pamelor Paxil Prozac Remeron Sinequan Seroquel Thorazine Trazodone Wellbutrin Vistaril Zoloft Antihypertensives: Cardizem Catapres Clonidine Corgard Diamox/Acetazolamide Inderal/Propranolol Lasix Metoprolol/Lopressor Nadolol Nifedipine Tenormin Verapamil NSAIDs/steroids (Prescription): Anaprox Ansaid Arthrotec Bextra Celebrex Daypro Decadron Dolobid Feldene Indocin Lodine Mobic/Meloxicam Midrin Periactin Prednisone Relafen Solumedrol Toradol Ultram Vioxx Voltaren Anticonvulsants: Depakote Dilantin Gabapentin Keppra Lamictal Lyrica Tegretol Topamax Zonegran Muscle Relaxers: Baclofen Carisoprodol/Soma Cyclobenzaprine/Flexeril Metaxalone/Skelaxin Orphenadrine/Norflex Tizanadine/Zanaflex Rescue: Triptans: Amerge/Naratriptan Axert/Almotriptan Relpax/Eletriptan Frovatriptan/Frova Sumatriptan tablets/NS/Injection Rizatriptan/Maxalt GREETING [employer]ER Zomig/Zolmitriptan Oral CGRP: Ubrevly/Ubrogepant Nurtec/ Rimegepant Ergots: Cafergot DHE Migrainal NS Other/Misc: Ativan Butorphanol/Stadol Codeine Demerol Fioricet Fiorinal Esgic Lidocaine Lortab Morphine [place] Oxygen Percocet Valium Antiemetics: Compazine Phenergan Reglan + Zofran + Injectables: Botox (migraine protocol) Aimovig Ajovy Emgality Vypeti Alternative treatments include. Chiropractic Massage Physical therapy Acupuncture Dry needling Pain management Objective: BP 130/88 Pulse 93 Temp 98 F (36.7 C) Ht 5' 1 Wt 63.5 kg (139 lb 14.4 oz) BMI 26.43 kg/m Allergies Allergen Reactions Zofran (As Hydrochloride) [Ondansetron Hcl] Anxiety Mother states this makes her very jittery and anxious Current Outpatient Medications Medication Sig Dispense Refill albuterol 90 mcg/actuation inhaler Inhale 2 puffs every 6 (six) hours . cholecalciferol, vitamin D3, (VITAMIN D3) 5,000 unit Tab tablet Take 1 (one) tablet (5,000 Units total) by mouth daily Take one tablet daily after completing 8 weeks of 50,000 units Vitamin D weekly . 90 tablet 0 drospirenone-ethinyl estradioL (KAREN) 3-0.03 mg per tablet Take 1 tablet by mouth daily . fluticasone (FLONASE) 50 mcg/actuation nasal spray Instill 2 (two) sprays into each nostril daily. 16 g 2 loratadine (CLARITIN) 10 mg tablet Take 1 (one) tablet (10 mg total) by mouth daily. 90 tablet 0 ergocalciferol (ERGOCALCIFEROL) 50,000 unit capsule Take 1 (one) capsule (50,000 Units total) by mouth once a week X 8 weeks . 8 capsule 0 tiZANidine (Zanaflex) 4 MG tablet Take 1/2 to 1 tablet po qhs. . 30 tablet 3 No current facility-administered medications for this visit. Past Medical History: Diagnosis Date Anxiety Depression Past Surgical History: Procedure Laterality Date TONSILLECTOMY No family history on file. Social History Socioeconomic History Marital status: Single Spouse name: Not on file Number of children: Not on file Years of education: Not on file Highest education level: Not on file Occupational History Not on file Social Needs Financial resource strain: Not on file Food insecurity Worry: Not on file Inability: Not on file Transportation needs Medical: Not on file Non-medical: Not on file Tobacco Use Smoking status: Never Smoker Smokeless tobacco: Never Used Substance and Sexual Activity Alcohol use: No Drug use: No Sexual activity: Not on file Lifestyle Physical activity Days per week: Not on file Minutes per session: Not on file Stress: Not on file Relationships Social connections Talks on phone: Not on file Gets together: Not on file Attends rastafarian service: Not on file Active member of club or organization: Not on file Attends meetings of clubs or organizations: Not on file Relationship status: Not on file Other Topics Concern Not on file Social History Narrative Not on file Social History Substance and Sexual Activity Drug Use No Social History Tobacco Use Smoking Status Never Smoker Smokeless Tobacco Never Used ROS Physical Exam Constitutional: He is oriented to person, place, and time. He appears well-developed and well-nourished. HENT: Head: Juliocesarocephalic and atraumatic. Eyes: Pupils are equal, round, and reactive to light. EOM are normal. Neck: Normal range of motion. Neck supple. Cardiovascular: Normal rate. Pulmonary/Chest: Effort normal. Musculoskeletal: Normal range of motion. Neurological: He is alert and oriented to person, place, and time. He has a normal Jpznil-Pjvo-Nxamlv Test and a normal Tandem Gait Test. Gait normal. Reflex Scores: Bicep reflexes are 2+ on the right side and 2+ on the left side. Brachioradialis reflexes are 2+ on the right side and 2+ on the left side. Patellar reflexes are 2+ on the right side and 2+ on the left side. Achilles reflexes are 2+ on the right side and 2+ on the left side. Skin: Skin is warm. Psychiatric: He has a normal mood and affect. His speech is normal. Nursing note and vitals reviewed. Neurologic Exam Mental Status Oriented to person, place, and time. Follows 1 step commands. Attention: normal. Concentration: normal. Speech: speech is normal Level of consciousness: alert Knowledge: good. Able to name object. Able to read. Able to repeat. Able to write. Normal comprehension. Cranial Nerves Cranial nerves II through XII intact. CN II Visual berman full to confrontation. Right visual field deficit: none Left visual field deficit: none CN III, IV, Pupils are equal, round, and reactive to light. Extraocular motions are normal. Right pupil: Size: 4 mm. Shape: regular. Reactivity: brisk. Consensual response: intact. Accommodation: intact. Left pupil: Size: 4 mm. Shape: regular. Reactivity: brisk. Consensual response: intact. Accommodation: intact. CN III: no CN III palsy CN : no CN palsy Nystagmus: none Diplopia: none Ophthalmoparesis: none Upgaze: normal Downgaze: normal Conjugate gaze: present Vestibulo-ocular reflex: present CN V Facial sensation intact. Right facial sensation deficit: none Left facial sensation deficit: none Right corneal reflex: normal Left corneal reflex: normal Jaw jerk: normal CN VII Facial expression full, symmetric. Right facial weakness: none Left facial weakness: none CN VIII CN VIII normal. Hearing: intact CN IX, X CN IX normal. Palate: symmetric CN XI CN XI normal. Right sternocleidomastoid strength: normal Left sternocleidomastoid strength: normal Right trapezius strength: normal Left trapezius strength: normal CN XII CN XII normal. Tongue: not atrophic Fasciculations: absent Tongue deviation: none Motor Exam Muscle bulk: normal Overall muscle tone: normal Right arm tone: normal Left arm tone: normal Right arm pronator drift: absent Left arm pronator drift: absent Right leg tone: normal Left leg tone: normal Strength Right neck flexion: 5/5 Left neck flexion: 5/5 Right neck extension: 5/5 Left neck extension: 5/5 Right deltoid: 5/5 Left deltoid: 5/5 Right biceps: 5/5 Left biceps: 5/5 Right triceps: 5/5 Left triceps: 5/5 Right wrist extension: 5/5 Left wrist extension: 5/5 Right interossei: 5/5 Left interossei: 5/5 Right iliopsoas: 5/5 Left iliopsoas: 5/5 Right quadriceps: 5/5 Left quadriceps: 5/5 Right hamstrin/5 Left hamstrin/5 Right anterior tibial: 5/5 Left anterior tibial: 5/5 Right posterior tibial: 5/5 Left posterior tibial: 5/5 Right peroneal: 5/5 Left peroneal: 5/5 Sensory Exam Light touch normal. Gait, Coordination, and Reflexes Gait Gait: normal Coordination Finger to nose coordination: normal Tandem walking coordination: normal Tremor Resting tremor: absent Intention tremor: absent Reflexes Right brachioradialis: 2+ Left brachioradialis: 2+ Right biceps: 2+ Left biceps: 2+ Right patellar: 2+ Left patellar: 2+ Right achilles: 2+ Left achilles: 2+ Right garbage depot worker: 2+ Left garbage depot worker: 2+ Right Smith: absent Left Smith: absent Right ankle clonus: absent Left ankle clonus: absent No results found for this or any previous visit (from the past 1008 hour(s)). Assessment and Plan: Problem List Items Addressed This Visit Cardiovascular and Mediastinum Migraine with aura, not intractable, without status migrainosus - Primary (Chronic) I reviewed with patient that she has a mixture of chronic daily tension headache and migraine. Her logic examination is unremarkable. Neuroimaging is not indicated at this time. Options for treatment were reviewed. I recommended preventative treatment with either tizanidine 4 mg tablet, 1/2 to 1 tablet at bedtime and titrating to benefit or amitriptyline 10 mg p.o. nightly. She will be starting citalopram shortly for anxiety. Tizanidine was recommended. Patient in agreement prescription sent to pharmacy. We also discussed rescue medication for her menstrual migraines with sumatriptan. She declined at this time but will reconsider pending response to tizanidine. She will follow-up for progress in 6 to 8 weeks. I personally spent 40 minutes on this new patient encounter today, time spent included direct patient time, outside chart note or record review, communication to referring or other collaborating physicians and medication management. Relevant Medications tiZANidine (Zanaflex) 4 MG tablet Other Chronic daily headache (Chronic) Relevant Medications tiZANidine (Zanaflex) 4 MG tablet Vertigo (Chronic) Post viral due to Covid which has resolved with supportive treatment. Neurologic examination unremarkable. Continue supportive care. Respectfully; Davida Urrutia documented in this encounter [facility] Evaluation + Plan note No data available for this section [facility] Evaluation note Diagnosis Migraine with aura, not intractable, without status migrainosus- Primary Chronic daily headache Headache Vertigo Dizziness and giddiness [facility] Diagnosis Otalgia of both ears- Primary Dizziness Dizziness and giddiness [facility]* Diagnosis Amenorrhea- Primary Absence of menstruation Bilious vomiting with nausea [facility]* Diagnosis Epistaxis- Primary rhinitis Other current maternal conditions classifiable elsewhere, complicating , childbirth, or the puerperium, unspecified as to episode of care History of tympanostomy tube placement Otalgia of right ear BPPV (benign paroxysmal positional vertigo), right [facility]* Diagnosis Epistaxis- Primary rhinitis Other current maternal conditions classifiable elsewhere, complicating , childbirth, or the puerperium, unspecified as to episode of care History of [facility]anostomy tube placement [facility] Diagnosis Sore throat- Primary Acute pharyngitis documented in this encounter [facility] note* Diagnosis Missed menses- Primary Absence of menstruation Vaginal irritation Unspecified noninflammatory disorder of vagina Vaginal odor Unspecified symptom associated with female genital organs Encounter for test, result positive examination or test, positive result documented in this encounter [facility] note* Diagnosis Bacterial vaginosis- Primary Vaginitis and vulvovaginitis, unspecified documented in this encounter [facility] note* Diagnosis Encounter for supervision of high risk in first trimester, antepartum- Primary with uncertain dates in first trimester Screen for STD (sexually transmitted disease) Screening examination for venereal disease Screening for cervical cancer Screening for malignant neoplasm of the cervix Obesity affecting in first trimester, unspecified obesity type History of pre-eclampsia Personal history of other genital system and obstetric disorders History of miscarriage Personal history of other genital system and obstetric disorders History of headache Personal history of other specified diseases Constipation during in first trimester Hx of blurred vision Personal history of other disorders of nervous system and sense organs Vulvar lesion Other specified noninflammatory disorder of vulva and perineum Nausea and vomiting during documented in this encounter [facility] note* Diagnosis with uncertain dates in first trimester documented in this encounter [facility] note* Diagnosis Encounter for supervision of high risk in first trimester, antepartum- Primary with uncertain dates in first trimester 11 weeks gestation of state, incidental History of pre-eclampsia Personal history of other genital system and obstetric disorders documented in this encounter [facility] note* Diagnosis with uncertain dates in first trimester- Primary 10 weeks gestation of state, incidental documented in this encounter [facility] note* Diagnosis Supervision of high risk in second trimester (HCC)- Primary Unspecified high-risk Obesity affecting in first trimester, unspecified obesity type (HCC) Dysuria * Assessment & Plan Note - Cassy Conway MD - 09/23/2024 4:41 PM EDT Associated Problem(s): Obesity affecting in first trimester (HCC) Continue [facility]SA [facility] Supervision of high risk in second trimester (HCC)- Primary Unspecified high-risk Obesity affecting in first trimester, unspecified obesity type ([facility]) Dysuria 18 weeks gestation of (HCC)- Primary state, incidental Encounter for supervision of other normal in second trimester ([facility]) Heartburn during in second trimester ([facility]) documented in this encounter [facility] note* Diagnosis Supervision of high risk in second trimester (HCC)- Primary Unspecified high-risk Obesity affecting in first trimester, unspecified obesity type ([facility]) Dysuria 22 weeks gestation of (HCC)- Primary state, incidental Encounter for supervision of other normal in second trimester ([facility]) Heartburn during in second trimester ([facility]) Screening for diabetes mellitus Anxiety Anxiety state, unspecified documented in this encounter [facility] note* Diagnosis Supervision of high risk in second trimester (HCC)- Primary Unspecified high-risk Obesity affecting in first trimester, unspecified obesity type ([facility]) Dysuria Anxiety- Primary Anxiety state, unspecified 26 weeks gestation of ([facility]) state, incidental * Assessment & Plan Note - Sophy Denney MD - 12/17/2024 2:59 PM EDTAssociated Problem(s): Anxiety Continune zoloft documented in this encounter [facility] note* Diagnosis Supervision of high risk in second trimester (HCC)- Primary Unspecified high-risk Obesity affecting in first trimester, unspecified obesity type ([facility]) Dysuria Anxiety- Primary Anxiety state, unspecified 26 weeks gestation of (HCC) state, incidental 28 weeks gestation of (HCC)- Primary state, incidental Encounter for supervision of other normal in third trimester ([facility]) documented in this encounter [facility] note* Diagnosis Supervision of high risk in second trimester (HCC)- Primary Unspecified high-risk Obesity affecting in first trimester, unspecified obesity type ([facility]) Dysuria Anxiety- Primary Anxiety state, unspecified 26 weeks gestation of (HCC) state, incidental Encounter for supervision of other normal in third trimester ([facility])- Primary 30 weeks gestation of ([facility]) state, incidental History of pre-eclampsia Personal history of other genital system and obstetric disorders * Assessment & Plan Note - Sophy Denney MD - 01/12/2025 3:51 PM EDTAssociated Problem(s): History of pre-eclampsia Continue aspirin documented in this encounter [facility] note* Diagnosis Supervision of high risk in second trimester (HCC)- Primary Unspecified high-risk Obesity affecting in first trimester, unspecified obesity type (HCC) Dysuria Anxiety- Primary Anxiety state, unspecified 26 weeks gestation of (HCC) state, incidental Encounter for supervision of other normal in third trimester (HCC)- Primary 30 weeks gestation of (HCC) state, incidental History of pre-eclampsia Personal history of other genital system and obstetric disorders Supervision of high risk in third trimester (HCC)- Primary Unspecified high-risk History of pre-eclampsia Personal history of other genital system and obstetric disorders Anxiety Anxiety state, unspecified Obesity affecting in first trimester, unspecified obesity type (HCC) 34 weeks gestation of (HCC) state, incidental documented in this encounter [facility] note* Diagnosis Supervision of high risk in second trimester (HCC)- Primary Unspecified high-risk Obesity affecting in first trimester, unspecified obesity type (HCC) Dysuria Anxiety- Primary Anxiety state, unspecified 26 weeks gestation of (HCC) state, incidental Encounter for supervision of other normal in third trimester (HCC)- Primary 30 weeks gestation of (HCC) state, incidental History of pre-eclampsia Personal history of other genital system and obstetric disorders 36 weeks gestation of (HCC)- Primary state, incidental Supervision of high risk in third trimester (HCC) Unspecified high-risk History of pre-eclampsia Personal history of other genital system and obstetric disorders * Assessment & Plan Note - Sophy Denney MD - 02/26/2025 4:05 PM EDTAssociated Problem(s): History of pre-eclampsia BP normal today Orders: URINE OB DIP B/O * Assessment & Plan Note - Sophy Denney MD - 02/26/2025 4:05 PM EDTAssociated Problem(s): Supervision of high risk in third trimester (HCC) Orders: URINE OB DIP B/O [facility] Diagnosis Supervision of high risk in second trimester (HCC)- Primary Unspecified high-risk Obesity affecting in first trimester, unspecified obesity type (HCC) Dysuria Anxiety- Primary Anxiety state, unspecified 26 weeks gestation of (HCC) state, incidental Encounter for supervision of other normal in third trimester (HCC)- Primary 30 weeks gestation of (HCC) state, incidental History of pre-eclampsia Personal history of other genital system and obstetric disorders 36 weeks gestation of (HCC)- Primary state, incidental Supervision of high risk in third trimester (HCC) Unspecified high-risk History of pre-eclampsia Personal history of other genital system and obstetric disorders Supervision of high risk in third trimester (HCC)- Primary Unspecified high-risk History of pre-eclampsia Personal history of other genital system and obstetric disorders Obesity affecting in first trimester, unspecified obesity type (HCC) 37 weeks gestation of (HCC) state, incidental Anxiety Anxiety state, unspecified * Assessment & Plan Note - Cassy Conway MD - 03/04/2025 2:35 PM EDT Associated Problem(s): Supervision of high risk in third trimester (HCC) Orders: URINE OB DIP B/O * Assessment & Plan Note - Cassy Conway MD - 03/04/2025 2:35 PM EDT Associated Problem(s): History of pre-eclampsia BP stable Continue asa Orders: URINE OB DIP B/O * Assessment & Plan Note - Cassy Conway MD - 03/04/2025 2:35 PM EDT Associated Problem(s): Obesity affecting in first trimester (HCC) Orders: URINE OB DIP B/O [facility] noteNo assessment information availableWDiley [facility] Work Phone: History and physical note [facility] Medical Records Department [address] [place] [address] OB Triage Physician Note 03/11/25 1826 MR#: [id number] Acct: [id number] Name: MARCELO LOZA Rep #:[id number] : 2000 24 From: Dyllan Henry MD PCP: Dr. Hector Gorman MD Status:D EP CLI Y Location: [facility] HPI - General General Date of Admission: 03/11/25 Date of Service: 03/11/25 Chief Complaint: elevated bp HPI Narrative MARCELO LOZA, is a 24 F who presents Maternal Data Information Final ANDERSON: [birth year] Gestational age: 38 5/7 [facility] Medical History (Updated 09/07/24 @ 15:[address] Hector Gorman MD) TMJ arthralgia Left ear pain Blood glucose abnormal Hyperlipidemia Elevated liver enzymes Menstrual irregularity Screening for thyroid disorder Screening for cardiovascular condition GERD (gastroesophageal reflux disease) Preeclampsia Head ache Seasonal allergies Home Medications ?Medication ?Instructions ?Recorded ?Last Taken ?Type mqfkrsti-qwp-zawd-FA-Ca carb-vit K 1 tab PO QDAY 02/2703/10/25 08:00 History 18 mg iron-400 mcg-500 mg tablet 1 TAB aspirin 81 mg tablet,delayed 81 mg PO QDAY 09/07/24 21:00 History release (Adult Low Dose Aspirin) 81 mg famotidine 20 mg tablet (Pepcid) 20 mg PO DAILY 03/10/25 21:00 History 20 mg sertraline 25 mg tablet (Zoloft) 25 mg PO DAILY 03/10/25 21:00 History 25 mg Allergy/AdvReac Type Severity Reaction Status Date / Time dexamethasone (From Decadron) Allergy Intermediate syncope Verified 03/11/25 13:03 metoclopramide (From Reglan) Allergy Intermediate anxious Verified 03/11/25 13:03 Family History Grandfather Diabetes Grandmother Diabetes Grandmother Myocardial infarction, Onset Age: 50 Surgical History History of ear surgery S/P ACL repair History of tonsillectomy Social History household members: spouse and children housing: house 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 Hector Gorman MD; Dr. Dyllan Henry MD ~ Signed ADDENDUM by Dr. Dyllan Henry MD on 03/11/25 at 1828 Addendum Diansosi- Elevated bp without diagnosis of HTN High risk multigravida 38 weeks 03/11/25 1828 ll > Date _ Dyllan Henry MD cc: Dr. Hector Gorman MD; Dr. 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 Hector Gorman MD Status:D EP CLI Location: [facility] HPI - General General Date of Admission: 03/11/25 Date of Service: 03/11/25 Chief Complaint: elevated bp HPI Narrative MARCELO LOZA, is a 24 F who presents [facility] Medical History (Updated 09/07/24 @ 15:[address] Hector Gorman MD) TMJ arthralgia Left ear pain Blood glucose abnormal Hyperlipidemia Elevated liver enzymes Menstrual irregularity Screening for thyroid disorder Screening for cardiovascular condition GERD (gastroesophageal reflux disease) Preeclampsia Head ache Seasonal allergies Home Medications ?Medication ?Instructions ?Recorded ?Last Taken ?Type glvqtwrm-xsb-blcx-FA-Ca carb-vit K 1 tab PO QDAY 02/2703/10/25 08:00 History 18 mg iron-400 mcg-500 mg tablet 1 TAB aspirin 81 mg tablet,delayed 81 mg PO QDAY 09/07/24 21:00 History release (Adult Low Dose Aspirin) 81 mg famotidine 20 mg tablet (Pepcid) 20 mg PO DAILY 03/10/25 21:00 History 20 mg sertraline 25 mg tablet (Zoloft) 25 mg PO DAILY 03/10/25 21:00 History 25 mg Allergy/AdvReac Type Severity Reaction Status Date / Time dexamethasone (From Decadron) Allergy Intermediate syncope Verified 03/11/25 13:03 metoclopramide (From Reglan) Allergy Intermediate anxious Verified 03/11/25 13:03 Family History Grandfather Diabetes Grandmother Diabetes Grandmother Myocardial infarction, Onset Age: 50 Surgical History History of ear surgery S/P ACL repair History of tonsillectomy Social History household members: spouse and children housing: house 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 Status: Never smoker alcohol intake: never substance use type: does not use what type of physical activity do you participate in: walking and weight training frequency: 3-4 times per week seatbelt use: always do you feel safe at home: Yes Vital Signs Vital Signs Vital Signs: 03/11/25 13:12 03/11/25 13:12 03/11/25 13:27 Pulse Rate 97 Blood Pressure 120/62 124/67 H BP Systolic 120 124 BP Diastolic 62 67 03/11/25 13:27 03/11/25 13:42 03/11/25 13:42 Pulse Rate 96 96 Blood Pressure 127/71 H BP Systolic 127 BP Diastolic 71 03/11/25 13:57 03/11/25 13:57 03/11/25 14:12 Pulse Rate 96 Blood Pressure 117/64 122/70 H BP Systolic 117 122 BP Diastolic 64 70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 upper quadrant. Lymphadenopathy: She has no cervical adenopathy. Neurological: She is alert and oriented to person, place, and time. Skin: Skin is warm and dry. She is not diaphoretic. in this encounter Discharge Instructions * Instructions* Marjorie Matthews MD - 07/01/2020 After my independent evaluation, she appears to have a self-limiting illness likely due to a viral URI. At this time, there is a no evidence of pneumonia, hypoxia, bacterial sinus infection, bacterial bronchitis, bacteremia, or sepsis. Marcelo tested (+) for COVID-19 in ED. We discussed home quarantine, management of symptoms, and avoidance of contact with others. Marcelo is understanding of information at this time. Currently I donot see an indication for inpatient management and monitoring as he is oxygenating well, no signs of respiratory distress with clear lung sounds. I stressed importance of staying at home and avoidingcontact with others to avoid additional spread of the infection. In my medical opinion, I consider Marcelo to be stable for discharge. This is based on the information that was available to me at the time of this ED visit. As we discussed, she is to return to our ED immediately if there is any worsening of his/her condition, such as increased cough, shortness ofbreath, persistent fevers, repeated vomiting, dehydration, or if his/her condition worsens at all. Return to emergency department if low oxygenation and shortness of breath. You can get a pulse oximeter from [employer] or [employer] if oxygenation is less than 90 please return to emergency department. * Attachments The following attachments cannot be sent through Care Everywhere. * Nausea and Vomiting (Pakistani) * COVID-19: Taking Care of Yourself If You Have It: Video (Pakistani) documented in this encounter Chief Complaint and Reason for Visit Chief Complaint Admit Date R/O PRE E March 11, 2025 12:41pm Additional Source Comments INFORMATION SOURCE (unrecogn ized section and content) DATE CREATED AUTHOR 12/12/2017 [facility] DATE CREATED AUTHOR AUTHOR'S ORGANIZ ATION [facility] DATE CREATED AUTHOR AUTHOR'S ORGANIZ ATION 09/12/2018 [facility] DATE CREATED AUTHOR AUTHOR'S ORGANIZ ATION 10/19/2020 [facility] DATE CREATED AUTHOR AUTHOR'S ORGANIZ ATION [facility]20[facility] DATE CREATED AUTHOR AUTHOR'S ORGANIZ ATION 02/03/2022 [facility] DATE CREATED AUTHOR AUTHOR'S ORGANIZ ATION [facility]20[facility] DATE CREATED AUTHOR AUTHOR'S ORGANIZ ATION [facility]/04/2022 [facility] DATE CREATED AUTHOR AUTHOR'S ORGANIZ ATION 07/18/2022 [facility] DATE CREATED AUTHOR AUTHOR'S ORGANIZ ATION 07/18/2022 [facility] DATE CREATED AUTHOR AUTHOR'S ORGANIZ ATION 12/02/2022 [facility] DATE CREATED AUTHOR AUTHOR'S ORGANIZ ATION 11/09/2023 [facility] DATE CREATED AUTHOR AUTHOR'S ORGANIZ ATION 07/14/2024 [facility] DATE CREATED AUTHOR AUTHOR'S ORGANIZ ATION 03/12/2025 [facility] DATE CREATED AUTHOR AUTHOR'S ORGANIZ ATION 03/15/2025 [facility] Reason for Visit (unrecogniz ed section and content) Reason Comments Fatigue concerned anout S/P concussion X 2 years ago Dizziness Depression Reason Comments head and chest congestion Pt has Sx of c oughing, stuffiness, ear pain, pain in stomach and nausea, Reason Comments Emesis Reason Comments 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 Pt. has been experiencing almost daily headaches for about 4 years. Pt. suffered several concussions while playing sports which pt. believes caused the onset of the headaches. Status Reason Specialty Diagnoses / Procedures Referre d By Contact Referred To Contact Closed Neurology Diagnoses Nonintractable headache, unspecified chronicity pattern, unspecified headache type Ear pain History of dizziness Yuliana Beltran PA-C [address] [place] [address] Davida Urrutia MD [address] [facility] [address] [place] [address] Reason Comments Cerumen Impaction Reason Comments Vomiting Nausea Abdominal Cramping Reason Comments Follow-up Reason Comments Sore Throat x 4 days Reason Comments Problem Visit Reason Comments Results Reason Comments Initial OB Visit Reason Comments ultrasound scan prep Reason Comments Viability Specialty Diagnoses / Procedures Referred By Tania ernst Referred To Contact [facility] Diagnoses with uncertain dates in first trimester Procedures PELVIC US WHI US PELVIC NONOBSTETRIC REAL-TIME IMAGE COMPLETE Melita Colón APRN.DATA MANAGEMENT ENGINEER [address] [place] [address] [facility] [address] [place] [address] Referral ID Status Reason Start Date Expiration Date V isits Requested Visits Authorized [id number] Closed Auto-Generat ed Referral Patient Cleared - Admin/Chairm an/Director advise to proceed or did not respond 07/27/2024 06/23/2025 1 1 Reason Onset Date Comments Care 08/26/2024 Reason Comments US Specialty Diagnoses / Procedures Referred By Contac t Referred To Contact [facility] Diagnoses with uncertain dates in first trimester Procedures OBSTETRIC ULTRASOUND WHI US PREG UTERUS AFTER 1ST TRIMEST GESTATION Melita Colón, BECKY.DATA MANAGEMENT ENGINEER [address] [place] [address] Phone: tel: fax: [address] [address] Referral ID Status Reason Start Date Expiration Date Visits Requested Visits Authorized [id number] Authorized Auto-Generat ed Referral 08/12/2024 06/23/2025 20 20 Reason Onset Date Comments Care 09/23/2024 Reason Onset Date Comments Care 11/19/2024 Reason Onset Date Comments Care 12/17/2024 Reason Onset Date Comments Care 12/30/2024 Reason Onset Date Comments Care 01/12/2025 Reason Onset Date Comments Care 02/09/2025 Reason Comments Refill Request Reason Onset Date Comments Refill Request 02/17/2025 Reason Onset Date Comments Care 02/26/2025 Reason Onset Date Comments Care 03/04/2025 Reason Onset Date Comments Population Health Navigation Outreach 03/08/2025 to PCP/OB Franca James RN - 07/01/2020 1:58 PM Suzie Trinh RN - 07/01/2020 1:23 PM Tabatha Arthur RN - 07/01/2020 11:13 AM EST ED Notes (unrecognized secti on and content) Pt is tolerating PO fluids at this time. Water given. I have been vomiting and now I'm dizzy documented in this encounter Care Teams (unrecognized sec tion and content) [employer] Programs Director Relationship Specialty Start Date End Date Liborio Tan MD [address] [place] [address] PCP - General Family Medicine Hospitalist 04/26/20 [employer] Director Relationship Specialty Start Date End Date Liborio Tan MD [address] [place] [place] [address] PCP - General Family Medicine Hospitalist 04/26/20 [employer] Director Relationship Specialty Start Date End Date Liborio Tan MD [address] [place] [place] [address] PCP - General Family Medicine Hospitalist 04/26/20 [employer] Director Relationship Specialty Start Date End Date Conner Escalera MD [address] [place] [id number] PCP - General Internal Medicine 06/05/17 Team Status: Active Member Role/Relationship Status Dates Dr. Hector Gorman MD Primary care physician Activ e Team Status: Inactive Member Role/Relationship Status Dates Dr. Hector Gorman MD Primary care physician Activ e Start: March 11, 2025 End: March 11, 2025 Dr. Dyllan Henry MD Attending physician Active Start: March 11, 2025 End: March 11, 2025 Dr. Dyllan Henry MD Referring Provider Active Start: March 11, 2025 End: March 11, 2025 Scheduled Active and Recently Administ ered Medications (unrecognized section and content) Medication Order 05/27/2022 05/28/2022 05/29/2022 calcium carbonate (TUMS) tablet 1,000 mg (COMPLETED) 1,000 mg, Oral, DAILY, 1 dose, First dose on Sat05/29/22 at 1500 1427 (Given - Provid er: Fabiana Santos RN) PRN Medication Order 05/27/2022 05/28/2022 05/29/2022 acetaminophen (TYLENOL) tablet 1,000 mg 1,000 mg, Oral, EVERY 4 HOURS NEEDED, Starting on Sat05/29/22 at 1534, Until Sat05/29/22 at 1832, Mild Pain, Moderate Pain, 1545 (Given - Provid er: Fabiana Santos RN) Source Comments (unrecognize d section and content) In the event this informatio n is protected by the Federal Confidentiality of Alcohol and Drug Abuse Patient Records regulations: The Federal rules restrict any use of the information to criminally investigate or prosecute any alcohol or drug abuse patient.[facility] the event this information is protected by the Federal Confidentiality of Alcohol and Drug Abuse Patient Records regulations: The Federal rules restrict any use of the information to criminally investigate or prosecute any alcohol or drug abuse patient.[facility] the event this information is protected by the Federal Confidentiality of Alcohol and Drug Abuse Patient Records regulations: The Federal rules restrict any use of the information to criminally investigate or prosecute any alcohol or drug abuse patient.[facility] the event this information is protected by the Federal Confidentiality of Alcohol and Drug Abuse Patient Records regulations: The Federal rules restrict any use of the information to criminally investigate or prosecute any alcohol or drug abuse patient.[facility] the event this information is protected by the Federal Confidentiality of Alcohol and Drug Abuse Patient Records regulations: The Federal rules restrict any use of the information to criminally investigate or prosecute any alcohol or drug abuse patient.[facility] the event this information is protected by the Federal Confidentiality of Alcohol and Drug Abuse Patient Records regulations: The Federal rules restrict any use of the information to criminally investigate or prosecute any alcohol or drug abuse patient.[facility] the event this information is protected by the Federal Confidentiality of Alcohol and Drug Abuse Patient Records regulations: The Federal rules restrict any use of the information to criminally investigate or prosecute any alcohol or drug abuse patient.[facility] Hospital[facility] the event this information is protected by the Federal Confidentiality of Alcohol and Drug Abuse Patient Records regulations: The Federal rules restrict any use of the information to criminally investigate or prosecute any alcohol or drug abuse patient.[facility] the event this information is protected by the Federal Confidentiality of Alcohol and Drug Abuse Patient Records regulations: The Federal rules restrict any use of the information to criminally investigate or prosecute any alcohol or drug abuse patient.[facility] the event this information is protected by the Federal Confidentiality of Alcohol and Drug Abuse Patient Records regulations: The Federal rules restrict any use of the information to criminally investigate or prosecute any alcohol or drug abuse patient.[facility] Hospital[facility] the event this information is protected by the Federal Confidentiality of Alcohol and Drug Abuse Patient Records regulations: The Federal rules restrict any use of the information to criminally investigate or prosecute any alcohol or drug abuse patient.[facility] Hospital[facility] the event this information is protected by the Federal Confidentiality of Alcohol and Drug Abuse Patient Records regulations: The Federal rules restrict any use of the information to criminally investigate or prosecute any alcohol or drug abuse patient.[facility] Hospital[facility] the event this information is protected by the Federal Confidentiality of Alcohol and Drug Abuse Patient Records regulations: The Federal rules restrict any use of the information to criminally investigate or prosecute any alcohol or drug abuse patient.[facility] Hospital[facility] the event this information is protected by the Federal Confidentiality of Alcohol and Drug Abuse Patient Records regulations: The Federal rules restrict any use of the information to criminally investigate or prosecute any alcohol or drug abuse patient.[facility] Hospital[facility] the event this information is protected by the Federal Confidentiality of Alcohol and Drug Abuse Patient Records regulations: The Federal rules restrict any use of the information to criminally investigate or prosecute any alcohol or drug abuse patient.[facility] HospitalIn the event this information is protected by the Federal Confidentiality of Alcohol and Drug Abuse Patient Records regulations: The Federal rules restrict any use of the information to criminally investigate or prosecute any alcohol or drug abuse patient.[facility] HospitalIn the event this information is protected by the Federal Confidentiality of Alcohol and Drug Abuse Patient Records regulations: The Federal rules restrict any use of the information to criminally investigate or prosecute any alcohol or drug abuse patient.[facility] HospitalIn the event this information is protected by the Federal Confidentiality of Alcohol and Drug Abuse Patient Records regulations: The Federal rules restrict any use of the information to criminally investigate or prosecute any alcohol or drug abuse patient.[facility] HospitalIn the event this information is protected by the Federal Confidentiality of Alcohol and Drug Abuse Patient Records regulations: The Federal rules restrict any use of the information to criminally investigate or prosecute any alcohol or drug abuse patient.[facility] HospitalIn the event this information is protected by the Federal Confidentiality of Alcohol and Drug Abuse Patient Records regulations: The Federal rules restrict any use of the information to criminally investigate or prosecute any alcohol or drug abuse patient.[facility] HospitalIn the event this information is protected by the Federal Confidentiality of Alcohol and Drug Abuse Patient Records regulations: The Federal rules restrict any use of the information to criminally investigate or prosecute any alcohol or drug abuse patient.[facility] HospitalIn the event this information is protected by the Federal Confidentiality of Alcohol and Drug Abuse Patient Records regulations: The Federal rules restrict any use of the information to criminally investigate or prosecute any alcohol or drug abuse patient.[facility] HospitalIn the event this information is protected by the Federal Confidentiality of Alcohol and Drug Abuse Patient Records regulations: The Federal rules restrict any use of the information to criminally investigate or prosecute any alcohol or drug abuse patient.[facility] Goals (unrecognized section and content) Goals may be documented in a n alternate section FOR RECORDS PERTAINING TO PATIENTS WHO ARE OR HAVE BEEN ENROLLED IN A CHEMICAL DEPENDENCY/SUBSTANCEABUSE PROGRAM, SOME INFORMATION MAY BE OMITTED. This clinical summary was aggregated from multiple sources. Caution should be exercised in using it in the provision of clinical care. This summary normalizes information from multiple sources, and as a consequence, information in this document may materially change the coding, format and clinical context of patient data. In addition, data may be omitted in some cases. CLINICAL DECISIONS SHOULD BE BASED ON THE PRIMARY CLINICAL RECORDS. [facility] [employer] [facility]. provides no warranty or guarantee of the accuracy or completeness of information in this document.
[2025-03-15 08:08] LABS: Hematocrit 30.7 % (37-47); Hemoglobin 10.9 g/dL (12.0-15.0); Immature Granulocytes Count 0.100 X10^3/uL (0.0-0.0); Mean Corp Hgb Conc 35.5 g/dL (32-36); Mean Corpuscular Volume 85.0 fL (81-99); Mean Platelet Vol. 12.0 fl (6.2-12.0); NRBC Flagged by Analyzer 0 % (0-5); Platelet Count 123 K/mm3 (150-450); RBC Distribution Width CV 13.1 % (11.6-14.6); RBC Distribution Width SD 40.2 fl (35.1-43.9); Red Blood Count 3.61 M/mm3 (4.2-5.4); White Blood Count 9.5 K/mm3 (4.4-11.0)
[2025-03-15 08:36] LABS: Syphilis Antibodies Nonreactive (Nonreactive)
--- NOTE | 2025-03-15 08:42 | HP.PCM.OB_ITS ---
HPI - General General Date of Admission: 03/15/25 HPI Narrative MARCELO LOZA, is a 24 F who presents at 39w2d for induction of labor due to increasing BP and history of preeclampsia. Maternal Data Information ANDERSON Calculator Estimated Delivery Date Method Current WG Current Estimate 03/20/25 Manual 39w 2d [facility] Medical History (Updated 03/15/25 @ 08:48 by Shelly Guzman CNM) Anxiety TMJ arthralgia Left ear pain Blood glucose abnormal Hyperlipidemia Elevated liver enzymes Menstrual irregularity Screening for thyroid disorder Screening for cardiovascular condition GERD (gastroesophageal reflux disease) Preeclampsia Head ache Seasonal allergies Home Medications ?Medication ?Instructions ?Recorded ?Last Taken ?Type bwfgdgln-rvz-tmha-FA-Ca carb-vit K 1 tab PO QDAY pregn dillon 02/28/24 03/14/25 History 18 mg iron-400 mcg-500 mg tablet aspirin 81 mg tablet,delayed 81 mg PO QDAY 0 09/07/24 03/14/25 History release (Adult Low Dose Aspirin) famotidine 20 mg tablet (Pepcid) 20 mg PO DAILY heart burn 03/11/25 03/14/25 History sertraline 25 mg tablet (Zoloft) 25 mg PO DAILY anxiet y 03/11/25 03/14/25 History Allergy/AdvReac Type Severity Reaction Status Date / Time dexamethasone (From Decadron) Allergy Intermediate syncope Verified 03/15/25 08:32 metoclopramide (From Reglan) Allergy Intermediate anxious Verified 03/15/25 08:32 Family History Grandfather Diabetes Grandmother Diabetes Grandmother Myocardial infarction, Onset Age: 50 Surgical History History of ear surgery S/P ACL repair History of tonsillectomy Social History household members: spouse and children housing: house 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 Status: Never smoker alcohol intake: never substance use type: does not use what type of physical activity do you participate in: walking and weight training frequency: 3-4 times per week seatbelt use: always do you feel safe at home: Yes History Elective abortions Hx Para 1 Spontaneous abortions Hx # Term Pregnancies Ectopic pregnancies Hx # Pregnancies Multiple births # of living children NST FHR Rate Baby A Baseline: 135 Variability:: Moderate Accelerations:: 15 x 15 Decelerations:: None FHR Category:: Category I Uterine Activity:: Irregular, mild ROS Constitutional Constitutional: Reports systems reviewed and no addt'l complaints, except as documented; Denies headache(s) Eyes Eyes: Denies acute decrease in peripheral vision, blurry vision or change in vision ENT HEENT: Reports systems reviewed and no addt'l complaints, except as documented Cardiovascular Cardiovascular: Denies chest pain or dizziness Respiratory/Chest Respiratory/Chest: Denies cough, dyspnea, dyspnea on exertion, shortness of breath at rest or shortness of breath with exertion Gastrointestinal Gastrointestinal: Denies abdominal pain, diarrhea, nausea or vomiting Genitourinary Genitourinary: Denies abdominal discomfort Musculoskeletal Musculoskeletal: Denies limited range of motion Integumentary Integumentary: Reports systems reviewed and no addt'l complaints, except as documented Neurologic Neurologic: Reports systems reviewed and no addt'l complaints, except as documented Psychiatric Psychiatric: Reports systems reviewed and no addt'l complaints, except as documented Endocrine Endocrinology: Reports systems reviewed and no addt'l complaints, except as documented Hematologic/Lymphatic Hematologic/Lymphatic: Reports systems reviewed and no addt'l complaints, except as documented Allergic/Immunologic Allergic/Immunologic: Reports systems reviewed and no addt'l complaints, except as documented Vital Signs Vital Signs Vital Signs: 03/15/25 07:32 03/15/25 07:32 03/15/25 07:32 Temperature Pulse Rate 99 Respiratory Rate 16 Blood Pressure 138/75 H BP Systolic 138 BP Diastolic 75 03/15/25 07:32 Temperature 98.2 F Pulse Rate Respiratory Rate Blood Pressure BP Systolic BP Diastolic Weight Weight: 191 lb Body Mass Index (BMI) 36.1 Physical Exam Const alert and oriented x3 General Appearance: cooperative Orientation / Consciousness: awake, oriented to person, oriented to place and oriented to time Exam Limitations: no limitations HEENT normocephalic Head and Scalp: normal to inspection, normocephalic and atraumatic Face and Sinus: normal facial exam Eyes General Eye: normal appearance of both eyes Neck full ROM Chest Chest: symmetrical chest wall rise Resp normal respiratory effort and normal air movement Auscultation: clear to auscultation bilaterally Cardio regular rate, regular rhythm, S1 normal heart sound, S2 normal heart sound, no murmurs, no rub, no gallops and no clicks GI normal to inspection, nondistended, normoactive bowel sounds and non-tender GI Narrative: Fundus firm 2 below U appearance of the vagina normal Narrative: Normal lochia rubra Bladder / Kidney Exam: no CVA tenderness Manual OB Exam: estimated gestational size appropriate, presentation cephalic, dilated 0.5, effaced 50, station -3 and other Casey catheter over stylus inserted through cervical os. 30ml NS instilled into catheter. Patient tolerated well. Back/Spine normal ROM Extremity normal to inspection and full ROM Skin no rashes or lesions noted Neuro oriented x3, CN's II-XII intact bilaterally and moves all extremities Sensorium / Orientation: awake, alert and oriented to person Motor Exam: clonus absent Deep Tendon Reflexes: Rt Patellar (L4): 2+ and Lt Patellar (L4): 2+ Labs Labs Labs: Blood Type Pending Antibody Screen Pending Hct, (37-47) 30.7 % L Hgb, (12.0-15.0) 10.9 g/dL L Syphilis Total Ab, (Nonreactive) Nonreactive RPR negative GBS negative Rubella Immune HBsAG negative Hep C negative HIV negative A positive GC/CT negative Assessment & Plan (1) Obesity affecting : COMMENT: pregravid BMI 30 (2) Encounter for induction of labor: COMMENT: Elective, increasing BP with history of preeclampsia (3) History of pre-eclampsia: (4) 39 weeks gestation of : PLAN: Plan 1) Admit to labor and delivery 2) Routine labs. Preeclampsia labs 3) Continuous EFM 4) Pain management upon request 5) collaborative physician and notified of patient status, above assessment, and plan.
[2025-03-15] MEDS: Lactated Ringers 1,000 ML 50 ML IV (08:48)
[2025-03-15] MEDS: Oxytocin 15 Units/NS 250ml 15 UNITS/250 ML IV.SOLN 2 UNITS IV (08:48)
[2025-03-15] MEDS: 0.9% Normal Saline Single 100 ML IV.SOLN. INTRA-UTER (08:49)
[2025-03-15 09:53] LABS: AST(SGOT) 21 U/L (<=31); Alanine Aminotransfer ALT/SGPT 14 U/L (<=34); Estimated Creatinine Clearance 137.67 ml/min (50-250); Uric Acid 6.4 mg/dL (2.6-6.0)
[2025-03-15 10:01] LABS: Creatinine, Urine (random) 69.70 mg/dL (28.00-217.00); Protein, Urine (Random) 12.4 mg/dL (0.0-12.0); Protein:Creat Ratio 178 mg/g CRE (0-200)
--- NOTE | 2025-03-15 11:56 | PCM.PN.OB ---
Subjective Subjective Walking the halls, coping well. Partner at bedside Objective Data Objective Data Vital Signs: Vital Signs Temp Pulse Resp BP 97.0 F L 87 16 138/75 H 03/15/25 11:26 03/15/25 11:26 03/15/25 11:26 03/15/25 11:26 Weight: 191 lb Body Mass Index (BMI) 36.1 Intake & Output: Intake and Output for Last 24 Hours 03/13/25 03/14/25 03/15/25 23:59 23:59 23:59 Intake Total 7.33 / 7.33 Balance 7.33 / 7.33 Lab / Micro Data 03/15/25 07:55 03/15/25 09:20 Labs: Laboratory Results - last 24 hr 03/15/25 07:55: WBC 9.5, RBC 3.61 L, Hgb 10.9 L, Hct 30.7 L, MCV 85.0, MCH 30.2, MCHC 35.5, RDW Std Deviation 40.2, RDW Coeff of Diana 13.1, Plt Count 123 L, MPV 12.0, Immature Gran % (Auto) 1.100 H, Neut % (Auto) 79.0 H, Lymph % (Auto) 15.7 L, [place] % (Auto) 3.5, Eos % (Auto) 0.4, Baso % (Auto) 0.3, Absolute Neuts (auto) 7.5, Absolute Lymphs (auto) 1.48, Nucleated RBC % 0, Syphilis Total Ab Nonreactive, Blood Type A POSITIVE, Antibody Screen NEGATIVE 03/15/25 09:20: Creatinine 0.63 L, Estim Creat Clear Calc 137.67, Est GFR (MDRD) Non-Af 127, Uric Acid 6.4 H, AST 21, ALT 14, U Random Total Protein 12.4 H, Urine Creatinine 69.70, Protein/Creatinin Ratio 178 Physical Exam Manual OB Exam: dilated 3.5, effaced 60, station -2 and other AROM clear fluid NST FHR Rate Baby A Baseline: 140 Variability:: Minimal Accelerations:: 15 x 15 Decelerations:: Variable FHR Category:: Category II Uterine Activity:: Irregular every 3-5 minutes Assessment & Plan (1) 39 weeks gestation of : (2) Encounter for induction of labor: COMMENT: Elective, increasing BP with history of preeclampsia PLAN: Plan 1) AROM clear fluid 2) Pitocin at 6mu's, continue with active management 3) Continuous EFM 4) Epidural upon request 5) collaborative physician and updated on above assessment, status, and plan of care
[2025-03-15] MEDS: Lactated Ringers 1,000 ML 999 ML IV ×2 (16:15→22:25)
[2025-03-15] MEDS: fentaNYL-bupivacaine (epidural) 100 ML BAG EPIDURAL ×2 (17:07→21:49)
[2025-03-15] MEDS: Amnioinfusion- 0.9% NS 1,000 ML IV.SOLN. 1000 ML INTRA-UTER (18:26)
[2025-03-15] MEDS: Lactated Ringers 1,000 ML 200 ML IV (18:33)
[2025-03-16] VITALS (23 sets, daily range): BP systolic 94–130; BP diastolic 47–111; PULSE 72–115; RESP 15–20; TEMP 36–37.4; O2SAT 91–100
[2025-03-16] MEDS: Lactated Ringers 1,000 ML 200 ML IV (00:06)
[2025-03-16] MEDS: fentaNYL-bupivacaine (epidural) 100 ML BAG EPIDURAL (02:11)
[2025-03-16] MEDS: fentaNYL 100 MCG/2 ML Ampul EPIDURAL (03:53)
[2025-03-16] MEDS: Cefazolin 1 GM/5 ML Vial 2 GM IV (04:00)
[2025-03-16] MEDS: TRANEXAMIC ACID 1,000 MG/10 ML ML 1000 MG IV (04:08)
[2025-03-16] MEDS: Azithromycin 500 MG Vial (SNAP) IV (04:27)
[2025-03-16] MEDS: morphine PF (epidural) 5 MG/10 ML Vial 3 MG EPIDURAL (04:43)
[2025-03-16] MEDS: morphine PF (epidural) 5 MG/10 ML Vial 2 MG IV (04:52)
--- NOTE | 2025-03-16 05:15 | OP.PCM_ITS ---
Operative Report (Standard) Operative Information Date of Procedure: 03/16/25 Pre-Operative Diagnosis: 39 week gestation, elective induction of labor, history of pre eclampsia, intolerance to labor Post-Operative Diagnosis: As above Surgery/Procedure Performed: PLTCS via pfannenstiel incision interior block wirer: Yes Mastic Floor Layer: Shelly Guzman CNM Tasks completed by nurse practitioner physicians assistant: Retracting Type of Anesthesia: Epidural Procedure Start Time: 04:02 Procedure Stop Time: 05:07 Select all DRAINS/GRAFTS/IMPLANTS that apply: None Special Medications: None Estimated Blood Loss: 1000 mL Fluids Replaced: 900 mL Specimen collected: No Description of surgery: Indications: The patient is a who was admitted for an elective IOL at 39 weeks for increasing blood pressure at last OB visit and history of pre eclampsia. An intracervical dumont was placed and pitocin was started. After about 19 hours the patient progressed to 7 cm dilated after being 6 cm for 4 hours, and I was called for a prolonged heart rate deceleration. Upon entering the OR, FHT was in the 90's. FHT as 60 bpm for about 5-6 min, followed by FHT 90 bpm for about 7-8 min. Discussed r/b/a section with patient and the patient desired to proceed. Procedure: The patient was taken to the operating room where she was prepped and draped in the dorsal supine position with a leftward tilt. Epidural anesthesia was found to be adequate. A Pfannenstiel skin incision was made with a scalpel, and this was carried down to the underlying layer of fascia. The fascia was incised in the midline. The fascial incision was extended with lateral traction and blunt dissection. Raiza's were placed on the fascia, and the fascia was tented off the rectus muscles. The fascia was dissected off the rectus muscles in a cephalad direction using blunt dissection. The rectus muscles were in the midline. The peritoneum was identified. The peritoneum was entered bluntly with good visualization of the bladder. The peritoneal incision was extended with lateral traction. A bladder blade was inserted. A low transverse incision was made on the uterus with a scalpel. The uterine incision was then extended with cephalad and caudad traction. A hand was placed in the pelvis to deliver the head, and the head was flexed and delivered through the hysterotomy using a nursing hand from below vaginally to help elevate the head. The head and body of the infant were delivered without any excessive traction, force, or delay. The cord was clamped and cut immediately and the viable female was handed off to the awaiting nursery staff. The placenta delivered with fundal massage and was noted to be normal- appearing and intact with a three-vessel cord. The uterus was exteriorized. The uterus was cleared of all clot and debris. The hysterotomy was closed with 1-0 Vicryl in a running locked fashion. An additional rhnjsv-di-eexau suture was placed for hemostasis centrally along the hysterotomy. The uterus was placed back into the abdomen. Hemoblast was placed over the hysterotomy. The subfascial space was inspected and there was some oozing along the right rectus muscle. Hemoblast was applied along the right rectus muscle and pressure applied. Bleeding was then hemostatic. The hysterotomy was again inspected. The right angle of the uterine incision was noted to be slightly bleeding. An additional ymnyga-ix-imkik suture was placed at the right angle for hemostasis. Hemostasis was noted of the uterine incision. STRATAFIX was used to close the fascia in running fashion. The subcutaneous space was irrigated and made hemostatic with the Bovie cautery. The subcutaneous space was reapproximated with 3-0 Vicryl. The skin was closed with 4-0 Monocryl in a subcuticular fashion. A silver dressing was placed. Instrument, sharp, sponge counts were correct x 2. The patient was taken to the recovery room in stable condition. Surgical Findings: Viable female infant weighing 5 pounds 1 ounce Apgars 7, 9 Normal appearing uterus and bilateral adnexa Normal appearing placenta and a long 3 VC Complications Complications: No Admit VTE Documentation VTE Present on Admission: No VTE Mechan Device Prophylaxis: SCD's
[2025-03-16] MEDS: Oxytocin 15 Units/NS 250ml 15 UNITS/250 ML IV.SOLN 83 UNITS IV (05:30)
[2025-03-16] MEDS: Ketorolac 30 MG/ML Syringe IV ×3 (05:52→17:48)
[2025-03-16] MEDS: Lactated Ringers 1,000 ML 100 ML IV (08:38)
--- NOTE | 2025-03-16 11:27 | NURSING ---
Student charting reviewed Evie HAYWARD instructor
[2025-03-16] MEDS: Senna/Docusate Sodium 1 Tablet PO (11:42)
[2025-03-16] MEDS: Cefazolin 1 GM/50 ML BAG IV (11:43)
[2025-03-16] MEDS: 0.9% Saline Lock 10 ML Syringe IV ×2 (11:44→17:48)
--- NOTE | 2025-03-16 17:09 | NURSING ---
Casey catheter still in place at this time as pt is mostly in bed and not ambulating independently yet due to exhaustion after feeding struggles and blood glucose issues with infant today.
--- NOTE | 2025-03-16 17:14 | NURSING ---
Removal of Casey catheter delayed due to pt exhaustion and decreased mobility after having feeding issues and blood sugar issues with infant all day.
[2025-03-17 04:00] VITALS: BP 120/66; PULSE 96; RESP 14; TEMP 36.4; O2SAT 98
[2025-03-17 05:10] LABS: Hematocrit 24.1 % (37-47); Hemoglobin 8.4 g/dL (12.0-15.0); Mean Corp Hgb Conc 34.9 g/dL (32-36); Mean Corpuscular Volume 88.3 fL (81-99); Mean Platelet Vol. 10.8 fl (6.2-12.0); POSITIVE COUNT YES; Platelet Count 91 K/mm3 (150-450); RBC Distribution Width CV 13.5 % (11.6-14.6); RBC Distribution Width SD 43.1 fl (35.1-43.9); Red Blood Count 2.73 M/mm3 (4.2-5.4); White Blood Count 8.1 K/mm3 (4.4-11.0)
[2025-03-17 05:40] LABS: Scan Indicated on CBC? Y/N YES- FLAGS NOTED
--- NOTE | 2025-03-17 08:13 | PCM.PROGNOTE ---
Subjective Subjective patient seen at bedside, doing well. Patient reports mild pain from incision. lochia mild. requesting abdominal binder. not passing flatus yet but feels she needs to. Objective Data Objective Data Vital Signs: Vital Signs Temp Pulse Resp BP Pulse Ox O2 Del Method 97.6 F L 96 14 120/66 98 Room Air 03/17/25 04:00 03/17/25 04:00 03/17/25 04:00 03/17/25 04:00 03/17/25 04:00 03/17/25 04:00 Oxygen Delivery Method Room Air Weight: 86.636 kg Body Mass Index (BMI) 36.1 Intake & Output: Intake and Output for Last 24 Hours 03/15/25 03/16/25 03/17/25 23:59 23:59 23:59 Intake Total 3489.67 / 3489.67 1908.27 / 1908.27 Output Total 1000 / 1000 3700 / 3700 Balance 2489.67 / 2489.67 -1791.73 / -1791.73 Lab / Micro Data 03/17/25 04:55 03/15/25 09:20 Labs: Laboratory Results - last 24 hr 03/17/25 04:55: WBC 8.1, RBC 2.73 L, Hgb 8.4 L, Hct 24.1 L, MCV 88.3, MCH 30.8, MCHC 34.9, RDW Std Deviation 43.1, RDW Coeff of Diana 13.5, Plt Count 91 L, MPV 10.8 Physical Exam Narrative Abd: fundus firm. dressing dry and intact Const alert and oriented x3 General Appearance: cooperative HEENT normocephalic Neck General: normal visual inspection GI soft to palpation and non-distended GI Narrative: Fundus firm Extremity normal to inspection and no calf tenderness Skin no rashes or lesions noted Neuro oriented x3 and CN's II-XII intact bilaterally Psych mental status grossly normal Assessment & Plan Assessment/Plan (1) Delivery by section: (2) Chronic anemia: PLAN: Plan POD#1, Doing well Routine care pain mgmt monitor VS ambulation Start PO iron abdominal binder
[2025-03-17 08:19] VITALS: BP 130/76; PULSE 93; RESP 16; TEMP 36.4; O2SAT 98
[2025-03-17] MEDS: Senna/Docusate Sodium 1 Tablet PO ×2 (11:42→11:45)
[2025-03-17 14:00] VITALS: BP 131/80; PULSE 101; RESP 16; TEMP 36.2; O2SAT 99
[2025-03-17 20:20] VITALS: BP 125/81; PULSE 97; RESP 16; TEMP 36.1; O2SAT 99
[2025-03-17 23:44] VITALS: BP 120/70; PULSE 93; RESP 16; TEMP 36.4; O2SAT 99
[2025-03-18 04:15] VITALS: BP 127/72; PULSE 88; RESP 14; TEMP 36.6; O2SAT 99
--- NOTE | 2025-03-18 10:24 | PCM.PN.OB ---
Subjective Subjective Patient is doing well. She is ambulating and voiding without difficulty. She is tolerating regular diet without nausea or vomiting. She is passing flatus. She has been walking the special care nursery without lightheadedness or dizziness. She denies chest pain, shortness of breath, leg pain. Pain was controlled however pain has changed today. She notices a superficial sharp and burning pain along the incision with certain movements. The pain then goes away on its own quickly. She has no pain at rest. Objective Data Objective Data Vital Signs: Vital Signs Temp Pulse Resp BP Pulse Ox O2 Del Method 97.9 F 88 14 127/72 H 99 Room Air 03/18/25 04:15 03/18/25 04:15 03/18/25 04:15 03/18/25 04:15 03/18/25 04:15 03/18/25 04:15 Oxygen Delivery Method Room Air Weight: 191 lb Body Mass Index (BMI) 36.1 Intake & Output: Intake and Output for Last 24 Hours 03/16/25 03/17/25 03/18/25 23:59 23:59 23:59 Intake Total 1908.27 / 1908.27 Output Total 3700 / 3700 Balance -1791.73 / -1791.73 Lab / Micro Data 03/17/25 04:55 03/15/25 09:20 Physical Exam Const alert and no apparent distress General Appearance: comfortable HEENT normocephalic Resp normal respiratory effort GI soft to palpation and non-tender GI Narrative: No rebounding, no guarding, no rigidity. Appropriate tenderness along incision site. The silver dressing is c/d/i with no surrounding erythema and no drainage or blood on the dressing Extremity no calf tenderness Assessment & Plan (1) Delivery by section: PLAN: POD#2 s/p section. Doing well. She states she may want to go home today depending on how baby does in SCN. Discharge instructions reviewed and questions answered. (2) Chronic anemia: PLAN: Cont PO iron (3) Anxiety: COMMENT: Taking Zoloft (4) History of pre-eclampsia:
[2025-03-18 10:34] VITALS: BP 130/86; PULSE 88; RESP 16; TEMP 36.1; O2SAT 100
--- NOTE | 2025-03-18 10:38 | DCINST_ITS ---
Discharge Instructions DC O2, CPAP, BIPAP needs Home O2 Discharge instructions: No Dressing / Incision Discharge Activity: May Drive (once you are strong enough to slam on a brake or turn a steering wheel sharply) and May Shower May resume sexual activity in: 6 weeks (nothing in the vagina and no soaking in water) Ice area for (Minutes): 15 Weight Bearing Status: Weight bearing as tolerated Lifting Restrictions: nothing heavier than baby Dressing / Incision Call your doctor if your incision/area has: Continuous Slow Oozing, Sudden Increased Bleeding, Increased Pain/ Swelling, Increased Redness, Foul Smelling Discharge and Swelling at the incision site Call your doctor if you observe: Fever of 101 or Higher, Inability to urinate, Inability to have a bowel movement, Using more than 1 pad per hour, Shortness of breath, Dizziness, Swelling in the ankles, Chest pain, Increased palpitations (irregular heartbeat), Calf discomfort and Uncontrolled pain Suture Line Care: Avoid Pulling/Pushing and Avoid Pinching/Bending Remove Dressing in: leave in place till F/U Cleanse incision/area with: Soap & Water Follow Up Care Please Follow Up With: Belen Soriano DO When: 1 week/early next week for incision check 6 weeks for exam Test Results: Test results from this visit will be discussed in further detail at your follow- up appointment, if applicable. Discharge Plan Admission Admit Date/Time: 03/15/25 07:14 Primary Reason for Your Visit: delivery Attending Provider: Belen Soriano Primary Care Provider: Hector Gorman Instructions Patient Instructions: After a Delivery (WP) Discharge Orders/Prescriptions Prescriptions: New ibuprofen 600 mg tablet 600 mg PO Q6H PRN (Reason: pain) Qty: 30 0RF acetaminophen [Tylenol] 325 mg tablet 650 mg PO Q6H PRN (Reason: pain) Qty: 30 0RF oxycodone 5 mg tablet 5 mg PO Q6H PRN (Reason: pain) 7 Days Qty: 7 0RF ferrous sulfate 325 mg (65 mg iron) tablet 325 mg PO QODAY Qty: 30 0RF docusate sodium [Stool Softener] 100 mg capsule 100 mg PO DAILY Qty: 30 0RF Continued ar-gc-bkgo-FA-Ca carb-vit K 18 mg iron-400 mcg-500 mg tablet 1 tab PO QDAY sertraline [Zoloft] 25 mg tablet 25 mg PO DAILY Discontinued aspirin [Adult Low Dose Aspirin] 81 mg tablet,delayed release (DR/EC) 81 mg PO QDAY famotidine [Pepcid] 20 mg tablet 20 mg PO DAILY Referrals / Follow Up: Hector Gorman MD [Primary Care Provider, Internal Medicine] Disposition Disposition (needs filled in before D/C Order can be placed): Home, Self Care
[2025-03-18] MEDS: Senna/Docusate Sodium 1 Tablet PO (11:32)
[2025-03-18 14:10] VITALS: BP 128/86; PULSE 86; RESP 16; TEMP 35.9; O2SAT 99
[2025-03-18 20:04] VITALS: BP 126/69; PULSE 94; RESP 16; TEMP 36.6; O2SAT 99
[2025-03-19 01:03] VITALS: BP 132/83; PULSE 86; RESP 16; TEMP 36.5; O2SAT 100
--- NOTE | 2025-03-19 06:42 | PCM.DC.SUM ---
Providers Date of Admission: 03/15/25 Primary Care Physician: Dr. Hector Gorman MD Reason For Visit: INDUCTION Diagnosis Discharge Diagnosis (1) Delivery by section: Status: Acute (2) Chronic anemia: Status: Chronic Code(s): D64.9 - Anemia, unspecified (3) Anxiety: Status: Acute Code(s): F41.9 - Anxiety disorder, unspecified (4) History of pre-eclampsia: Status: Inactive Code(s): Z87.59 - Personal history of other complications of , childbirth and the puerperium Medications at Discharge Home Medications okxsfwih-jza-oapz-FA-Ca carb-vit K 18 mg iron-400 mcg-500 mg tablet 1 tab PO QDAY 02/28/24 sertraline 25 mg tablet (Zoloft) 25 mg PO DAILY anxiety 03/11/25 acetaminophen 325 mg tablet (Tylenol) 650 mg (2 x 325 mg) PO Q6H PRN pain #30 tabs 03/18/25 docusate sodium 100 mg capsule (Stool Softener) 100 mg PO DAILY #30 caps 03/18/25 ferrous sulfate 325 mg (65 mg iron) tablet 325 mg PO QODAY #30 tabs 03/18/25 ibuprofen 600 mg tablet 600 mg PO Q6H PRN pain #30 tabs 03/18/25 oxycodone 5 mg tablet 5 mg PO Q6H PRN pain 7 days #7 tabs 03/18/25 Hospital Course Operations section Procedures None Summary of Care Provided Minutes Spent on Discharge: 15 Hospital Course: Patient had section. Hospital course was uneventful. Physical Exam Narrative Patient seen at bedside. Ambulating and voiding without difficulty. Pain controlled. Denies headache, vision changes, SOB, or CP. Baby remains in SCN. Desires discharge and to go hotel status. Const alert and no apparent distress General Appearance: cooperative and comfortable Exam Limitations: no limitations HEENT normocephalic Eyes General Eye: normal appearance of both eyes Neck full ROM General: normal visual inspection Chest Chest: symmetrical chest wall rise Resp normal respiratory effort and normal air movement Effort and Inspection: symmetric chest movement Auscultation: clear to auscultation bilaterally Cardio regular rate and regular rhythm GI normal to inspection, nondistended, normoactive bowel sounds Back/Spine normal ROM Extremity full ROM and no calf tenderness General Extremity: normal exam except as noted Skin no rashes or lesions noted Wound Narrative: Dressing is dry and intact. Neuro CN's II-XII intact bilaterally Psych mental status grossly normal Weight / BMI Weight Weight: 191 lb Body Mass Index (BMI) 36.1 ABG / Lab / Microbiology Data 03/17/25 04:55 03/15/25 09:20 D/C Instructions Discharge Activity: May Drive (2 weeks) and May Shower May resume sexual activity in: 6 weeks (nothing in the vagina and no soaking in water) Ice area for (Minutes): 15 Weight Bearing Status: Weight bearing as tolerated Lifting Restricted to (Lbs): 25 Call your doctor if your incision/area has: Continuous Slow Oozing, Sudden Increased Bleeding, Increased Pain/ Swelling, Increased Redness, Foul Smelling Discharge and Swelling at the incision site Call your doctor if you observe: Fever of 101 or Higher, Inability to urinate, Inability to have a bowel movement, Using more than 1 pad per hour, Shortness of breath, Dizziness, Swelling in the ankles, Chest pain, Increased palpitations (irregular heartbeat), Calf discomfort and Uncontrolled pain Suture Line Care: Avoid Pulling/Pushing and Avoid Pinching/Bending Remove Dressing in: 5 days (Remove yourself or call office and schedule appointment for dressing removal.) Cleanse incision/area with: Soap & Water DC O2, CPAP, BIPAP Needs Home O2 Discharge instructions: No Please Follow Up With: Belen Soriano DO When: 1 week/early next week for incision check 6 weeks for exam Meaningful Use Info Meaningful Use Meaningful Use Diagnoses (Choose all that apply): None applicable Discharge Plan Admission Admit Date/Time: 03/15/25 07:14 Primary Reason for Your Visit: delivery Attending Provider: Belen Soriano Primary Care Provider: Hector Gorman Instructions Patient Instructions: After a Delivery (WP) Discharge Orders/Prescriptions Prescriptions: New ibuprofen 600 mg tablet 600 mg PO Q6H PRN (Reason: pain) Qty: 30 0RF acetaminophen [Tylenol] 325 mg tablet 650 mg PO Q6H PRN (Reason: pain) Qty: 30 0RF oxycodone 5 mg tablet 5 mg PO Q6H PRN (Reason: pain) 7 Days Qty: 7 0RF ferrous sulfate 325 mg (65 mg iron) tablet 325 mg PO QODAY Qty: 30 0RF docusate sodium [Stool Softener] 100 mg capsule 100 mg PO DAILY Qty: 30 0RF Continued py-je-dsfk-FA-Ca carb-vit K 18 mg iron-400 mcg-500 mg tablet 1 tab PO QDAY sertraline [Zoloft] 25 mg tablet 25 mg PO DAILY Discontinued aspirin [Adult Low Dose Aspirin] 81 mg tablet,delayed release (DR/EC) 81 mg PO QDAY famotidine [Pepcid] 20 mg tablet 20 mg PO DAILY Referrals / Follow Up: Hector Gorman MD [Primary Care Provider, Internal Medicine] Disposition Disposition (needs filled in before D/C Order can be placed): Home, Self Care
[2025-03-19 07:35] VITALS: BP 117/68; PULSE 83; RESP 16; TEMP 36.3; O2SAT 98
[2025-03-19 08:37] LABS: Hematocrit 23.9 % (37-47); Hemoglobin 8.2 g/dL (12.0-15.0); Mean Corp Hgb Conc 34.3 g/dL (32-36); Mean Corpuscular Volume 87.2 fL (81-99); Mean Platelet Vol. 10.0 fl (6.2-12.0); Platelet Count 131 K/mm3 (150-450); RBC Distribution Width CV 13.5 % (11.6-14.6); RBC Distribution Width SD 42.9 fl (35.1-43.9); Red Blood Count 2.74 M/mm3 (4.2-5.4); White Blood Count 6.7 K/mm3 (4.4-11.0)
[2025-03-19] MEDS: Senna/Docusate Sodium 1 Tablet PO (10:37)
--- NOTE | 2025-03-22 10:26 | CASEMGMT ---
Social Work Assessment Labor and Delivery Unit Patient Address: [address] [place] [address] Phone number: [phone] Date of Referral: 03/17/25 Time of Referral:? 1020 Referred By: Belen Soriano Date of Intervention: ??03/19/25 Time of Intervention:? 0900 Reason for Referral:? hx of anxiety and depression, baby in SCN Sw completed chart review and acknowledges social work consult. Sw presented to bedside and introduced self to mother of baby (CAREY- Bela) and father of baby (FOB- Blu). Sw explained reason for sw involvement and completed psychosocial assessment. History obtained from: medical records, MOB and FOB Household composition: Currently residing in the family home is, PREMA PATINO, their 2 year old daughter: Evy and baby when ready for discharge. Parents deny any problems or concerns with housing, stating that it is safe and secure. Patient's parent/guardian status:? ?Parents report that they have been together for four years after meeting each other on social media, but had also known each other by attending the same gym together. No concerns of domestic violence or intimate partner violence. [place] baby is second child for parents together. Medical History: ?CAREY is 24 year old female who is 3, para 1- now following labor and delivery of . CAREY received routine care during with [facility]. CAREY presented to hospital for induction of labor and delivered baby via emergency due to non-reassuring heart tones on 03/16/25 at 39 weeks gestation. Baby girl, named Radha Craig, was born weighing 5lb 1oz and had apgars of 7 and 9 at one and five minutes of life, respectfully. CAREY is breast feeding and reports that baby will be followed by Dr. Coon for pediatrics. - [place] did require transfer to [facility] due to hypoglycemia. She is making progress towards identified treatment goals and may be ready for discharge tomorrow, 03/20/25. Educational Status:?CAREY graduated from high school, PREMA reports to stopping after 11th grade. 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 CAREY stays at home. Infant Supplies:?? All necessary baby supplies obtained, including: car seat, safe sleep space, clothes, diapers and wipes. Childcare/Caregiver(s):? MOB will be the primary caregiver to baby. Transportation:?? Both parents have their drivers license and reliable means of transportation. No barriers. Programs/Agencies Involved: ???Parents are not connected to any community resources that assist them financially. Children Services/Legal Issues:??? No history or prior involvement with children services. NO issues or concerns warranting referral to be made at this time. Behavioral Health Issues: ??Mental Health History:?PREMA denies mental health history. CAREY reports that she has always seemed to have struggled with anxiety and depression. CAREY states that after her daughter was born she had some really bad separation anxiety and when it was time to stop breast feeding that caused her some more anxiety. CAREY states that at that time she talked to PREMA about what she was struggling with and he supported her in getting connected to a counselor as well as talking to her OBGYN about starting medication. CAREY states that the counselor was really helpful as well as the zoloft. CAREY reports that she felt really good during her . ?? Substance Use History: Parents deny substance use. ?? Family History:?Parents deny family history of substance use or significnant mental health history. ? Drug Screens: ??No drug screens observed while completing chart review. Family/Social Stressors:? Parents deny any issues, concerns or stressors. CAREY states that initially when baby had to be transferred to special care it was a concern for them. They knew that it was a potential that she may need to be transferred, but they were hoping that she would not have to. Then when she did it made them nervous, but they were also happy that she was able to stay in [place] and did have to be transferred all the way to [place]. Parents state that the hardest part is being away from their 2 year old who is at home being cared for by other family members and friends. Support Systems: CAREY states that her sister, family members and paternal family members are their biggest supports, outside of each other. Depression/Shaken Baby/Safe Sleeping:? Lindy educated parents on signs and symptoms of baby blues and depression and anxiety. CAREY reports that she if she were to struggle with her mental health during this period she feels as though she would be able to recognize the symptoms sooner and would know how to advocate for herself sooner. PREMA states that he also knows what to be on the lookout for now, and would know how to help MOB earlier. CAREY reports that her medication is also helpful, she is able to tell a big difference with the zoloft. MOB states that she is no longer seeing her counselor regularly, but feels strongly that if she were to struggle following this hospitalization and baby's admission to SCN thats he would not hesitate to get reconnected. Sw educated parents to shaken baby prevention and ABCs of safe sleep. Parents express understanding. ASSESSMENT:? MOB and baby admitted following labor and delivery. MOB with mental health history of anxiety and depression. CAREY is currently prescribed Zoloft by her OBGYN and reports that the medication has significantly helped her mental health once she started taking it. CAREY reports that she has always struggled wit anxiety and depression at baseline, but it has usually been managed, until she started to experience separation anxiety after she had her first daughter. CAREY states that she is aware that she may struggle with some mental health struggles due to her baby needing to be admitted to the [facility], buts he is happy that baby was able to receive the care that she needed, she mostly struggled being away from her 2 year old longer than what was expected. MOB states that she is eager to be able to be home and hopes that she and baby will both be discharged to home soon. Parents were open and receptive to meet and talk with sw. MOB was observed to hold and care for baby lovingly and appropriately. Both parents state to having a connection and gtz with . Baby has made progress towards identified medical goals, and they are hoping she is medically ready for discharge tomorrow. Parents state that have all necessary baby items and natural supports in place. PLAN:? No other services requested or indicated. MOB and baby to be discharged when medically ready. Parents were provided literature regarding: signs and symptoms of baby blues and mood and anxiety disorders, Help Me Grow, shaken baby prevention, ABCs of safe sleep and a list of county resources that are available for them should any needs present themselves. Dayanara Matta, ELECTROPHYSIOLOGY SCIENTIST, M1A1 [employer]
== END 2025-03-19 10:45 | disposition home or self-care (01) | DRG 788 ==
PROVIDERS: Advanced Practice Midwife; Admitting Provider Advanced Practice Midwife; PCP Internal Medicine; Referring Provider Advanced Practice Midwife; Visit Provider Obstetrics & Gynecology
DX: O26.893 Other specified pregnancy related conditions, third trimester (principal); O99.214 Obesity complicating childbirth; D64.9 Anemia, unspecified; F41.9 Anxiety disorder, unspecified; O99.02 Anemia complicating childbirth; O76 Abnormality in fetal heart rate and rhythm complicating labor and delivery; O99.344 Other mental disorders complicating childbirth; R03.0 Elevated blood-pressure reading, without diagnosis of hypertension; Z3A.39 39 weeks gestation of pregnancy; Z37.0 Single live birth; Z79.82 Long term (current) use of aspirin; Z79.899 Other long term (current) drug therapy; Z87.59 Personal history of other complications of pregnancy, childbirth and the puerperium
CPT/HCPCS: 82565; 82570; 84156; 84450; 84460; 84550; 85025; 85027; 86780; 86850; 86900; 86901; 99221; A4216; G0378; J2405

== ENCOUNTER 2025-04-11 12:15 | Observation (INO) | payer BC, MEDICAID, SELFPAY ==
[2025-04-11] VITALS (16 sets, daily range): BP systolic 115–140; BP diastolic 58–88; PULSE 65–106; RESP 14–18; TEMP 36.5–37.2; O2SAT 96–100; BMI 32.6
[2025-04-11 12:40] LABS: Hematocrit 35.5 % (37-47); Hemoglobin 12.2 g/dL (12.0-15.0); Immature Granulocytes Count 0.060 X10^3/uL (0.0-0.0); Mean Corp Hgb Conc 34.4 g/dL (32-36); Mean Corpuscular Volume 82.0 fL (81-99); Mean Platelet Vol. 9.0 fl (6.2-12.0); NRBC Flagged by Analyzer 0 % (0-5); Platelet Count 197 K/mm3 (150-450); RBC Distribution Width CV 12.2 % (11.6-14.6); RBC Distribution Width SD 36.8 fl (35.1-43.9); Red Blood Count 4.33 M/mm3 (4.2-5.4); White Blood Count 13.1 K/mm3 (4.4-11.0)
[2025-04-11 12:56] LABS: AST(SGOT) 23 U/L (<=31); Alanine Aminotransfer ALT/SGPT 22 U/L (<=34); Albumin, Serum 4.6 g/dL (3.5-5.0); Alkaline Phosphatase 83 U/L (35-104); Anion Gap 15 (5-15); BUN 13 mg/dL (4-19); BUN/Creat Ratio 14.8 RATIO (10-20); Calcium,Total 9.6 mg/dL (7.6-11.0); Carbon Dioxide 21.2 mmol/L (21.0-32.0); Chloride 101 mmol/L (98-108); Estimated Creatinine Clearance 92.43 ml/min (50-250); Globulin 3.1 g/dL (2.2-4.2); Glucose 148 mg/dL (70-99); Lipase 41 U/L (13-75); Potassium 3.8 mmol/L (3.3-5.1)
--- NOTE | 2025-04-11 13:08 | CT_ITS ---
PROCEDURE: CT/Abdomen/Pelvis W IV Cont ONLY
--- NOTE | 2025-04-11 13:09 | ED.VIS.GI ---
HPI HPI - GI History of Present Illness Chief Complaint: Abd Pain Detail of Chief Complaint: Abdominal pain Informant: patient Narrative Narrative: Patient presents with abdominal pain that started 5 days ago. Pain became worse after eating last night. She however does not associate the pain getting worse with eating. Patient states that she has vomited 4 or 5 times since last night. She developed low-grade fever up to 100.9. Patient tells me she had a 3 weeks ago. She denies diarrhea. Describes pain as upper abdomen but last night the pain began in the right lower quadrant as well. [facility] Medical History (Updated 04/11/25 @ 14:[address] Tye Anaya, DO) Chronic anemia History of pre-eclampsia Anxiety TMJ arthralgia Left ear pain Blood glucose abnormal Hyperlipidemia Elevated liver enzymes Menstrual irregularity Screening for thyroid disorder Screening for cardiovascular condition GERD (gastroesophageal reflux disease) Preeclampsia Head ache Seasonal allergies Home Medications ?Medication ?Instructions ?Recorded ?Last Taken ?Type zynewlzi-mpu-ffao-FA-Ca carb-vit K 1 tab PO QDAY 02/28/24 03/14/25 History 18 mg iron-400 mcg-500 mg tablet sertraline 25 mg tablet (Zoloft) 25 mg PO DAILY anxiety 03/11/25 03/14/25 History acetaminophen 325 mg tablet 650 mg (2 x 325 mg) PO Q6H PRN 03/18/25 Unknown Rx (Tylenol) pain #30 tabs docusate sodium 100 mg capsule 100 mg PO DAILY #30 caps 03/18/25 Unknown Rx (Stool Softener) ferrous sulfate 325 mg (65 mg 325 mg PO QODAY #30 tabs 03/18/25 Unknown Rx iron) tablet ibuprofen 600 mg tablet 600 mg PO Q6H PRN pain #30 tabs 03/18/25 Unknown Rx oxycodone 5 mg tablet 5 mg PO Q6H PRN pain 7 days #7 tabs 03/18/25 Unknown Rx Allergy/AdvReac Type Severity Reaction Status Date / Time dexamethasone (From Decadron) Allergy Intermediate syncope Verified 04/11/25 12:20 metoclopramide (From Reglan) Allergy Intermediate anxious Verified 04/11/25 12:20 Family History Grandfather Diabetes Grandmother Diabetes Grandmother Myocardial infarction, Onset Age: 50 Surgical History Delivery by section History of ear surgery S/P ACL repair History of tonsillectomy Social History household members: spouse and children housing: house 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 Status: Never smoker alcohol intake: never substance use type: does not use what type of physical activity do you participate in: walking and weight training frequency: 3-4 times per week seatbelt use: always do you feel safe at home: Yes ROS ROS ED Review of Systems ROS Unobtainable: other Constitutional Constitutional ED: Reports fever(s) and lethargy; Denies chills, sweats or weight loss Eyes Eyes: Denies blurry vision, change in vision or diplopia ENT ENT ED: Denies rhinorrhea or sore throat Cardiovascular Cardiovascular: Reports chest pain and racing heartbeat; Denies orthopnea Respiratory/Chest Respiratory/Chest: Reports dyspnea and dyspnea on exertion; Denies cough, orthopnea or sputum Gastrointestinal Gastrointestinal: Reports abdominal pain, nausea and vomiting; Denies diarrhea Genitourinary Genitourinary ED: Denies dysuria, hematuria or urinary frequency Musculoskeletal Musculoskeletal: Denies arthralgias, back pain, myalgias or neck pain Integumentary Denies abscess, Abrasions or rash Neurologic Neurologic: Denies headache(s) or weakness Psychiatric Psychiatric: Denies anxiety, depression or suicidal thoughts Endocrine Endocrinology: Denies polydipsia, polyphagia or polyuria Hematologic/Lymphatic Hematologic/Lymphatic: Denies easy bleeding, easy bruising or lymphadenopathy Allergic/Immunologic Allergic/Immunologic ED: Denies mouth swelling, tongue swelling or urticaria EXAM Physical Exam Const Vital Signs: 04/11/25 12:17 04/11/25 12:20 04/11/25 13:20 Temperature 98.2 F 98.2 F 98.2 F Temperature Source Oral Oral Oral Pulse Rate 93 66 65 Respiratory Rate 16 16 14 Blood Pressure 128/88 H 138/72 H 140/76 H Blood Pressure Mean 101 94 97 Pulse Ox 99 98 98 Oxygen Delivery Method Room Air 04/11/25 14:00 Temperature 98.0 F Temperature Source Oral Pulse Rate 65 Respiratory Rate 14 Blood Pressure 130/68 H Blood Pressure Mean 88 Pulse Ox 98 Oxygen Delivery Method Positive well nourished and well developed General Appearance ED: well developed and NAD HEENT Reports TM's clear and moist mucous membranes normocephalic and atraumatic; Negative for trauma or tenderness Tympanic Membrane ED: Yes TM's clear Eyes PERRL and EOMs intact bilaterally General Eye ED: Negative for pale conjunctiva or scleral icterus Neck no lymphadenopathy, supple and no JVD General: Negative for tenderness Chest Wall inspection of chest normal and palpation of chest normal Chest: Negative for tenderness Resp normal respiratory effort and clear to auscultation bilaterally Effort and Inspection: Negative for respiratory distress or pain with movement Auscultation: Negative for rhonchi, wheezes or diminished lung sounds Cardio regular rate, regular rhythm, S1 normal heart sound, S2 normal heart sound and no murmurs Peripheral Pulses: pulses 2+ throughout GI normal to inspection, nondistended, normoactive bowel sounds, soft to palpation, non-distended and no masses GI Narrative: Tenderness palpation over the right upper quadrant with some guarding. Positive Ring sign. Patient also with tenderness over right lower quadrant over McBurney's with guarding. No rebound or rigidity or peritoneal signs. Back/Spine no CVA tenderness and no thoracic nor lumbar tenderness Extremity normal to inspection General Extremety ED: Negative for edema General Extremity: Negative for edema Neuro oriented x3, CN's II-XII intact bilaterally, no sensory deficits noted and gait normal Sensorium / Orientation: awake, alert, oriented to person, oriented to place and oriented to time Motor Exam: strength 5/5 throughout and strength abnormal Psych mental status grossly normal Skin no rashes or lesions noted and no wounds MDM MDM MDM Narrative Medical decision making narrative: Patient presented with abdominal pain x 5 days initially upper abdomen but today to the right lower quadrant. She developed a fever up to 100.9. Patient with recent . In the differential would be gallbladder disease versus appendicitis versus complication from such as abscess. IV line established. CBC with differential obtained showed a white count of 13.1 with hemoglobin 12.2 and platelet count of 197. Chemistries unremarkable. LFTs were normal. Urinalysis normal. Lipase normal at 41. CT scan of the abdomen pelvis consistent with acute appendicitis. Case discussed with general surgeon on-call Dr. Priest who will take patient to the operating room for definitive care. Lab Data Attestation: I reviewed the patient's lab results. Labs: Laboratory Results - last 24 hr 04/11/25 04/11/25 12:30 13:20 WBC 13.1 H RBC 4.33 Hgb 12.2 Hct 35.5 L MCV 82.0 MCH 28.2 MCHC 34.4 RDW Std Deviation 36.8 RDW Coeff of Diana 12.2 Plt Count 197 MPV 9.0 Immature Gran % (Auto) 0.500 Neut % (Auto) 86.6 H Lymph % (Auto) 7.6 L Kinney % (Auto) 5.0 Eos % (Auto) 0.1 Baso % (Auto) 0.2 Absolute Neuts (auto) 11.4 H Absolute Lymphs (auto) 1.00 Nucleated RBC % 0 Sodium 137 Potassium 3.8 Chloride 101 Carbon Dioxide 21.2 Anion Gap 15 BUN 13 Creatinine 0.89 Estim Creat Clear Calc 92.43 Est GFR (MDRD) Non-Af 92 BUN/Creatinine Ratio 14.8 Glucose 148 H Calcium 9.6 Total Bilirubin 0.73 AST 23 ALT 22 Alkaline Phosphatase 83 Total Protein 7.6 Albumin 4.6 Globulin 3.1 Albumin/Globulin Ratio 1.5 Lipase 41 Urine Color Yellow Urine Clarity Clear Urine pH 7.0 Ur Specific [place] 1.010 Urine Protein 30 H Urine Glucose (UA) Normal Urine Ketones 5 H Urine Occult Blood 10 H Urine Nitrite Negative Urine Bilirubin Negative Urine Urobilinogen 1 H Ur Leukocyte Esterase 25 H Urine RBC 0-5 SEEN Urine WBC 0-5 SEEN Ur Squamous Epith Cells 0-5 SEEN Amorphous Sediment 1+ Urine Bacteria 2+ Hyaline Casts 0-5 SEEN Urine Mucus 0 SEEN Radiography Diagnostic Testing: Clinical Impression(s) from Imaging Studies Abdomen/Pelvis CT 04/11/25 13:08 IMPRESSION: 1. Question mildly prominent appearance of the appendix, with associated small appendicolith. Please correlate clinically. In the proper clinical setting, considerations would include appendiceal inflammation. 2. Indistinct appearance of the uterus and adnexal structures consistent with recent gestation and section. No definite abnormal fluid collection. No unexpected radiopaque foreign body. 3. Tiny amount of free fluid in the pelvis. Reading Location: [id number] Discharge Plan Dx/Rx/DC Orders Clinical Impression: Abdominal pain, Acute appendicitis Disposition Disposition: Acute Care Hospital [facility]
[2025-04-11 13:28] LABS: Mucous, Urine 0 SEEN /hpf (<or=2+)
[2025-04-11 13:40] LABS: Color, Urine Yellow (Yellow); Glucose, Dipstick Normal (Normal); Ketone-Dipstick 5 mg/dl (Negative); Leukocyte Esterase-Dipstick 25 /ul (Negative); Nitrite-Dipstick Negative (Negative); Occult Blood-Urine 10 /ul (Negative); Protein-Dipstick 30 mg/dl (Negative); Specific Gravity, Urine 1.010 (1.002-1.030); Urine Bilirubin Dipstick Negative (Negative)
[2025-04-11 13:50] LABS: Red Blood Cells-Urine 0-5 SEEN /hpf (0-5); Squamous Epithelial Cells - UA 0-5 SEEN /hpf (5-10)
--- NOTE | 2025-04-11 14:08 | PCM.HP.STD ---
HPI - General General Date of Service: 04/11/25 HPI Narrative MARCELO LOZA, is a 24 F who presents due to right sided abdominal pain moved to the right lower quadrant today. Patient is 3 weeks status post . Patient CT abdomen pelvis showed appendicolith and mildly prominent appendix. White blood count 13. PFSH Medical History (Updated 04/11/25 @ 14:[address] Tye Anaya, DO) Chronic anemia History of pre-eclampsia Anxiety TMJ arthralgia Left ear pain Blood glucose abnormal Hyperlipidemia Elevated liver enzymes Menstrual irregularity Screening for thyroid disorder Screening for cardiovascular condition GERD (gastroesophageal reflux disease) Preeclampsia Head ache Seasonal allergies Home Medications ?Medication ?Instructions ?Recorded ?Last Taken ?Type qocfdjvz-czn-bhui-FA-Ca carb-vit K 1 tab PO QDAY 02/28/24 03/14/25 History 18 mg iron-400 mcg-500 mg tablet sertraline 25 mg tablet (Zoloft) 25 mg PO DAILY anxiety 03/11/25 03/14/25 History acetaminophen 325 mg tablet 650 mg (2 x 325 mg) PO Q6H PRN 03/18/25 Unknown Rx (Tylenol) pain #30 tabs docusate sodium 100 mg capsule 100 mg PO DAILY #30 caps 03/18/25 Unknown Rx (Stool Softener) ferrous sulfate 325 mg (65 mg 325 mg PO QODAY #30 tabs 03/18/25 Unknown Rx iron) tablet ibuprofen 600 mg tablet 600 mg PO Q6H PRN pain #30 tabs 03/18/25 Unknown Rx oxycodone 5 mg tablet 5 mg PO Q6H PRN pain 7 days #7 tabs 03/18/25 Unknown Rx Allergy/AdvReac Type Severity Reaction Status Date / Time dexamethasone (From Decadron) Allergy Intermediate syncope Verified 04/11/25 12:20 metoclopramide (From Reglan) Allergy Intermediate anxious Verified 04/11/25 12:20 Family History Grandfather Diabetes Grandmother Diabetes Grandmother Myocardial infarction, Onset Age: 50 Surgical History Delivery by section History of ear surgery S/P ACL repair History of tonsillectomy Social History household members: spouse and children housing: house 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 Status: Never smoker alcohol intake: never substance use type: does not use what type of physical activity do you participate in: walking and weight training frequency: 3-4 times per week seatbelt use: always do you feel safe at home: Yes Vital Signs Vital Signs Vital Signs: 04/11/25 12:17 04/11/25 12:20 04/11/25 13:20 Temperature 98.2 F 98.2 F 98.2 F Temperature Source Oral Oral Oral Pulse Rate 93 66 65 Respiratory Rate 16 16 14 Blood Pressure 128/88 H 138/72 H 140/76 H Blood Pressure Mean 101 94 97 Pulse Ox 99 98 98 Oxygen Delivery Method Room Air Weight Weight: 173 lb Body Mass Index (BMI) 32.6 Physical Exam Const alert, oriented x3 and no apparent distress HEENT normocephalic and head/scalp atraumatic Resp normal respiratory effort Cardio regular rate GI soft to palpation; Negative for non-distended GI Narrative: Pfannenstiel incision healing well Palpation: tender RLQ; Negative for guarding Extremity no clubbing, cyanosis or edema Neuro CN's II-XII intact bilaterally Psych mental status grossly normal Results Lab / Micro Data 04/11/25 12:30 04/11/25 12:30 Labs: Laboratory Results - last 24 hr 04/11/25 12:30: WBC 13.1 H, RBC 4.33, Hgb 12.2, Hct 35.5 L, MCV 82.0, MCH 28.2, MCHC 34.4, RDW Std Deviation 36.8, RDW Coeff of Diana 12.2, Plt Count 197, MPV 9.0, Immature Gran % (Auto) 0.500, Neut % (Auto) 86.6 H, Lymph % (Auto) 7.6 L, [place] % (Auto) 5.0, Eos % (Auto) 0.1, Baso % (Auto) 0.2, Absolute Neuts (auto) 11.4 H, Absolute Lymphs (auto) 1.00, Nucleated RBC % 0, Sodium 137, Potassium 3.8, Chloride 101, Carbon Dioxide 21.2, Anion Gap 15, BUN 13, Creatinine 0.89, Estim Creat Clear Calc 92.43, Est GFR (MDRD) Non-Af 92, BUN/Creatinine Ratio 14.8, Glucose 148 H, Calcium 9.6, Total Bilirubin 0.73, AST 23, ALT 22, Alkaline Phosphatase 83, Total Protein 7.6, Albumin 4.6, Globulin 3.1, Albumin/Globulin Ratio 1.5, Lipase 41 04/11/25 13:20: Urine Color Yellow, Urine Clarity Clear, Urine pH 7.0, Ur Specific [place] 1.010, Urine Protein 30 H, Urine Glucose (UA) Normal, Urine Ketones 5 H, Urine Occult Blood 10 H, Urine Nitrite Negative, Urine Bilirubin Negative, Urine Urobilinogen 1 H, Ur Leukocyte Esterase 25 H, Urine RBC 0-5 SEEN, Urine WBC 0-5 SEEN, Ur Squamous Epith Cells 0-5 SEEN, Amorphous Sediment 1+, Urine Bacteria 2+, Hyaline Casts 0-5 SEEN, Urine Mucus 0 SEEN Imaging Radiology Impression Abdomen/Pelvis CT 04/11/25 13:08 IMPRESSION: 1. Question mildly prominent appearance of the appendix, with associated small appendicolith. Please correlate clinically. In the proper clinical setting, considerations would include appendiceal inflammation. 2. Indistinct appearance of the uterus and adnexal structures consistent with recent gestation and section. No definite abnormal fluid collection. No unexpected radiopaque foreign body. 3. Tiny amount of free fluid in the pelvis. Reading Location: [id number] Assessment & Plan Assessment/Plan (1) Acute appendicitis: PLAN: Plan 1. Discussed procedure laparoscopic appendectomy, possible open along with the risk but not limited to bleeding, infection/abscess, injury to another organ (small bowel, colon, etc.), adhesion, hernia at incision sites, and anesthesia. Patient and her no further questions at this time. Analy Priest M.D. Pager: [phone] [facility] [address] [place] [address], [address] [place] [id number] Office: [phone]
[2025-04-11] MEDS: Piperacil/Tazobactam 3.375 GM in 0.9% Normal Saline (50mL MB+) 50 ML IV (14:53)
--- NOTE | 2025-04-11 14:59 | PCM.PRE.AN2 ---
ASA Classification* ASA Classification ASA Classification: 2 and E Assessment & Plan Anesthesia* Anesthesia Assessment Anesthesia Assessment: Discussed sedation and/or anesthesia options, risks, benefits, and alternatives with patient/parents/legal guardian/POA. Questions invited. The patient/parents/legal guardian/POA seems to understand and agrees to proceed with anesthesia plan. Reviewed the physical assessment, medical history, allergy history and patient home medications list prior to surgery/procedure/anesthetic and documented any changes. Performed airway and anesthesia risk assessments. Anesthesia Type Anesthesia Type: General Anesthesia Focused Assessment* Temperature: 98.6 F Pulse Rate: 82 Blood Pressure: 133/74 Respiratory Rate: 18 Pulse Ox: 98 Airway Assessment Mouth opens: >3 cm Mallampati Score: II Labs Anesthesia Preop lab: CBC WBC, (4.4-11.0) 13.1 K/mm3 H Today, 12:30 RBC, (4.2-5.4) 4.33 M/mm3 Today, 12:30 Hgb, (12.0-15.0) 12.2 g/dL Today, 12:30 Hct, (37-47) 35.5 % L Today, 12:30 Plt Count, (150-450) 197 K/mm3 Today, 12:30 CHEMISTRY Potassium, (3.3-5.1) 3.8 mmol/L Today, 12:30 Sodium, (133-145) 137 mmol/L Today, 12:30 BUN, (4-19) 13 mg/dL Today, 12:30 Creatinine, (0.70-1.20) 0.89 mg/dL Today, 12:30 Glucose, (70-99) 148 mg/dL H Today, 12:30 TSH, (0.358-3.740) 3.090 uIU/mL 02/28/24, 14:20 COAG Pre-Assessment Diagnosis/Proposed Procedure Planned Operative Procedure(s): lap appy Anesthesia History 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 When Was Last Pacemaker Check QUESTION #4 FULL TEXT: You/Your Family Experience fever (hyperthermia) with Anesthesia Last Oral Intake Last Oral intake: Last Oral Intake NPO since Meds taken in AM with sips of water? 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 Has anyone observed you stop breathing during sleep? STOP Results QUESTION #5 FULL TEXT : Do you snore loudly (louder than talking or can be heard through closed doors)? 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 Specify any problems Hx of Preganancy in last 3 Months Nurse Filling Out Transfusion & Questions: Date: Time: Patient unable to answer at this time (ie. 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 Tye Anaya, DO) Chronic anemia History of pre-eclampsia Anxiety TMJ arthralgia Left ear pain Blood glucose abnormal Hyperlipidemia Elevated liver enzymes Menstrual irregularity Screening for thyroid disorder Screening for cardiovascular condition GERD (gastroesophageal reflux disease) Preeclampsia Head ache Seasonal allergies Home Medications ?Medication ?Instructions ?Recorded ?Last Taken ?Type svcmajld-zaa-qklb-FA-Ca carb-vit K 1 tab PO QDAY 02/28/24 03/14/25 History 18 mg iron-400 mcg-500 mg tablet sertraline 25 mg tablet (Zoloft) 25 mg PO DAILY anxiety 03/11/25 03/14/25 History acetaminophen 325 mg tablet 650 mg (2 x 325 mg) PO Q6H PRN 03/18/25 Unknown Rx (Tylenol) pain #30 tabs docusate sodium 100 mg capsule 100 mg PO DAILY #30 caps 03/18/25 Unknown Rx (Stool Softener) ferrous sulfate 325 mg (65 mg 325 mg PO QODAY #30 tabs 03/18/25 Unknown Rx iron) tablet ibuprofen 600 mg tablet 600 mg PO Q6H PRN pain #30 tabs 03/18/25 Unknown Rx oxycodone 5 mg tablet 5 mg PO Q6H PRN pain 7 days #7 tabs 03/18/25 Unknown Rx Allergy/AdvReac Type Severity Reaction Status Date / Time dexamethasone (From Decadron) Allergy Intermediate syncope Verified 04/11/25 12:20 metoclopramide (From Reglan) Allergy Intermediate anxious Verified 04/11/25 12:20 Family History Grandfather Diabetes Grandmother Diabetes Grandmother Myocardial infarction, Onset Age: 50 Surgical History Delivery by section History of ear surgery S/P ACL repair History of tonsillectomy Social History household members: spouse and children housing: house 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
[2025-04-11] MEDS: 0.9% Normal Saline (1000mL) 250 ML IV (15:10)
[2025-04-11] MEDS: fentaNYL 100 MCG/2 ML Ampul IV (15:10)
[2025-04-11] MEDS: Lidocaine 1% (5 ml sdv) 5 ML Vial IV (15:14)
[2025-04-11] MEDS: Lactated Ringers 1,000 ML 1000 ML IV (15:32)
--- NOTE | 2025-04-11 15:35 | APP_PTH ---
PATIENT: MARCELO LOZA LOC: [facility] U#:[id number] AGE/SX: 24 ROOM: MA315 RE04/11/[address]: Dr. Analy Priest MD : [id number] BED: 1 DIS: 04/11/2025 SPEC #: [id number] RECD: 04/12/25 08:19 STATUS: MICHAEL MARIOLA #: [id number] DEEPTI: 04/11/25 15:[address]: Analy Priest DEPT: SURGICAL PATHOLOGY RECD BY: Valente Lara ENTERED: 04/12/25 10:07 SP TYPE: APPENDIX OTHR DR: Dr. Hector Gorman MD Tissues: A - Appendix, NOS Procedures: Surgery Specimen Level III HEADER OPERATION: Laparoscopic appendectomy PRE-OP DIAGNOSIS: Acute appendicitis TISSUE SUBMITTED: A- Appendix MICROSCOPIC DIAGNOSIS A. Appendix, laparoscopic appendectomy: * Acute suppurative appendicitis with transmural inflammation and periappendicitis MICROSCOPIC DESCRIPTION Slides are reviewed. GROSS DESCRIPTION A. Received in formalin labeled with the patient's name and date of . Designated as appendix is a 5.8 x 0.9 cm rhodes appendix with patchy, serosal exudate. The margin is inked black and shaved. Sectioning reveals pink to erythematous mucosa with slightly hemorrhagic fecal material within the lumen. Healthcare Advisory Services Manager sections are submitted in 1 cassette. GA 04/12/2025 CPT:19726
[2025-04-11] MEDS: Bupiv/Epi 0.25% 30 ML Vial (15:47)
--- NOTE | 2025-04-11 16:00 | OP.PCM_ITS ---
Operative Report (Standard)
--- NOTE | 2025-04-11 16:00 | PCM.OPRPT ---
Operative Report (Standard) Operative Information Date of Procedure: 04/11/25 Pre-Operative Diagnosis: Acute appendicitis Post-Operative Diagnosis: Same Surgery/Procedure Performed: Laparoscopic appendectomy lamination builder: No Type of Anesthesia: General/Supplemental RN Documented Start/Stop Times: Operation Date: 04/11/25 15:35 Case Time Anesthesia Start 04/11/25 15:10 Into Room 04/11/25 15:10 Procedure Start 04/11/25 15:29 Procedure End 04/11/25 16:00 Anesthesia End 04/11/25 16:09 Out of Room 04/11/25 16:09 Into Recovery 04/11/25 16:11 Procedure Start Time: 15:29 Procedure Stop Time: 16:00 Select all DRAINS/GRAFTS/IMPLANTS that apply: None Special Medications: Zosyn 3.375 g IV x 1 Estimated Blood Loss: < 10 cc Specimen collected: Yes Description of specimen(s) removed: Appendix Description of surgery: Indications: 24-year-old female presented to the ER with new right lower quadrant pain this morning. On workup she was found to have acute appendicitis on CT and a leukocytosis of 13. Patient was started on antibiotics in the ER for acute appendicitis-Zosyn 3.375 g IV x 1 Description of the procedure: The patient was placed on operating table in supine position. General anesthesia was induced. A timeout was completed verifying correct patient, procedure, position and special equipment prior to beginning procedure. Abdomen was prepped and draped in usual sterile fashion. Incision was made in the natural skin line below the umbilicus with a 15 blade scalpel. The fascia was elevated and incised. Entry into the peritoneum was confirmed visually and no bowel was noted in the vicinity of the incision. The Lucas trocar was placed under direct vision. Abdomen insufflated with a pressure of 12-15 mmHg. Patient tolerated insertion well. The scope was inserted and the abdomen inspected. No injuries from initial trocar placement were noted. Inferior midline noted to have separation of the peritoneum about 3 to 4 cm in size with rectus muscle seen/intact?superior to the suprapubic port site?no hernia. Minimal amount of fluid was seen in the right lower quadrant. An direct visualization 2 -5 mm trocars were placed one above the symphysis pubis and below the hairline and one in the left lower quadrant lateral to the rectus muscle. Care is taken to avoid injury to the bladder and inferior epigastric vessels. The table was placed in Trendelenburg position with the right side elevated. The appendix was grasped with atraumatic grasper and elevated. It was noted to be inflamed. A window was developed in the mesoappendix at the point between the base of the appendix and the cecum. An endoscopic 45 mm linear cutting stapler blue load was then used to divide and staple the base of the appendix. Enseal used to divide the mesoappendix The appendix was withdrawn into the Lucas trocar after being placed endoscopically retrieval bag. Appendix was sent to pathology. The appendiceal stump was then irrigated and hemostasis was assured. Fluid was suctioned no other pathology was identified. Secondary trochars were removed under direct visualization. No bleeding was noted trocar sites. The laparoscope withdrawn and the umbilical trocar removed. The abdomen was allowed to collapse. Local anesthesia of 18 mL of 0.25% Marcaine was used at the incision sites. The umbilical trocar site was closed with the [id number] 0 Vicryl suture. The skin was closed using sutures of 4-0 Monocryl and Steri-Strips. The patient was extubated. The patient tolerated the procedure well and was taken to the postanesthesia care unit in satisfactory condition. Surgical Findings: See operative report Complications Complications: No
--- NOTE | 2025-04-11 16:12 | POSTOP.ANE_ITS ---
Anesthesia: Postop Eval I
--- NOTE | 2025-04-11 16:12 | PCM.POST.ANE ---
Anesthesia: Postop Eval I Current Vital Signs Temperature: 97.7 F Pulse Rate: 106 Blood Pressure: 115/66 Respiratory Rate: 16 Pulse Ox: 100 Assessment Airway patent: Yes Spontaneous unlabored respirations: Yes nausea: No Vomiting: No Anesthesia Complication: No Fluid Hydration Crystalloid volume administer (ml): 1,000 Total IV fluid infused: 1,000 Progress Note Anesthesia document: Postop Eval 1 completed: Yes
--- NOTE | 2025-04-11 16:14 | POSTOPAN2_ITS ---
Anesthesia Postop Eval I Sum
--- NOTE | 2025-04-11 16:14 | PCM.POSTANE2 ---
Anesthesia Postop Eval I Sum Postop Eval Completion status Anesthesia document: Postop Eval 1 completed: Yes Anesthesia Postop Eval I Summary Anesthesia Postop Eval I Summary: Anesthesia Postop Eval I: Assessment Summary Airway patent Yes 04/11/25 16:12 Spontaneous unlabored Yes 04/11/25 16:12 respirations Mental status nausea No 04/11/25 16:12 Vomiting No 04/11/25 16:12 Anesthesia Postop Eval I: Fluid Summary Crystalloid volume administer 1,000 04/11/25 16:12 (ml) Colloids volume administered ( ml) Blood Product volume administered (ml) Total IV fluid infused 1,000 04/11/25 16:12 Anesthesia Postop Eval I: Summary Notes Anesthesia Complication No 04/11/25 16:12 Anesthesia Complication Comment: Post-operative progress note Anesthesia: Postop Eval II Evaluation Mental status: Asleep Pain Level: 0 nausea: No Vomiting: No
--- NOTE | 2025-04-11 16:15 | DCINST_ITS ---
Discharge Instructions
--- NOTE | 2025-04-11 16:15 | EX.PCM.DISCH ---
Discharge Instructions Diet Discharge Diet: Light diet - advance as tolerated Activity Discharge Activity: May Not Drive (while taking narcotic pain medications.) May shower in (days): 1 Lifting Restrictions: no lifting >20 lbs x 2 wks, no strenuous exercise for 4 wks Dressing / Incision Call your doctor if your incision/area has: Continuous Slow Oozing, Sudden Increased Bleeding, Increased Pain/ Swelling, Increased Redness, Foul Smelling Discharge and Swelling at the incision site Call your doctor if you observe: Fever of 101 or Higher Remove Dressing in: 2 days Cleanse incision/area with: Soap & Water Additional Dressing/Incision Instructions:: Steri-Strips will fall off in 7 to 10 days, if they do not fall off okay to remove after 10 days. Follow Up Care Please Follow Up With: Analy Priest MD When: Call the office for a follow-up appointment 2 weeks; after 5 PM and on the weekends call [phone] with any concerns. Test Results: Test results from this visit will be discussed in further detail at your follow-up appointment, if applicable. Discharge Plan Admission Attending Provider: Analy Priest Primary Care Provider: Hector Gorman Instructions Print Language: Thai Discharge Orders/Prescriptions Prescriptions: Continued xl-qq-pafo-FA-Ca carb-vit K 18 mg iron-400 mcg-500 mg tablet 1 tab PO QDAY sertraline [Zoloft] 25 mg tablet 25 mg PO DAILY ibuprofen 600 mg tablet 600 mg PO Q6H PRN (Reason: pain) Qty: 30 0RF acetaminophen [Tylenol] 325 mg tablet 650 mg PO Q6H PRN (Reason: pain) Qty: 30 0RF ferrous sulfate 325 mg (65 mg iron) tablet 325 mg PO QODAY Qty: 30 0RF docusate sodium [Stool Softener] 100 mg capsule 100 mg PO DAILY Qty: 30 0RF oxycodone 5 mg tablet 5 mg PO Q6H PRN (Reason: pain) 7 Days Qty: 10 0RF Referrals / Follow Up: Hector Gorman MD [Primary Care Provider, Internal Medicine] Disposition Disposition (needs filled in before D/C Order can be placed): Home, Self Care
== END 2025-04-11 21:00 | disposition home or self-care (01) ==
LOC: ED 14:14 → ACINP 14:25 → ED 14:45 → ACINP 14:49 → ED 04-12 11:07 → SDC 04-12 15:56 → ACINP 04-12 15:56 → SDC 04-12 16:19 → MS3 04-12 16:19
PROVIDERS: Admitting Provider Surgery; Emergency Provider Emergency Medicine; PCP Internal Medicine; Visit Provider Surgery
PROC: 0DTJ4ZZ Resection of Appendix, Percutaneous Endoscopic Approach (ICD-10-PCS; CPT 44970; principal; 2025-04-11 15:15)
DX: K35.80 Unspecified acute appendicitis (principal); E78.5 Hyperlipidemia, unspecified; K21.9 Gastro-esophageal reflux disease without esophagitis; D64.9 Anemia, unspecified; F41.9 Anxiety disorder, unspecified; M26.619 Adhesions and ankylosis of temporomandibular joint, unspecified side; Z79.899 Other long term (current) drug therapy
CPT/HCPCS: 44970; 00840; 74177; 80053; 81001; 83690; 85025; 88304; 96374; 99282; Q9967; A4216; J2405